=== PATIENT | female | born 1935 | race Caucasian/White ===

== ENCOUNTER → 2016-10-13 | Outpatient (CLI) | payer OTHER ==
[~2016-10-13] MED LIST: AMOX875T PO; ASCA500 PO; FRS/40 PO; GLC/500 PO; GLIM2TAB2 PO; LISI-461 PO; LORA-741 PO; MULT-190 PO; PRAM0.129 PO; SIMV20TA2 PO; SYMIN INH; TIOTCAP INH
--- NOTE | 2016-10-13 15:48 | MAMMOGRAPHY REPORT ---
BILATERAL DIGITAL SCREENING MAMMOGRAM WITH CAD: 10/13/2016 CLINICAL HISTORY: Routine screening. Patient has no complaints. TECHNIQUE: Current study was also evaluated with a Computer Aided Detection (CAD) system. Bilatera l CC and MLO views were obtained. COMPARISON: Comparison is made to exams dated: 04/09/2014 mammogram, 04/04/2012 mammogram, 04/07/2013 ma mmogram, 04/03/2011 mammogram, 03/31/2010 mammogram - [facility], and 03/30/2009. BREAST COMPOSITION: The tissue of both breasts is almost entirely fatty. FINDINGS: No suspicious masses, calcifications, or areas of architectural distortion are noted in e ither breast. There has been no significant interval change compared to prior exams. Scattered bila teral benign appearing calcifications are not significantly changed. Small benign appearing mass in the right subareolar breast is stable compared to multiple prior exams. IMPRESSION: ACR BI-RADS CATEGORY 2: BENIGN There is no mammographic evidence of malignancy. A 1 year screening mammogram is recommended. The p atient will receive written notification of the results. Approximately 10% of breast cancers are not detected with mammography. A negative mammographic repor t should not delay biopsy if a clinically suggestive mass is present. Chyna Hartman M.D. ah/:10/13/2016 14:40:08 Bill Checker: Shelby LAU(Mark)(M), [facility] letter sent: Normal 1/2 BI-RADS Code: ACR BI-RADS Category 2: Benign
== END | disposition home or self-care (01) ==
LOC: C.MAMM 14:00
PROVIDERS: ATTEND Internal Medicine
DX: Z12.31 Encounter for screening mammogram for malignant neoplasm of breast (principal)

== ENCOUNTER → 2016-11-27 | Outpatient (CLI) | payer OTHER ==
--- NOTE | 2016-11-27 15:49 | DIAGNOSTIC IMAGING REPORT ---
CHEST 2 VIEWS ROUTINE CLINICAL HISTORY: Shortness of breath. Congestion. COMPARISON STUDY: Chest radiograph February 25, 2014. FINDINGS: There is no pneumothorax or pleural effusion. Hazy opacity along the right and left heart borders likely reflect prominent epicardial fat pad. There is pulmonary vascular congestion without overt pulmonary edema. Linear opacities suggest atelectasis. No consolidation is identified to suggest pneumonia. IMPRESSION: 1. Pulmonary vascular congestion without overt pulmonary edema. 2. Linear opacities suggestive of atelectasis. Electronically signed by: Jose Maria Nolasco M.D. 11/27/2016 3:48 PM Dictated Date/Time: 11/27/2016 3:47 PM
== END | disposition home or self-care (01) ==
LOC: C.RAD 15:08
PROVIDERS: ATTEND Nurse Practitioner
DX: J44.1 Chronic obstructive pulmonary disease with (acute) exacerbation (principal)

== ENCOUNTER → 2017-03-07 | Outpatient (CLI) | payer OTHER ==
[2017-03-07 12:20] LABS: HEMATOCRIT 39.4 % (37-47); MEAN CORPUSCULAR HEMOGLOBIN 30.1 pg (25-34); MEAN CORPUSCULAR HGB CONC 30.7 g/dl (32-36); MEAN PLATELET VOLUME 11.7 fL (7.4-10.4); PLATELET COUNT 277 K/uL (130-400); RED BLOOD COUNT 4.02 M/uL (4.2-5.4); WHITE BLOOD COUNT 7.55 K/uL (4.8-10.8)
[2017-03-07 12:47] LABS: ESTIMATED AVERAGE GLUCOSE 206 mg/dl; HA1C FLAG Normal (Normal)
[2017-03-07 12:51] LABS: ALT/SGPT 22 U/L (12-78); BLOOD UREA NITROGEN 20 mg/dl (7-18); BUN/CREATININE RATIO 25.5 (10-20); CARBON DIOXIDE 31 mmol/L (21-32); CHLORIDE 101 mmol/L (98-107); GLUCOSE 185 mg/dl (70-99); POTASSIUM 4.6 mmol/L (3.5-5.1); SODIUM 139 mmol/L (136-145)
[2017-03-07 12:57] LABS: CALCIUM 9.6 mg/dl (8.5-10.1)
[2017-03-07 13:01] LABS: ALB/GLOB RATIO 0.8 (0.9-2); ALKALINE PHOSPHATASE 75 U/L (45-117); AST/SGOT 14 U/L (15-37)
== END | disposition home or self-care (01) ==
LOC: C.LABBFT 10:45
PROVIDERS: ATTEND Internal Medicine
DX: E11.9 Type 2 diabetes mellitus without complications (principal)

== ENCOUNTER 2017-05-27 20:48 | Emergency (ER) | payer OTHER ==
[~2017-05-27] VITALS: Ht 167.6 cm; Wt 136.4 kg
[~2017-05-27 20:48] MED LIST changes: -AMOX875T PO; -GLIM2TAB2 PO
[2017-05-27 21:14] VITALS: TEMP 36.7; Ht 167.6 cm; Wt 136.4 kg
[2017-05-27] MEDS ORDERED: SODIUM CHLORIDE 0.9% 1000ML 500 ML IV STA (21:23)
--- NOTE | 2017-05-27 21:27 | EMERGENCY ROOM VISIT NOTE ---
History Report prepared by Lucrecia: Jessenia Winn Under the Supervision of: Dr. Sam Hummel M.D. First contact with patient: 21:18 Chief Complaint: SWELLING TO EXTREMITY Stated Complaint: SORE/INFLAMED LOWER RT LEG History of Present Illness The patient is a 82 year old female who presents to the Emergency Room with complaints of worsening swelling to her right lower extremity for the past week. The patient states that she has chronic "problems" with her right leg, but over the past week this has worsened. She reports pain, swelling, and redness to the right lower leg. She states that it is painful to the touch and, "hurts even to lie down." She rates her current pain as a 6/10 in severity. The patient denies recent fevers or chills, and any personal history of cellulitis or DVTs. She does not take any blood thinners. She is not currently on any antibiotics. The patient has not seen her PCP for these symptoms. She wears 2L of O2 at all times. Source of History: patient Onset: 1 week ago Position: leg (right) Symptom Intensity: 6/10 Quality: other (swelling) Timing: worsening Associated Symptoms: No fevers, No chills Review of Systems See HPI for pertinent positives & negatives. A total of 10 systems reviewed and were otherwise negative. Past Medical & Surgical Medical Problems: (1) COPD (chronic obstructive pulmonary disease) (2) Hypertension (3) Morbid obesity with BMI of 50.0-59.9, adult Family History Depression Diabetes mellitus Social History Smoking Status: Never Smoker Drug Use: none Marital Status: Housing Status: lives with family Occupation Status: retired Current/Historical Medications Scheduled Amoxicillin & Pot Clavulanate (Augmentin 875-125 mg), 875 MG PO BID Ascorbic Acid (Vitamin C), 500 MG PO DAILY Budesonide/Formoterol Fumarate (Symbicort 160-4.5 Mcg/Act), 2 PUFFS INH BIDR Furosemide (Lasix), 40 MG PO QAM Glimepiride (Glimepiride), 1 TAB PO DAILY Lisinopril (Lisinopril), 10 MG PO QAM Metformin Hcl (Glucophage), 500 MG PO DAILY Ocuvite Preservision (Ocuvite Preservision), 2 TAB PO DAILY Pramipexole (Mirapex), 0.125 MG PO HS Simvastatin (Zocor), 20 MG PO QPM Scheduled PRN Lorazepam (Ativan), 0.5 MG PO DAILY PRN for Anxiety Allergies Coded Allergies: Iodine (Verified Allergy, Intermediate, SHORTNESS OF BREATH, 05/27/17) Physical Exam Vital Signs Date Time Temp Pulse Resp B/P (MAP) Pulse Ox O2 Delivery O2 Flow Rate FiO2 05/28/17 00:55 88 20 165/102 98 Room Air 05/27/17 22:47 87 20 165/89 100 Room Air 05/27/17 21:49 85 20 165/89 99 Room Air 05/27/17 21:14 36.7 92 18 166/105 100 Room Air Physical Exam GENERAL: Patient is in no acute distress. HEENT: No acute trauma, normocephalic atraumatic, mucous membranes moist, no nasal congestion, no scleral icterus. NECK: No stridor, no adenopathy, no meningismus, trachea is midline. LUNGS: Decreased breath sounds bilaterally, breath sounds are equal, no wheezing or rhonchi HEART: 2/6 systolic murmur with a regular rate and rhythm. ABDOMEN: Soft, nontender, bowel sounds positive, no hernias, no peritonitis. EXTREMITIES: No cyanosis, moderate bilateral pedal edema, full range of motion of all the joints without pain or difficulty, no signs for acute trauma. Right leg erythema and warmth from the midleg to the ankle, no drainage. NEUROLOGIC: Oriented x 3, no acute motor or sensory deficits, no focal weakness. SKIN: No rash, no jaundice, no diaphoresis. Medical Decision & Procedures ER Provider Diagnostic Interpretation: Radiology results as stated below per my review and radiologist interpretation: US VENOUS RIGHT LOWER EXTREMITY: No evidence of DVT in the right thigh or popliteal veins. Limited visualization of calf veins due to edema. Right popliteal fossa cyst, 6.4 x 2.0 x 2.2 cm. Radiologist: Brad Quintana MD. Laboratory Results 05/27/17 21:36 Red Blood Count 4.09, Mean Corpuscular Volume 96.1, Mean Corpuscular Hemoglobin 30.3, Mean Corpuscular Hemoglobin Concent 31.6, Mean Platelet Volume 10.9, Neutrophils (%) (Auto) 63.0, Lymphocytes (%) (Auto) 24.4, Monocytes (%) (Auto) 9.6, Eosinophils (%) (Auto) 2.4, Basophils (%) (Auto) 0.3, Neutrophils # (Auto) 6.64, Lymphocytes # (Auto) 2.57, Monocytes # (Auto) 1.01, Eosinophils # (Auto) 0.25, Basophils # (Auto) 0.03 05/27/17 21:36 Test 05/27/17 21:36 White Blood Count 10.53 K/uL (4.8-10.8) Red Blood Count 4.09 M/uL (4.2-5.4) Hemoglobin 12.4 g/dL (12.0-16.0) Hematocrit 39.3 % (37-47) Mean Corpuscular Volume 96.1 fL (80-100) Mean Corpuscular Hemoglobin 30.3 pg (25-34) Mean Corpuscular Hemoglobin Concent 31.6 g/dl (32-36) Platelet Count 310 K/uL (130-400) Mean Platelet Volume 10.9 fL (7.4-10.4) Neutrophils (%) (Auto) 63.0 % Lymphocytes (%) (Auto) 24.4 % Monocytes (%) (Auto) 9.6 % Eosinophils (%) (Auto) 2.4 % Basophils (%) (Auto) 0.3 % Neutrophils # (Auto) 6.64 K/uL (1.4-6.5) Lymphocytes # (Auto) 2.57 K/uL (1.2-3.4) Monocytes # (Auto) 1.01 K/uL (0.11-0.59) Eosinophils # (Auto) 0.25 K/uL (0-0.5) Basophils # (Auto) 0.03 K/uL (0-0.2) RDW Standard Deviation 48.0 fL (36.4-46.3) RDW Coefficient of Variation 13.6 % (11.5-14.5) Immature Granulocyte % (Auto) 0.3 % Immature Granulocyte # (Auto) 0.03 K/uL (0.00-0.02) Prothrombin Time 10.4 SECONDS (9.0-12.0) Prothromb Time International Ratio 1.0 (0.9-1.1) Activated Partial Thromboplast Time 28.0 SECONDS (21.0-31.0) Partial Thromboplastin Ratio 1.1 Anion Gap 3.0 mmol/L (3-11) Est Creatinine Clear Calc Drug Dose 79.8 ml/min Estimated GFR () 80.7 Estimated GFR (Non- 69.6 BUN/Creatinine Ratio 30.1 (10-20) Lactic Acid Level 1.0 mmol/L (0.4-2.0) Calcium Level 9.3 mg/dl (8.5-10.1) Total Bilirubin 0.2 mg/dl (0.2-1) Aspartate Amino Transf (AST/SGOT) 13 U/L (15-37) Alanine Aminotransferase (ALT/SGPT) 18 U/L (12-78) Alkaline Phosphatase 88 U/L (45-117) Total Protein 8.4 gm/dl (6.4-8.2) Albumin 3.4 gm/dl (3.4-5.0) Globulin 5.0 gm/dl (2.5-4.0) Albumin/Globulin Ratio 0.7 (0.9-2) Laboratory results reviewed by me. Medications Administered Medications (Trade) Dose Ordered Sig/Marisabel Route Start Time Stop Time Status Last Admin Dose Admin Sodium Chloride 500 ml @ 999 mls/hr Q31M STAT IV 05/27/17 21:23 05/27/17 21:53 DC 05/27/17 21:23 999 MLS/HR Ampicillin Sodium/ Sulbactam Sodium 3000 mg/Sodium Chloride 108 ml @ 200 mls/hr ONE ONCE IV 05/27/17 21:30 05/27/17 22:02 DC 05/27/17 21:46 200 MLS/HR Amoxicillin/ Clavulanate Potassium (Augmentin 875MG Home Pack) 1 homepack STK-MED ONCE PO 05/28/17 01:57 05/28/17 01:58 DC 05/28/17 02:00 1 HOMEPACK ED Course 2117: The patient was evaluated in room A3. A complete history and physical exam was performed. 2122: NSS 500 ml @ 999 mls/hr IV 2129: Ampicillin Sodium/Sulbactam Sodium 3000 mg/Sodium Chloride 108 ml @ 200 mls/hr IV 8: I reevaluated the patient and she is doing well. 0149: I reassessed the patient at this time. She is feeling better and resting comfortably. I discussed the results and treatment plan with the patient. I answered all pertaining questions that she had. She expressed understanding and verbalized agreement. The patient will be discharged home. 0900: Augmentin tab 875 mg PO Medical Decision Differential diagnoses includes cellulitis, DVT, sepsis, bacteremia, renal failure, electrolyte imbalance, dehydration. There is no leukocytosis or concerning anemia. No significant electrolyte abnormality, kidney failure or hepatitis. There is no coagulopathy. Lactic acid level is not elevated making sepsis less likely. Blood cultures are pending. Preliminary right lower extremity ultrasound shows a Castrejon's cyst, no acute DVT. The official ultrasound results are currently pending. The patient was given IV saline, IV Unasyn. She is doing well. She is not toxic, she is not febrile. She is being discharged home on Augmentin twice a day for 10 days. Elevation and rest were encouraged. She will see her doctor this week. If she has worsening redness, fever or vomiting, she will return. Of note, the patient's blood pressure was somewhat elevated, this is likely situational but I have referred her back to her doctor's office for a blood pressure follow-up. Medication Reconcilliation Current Medication List: was personally reviewed by me Blood Pressure Screening Patient's blood pressure: Elevated blood pressure Blood pressure disposition: Referred to PCP Impression Primary Impression: Cellulitis Scribe Attestation The scribe's documentation has been prepared under my direction and personally reviewed by me in its entirety. I confirm that the note above accurately reflects all work, treatment, procedures, and medical decision making performed by me. Departure Information Dispostion Home / Self-Care Prescriptions Amoxicillin & Pot Clavulanate (Augmentin 875-125 mg) 1 Tab Tab 875 MG PO BID for 10 Days, #20 TAB Prov: Sam Hummel M.D. 05/28/17 Referrals Balwinder Peace M.D. (PCP) Forms HOME CARE DOCUMENTATION FORM, IMPORTANT VISIT INFORMATION, WORK / SCHOOL INSTRUCTIONS Patient Instructions My [facility] Impact Driven Additional Instructions augmentin 2x per day for 10 days try and stay off of your feet and keept he leg elevated see your doctor this week--call for an appt return for fever, vomiting or worsening redness lab testing was ok no clot by ultrasound today Problem Qualifiers Primary Impression: Cellulitis Site of cellulitis: extremity Site of cellulitis of extremity: lower extremity Laterality: right Qualified Codes: L03.115 - Cellulitis of right lower limb
[2017-05-27] MEDS ORDERED: AMPICILLIN/SULBACTAM SOD INJ 3,000 MG in SODIUM CHLORIDE 0.9% 100ML 100 ML IV ONE (21:30)
[2017-05-27 21:57] LABS: BASO % 0.3 %; BASO ABS # 0.03 K/uL (0-0.2); COMPLETE YES; EOS % 2.4 %; HEMATOCRIT 39.3 % (37-47); IG% 0.3 %; LYMPH % 24.4 %; LYMPH ABS # 2.57 K/uL (1.2-3.4); MEAN CELL VOLUME 96.1 fL (80-100); MEAN CORPUSCULAR HEMOGLOBIN 30.3 pg (25-34); MEAN CORPUSCULAR HGB CONC 31.6 g/dl (32-36); MEAN PLATELET VOLUME 10.9 fL (7.4-10.4); MONO % 9.6 %; PLATELET COUNT 310 K/uL (130-400); RED BLOOD COUNT 4.09 M/uL (4.2-5.4); WHITE BLOOD COUNT 10.53 K/uL (4.8-10.8)
[2017-05-27 22:06] LABS: PARTIAL THROMBOPLASTIN RATIO 1.1; PROTHROMBIN TIME (PATIENT) 10.4 SECONDS (9.0-12.0)
[2017-05-27 22:17] LABS: BUN/CREATININE RATIO 30.1 (10-20); CALCIUM 9.3 mg/dl (8.5-10.1); CREATININE 0.8 mg/dl (0.60-1.20); POTASSIUM 3.9 mmol/L (3.5-5.1)
[2017-05-27 22:20] LABS: ALB/GLOB RATIO 0.7 (0.9-2)
[2017-05-27] MEDS ORDERED: GLIM2TAB2 PO (22:24)
[2017-05-28] MEDS ORDERED: AMOX875T PO (01:42)
[2017-05-28] MEDS ORDERED: AMOXICIL/CLAVU 875MG HOME PACK PO ONE (01:57)
[2017-05-28 02:08] VITALS: BP 188/94; PULSE 68; O2SAT 99
--- NOTE | 2017-05-28 07:09 | DIAGNOSTIC IMAGING REPORT ---
RIGHT LOWER EXTREMITY VENOUS DOPPLER CLINICAL HISTORY: Right lower extremity pain and swelling. COMPARISON STUDY: No previous studies for comparison. TECHNIQUE: Sonography of the deep venous system of the right lower extremity was performed. Compression and augmentation were evaluated. FINDINGS: The common femoral, superficial femoral and popliteal veins were compressible. Augmentation was normal. Flow was shown within the deep calf vessels. Note is made of a 6.4 x 2 x 2.2 cm right popliteal fluid collection suggestive of a popliteal cyst. IMPRESSION: 1. No evidence of deep venous thrombus within the right lower extremity. 2. 6.4 x 2 x 2.2 cm right popliteal cyst. Electronically signed by: Jose Maria Nolasco M.D. 05/28/2017 7:08 AM Dictated Date/Time: 05/28/2017 7:07 AM
[2017-05-28] MEDS ORDERED: AMOXICILLIN/CLAVULANATE TAB 875 MG TAB PO ONE (09:00)
== END 2017-05-28 02:09 | disposition home or self-care (01) ==
LOC: C.EDB 20:49 → C.EDA 05-28 02:09
DX: L03.115 Cellulitis of right lower limb (principal); J44.9 Chronic obstructive pulmonary disease, unspecified; I10 Essential (primary) hypertension; E66.01 Morbid (severe) obesity due to excess calories; Z83.3 Family history of diabetes mellitus

== ENCOUNTER → 2017-06-19 | Outpatient (CLI) | payer OTHER ==
[~2017-06-19] MED LIST changes: +GLIM2TAB2 PO; -TIOTCAP INH
--- NOTE | 2017-06-19 14:25 | DIAGNOSTIC IMAGING REPORT ---
RIGHT KNEE 4 OR MORE CLINICAL HISTORY: RIGHT KNEE PAIN Right COMPARISON STUDY: Right knee 11/28/2009. FINDINGS: 4 views of the right knee were submitted including an AP standing view of the bilateral knees. There is a left total knee arthroplasty. Severe osteoarthritis within the medial compartment of the right knee which has progressed. This demonstrates [id number] articulation, subchondral sclerosis, and large marginal osteophytes. There are small marginal osteophytes at the lateral compartment. There is mild to moderate osteoarthritis within the patellofemoral compartment demonstrated by cartilage space narrowing and marginal osteophytes. No significant knee effusion. No fracture or dislocation within the right knee. IMPRESSION: Tricompartmental osteoarthritis within the right knee which is most severe at the medial compartment. This demonstrates [id number] articulation. This has progressed in the interval. Electronically signed by: Keith Parker M.D. 06/19/2017 2:24 PM Dictated Date/Time: 06/19/2017 2:21 PM
== END | disposition home or self-care (01) ==
LOC: C.RDSM 14:01
PROVIDERS: ATTEND Internal Medicine
DX: M25.561 Pain in right knee (principal)

== ENCOUNTER → 2017-07-23 | Outpatient (CLI) | payer OTHER ==
[2017-07-23 17:44] LABS: HEMATOCRIT 39.4 % (37-47); MEAN CELL VOLUME 97.3 fL (80-100); MEAN CORPUSCULAR HEMOGLOBIN 30.4 pg (25-34); MEAN CORPUSCULAR HGB CONC 31.2 g/dl (32-36); MEAN PLATELET VOLUME 12.3 fL (7.4-10.4); PLATELET COUNT 304 K/uL (130-400); RED BLOOD COUNT 4.05 M/uL (4.2-5.4); WHITE BLOOD COUNT 9.35 K/uL (4.8-10.8)
[2017-07-23 18:01] LABS: ALT/SGPT 16 U/L (12-78); BLOOD UREA NITROGEN 21 mg/dl (7-18); BUN/CREATININE RATIO 26.7 (10-20); CARBON DIOXIDE 33 mmol/L (21-32); CHLORIDE 100 mmol/L (98-107); CHOLESTEROL 168 mg/dl (0-200); CREATININE 0.78 mg/dl (0.60-1.20); GLUCOSE 100 mg/dl (70-99); SODIUM 138 mmol/L (136-145); TRIGLYCERIDES 172 mg/dl (0-150); VERY LOW DENSITY LIPOPROT CALC 34 mg/dl
[2017-07-23 18:11] LABS: ALB/GLOB RATIO 0.7 (0.9-2); ALKALINE PHOSPHATASE 83 U/L (45-117); AST/SGOT 14 U/L (15-37); CHOLESTEROL/HDL RATIO 3.5; HDL CHOLESTEROL 48 mg/dl; LDL CHOLESTEROL CALCULATED 86 mg/dl
[2017-07-24 07:32] LABS: ESTIMATED AVERAGE GLUCOSE 154 mg/dl; HA1C FLAG Normal (Normal)
== END | disposition home or self-care (01) ==
LOC: C.LABBFT 15:29
PROVIDERS: ATTEND Internal Medicine
DX: E11.65 Type 2 diabetes mellitus with hyperglycemia (principal)

== ENCOUNTER 2017-11-07 17:43 | Inpatient (IN) | payer OTHER ==
[~2017-11-07] VITALS: Ht 165.1 cm; Wt 135.4 kg
[2017-11-07] MEDS ORDERED: ALBUTEROL 0.083% NEBU SOLN 3 ML VIAL INH STA (18:08)
[2017-11-07] MEDS ORDERED: METHYLPREDNISOLONE IV 40 MG in SYRINGE 0 ML IV SCH (18:15)
[2017-11-07 18:21] VITALS: PULSE 128; O2SAT 97
[2017-11-07 18:22] VITALS: PULSE 127; O2SAT 97
--- NOTE | 2017-11-07 18:34 | DIAGNOSTIC IMAGING REPORT ---
SINGLE VIEW CHEST CLINICAL HISTORY: Dyspnea. FINDINGS: An AP, portable, upright chest radiograph is compared to study dated 11/27/2016. The examination is degraded by portable technique, large body habitus, and patient rotation. The heart is enlarged and there is atherosclerotic calcification of the thoracic aorta. There is pulmonary vascular congestion and interstitial edema. There are small pleural effusions with bibasilar consolidation. No pneumothorax is seen. The skeletal structures are osteopenic. The bony thorax is grossly intact. IMPRESSION: 1. Cardiomegaly with evidence of congestive failure and interstitial edema. 2. There are small pleural effusions with bibasilar consolidation. This likely represents atelectasis. Correlate clinically for evidence of superimposed pneumonia. Electronically signed by: Sam Kyle M.D. 11/07/2017 6:33 PM Dictated Date/Time: 11/07/2017 6:32 PM
[2017-11-07] MEDS ORDERED: NITROGLYCERIN OINT 2% 1GM PACKET EXT ONE (18:45)
[2017-11-07 19:01] LABS: BASO % 0.2 %; BASO ABS # 0.03 K/uL (0-0.2); EOS % 1.7 %; EOS ABS # 0.23 K/uL (0-0.5); HEMATOCRIT 41.1 % (37-47); HEMOGLOBIN 12.7 g/dL (12.0-16.0); IG# 0.03 K/uL (0.00-0.02); LYMPH % 14.9 %; MEAN CELL VOLUME 97.2 fL (80-100); MEAN CORPUSCULAR HGB CONC 30.9 g/dl (32-36); MEAN PLATELET VOLUME 11.3 fL (7.4-10.4); MONO % 6.2 %; MONO ABS # 0.83 K/uL (0.11-0.59); NEUT % 76.8 %; NEUT ABS # 10.33 K/uL (1.4-6.5); PLATELET COUNT 287 K/uL (130-400); RED CELL DISTRIBUTION WIDTH CV 14.5 % (11.5-14.5); RED CELL DISTRIBUTION WIDTH SD 51.8 fL (36.4-46.3); WHITE BLOOD COUNT 13.45 K/uL (4.8-10.8)
[2017-11-07] MEDS ORDERED: CITA10TA4 PO ×2 (19:07→20:21)
[2017-11-07] MEDS ORDERED: FRS/40 PO (19:07)
[2017-11-07 19:09] LABS: PTT PATIENT 27.1 SECONDS (21.0-31.0)
[2017-11-07] MEDS ORDERED: LISI10TA PO (19:16)
[2017-11-07] MEDS ORDERED: ALBUAER INH (19:16)
[2017-11-07] MEDS ORDERED: IPRASOL4 INH (19:16)
[2017-11-07] MEDS ORDERED: SYMIN160 INH (19:16)
[2017-11-07] MEDS ORDERED: GLIM2TAB2 PO (19:16)
[2017-11-07 19:27] LABS: ALBUMIN 3.3 gm/dl (3.4-5.0); ALT/SGPT 19 U/L (12-78); BLOOD UREA NITROGEN 23 mg/dl (7-18); CALCIUM 9.2 mg/dl (8.5-10.1); CARBON DIOXIDE 28 mmol/L (21-32); CREATININE 0.83 mg/dl (0.60-1.20); GLUCOSE 180 mg/dl (70-99); POTASSIUM 4.3 mmol/L (3.5-5.1); SODIUM 138 mmol/L (136-145)
[2017-11-07] MEDS ORDERED: FUROSEMIDE 40 MG/4 ML VIAL IV STA (19:30)
[2017-11-07 19:32] LABS: ALKALINE PHOSPHATASE 85 U/L (45-117); AST/SGOT 16 U/L (15-37); TOTAL PROTEIN 8.1 gm/dl (6.4-8.2)
[2017-11-07] MEDS ORDERED: ALBUTEROL 0.083% NEBU SOLN 3 ML VIAL INH PRN (20:00)
[2017-11-07] MEDS ORDERED: ONDANSETRON INJ 2 MG/ML 2 ML VIAL IV PRN (20:00)
[2017-11-07] MEDS ORDERED: MoRPHine SULFATE 2 MG/ML CARP IV PRN (20:00)
[2017-11-07] MEDS ORDERED: ACETAMINOPHEN 325 MG TAB PO PRN (20:00)
[2017-11-07] MEDS ORDERED: POLYETHYLENE (MIRALAX) 17 GM PACK PO PRN (20:00)
[2017-11-07] MEDS ORDERED: MAGNESIUM HYDROXIDE SUSP 30 ML UDC PO PRN (20:00)
[2017-11-07] MEDS ORDERED: ALUMINUM/MAGNESIUM/SIMETH (MAALOX MAX) 30 ML UDC PO PRN (20:00)
[2017-11-07] MEDS ORDERED: NITROGLYCERIN 0.4 MG SL PER TAB CHARGE SL PRN (20:00)
--- NOTE | 2017-11-07 20:29 | History and Physical ---
History & Physical Date & Time of Service: Nov 07, 2017 at 19:57 Chief Complaint: SOB Primary Care Physician: Balwinder Peace M.D. History of Present Illness Source: patient, hospital records 82 y/o F Hx COPD, DM II, morbid obesity, CELIA, HTN, HPL. Pt presents with progressive dyspnea, pronounced with exertion in addition to weight gain of approximately 20 pounds in 2 weeks. She denies CP, a productive cough, n/v or fevers. Initial labs and imaging are consistent with CHF. The pt does not have a previous history of CHF and does not see a carder blankets. Past Medical/Surgical History 1) COPD 2) CELIA - noncompliant with CPAP 3) Morbid obesity 4) HPL 5) HTN 6) DM II 7) Rate-related LBBB Family History Depression Diabetes mellitus Mother COPD Father COPD, lung CA Social History Smoking Status: Never Smoker Drug Use: none Marital Status: Occupational Status: retired Immunizations History of Influenza Vaccine: N/A History of Tetanus Vaccine?: Yes Tetanus Immunization Date: May 16, 2000 History of Pneumococcal: Yes Pneumococcal Date: May 16, 2000 History of Hepatitis B Vaccine: No Multi-Drug Resistant Organisms History of MDRO: No Allergies Coded Allergies: Iodine (Verified Allergy, Intermediate, SHORTNESS OF BREATH, 05/27/17) Home Medications Scheduled Ascorbic Acid (Vitamin C), 500 MG PO DAILY Budesonide/Formoterol Fumarate (Symbicort 160/4.5 Inhaler), 2 PUFFS INH BID Citalopram Hydrobromide (Citalopram Hydrobromide), 1 TAB PO DAILY Furosemide (Lasix), 40 MG PO DAILY Glimepiride (Glimepiride), 1 TAB PO QAM Ipratropium-Albuterol (Duoneb), 1 TREATMENT INH QID Lisinopril (Prinivil), 10 MG PO DAILY Ocuvite Preservision (Ocuvite Preservision), 2 TAB PO DAILY Pramipexole (Mirapex), 0.125 MG PO HS Simvastatin (Zocor), 20 MG PO QPM Scheduled PRN Albuterol Sulfate (Proventil Hfa), 2 PUFFS INH QID PRN for SOB/Wheezing Lorazepam (Ativan), 0.5 MG PO DAILY PRN for Anxiety Review of Systems Constitutional: + problem reported (weight gain), No fever, No chills, No sweats Eyes: No worsening of vision ENT: No hearing loss, No unusual epistaxis, No nasal symptoms Respiratory: + cough, + sputum, + shortness of breath, + dyspnea on exertion, + dyspnea at rest Cardiovascular: + orthopnea, No chest pain Abdomen: No pain, No nausea, No vomiting Musculoskeletal: No joint pain Genitourinary - Female: No dysuria, No urinary frequency, No urinary urgency Neurologic: No memory loss, No paralysis, No weakness Psychiatric: No depression symptoms Endocrine: No fatigue Hematologic / Lymphatic: No abnormal bleeding/bruising Integumentary: No rash Allergic / Immunologic: No environmental allergies Physical Exam Vital Signs Date Time Temp Pulse Resp B/P (MAP) Pulse Ox O2 Delivery O2 Flow Rate FiO2 11/07/17 19:19 99 19 145/78 100 BiPAP 11/07/17 18:32 60 11/07/17 18:23 97 BiPAP 11/07/17 18:23 97 BiPAP 11/07/17 18:22 127 97 100 11/07/17 18:21 128 29 97 BiPAP/CPAP 100 11/07/17 18:06 128 11/07/17 17:57 37.1 137 36 147/128 97 Non-Rebreather 15.0 11/07/17 17:57 97 Non-Rebreather 15.0 General Appearance: WD/WN, no apparent distress Head: normocephalic Eyes: normal inspection ENT: normal ENT inspection, pharynx normal Neck: supple, + pertinent finding (cannot assess JVD) Respiratory/Chest: + crackles (at bases BL), + pertinent finding (generally poor air movement) Cardiovascular: regular rate, rhythm Abdomen/GI: normal bowel sounds, non tender, soft Back: normal inspection, no CVA tenderness Extremities/Musculoskelatal: + pedal edema, + pertinent finding (stasis changes ) 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, no motor/sensory deficits, alert Skin: + pertinent finding (Stasis changes of LEs - shallow ulcer with exudate on RLE ) Diagnostics Laboratory Results Results Past 24 Hours Test 11/07/17 18:41 11/07/17 18:58 Range/Units White Blood Count 13.45 4.8-10.8 K/uL Red Blood Count 4.23 4.2-5.4 M/uL Hemoglobin 12.7 12.0-16.0 g/dL Hematocrit 41.1 37-47 % Mean Corpuscular Volume 97.2 80-100 fL Mean Corpuscular Hemoglobin 30.0 25-34 pg Mean Corpuscular Hemoglobin Concent 30.9 32-36 g/dl Platelet Count 287 130-400 K/uL Mean Platelet Volume 11.3 7.4-10.4 fL Neutrophils (%) (Auto) 76.8 % Lymphocytes (%) (Auto) 14.9 % Monocytes (%) (Auto) 6.2 % Eosinophils (%) (Auto) 1.7 % Basophils (%) (Auto) 0.2 % Neutrophils # (Auto) 10.33 1.4-6.5 K/uL Lymphocytes # (Auto) 2.00 1.2-3.4 K/uL Monocytes # (Auto) 0.83 0.11-0.59 K/uL Eosinophils # (Auto) 0.23 0-0.5 K/uL Basophils # (Auto) 0.03 0-0.2 K/uL RDW Standard Deviation 51.8 36.4-46.3 fL RDW Coefficient of Variation 14.5 11.5-14.5 % Immature Granulocyte % (Auto) 0.2 % Immature Granulocyte # (Auto) 0.03 0.00-0.02 K/uL Prothrombin Time 10.1 9.0-12.0 SECONDS Prothromb Time International Ratio 1.0 0.9-1.1 Activated Partial Thromboplast Time 27.1 21.0-31.0 SECONDS Partial Thromboplastin Ratio 1.0 Sodium Level 138 136-145 mmol/L Potassium Level 4.3 3.5-5.1 mmol/L Chloride Level 102 98-107 mmol/L Carbon Dioxide Level 28 21-32 mmol/L Anion Gap 8.0 3-11 mmol/L Blood Urea Nitrogen 23 7-18 mg/dl Creatinine 0.83 0.60-1.20 mg/dl Est Creatinine Clear Calc Drug Dose 78.3 ml/min Estimated GFR () 77.2 Estimated GFR (Non- 66.6 BUN/Creatinine Ratio 27.9 10-20 Random Glucose 180 70-99 mg/dl Calcium Level 9.2 8.5-10.1 mg/dl Total Bilirubin 0.3 0.2-1 mg/dl Aspartate Amino Transf (AST/SGOT) 16 15-37 U/L Alanine Aminotransferase (ALT/SGPT) 19 12-78 U/L Alkaline Phosphatase 85 45-117 U/L Troponin I < 0.015 0-0.045 ng/ml Pro-B-Type Natriuretic Peptide 670 0-1800 pg/ml Total Protein 8.1 6.4-8.2 gm/dl Albumin 3.3 3.4-5.0 gm/dl Globulin 4.8 2.5-4.0 gm/dl Albumin/Globulin Ratio 0.7 0.9-2 Venous Blood pH 7.28 7.36-7.41 Venous Blood Partial Pressure CO2 66 38.0-50.0 mmHg Venous Blood Partial Pressure O2 46 mmHg Venous Blood HCO3 30 mmol/L Venous Blood Oxygen Saturation 76.4 % Venous Blood Base Excess 1.5 mEq/L Diagnostic Radiology CXR: Pulmonary vascular congestion, BL small effusions EKG Sinus tach, LBBB - LBBB appears to be rate related as it is present on previous EKGs when the pt is tachycardic Impression Assessment and Plan 82 y/o F Hx COPD, DM II, morbid obesity, CELIA, HTN, HPL. Pt presents with progressive dyspnea, pronounced with exertion in addition to weight gain of approximately 20 pounds in 2 weeks. She denies CP, a productive cough, n/v or fevers. Initial labs and imaging are consistent with CHF. The pt does not have a previous history of CHF and does not see a carder blankets. 1) CHF - apparently new-onset - pt will be diuresed - I/O, daily weights requested. NTG applied. Echo and cardio consult requested. We will start a B clint as she is tachycardic. The pt is on BIPAP at the time of admission which we will gradually transition to NC as possible. 2) COPD - may be contributing to SOB - she will remain on her prescribed inhalers and nebs as needed - we would elect to hold off on steroids unless there is no clinical improvement with diuresis. 3) DM II - placed on a SS 4) HTN - cont Lisinopril 5) CELIA - states she cannot comply with CPAP - home 02 HS may be helpful 6) Morbidly obese - would greatly benefit from weight loss which can be addressed prior to DC 7) LE ulcers - mild cellulitic changes - will consult wound care - can likely be treated topically at present 8) LBBB on EKG - a echo is pending - this apears to be rate-related and is apparent on an EKG from 2013 Full code - Heparin prophylaxis Total time for this admit including review of labs, meds, imaging, records - discussion with pt and ER attending - 40 min Level of Care Telemetry Resuscitation Status FULL RESUSCITATION VTE Prophylaxis VTE Risk Assessment Done? Y/N: Yes Risk Level: Moderate Given or contraindicated: Unfractionated heparin SQ
[2017-11-07] MEDS ORDERED: GLUCAGON FOR INJ 1 MG VIAL SQ PRN (20:30)
[2017-11-07] MEDS ORDERED: GLUCOSE 40% GEL 15 GM TUBE PO PRN (20:30)
[2017-11-07] MEDS ORDERED: DEXTROSE 50% 50 ML SYR IV PRN (20:30)
[2017-11-07] MEDS ORDERED: GLUCOSE 10 TABS/TUBE PO PRN (20:30)
[2017-11-07] MEDS: ALBUT/IPRATROP 3MG/0.5MG NEB 3 ML VIAL INH SCH (21:00)
[2017-11-07 21:15] VITALS: PULSE 123; O2SAT 98
[2017-11-07 21:41] VITALS: BP 147/88; PULSE 114; TEMP 37.2; O2SAT 97; Ht 165.1 cm; Wt 135.4 kg
[2017-11-07] MEDS: METOPROLOL TARTRATE 25 MG TAB PO SCH (22:02)
[2017-11-07] MEDS: POTASSIUM CHLORIDE 20 MEQ TABCR PO SCH (22:02)
[2017-11-07] MEDS: BUDESONIDE/FORMOTEROL FUMARATE 160/4.5 60 PUFFS/INHALER INH SCH (22:02)
[2017-11-07] MEDS: SIMVASTATIN 20 MG TAB PO SCH (22:03)
[2017-11-07] MEDS: PRAMIPEXOLE DIHYDROCHLORIDE 0.25MG TAB PO SCH (22:03)
[2017-11-07] MEDS: HEPARIN SOD 5000 UNIT/0.5 ML CARP SQ SCH (22:08)
[2017-11-07] MEDS: INSULIN ASPART 100 UNITS/ML 3 ML PEN SC SCH (22:08)
[2017-11-07 23:10] VITALS: BP 129/67; PULSE 85; TEMP 37.5; O2SAT 97
--- NOTE | 2017-11-07 23:14 | EMERGENCY ROOM VISIT NOTE ---
History Report prepared by Lucrecia: Jessenia Winn Under the Supervision of: Dr. Deshawn Jacobs D.O. First contact with patient: 18:00 Chief Complaint: SHORTNESS OF BREATH Stated Complaint: SOB History of Present Illness The patient is a 82 year old female who presents to the Emergency Room with complaints of worsening shortness of breath for the past 2 weeks. She states that her symptoms have gotten especially bad over the past 5 days. She is on 2L of NC/O2 at all times. She reports an 18lb weight gain over the past two weeks. She notes some swelling to her legs. Today she became severely short of breath with just walking to the bathroom. She reports feeling better when sitting up. Pt has a history of CKD, diastolic heart failure, and COPD. She takes Lasix. She saw her PCP today and he sent her to the ED for further evaluation. Pt denies headache, change in vision, fevers, chest pain, nausea, vomiting, diarrhea, pain with urination, and melena. Source of History: patient Onset: 2 weeks ago Position: chest (respiratory) Quality: other (shortness of breath) Timing: worsening Modifying Factors (Worsening): exertion Modifying Factors (Relieving): other (sitting up) Associated Symptoms: No fevers, No headache, No chest pain, No nausea, No vomiting, No melena, No diarrhea, No urinary symptoms Note: Pt notes 18lb weight gain and swelling to legs. Review of Systems See HPI for pertinent positives & negatives. A total of 10 systems reviewed and were otherwise negative. Past Medical & Surgical Medical Problems: (1) Acute CHF (2) COPD (chronic obstructive pulmonary disease) (3) Hypertension (4) Morbid obesity with BMI of 50.0-59.9, adult Family History Depression Diabetes mellitus Social History Smoking Status: Never Smoker Drug Use: none Marital Status: Housing Status: lives with family Occupation Status: retired Current/Historical Medications Scheduled Ascorbic Acid (Vitamin C), 500 MG PO DAILY Budesonide/Formoterol Fumarate (Symbicort 160/4.5 Inhaler), 2 PUFFS INH BID Citalopram Hydrobromide (Citalopram Hydrobromide), 10 MG PO DAILY Furosemide (Lasix), 40 MG PO DAILY Glimepiride (Glimepiride), 1 TAB PO QAM Ipratropium-Albuterol (Duoneb), 1 TREATMENT INH QID Lisinopril (Prinivil), 10 MG PO DAILY Ocuvite Preservision (Ocuvite Preservision), 2 TAB PO DAILY Pramipexole (Mirapex), 0.125 MG PO HS Simvastatin (Zocor), 20 MG PO QPM Scheduled PRN Albuterol Sulfate (Proventil Hfa), 2 PUFFS INH QID PRN for SOB/Wheezing Lorazepam (Ativan), 0.5 MG PO DAILY PRN for Anxiety Allergies Coded Allergies: Iodine (Verified Allergy, Intermediate, SHORTNESS OF BREATH, 05/27/17) Physical Exam Vital Signs Date Time Temp Pulse Resp B/P (MAP) Pulse Ox O2 Delivery O2 Flow Rate FiO2 11/07/17 19:19 99 19 145/78 100 BiPAP 11/07/17 18:32 60 11/07/17 18:23 97 BiPAP 11/07/17 18:23 97 BiPAP 11/07/17 18:22 127 97 100 11/07/17 18:21 128 29 97 BiPAP/CPAP 100 11/07/17 18:06 128 11/07/17 17:57 37.1 137 36 147/128 97 Non-Rebreather 15.0 11/07/17 17:57 97 Non-Rebreather 15.0 Physical Exam GENERAL: Sitting on edge of bed, alert, on non-rebreather, dyspneic with conversation, morbidly obese, severe distress EYE EXAM: normal conjunctiva. OROPHARYNX: no exudate, no erythema, lips, buccal mucosa, and tongue normal and mucous membranes are moist NECK: supple, no nuchal rigidity, no adenopathy, non-tender, unable to appreciate JVD LUNGS: Rhonchi bilateral bases. Normal chest wall mechanics HEART: Tachycardic, no murmurs, S1 normal and S2 normal ABDOMEN: abdomen soft, non-tender, normo-active bowel sounds, no masses, no rebound or guarding. BACK: Back is symmetrical on inspection and there is no deformity, no midline tenderness, no CVA tenderness. SKIN: no rashes and no bruising UPPER EXTREMITIES: upper extremities are grossly normal. LOWER EXTREMITIES: Pitting edema bilaterally. NEURO EXAM: Normal sensorium, cranial nerves II-XII grossly intact, normal speech, no gross weakness of arms, no gross weakness of legs. Medical Decision & Procedures ER Provider Diagnostic Interpretation: Radiology results as stated below per my review and the radiologist's interpretation: SINGLE VIEW CHEST CLINICAL HISTORY: Dyspnea. FINDINGS: An AP, portable, upright chest radiograph is compared to study dated 11/27/2016. The examination is degraded by portable technique, large body habitus, and patient rotation. The heart is enlarged and there is atherosclerotic calcification of the thoracic aorta. There is pulmonary vascular congestion and interstitial edema. There are small pleural effusions with bibasilar consolidation. No pneumothorax is seen. The skeletal structures are osteopenic. The bony thorax is grossly intact. IMPRESSION: 1. Cardiomegaly with evidence of congestive failure and interstitial edema. 2. There are small pleural effusions with bibasilar consolidation. This likely represents atelectasis. Correlate clinically for evidence of superimposed pneumonia. Electronically signed by: Sam Kyle M.D. 11/07/2017 6:33 PM Dictated Date/Time: 11/07/2017 6:32 PM Laboratory Results 11/07/17 18:41 Red Blood Count 4.23, Mean Corpuscular Volume 97.2, Mean Corpuscular Hemoglobin 30.0, Mean Corpuscular Hemoglobin Concent 30.9, Mean Platelet Volume 11.3, Neutrophils (%) (Auto) 76.8, Lymphocytes (%) (Auto) 14.9, Monocytes (%) (Auto) 6.2, Eosinophils (%) (Auto) 1.7, Basophils (%) (Auto) 0.2, Neutrophils # (Auto) 10.33, Lymphocytes # (Auto) 2.00, Monocytes # (Auto) 0.83, Eosinophils # (Auto) 0.23, Basophils # (Auto) 0.03 11/07/17 18:41 Test 11/07/17 18:41 11/07/17 18:58 White Blood Count 13.45 K/uL (4.8-10.8) Red Blood Count 4.23 M/uL (4.2-5.4) Hemoglobin 12.7 g/dL (12.0-16.0) Hematocrit 41.1 % (37-47) Mean Corpuscular Volume 97.2 fL (80-100) Mean Corpuscular Hemoglobin 30.0 pg (25-34) Mean Corpuscular Hemoglobin Concent 30.9 g/dl (32-36) Platelet Count 287 K/uL (130-400) Mean Platelet Volume 11.3 fL (7.4-10.4) Neutrophils (%) (Auto) 76.8 % Lymphocytes (%) (Auto) 14.9 % Monocytes (%) (Auto) 6.2 % Eosinophils (%) (Auto) 1.7 % Basophils (%) (Auto) 0.2 % Neutrophils # (Auto) 10.33 K/uL (1.4-6.5) Lymphocytes # (Auto) 2.00 K/uL (1.2-3.4) Monocytes # (Auto) 0.83 K/uL (0.11-0.59) Eosinophils # (Auto) 0.23 K/uL (0-0.5) Basophils # (Auto) 0.03 K/uL (0-0.2) RDW Standard Deviation 51.8 fL (36.4-46.3) RDW Coefficient of Variation 14.5 % (11.5-14.5) Immature Granulocyte % (Auto) 0.2 % Immature Granulocyte # (Auto) 0.03 K/uL (0.00-0.02) Prothrombin Time 10.1 SECONDS (9.0-12.0) Prothromb Time International Ratio 1.0 (0.9-1.1) Activated Partial Thromboplast Time 27.1 SECONDS (21.0-31.0) Partial Thromboplastin Ratio 1.0 Anion Gap 8.0 mmol/L (3-11) Est Creatinine Clear Calc Drug Dose 78.3 ml/min Estimated GFR () 77.2 Estimated GFR (Non- 66.6 BUN/Creatinine Ratio 27.9 (10-20) Calcium Level 9.2 mg/dl (8.5-10.1) Total Bilirubin 0.3 mg/dl (0.2-1) Aspartate Amino Transf (AST/SGOT) 16 U/L (15-37) Alanine Aminotransferase (ALT/SGPT) 19 U/L (12-78) Alkaline Phosphatase 85 U/L (45-117) Troponin I < 0.015 ng/ml (0-0.045) Pro-B-Type Natriuretic Peptide 670 pg/ml (0-1800) Total Protein 8.1 gm/dl (6.4-8.2) Albumin 3.3 gm/dl (3.4-5.0) Globulin 4.8 gm/dl (2.5-4.0) Albumin/Globulin Ratio 0.7 (0.9-2) Venous Blood pH 7.28 (7.36-7.41) Venous Blood Partial Pressure CO2 66 mmHg (38.0-50.0) Venous Blood Partial Pressure O2 46 mmHg Venous Blood HCO3 30 mmol/L Venous Blood Oxygen Saturation 76.4 % Venous Blood Base Excess 1.5 mEq/L Laboratory results per my review. Medications Administered Medications (Trade) Dose Ordered Sig/Marisabel Route Start Time Stop Time Status Last Admin Dose Admin Albuterol Sulfate (Ventolin 0.083% 2.5MG/3ML Neb) 5 mg NOW STAT INH 11/07/17 18:08 11/07/17 18:10 DC 11/07/17 18:20 5 MG Methylprednisolone Sodium Succinate 40 mg/Syringe 0.64 ml @ 1.5 mls/min ONE IV 11/07/17 18:15 11/07/17 21:14 DC 11/07/17 19:18 1.5 MLS/MIN Nitroglycerin (Nitroglycerin 2% Oint) 2 inch NOW ONCE EXT 11/07/17 18:45 11/07/17 18:46 DC 11/07/17 19:18 2 INCH Furosemide (Lasix Inj) 40 mg NOW STAT IV 11/07/17 19:30 11/07/17 19:31 DC 11/07/17 19:45 40 MG ECG Indication: SOB/dyspnea Rate (beats per minute): 114 Rhythm: sinus tachycardia Findings: LBBB, left axis deviation Comparison ECG Date: 02/25/14 Change: LBBB is new compared to previous. Patient's electrocardiogram interpreted by me. ED Course ED COURSE: Vital signs were reviewed and showed hypertensive, tachycardic, hypoxic. The patients medical record was reviewed The above diagnostic studies were performed and reviewed. ED treatments and interventions as stated above. 1800: The patient was evaluated in room C9. A complete history and physical examination was performed. 180: Respiratory was called and the patient was placed on BiPAP. 1808: Albuterol sulfate 5 mg INH 1814: Methylprednisolone Sodium Succinate 40 mg IV 5: Nitroglycerin 2 inch EXT 1922: Upon reevaluation, the patient is feeling better. I discussed my findings with the patient and she understands and agrees with the treatment plan. Based on the patients age, coexisting illnesses, exam and lab findings the decision to treat as an inpatient was made. The patient remained stable while under my care. The patient will be evaluated for further management. 1926: I spoke with Dr. Loo. We discussed the patient's case. The patient will be evaluated by the [facility] for further management. 1930: Lasix 40 mg IV Medical Decision Differential diagnoses includes but is not limited to pneumonia, bronchitis, COPD/Asthma exacerbation, pneumothorax, pulmonary embolism, congestive heart failure, acute coronary syndrome. Patient is an 82-year-old female who presents to ER via EMS for severe shortness of breath. She is on nonrebreather sitting on the edge bed extremity dyspneic. Lungs with rhonchi and pitting edema in lower extremities along with an 18 pound weight gain. Chest is a history of COPD along with her CHF. She had minimal air movement initially was given 2 neb treatments with minimal improvement. She was placed on BiPAP immediately. Heart rate trended down from the 130s to 100. She was significant more comfortable following this. CBC all BMP, LFTs, bilirubin and troponin were negative. ABG showed a CO2 of 66 and a pH of 7.28. Chest x-ray status supports CHF with pleural effusions. Patient was placed on Nitropaste admits internal medicine with CHF exacerbation. Medication Reconcilliation Current Medication List: was personally reviewed by me Blood Pressure Screening Patient's blood pressure: Elevated blood pressure Blood pressure disposition: Referred to PCP Consults Time Called: 1923 Consulting Physician: Dr. Loo Returned Call: [address] Loo. We discussed the patient's case. The patient will be evaluated by the [facility] for further management. Impression Primary Impression: Congestive heart failure Additional Impression: Respiratory failure Critical Care I have personally spent 35 minutes of critical care time in the direct management of this patient. This includes bedside care, interpretation of diagnostic studies, and testing, discussion with consultants, patient, and family members, and other required patient management activities. This 35 minutes is in excess of all separately billable procedures. Scribe Attestation The scribe's documentation has been prepared under my direction and personally reviewed by me in its entirety. I confirm that the note above accurately reflects all work, treatment, procedures, and medical decision making performed by me. Departure Information Dispostion Being Evaluated By Hospitalist Referrals Balwinder Peace M.D. (PCP) Patient Instructions My [facility] Problem Qualifiers Primary Impression: Congestive heart failure Congestive heart failure type: unspecified Congestive heart failure chronicity: unspecified Qualified Codes: I50.9 - Heart failure, unspecified Additional Impression: Respiratory failure Chronicity: acute Respiratory failure complication: hypoxia and hypercapnia Qualified Codes: J96.01 - Acute respiratory failure with hypoxia; J96.02 - Acute respiratory failure with hypercapnia
[2017-11-08] VITALS (15 sets, daily range): BP systolic 112–143; BP diastolic 65–79; PULSE 60–83; TEMP 36.5–36.8; O2SAT 93–99
[2017-11-08] MEDS: NITROGLYCERIN 2% OINTMENT 30GM TUBE EXT SCH ×4 (02:06→20:09)
[2017-11-08] MEDS: ALBUT/IPRATROP 3MG/0.5MG NEB 3 ML VIAL INH SCH ×4 (02:40→21:23)
[2017-11-08] MEDS: HEPARIN SOD 5000 UNIT/0.5 ML CARP SQ SCH ×3 (04:52→21:07)
[2017-11-08] MEDS: FUROSEMIDE INJ 40 MG in SYRINGE 0 ML IV SCH ×3 (04:53→20:09)
[2017-11-08 06:13] LABS: HEMATOCRIT 38.4 % (37-47); HEMOGLOBIN 12.1 g/dL (12.0-16.0); MEAN CELL VOLUME 96.5 fL (80-100); MEAN CORPUSCULAR HEMOGLOBIN 30.4 pg (25-34); MEAN CORPUSCULAR HGB CONC 31.5 g/dl (32-36); MEAN PLATELET VOLUME 11.5 fL (7.4-10.4); PLATELET COUNT 273 K/uL (130-400); RED CELL DISTRIBUTION WIDTH CV 14.4 % (11.5-14.5); WHITE BLOOD COUNT 9.91 K/uL (4.8-10.8)
[2017-11-08 06:46] LABS: CREATININE 0.93 mg/dl (0.60-1.20); POTASSIUM 4.2 mmol/L (3.5-5.1)
[2017-11-08] MEDS: BUDESONIDE/FORMOTEROL FUMARATE 160/4.5 60 PUFFS/INHALER INH SCH ×2 (08:24→20:09)
[2017-11-08] MEDS: CITALOPRAM 20 MG TAB PO SCH (08:25)
[2017-11-08] MEDS: CEROVITE ADV FORMULA TAB PO SCH (08:25)
[2017-11-08] MEDS: METOPROLOL TARTRATE 25 MG TAB PO SCH ×3 (08:26→20:16)
[2017-11-08] MEDS: ASPIRIN 81 MG ECTAB PO SCH (08:26)
[2017-11-08] MEDS: LISINOPRIL 10 MG TAB PO SCH (08:26)
[2017-11-08] MEDS: POTASSIUM CHLORIDE 20 MEQ TABCR PO SCH ×2 (08:27→20:15)
[2017-11-08] MEDS: INSULIN ASPART 100 UNITS/ML 3 ML PEN SC SCH ×4 (08:34→21:06)
--- NOTE | 2017-11-08 11:21 | Hospitalist Progress Note ---
Hospitalist Progress Note Date of Service Nov 08, 2017. Subjective Pt evaluation today including: conversation w/ patient, physical exam, chart review, lab review, review of inpatient medication list Voiding: no voiding problems Ms. Rawls is feeling better but is not at her baseline yet. She is still requiring 4L NC. She continues to be sob, no cough. She does have an ulceration of her right allen that developed after a blister that she attributes to fluid retention. It has been there for a couple of weeks and does not seem to be healing. ROS Constitutional: no chills, aches, sweats or fever Respiratory:see HPI Cardiac: no chest pain, palpitations, edema, orthopnea or lightheadedness GI: no abdominal pain, nausea, vomiting, diarrhea or constipation : no dysuria or hesitancy Extremities: no joint pain or weakness Skin: no rash All other systems reviewed and negative Medications Medications Administered Medications (Trade) Dose Ordered Sig/Marisabel Route Start Time Stop Time Status Last Admin Dose Admin Albuterol Sulfate (Ventolin 0.083% 2.5MG/3ML Neb) 5 mg NOW STAT INH 11/07/17 18:08 11/07/17 18:10 DC 11/07/17 18:20 5 MG Methylprednisolone Sodium Succinate 40 mg/Syringe 0.64 ml @ 1.5 mls/min ONE IV 11/07/17 18:15 11/07/17 21:14 DC 11/07/17 19:18 1.5 MLS/MIN Nitroglycerin (Nitroglycerin 2% Oint) 2 inch NOW ONCE EXT 11/07/17 18:45 11/07/17 18:46 DC 11/07/17 19:18 2 INCH Furosemide (Lasix Inj) 40 mg NOW STAT IV 11/07/17 19:30 11/07/17 19:31 DC 11/07/17 19:45 40 MG Budesonide/ Formoterol Fumarate (Symbicort 160/ 4.5 Inh) 2 puffs BID INH 11/07/17 21:00 12/07/17 20:59 11/08/17 08:24 2 PUFFS Lisinopril (Zestril Tab) 10 mg DAILY PO 11/08/17 09:00 12/08/17 08:59 11/08/17 08:26 10 MG Multivitamins/ Minerals (Multivitamin W/ Minerals Tab) 2 tab DAILY PO 11/08/17 09:00 12/08/17 08:59 11/08/17 08:25 2 TAB Pramipexole Dihydrochloride (miraPEX TAB) 0.125 mg HS PO 11/07/17 21:00 12/07/17 20:59 11/07/17 22:03 0.125 MG Simvastatin (Zocor Tab) 20 mg QPM PO 11/07/17 21:00 12/07/17 20:59 11/07/17 22:03 20 MG Citalopram Hydrobromide (celeXA TAB) 10 mg DAILY PO 11/08/17 09:00 12/08/17 08:59 11/08/17 08:25 10 MG Furosemide 40 mg/ Syringe 4 ml @ 4 mls/min Q8H IV 11/08/17 04:00 12/08/17 03:59 11/08/17 04:53 4 MLS/MIN Potassium Chloride (Klor-Con Tab) 20 meq BID PO 11/07/17 21:00 12/07/17 20:59 11/08/17 08:27 20 MEQ Heparin Sodium (Porcine) (Heparin Sq 5000 Unit/0.5ml) 5,000 unit Q8 SQ 11/07/17 22:00 12/07/17 21:59 11/08/17 04:52 5,000 UNIT Nitroglycerin (Nitroglycerin 2% Oint) 1 inch Q6H EXT 11/08/17 02:00 12/08/17 01:59 11/08/17 08:29 1 INCH Aspirin (Ecotrin Tab) 81 mg QAM PO 11/08/17 09:00 12/08/17 08:59 11/08/17 08:26 81 MG Albuterol/ Ipratropium (Duoneb) 3 ml Q6R INH 11/07/17 21:00 12/07/17 20:59 11/08/17 07:01 3 ML Insulin Aspart (novoLOG ASPART) SLIDING SCALE G... ACHS SC 11/07/17 21:00 12/07/17 20:59 11/08/17 08:34 1 UNITS Metoprolol Tartrate (Lopressor Tab) 12.5 mg TID PO 11/07/17 21:00 12/07/17 20:59 11/08/17 08:26 12.5 MG Objective Vital Signs Date Time Temp Pulse Resp B/P (MAP) Pulse Ox O2 Delivery O2 Flow Rate FiO2 11/08/17 08:02 96 Nasal Cannula 11/08/17 08:02 Nasal Cannula 4.0 11/08/17 07:32 36.7 62 20 115/73 (87) 98 BiPAP 11/08/17 07:02 83 20 98 BiPAP/CPAP 40 11/08/17 04:00 BiPAP 40 11/08/17 03:25 36.5 73 20 122/72 (89) 99 BiPAP 11/08/17 02:41 69 98 40 11/08/17 02:40 69 19 98 BiPAP/CPAP 40 11/08/17 00:00 BiPAP 40 11/08/17 00:00 96 BiPAP 11/07/17 23:10 37.5 85 20 129/67 (87) 97 BiPAP 11/07/17 21:41 37.2 114 20 147/88 97 BiPAP 40 11/07/17 21:15 123 98 40 11/07/17 20:37 99 19 145/78 100 11/07/17 19:19 99 19 145/78 100 BiPAP 11/07/17 18:32 60 11/07/17 18:23 97 BiPAP 11/07/17 18:23 97 BiPAP 11/07/17 18:22 127 97 100 11/07/17 18:21 128 29 97 BiPAP/CPAP 100 11/07/17 18:06 128 11/07/17 17:57 37.1 137 36 147/128 97 Non-Rebreather 15.0 11/07/17 17:57 97 Non-Rebreather 15.0 Physical Exam Notes: General: no distress Eyes: normal inspection, PERLL Respiratory: chest non tender, clear to auscultation, normal breath sounds, no respiratory distress, no accessory muscle use Cardiac: regular rate and rhythm, no rub or gallop, no murmur, trace pitting edema in lower extremities GI/: active bowel sounds, no abd pain or tenderness, soft, non distended Extremities: normal range of motion, normal strength, non tender Neuro/Psych: alert and oriented x 3, normal mood and affect Skin: normal color, dry, dime sized ulceration right allen with scant serous drainage Laboratory Results Last 24 Hours Test 11/07/17 18:41 11/07/17 18:58 11/07/17 21:10 11/07/17 21:38 White Blood Count 13.45 K/uL Red Blood Count 4.23 M/uL Hemoglobin 12.7 g/dL Hematocrit 41.1 % Mean Corpuscular Volume 97.2 fL Mean Corpuscular Hemoglobin 30.0 pg Mean Corpuscular Hemoglobin Concent 30.9 g/dl Platelet Count 287 K/uL Mean Platelet Volume 11.3 fL Neutrophils (%) (Auto) 76.8 % Lymphocytes (%) (Auto) 14.9 % Monocytes (%) (Auto) 6.2 % Eosinophils (%) (Auto) 1.7 % Basophils (%) (Auto) 0.2 % Neutrophils # (Auto) 10.33 K/uL Lymphocytes # (Auto) 2.00 K/uL Monocytes # (Auto) 0.83 K/uL Eosinophils # (Auto) 0.23 K/uL Basophils # (Auto) 0.03 K/uL RDW Standard Deviation 51.8 fL RDW Coefficient of Variation 14.5 % Immature Granulocyte % (Auto) 0.2 % Immature Granulocyte # (Auto) 0.03 K/uL Prothrombin Time 10.1 SECONDS Prothromb Time International Ratio 1.0 Activated Partial Thromboplast Time 27.1 SECONDS Partial Thromboplastin Ratio 1.0 Sodium Level 138 mmol/L Potassium Level 4.3 mmol/L Chloride Level 102 mmol/L Carbon Dioxide Level 28 mmol/L Anion Gap 8.0 mmol/L Blood Urea Nitrogen 23 mg/dl Creatinine 0.83 mg/dl Est Creatinine Clear Calc Drug Dose 78.3 ml/min Estimated GFR () 77.2 Estimated GFR (Non- 66.6 BUN/Creatinine Ratio 27.9 Random Glucose 180 mg/dl Calcium Level 9.2 mg/dl Total Bilirubin 0.3 mg/dl Aspartate Amino Transf (AST/SGOT) 16 U/L Alanine Aminotransferase (ALT/SGPT) 19 U/L Alkaline Phosphatase 85 U/L Troponin I < 0.015 ng/ml Pro-B-Type Natriuretic Peptide 670 pg/ml Total Protein 8.1 gm/dl Albumin 3.3 gm/dl Globulin 4.8 gm/dl Albumin/Globulin Ratio 0.7 Venous Blood pH 7.28 Venous Blood Partial Pressure CO2 66 mmHg Venous Blood Partial Pressure O2 46 mmHg Venous Blood HCO3 30 mmol/L Venous Blood Oxygen Saturation 76.4 % Venous Blood Base Excess 1.5 mEq/L Urine Color YELLOW Urine Appearance CLEAR Urine pH 5.0 Urine Specific [place] 1.013 Urine Protein NEG Urine Glucose (UA) NEG Urine Ketones NEG Urine Occult Blood NEG Urine Nitrite NEG Urine Bilirubin NEG Urine Urobilinogen NEG Urine Leukocyte Esterase TRACE Urine WBC (Auto) 1-5 /hpf Urine RBC (Auto) 0-4 /hpf Urine Hyaline Casts (Auto) 1-5 /lpf Urine Epithelial Cells (Auto) 5-10 /lpf Urine Bacteria (Auto) NEG Bedside Glucose 220 mg/dl Test 11/08/17 05:47 11/08/17 07:22 White Blood Count 9.91 K/uL Red Blood Count 3.98 M/uL Hemoglobin 12.1 g/dL Hematocrit 38.4 % Mean Corpuscular Volume 96.5 fL Mean Corpuscular Hemoglobin 30.4 pg Mean Corpuscular Hemoglobin Concent 31.5 g/dl RDW Standard Deviation 51.0 fL RDW Coefficient of Variation 14.4 % Platelet Count 273 K/uL Mean Platelet Volume 11.5 fL Sodium Level 137 mmol/L Potassium Level 4.2 mmol/L Chloride Level 101 mmol/L Carbon Dioxide Level 31 mmol/L Anion Gap 5.0 mmol/L Blood Urea Nitrogen 25 mg/dl Creatinine 0.93 mg/dl Est Creatinine Clear Calc Drug Dose 122.6 ml/min Estimated GFR () 67.3 Estimated GFR (Non- 58.0 BUN/Creatinine Ratio 27.3 Random Glucose 213 mg/dl Calcium Level 9.0 mg/dl Magnesium Level 2.2 mg/dl Bedside Glucose 198 mg/dl Assessment and Plan Ms. Rawls is an 82 year old woman here for acute CHF. CHF with acute on chronic hypoxic respiratory failure - apparently new-onset - continue diuresis with 40 mg IV lasix q8h - has put out over 2L at this point - monitor renal function - continue I/O, daily weights - continue nitro paste - Echo pending - Cards consulted - Continue B clint as she was tachycardic on admission - continue to titrate oxygen - baseline is 2L COPD - no wheezing to auscultation - continue home inhalers DM II - placed on a SS HTN - cont Lisinopril CELIA - states she cannot comply with CPAP Morbidly obese - consult dietitian LE ulcers - mild cellulitic changes - will consult wound care - culture surface drainage LBBB on EKG - a echo is pending - this apears to be rate-related and is apparent on an EKG from 2013 Full code - Heparin prophylaxis
--- NOTE | 2017-11-08 12:08 | Clinical Documentation Query ---
CLINICAL DOCUMENTATION QUERY QUERY 1 OF 2 A 82 year old female who presents to the Emergency Room with complaints of worsening shortness of breath for the past 2 weeks. Outside [facility] lists acute and chronic diastolic CHF on patient's problem list. In your clinical opinion is this patient being managed for: (x ) Acute on chronic diastolic CHF ( ) Not Agree ( ) Other explanation of clinical findings (Please Explain) ( ) Unable to determine (Please Define) ( ) Need to Discuss The medical record reflects the following clinical findings, treatment, and risk factors. Clinical Indicators: CXR = cardiomegaly w/CHF and interstitial edema, SOB with exertion, weight gain, lower extremity edema Treatment: O2 4L, IV Lasix, I&O Risk Factors: Age, CHF, HTN, CKD QUERY 2 OF 2 In your clinical opinion is this patient being managed for: ( x ) Chronic kidney disease, stage 3 , ( ) Not Agree ( ) Other explanation of clinical findings (Please Explain) ( ) Unable to determine (Please Define) ( ) Need to Discuss The medical record reflects the following clinical findings, treatment, and risk factors. Clinical Indicators: GFR 58, normal baseline creatinine, documented on patient's past problem list Treatment: I&O, serial PRPs Risk Factors: Age, HTN, CHF Please clarify and document your clinical opinion in the progress notes and discharge summary. Terms such as "probable", "suspected", "likely", "questionable", "possible", or "still to be ruled out" are acceptable. IF IN AGREEMENT, YOU MUST DOCUMENT ABOVE DIAGNOSTIC STATEMENT IN DAILY PROGRESS NOTES AND DISCHARGE SUMMARY. This document is not part of the patient's record. Thank You, Rosina Canales RN [phone]
--- NOTE | 2017-11-08 14:44 | Cardiology Consultation ---
Cardiology Consultation Date of Consultation: Nov 08, 2017. Requesting Physician: Dr. Loo Reason for Consultation: CHF Pt evaluation today including: conversation w/ patient, physical exam, lab review, review of studies, review of inpatient medication list, conversation w/ attending History of Present Illness This is an 82-year-old woman with a history of obesity diabetes mellitus, hyperlipidemia and COPD (although never smoked). She presented to the emergency room on 11/07/2017 with progressive shortness of breath, weight gain and edema. She does not have a prior known cardiac history. She is on oxygen at home, and always has dyspnea on exertion but noted that it has been worse over the last several months. It was progressive but much worse over the last for 5 days to the point where she was having extreme difficulty with any type of exertion. She always has edema, it is not clear whether it is worse at this time. She does not have any cardiovascular symptoms otherwise, she denies chest discomfort , palpitations or lightheadedness or dizziness. She was therefore admitted. Initial evaluation showed normal cardiac enzymes but a left bundle branch block pattern which appears rate related (her heart rate was much faster than on her last electrocardiogram, in 2013 she had similar findings). She feels much better today than she did yesterday but does not tolerate BiPAP. Past Medical/Surgical History (1) COPD (chronic obstructive pulmonary disease) (2) Morbid obesity with BMI of 50.0-59.9, adult (3) Hypertension Family History Depression Diabetes mellitus Social History Smoking Status: Never Smoker History of Alcohol Use: No Review of Systems Constitutional: No fever, No weight loss, No weakness Respiratory: + see HPI, + shortness of breath, + dyspnea on exertion Cardiac: No chest pain, No edema, No palpitations Abdomen: No pain, No nausea, No vomiting, No diarrhea, No GI bleeding Female : No problem reported Neurologic: No paralysis, No weakness, No numbness/tingling, No balance problems Heme: No abnormal bleeding/bruising, No clotting problems Endo: No fatigue Skin: No problem reported All Other Systems: Reviewed and Negative Allergies Coded Allergies: Iodine (Verified Allergy, Intermediate, SHORTNESS OF BREATH, 05/27/17) Medications Current Inpatient Medications Medications (Trade) Dose Ordered Sig/Marisabel Route Start Time Stop Time Status Last Admin Dose Admin Budesonide/ Formoterol Fumarate (Symbicort 160/ 4.5 Inh) 2 puffs BID INH 11/07/17 21:00 12/07/17 20:59 11/08/17 08:24 2 PUFFS Lisinopril (Zestril Tab) 10 mg DAILY PO 11/08/17 09:00 12/08/17 08:59 11/08/17 08:26 10 MG Lorazepam (Ativan Tab) 0.5 mg DAILY PRN PO 11/07/17 19:45 12/07/17 19:44 Multivitamins/ Minerals (Multivitamin W/ Minerals Tab) 2 tab DAILY PO 11/08/17 09:00 12/08/17 08:59 11/08/17 08:25 2 TAB Pramipexole Dihydrochloride (miraPEX TAB) 0.125 mg HS PO 11/07/17 21:00 12/07/17 20:59 11/07/17 22:03 0.125 MG Simvastatin (Zocor Tab) 20 mg QPM PO 11/07/17 21:00 12/07/17 20:59 11/07/17 22:03 20 MG Citalopram Hydrobromide (celeXA TAB) 10 mg DAILY PO 11/08/17 09:00 12/08/17 08:59 11/08/17 08:25 10 MG Furosemide 40 mg/ Syringe 4 ml @ 4 mls/min Q8H IV 11/08/17 04:00 12/08/17 03:59 11/08/17 13:22 4 MLS/MIN Potassium Chloride (Klor-Con Tab) 20 meq BID PO 11/07/17 21:00 12/07/17 20:59 11/08/17 08:27 20 MEQ Heparin Sodium (Porcine) (Heparin Sq 5000 Unit/0.5ml) 5,000 unit Q8 SQ 11/07/17 22:00 12/07/17 21:59 11/08/17 13:23 5,000 UNIT Acetaminophen (Tylenol Tab) 650 mg Q4H PRN PO 11/07/17 20:00 12/07/17 19:59 Al Hydrox/Mg Hydrox/Simethicone (Maalox Max Susp) 15 ml Q4H PRN PO 11/07/17 20:00 12/07/17 19:59 Magnesium Hydroxide (Milk Of Magnesia Susp) 30 ml Q12H PRN PO 11/07/17 20:00 12/07/17 19:59 Ondansetron HCl (Zofran Inj) 4 mg Q6H PRN IV 11/07/17 20:00 12/07/17 19:59 Nitroglycerin (Nitrostat Tab) 0.4 mg UD PRN SL 11/07/17 20:00 12/07/17 19:59 Nitroglycerin (Nitroglycerin 2% Oint) 1 inch Q6H EXT 11/08/17 02:00 12/08/17 01:59 11/08/17 13:22 1 INCH Morphine Sulfate (MoRPHine SULFATE INJ) 2 mg Q30M PRN IV 11/07/17 20:00 11/21/17 19:59 Aspirin (Ecotrin Tab) 81 mg QAM PO 11/08/17 09:00 12/08/17 08:59 11/08/17 08:26 81 MG Polyethylene (Miralax Powder Packet) 17 gm DAILY PRN PO 11/07/17 20:00 12/07/17 19:59 Albuterol/ Ipratropium (Duoneb) 3 ml Q6R INH 11/07/17 21:00 12/07/17 20:59 11/08/17 07:01 3 ML Albuterol Sulfate (Ventolin 0.083% 2.5MG/3ML Neb) 2.5 mg Q4R PRN INH 11/07/17 20:00 12/07/17 19:59 Insulin Aspart (novoLOG ASPART) SLIDING SCALE G... ACHS SC 11/07/17 21:00 12/07/17 20:59 11/08/17 08:34 1 UNITS Glucose (Glucose 40% Gel) 15-30 GRAMS 15 GRAMS... UD PRN PO 11/07/17 20:30 12/07/17 20:29 Glucose (Glucose Chew Tab) 4-8 Tablets 4 Tabl... UD PRN PO 11/07/17 20:30 12/07/17 20:29 Dextrose (Dextrose 50% 50ML Syringe) 25-50ML OF 50% DW IV FOR... UD PRN IV 11/07/17 20:30 12/07/17 20:29 Glucagon (Glucagon Inj) 1 mg UD PRN SQ 11/07/17 20:30 12/07/17 20:29 Metoprolol Tartrate (Lopressor Tab) 12.5 mg TID PO 11/07/17 21:00 12/07/17 20:59 11/08/17 13:23 12.5 MG Physical Exam Vital Signs Past 12 Hours Date Time Temp Pulse Resp B/P (MAP) Pulse Ox O2 Delivery O2 Flow Rate FiO2 11/08/17 12:00 Nasal Cannula 4.0 11/08/17 11:45 36.7 60 18 129/79 (96) 93 3.5 11/08/17 08:02 96 Nasal Cannula 11/08/17 08:02 Nasal Cannula 4.0 11/08/17 07:32 36.7 62 20 115/73 (87) 98 BiPAP 11/08/17 07:02 83 20 98 BiPAP/CPAP 40 11/08/17 04:00 BiPAP 40 11/08/17 03:25 36.5 73 20 122/72 (89) 99 BiPAP 11/08/17 02:41 69 98 40 11/08/17 02:40 69 19 98 BiPAP/CPAP 40 Constitutional: General Apperance: obese Level of Distress: mild distress Psychiatric: Mental Status: active & alert Head: normocephalic Eyes: EOM: EOMI ENMT: normal ENT inspection, hearing grossly normal Neck: supple, no masses Lungs: Respiratory effort: no dyspnea, good air movement Auscultation: no wheezing, rales/crackles on the left, rales/crackles on the right Cardiovascular: Heart Auscultation: RRR, no murmurs, no rubs, no gallops Peripheral Pulses: Bruits: none appreciated Abdomen: Bowel Sounds: normal Inspection & Palpation: soft, no tenderness, guarding & rebound, no masses Musculoskeletal: normal strength (5/5 throughout) Extremities: edema (+3 bilateral), pertinent finding (signs of chronic venous stasis) Neurologic: Cranial Nerves: grossly intact Sensation: grossly intact Data Laboratory Results: Last 24 Hours Test 11/07/17 18:41 11/07/17 18:58 11/07/17 21:10 11/07/17 21:38 White Blood Count 13.45 K/uL Red Blood Count 4.23 M/uL Hemoglobin 12.7 g/dL Hematocrit 41.1 % Mean Corpuscular Volume 97.2 fL Mean Corpuscular Hemoglobin 30.0 pg Mean Corpuscular Hemoglobin Concent 30.9 g/dl Platelet Count 287 K/uL Mean Platelet Volume 11.3 fL Neutrophils (%) (Auto) 76.8 % Lymphocytes (%) (Auto) 14.9 % Monocytes (%) (Auto) 6.2 % Eosinophils (%) (Auto) 1.7 % Basophils (%) (Auto) 0.2 % Neutrophils # (Auto) 10.33 K/uL Lymphocytes # (Auto) 2.00 K/uL Monocytes # (Auto) 0.83 K/uL Eosinophils # (Auto) 0.23 K/uL Basophils # (Auto) 0.03 K/uL RDW Standard Deviation 51.8 fL RDW Coefficient of Variation 14.5 % Immature Granulocyte % (Auto) 0.2 % Immature Granulocyte # (Auto) 0.03 K/uL Prothrombin Time 10.1 SECONDS Prothromb Time International Ratio 1.0 Activated Partial Thromboplast Time 27.1 SECONDS Partial Thromboplastin Ratio 1.0 Sodium Level 138 mmol/L Potassium Level 4.3 mmol/L Chloride Level 102 mmol/L Carbon Dioxide Level 28 mmol/L Anion Gap 8.0 mmol/L Blood Urea Nitrogen 23 mg/dl Creatinine 0.83 mg/dl Est Creatinine Clear Calc Drug Dose 78.3 ml/min Estimated GFR () 77.2 Estimated GFR (Non- 66.6 BUN/Creatinine Ratio 27.9 Random Glucose 180 mg/dl Calcium Level 9.2 mg/dl Total Bilirubin 0.3 mg/dl Aspartate Amino Transf (AST/SGOT) 16 U/L Alanine Aminotransferase (ALT/SGPT) 19 U/L Alkaline Phosphatase 85 U/L Troponin I < 0.015 ng/ml Pro-B-Type Natriuretic Peptide 670 pg/ml Total Protein 8.1 gm/dl Albumin 3.3 gm/dl Globulin 4.8 gm/dl Albumin/Globulin Ratio 0.7 Venous Blood pH 7.28 Venous Blood Partial Pressure CO2 66 mmHg Venous Blood Partial Pressure O2 46 mmHg Venous Blood HCO3 30 mmol/L Venous Blood Oxygen Saturation 76.4 % Venous Blood Base Excess 1.5 mEq/L Urine Color YELLOW Urine Appearance CLEAR Urine pH 5.0 Urine Specific [place] 1.013 Urine Protein NEG Urine Glucose (UA) NEG Urine Ketones NEG Urine Occult Blood NEG Urine Nitrite NEG Urine Bilirubin NEG Urine Urobilinogen NEG Urine Leukocyte Esterase TRACE Urine WBC (Auto) 1-5 /hpf Urine RBC (Auto) 0-4 /hpf Urine Hyaline Casts (Auto) 1-5 /lpf Urine Epithelial Cells (Auto) 5-10 /lpf Urine Bacteria (Auto) NEG Bedside Glucose 220 mg/dl Test 11/08/17 05:47 11/08/17 07:22 11/08/17 11:33 White Blood Count 9.91 K/uL Red Blood Count 3.98 M/uL Hemoglobin 12.1 g/dL Hematocrit 38.4 % Mean Corpuscular Volume 96.5 fL Mean Corpuscular Hemoglobin 30.4 pg Mean Corpuscular Hemoglobin Concent 31.5 g/dl RDW Standard Deviation 51.0 fL RDW Coefficient of Variation 14.4 % Platelet Count 273 K/uL Mean Platelet Volume 11.5 fL Sodium Level 137 mmol/L Potassium Level 4.2 mmol/L Chloride Level 101 mmol/L Carbon Dioxide Level 31 mmol/L Anion Gap 5.0 mmol/L Blood Urea Nitrogen 25 mg/dl Creatinine 0.93 mg/dl Est Creatinine Clear Calc Drug Dose 122.6 ml/min Estimated GFR () 67.3 Estimated GFR (Non- 58.0 BUN/Creatinine Ratio 27.3 Random Glucose 213 mg/dl Calcium Level 9.0 mg/dl Magnesium Level 2.2 mg/dl Bedside Glucose 198 mg/dl 112 mg/dl Imaging: Chest x-ray suggests congestive heart failure EKG: On arrival sinus tachycardia with left bundle branch block. Telemetry reviewed: Sinus tachycardia in sinus rhythm, no significant arrhythmia Assessment & Plan #1. Shortness of breath: This is probably a combination of her long-standing COPD for which she wears oxygen as well as probable relatively acute congestive heart failure. #2. Congestive heart failure: This may be simply on the basis of excessive fluid intake with poor diuresis, she feels she may have been using too much salt as well, or she may have developed some sort of left ventricular dysfunction. We will need an echocardiogram to evaluate her heart function. In the meantime I agree with diuresis, she feels better today and seems to be diuresing well on her current regimen. #3. Left bundle-branch block: She has appeared to have a rate related left bundle branch block in the past, I'm going to repeat her electrocardiogram now that her rate is slower to make sure that her left bundle branch block has resolved. Other than making sure she has not developed a cardiomyopathy related to the left bundle-branch block I would not pursue any specific treatment. Thank you for allowing me to participate in her care.
[2017-11-08] MEDS ORDERED: CEPHALEXIN MONOHYDRATE 500 MG CAP PO ONE (17:00)
[2017-11-08] MEDS: CEPHALEXIN MONOHYDRATE 500 MG CAP PO SCH (20:14)
[2017-11-08] MEDS: SIMVASTATIN 20 MG TAB PO SCH (20:15)
[2017-11-08] MEDS: PRAMIPEXOLE DIHYDROCHLORIDE 0.25MG TAB PO SCH (20:17)
[2017-11-08] MEDS: LORAZEPAM 0.5 MG TAB PO PRN (22:36)
[2017-11-09] VITALS (14 sets, daily range): BP systolic 117–158; BP diastolic 61–82; PULSE 73–88; TEMP 36.4–36.7; O2SAT 92–98
[2017-11-09] MEDS: NITROGLYCERIN 2% OINTMENT 30GM TUBE EXT SCH ×4 (02:00→19:27)
[2017-11-09] MEDS: ALBUT/IPRATROP 3MG/0.5MG NEB 3 ML VIAL INH SCH ×4 (02:15→20:15)
[2017-11-09] MEDS: FUROSEMIDE INJ 40 MG in SYRINGE 0 ML IV SCH ×3 (04:48→19:44)
[2017-11-09] MEDS: HEPARIN SOD 5000 UNIT/0.5 ML CARP SQ SCH ×3 (04:49→22:00)
[2017-11-09 06:14] LABS: HEMATOCRIT 36.8 % (37-47); HEMOGLOBIN 11.6 g/dL (12.0-16.0); MEAN CELL VOLUME 95.6 fL (80-100); MEAN CORPUSCULAR HEMOGLOBIN 30.1 pg (25-34); MEAN CORPUSCULAR HGB CONC 31.5 g/dl (32-36); MEAN PLATELET VOLUME 11.9 fL (7.4-10.4); PLATELET COUNT 261 K/uL (130-400); RED CELL DISTRIBUTION WIDTH CV 14.4 % (11.5-14.5); RED CELL DISTRIBUTION WIDTH SD 50.4 fL (36.4-46.3); WHITE BLOOD COUNT 10.81 K/uL (4.8-10.8)
[2017-11-09 06:53] LABS: CALCIUM 8.9 mg/dl (8.5-10.1); CREATININE 0.93 mg/dl (0.60-1.20); POTASSIUM 3.8 mmol/L (3.5-5.1)
[2017-11-09] MEDS: BUDESONIDE/FORMOTEROL FUMARATE 160/4.5 60 PUFFS/INHALER INH SCH ×2 (08:12→20:18)
[2017-11-09] MEDS: METOPROLOL TARTRATE 25 MG TAB PO SCH ×3 (08:13→20:24)
[2017-11-09] MEDS: CEPHALEXIN MONOHYDRATE 500 MG CAP PO SCH ×4 (08:14→20:20)
[2017-11-09] MEDS: CEROVITE ADV FORMULA TAB PO SCH (08:14)
[2017-11-09] MEDS: POTASSIUM CHLORIDE 20 MEQ TABCR PO SCH ×2 (08:14→20:19)
[2017-11-09] MEDS: CITALOPRAM 20 MG TAB PO SCH (08:15)
[2017-11-09] MEDS: ASPIRIN 81 MG ECTAB PO SCH (08:15)
[2017-11-09] MEDS: LISINOPRIL 10 MG TAB PO SCH (08:15)
[2017-11-09] MEDS: INSULIN ASPART 100 UNITS/ML 3 ML PEN SC SCH ×4 (08:20→20:29)
--- NOTE | 2017-11-09 09:24 | Cardiology Follow-Up ---
Subjective Date of Service: Nov 09, 2017. Pt evaluation today including: conversation w/ patient, physical exam, lab review, review of inpatient medication list History of Present Illness This is an 82-year-old woman with a history of obesity diabetes mellitus, hyperlipidemia and COPD (although never smoked). She presented to the emergency room on 11/07/2017 with progressive shortness of breath, weight gain and edema. She does not have a prior known cardiac history. She is on oxygen at home, and always has dyspnea on exertion but noted that it has been worse over the last several months. It was progressive but much worse over the last for 5 days to the point where she was having extreme difficulty with any type of exertion. She always has edema, it is not clear whether it is worse at this time. She does not have any cardiovascular symptoms otherwise, she denies chest discomfort , palpitations or lightheadedness or dizziness. She was therefore admitted. Initial evaluation showed normal cardiac enzymes but a left bundle branch block pattern which appears rate related (her heart rate was much faster than on her last electrocardiogram, in 2013 she had similar findings). She feels much better now with diuresis, she is no longer short of breath and reports that her legs feel like to have less edema. Social History Smoking Status: Never Smoker History of Alcohol Use: No Review of Systems Respiratory: + see HPI, + shortness of breath, + dyspnea on exertion Cardiac: + edema, No chest pain, No palpitations Medications Cardiovascular: Item Value Date Time Lisinopril 10 mg 11/08/17 0900 (Zestril Tab) DAILY/PO 11/09/17 0815 Aspirin 81 mg 11/08/17 0900 (Ecotrin Tab) QAM/PO 11/09/17 0815 Furosemide 40 mg/ 4 ml @ 4 mls/min 11/08/17 0400 Syringe Q8H/IV 11/09/17 0448 Simvastatin 20 mg 11/07/17 2100 (Zocor Tab) QPM/PO 11/08/172014 Potassium Chloride 20 meq 11/07/17 2100 (Klor-Con Tab) BID/PO 11/09/17 0814 Metoprolol 12.5 mg 11/07/17 2100 Tartrate TID/PO 11/09/17 0813 (Lopressor Tab) Objective Vital Signs Past 12 Hours Date Time Temp Pulse Resp B/P (MAP) Pulse Ox O2 Delivery O2 Flow Rate FiO2 11/09/17 07:39 36.5 78 18 148/73 (98) 95 11/09/17 07:14 73 18 95 Nasal Cannula 2.0 11/09/17 04:40 36.4 82 18 133/77 (95) 95 Nasal Cannula 2.0 11/09/17 04:00 Nasal Cannula 2.0 11/09/17 02:15 80 18 97 Nasal Cannula 2.0 11/09/17 00:00 Nasal Cannula 2.0 11/08/17 23:07 36.6 76 20 112/65 (81) 98 Nasal Cannula 2.0 Last Recorded Weight-Kilograms: 141.000 Physical Exam Constitutional: General Apperance: obese Level of Distress: mild distress Lungs: Respiratory effort: no dyspnea, good air movement Auscultation: no wheezing, rales/crackles on the left, rales/crackles on the right Cardiovascular: Heart Auscultation: RRR, no murmurs, no rubs, no gallops Peripheral Pulses: Bruits: none appreciated Extremities: edema (+3 bilateral, possibly less tense), pertinent finding ( signs of chronic venous stasis) Data Laboratory Results: Last 24 Hours Test 11/08/17 11:33 11/08/17 16:16 11/08/17 20:35 11/09/17 05:23 Bedside Glucose 112 mg/dl 134 mg/dl 215 mg/dl White Blood Count 10.81 K/uL Red Blood Count 3.85 M/uL Hemoglobin 11.6 g/dL Hematocrit 36.8 % Mean Corpuscular Volume 95.6 fL Mean Corpuscular Hemoglobin 30.1 pg Mean Corpuscular Hemoglobin Concent 31.5 g/dl RDW Standard Deviation 50.4 fL RDW Coefficient of Variation 14.4 % Platelet Count 261 K/uL Mean Platelet Volume 11.9 fL Sodium Level 136 mmol/L Potassium Level 3.8 mmol/L Chloride Level 98 mmol/L Carbon Dioxide Level 33 mmol/L Anion Gap 5.0 mmol/L Blood Urea Nitrogen 30 mg/dl Creatinine 0.93 mg/dl Est Creatinine Clear Calc Drug Dose 69.0 ml/min Estimated GFR () 67.3 Estimated GFR (Non- 58.0 BUN/Creatinine Ratio 32.0 Random Glucose 210 mg/dl Calcium Level 8.9 mg/dl Magnesium Level 2.0 mg/dl Pro-B-Type Natriuretic Peptide 821 pg/ml Test 11/09/17 07:28 Bedside Glucose 180 mg/dl Telemetry reviewed: Sinus rhythm, occasional rate related left bundle branch block at higher heart rates Assessment and Plan #1. Shortness of breath: This is probably a combination of her long-standing COPD for which she wears oxygen as well as probable relatively acute congestive heart failure. Her symptoms have improved significantly with diuresis and oxygen. #2. Congestive heart failure: This may be simply on the basis of excessive fluid intake with poor diuresis, she feels she may have been using too much salt as well, or she may have developed some sort of left ventricular dysfunction. We will need an echocardiogram to evaluate her heart function. I will make sure we get that today. In the meantime I agree with diuresis, she feels better today and seems to be diuresing well on her current regimen. #3. Left bundle-branch block: She has a rate related left bundle branch block in the past, she continues to have that this admission but for the most part is not in left bundle branch block. Other than making sure she has not developed a cardiomyopathy related to the left bundle-branch block I would not pursue any specific treatment. Thank you for allowing me to participate in her care.
--- NOTE | 2017-11-09 12:26 | ECHOCARDIOGRAM REPORT ---
*NOTICE TO RECEIVING LIBERTARIAN AGENCY This information is strictly Confidential and protected under [place] law. [place] law prohibits you from making any further disclosure of this information unless further disclosure is expressly permitted by the written consent of the person to whom it pertains or is authorized by law. A general authorization for the release of medical or other information is not sufficient for this purpose. Hospital accepts no responsibility if the information is made available to any other person, INCLUDING THE PATIENT. Interpretation Summary * Name: WHITNEY WHITTAKER Study Date: 11/09/2017 10:42 AM BP: 129/82 mmHg * Patient Location: [facility]\S\N287\S\1 HR: 56 * : 1935 (M/d/yyy) Gender: Female Height: 65 in * Age: 82 yrs Ethnicity: [place] Weight: 310 lb * Ordering Physician: Randy La * Referring Physician: Balwinder Peace * Performed By: Sandy Ortiz [facility] * * Reason For Study: RATE RELATED LBBB * BSA: 2.4 m2 * -- Conclusions -- * 1. Technically difficult study despite use of Definity ultrasound contrast. * 2. Grossly normal LV size with mild concentric LVH. * 3. Mild LV dysfunction. LVEF 45-50%. Abnormal septal motion consistent with conduction abnormality. * 4. RV not well visualized. * 5. No gross valvular pathology. * 6. Compared with prior study on 02/23/2014: Abnormal septal motion and mild LV dysfunction is new. Procedure Details * A complete two-dimensional transthoracic echocardiogram was performed (2D, M-mode, Doppler and color flow Doppler). * The study was technically difficult. * There were technical limitations due to patient'sbody habitus * A contrast injection of Definity was performed to improve assessment of LV function. * Contrast was injected into an intravenous site in the right arm. * One vial of Definity ultrasound contrast was diluted in normal saline to a total volume of 10 ml. A total of '2' ml of solution was administered during imaging. * Lot # [id number] of Definity utilized for procedure. * Expiration date 1 NOV 26. * The attending nurse who injected the contrast agent was SENIA LAU. Left Ventricle * The left ventricle is grossly normal size. * There is mild concentric left ventricular hypertrophy. * Ejection Fraction = 45-50%. * Septal motion is consistent with conduction abnormality. Right Ventricle * The right ventricle is not well visualized. Atria * The left atrium is not well visualized. * Right atrium not well visualized. Mitral Valve * The mitral valve is grossly normal. * There is mild mitral annular calcification. * Mitral stenosis is absent. * Significant mitral regurgitation is absent. * There is trace mitral regurgitation. Tricuspid Valve * The tricuspid valve is not well visualized. * There is trace tricuspid regurgitation. * Right ventricular systolic pressure is elevated at 30-40mmHg. Aortic Valve * The aortic valve is not well visualized. * No hemodynamically significant valvular aortic stenosis. * There is no significant aortic regurgitation. Pulmonic Valve * The pulmonary valve is inadequately visualized, but the Doppler data is adequate for interpretation. * Pulmonic stenosis is absent. * There is no significant pulmonary regurgitation. Great Vessels * The aortic root and proximal ascending aorta are normal sized. Pericardium/Pleural * There is no pericardial effusion. MMode 2D Measurements and Calculations IVSd 1.4 cm IVSs 2.4 cm LVIDd 4.8 cm LVIDs 2.8 cm LVPWd 1.6 cm LVPWs 1.7 cm IVS/LVPW 0.92 FS 41.1 % EDV(Teich) 106.5 ml ESV(Teich) 30.0 ml EF(Teich) 71.8 % EDV(cubed) 109.3 ml ESV(cubed) 22.4 ml EF(cubed) 79.5 % % IVS thick 67.5 % % LVPW thick 4.7 % LV mass(C)d 304.8 grams LV mass(C)dI 127.9 grams/m\S\2 LV mass(C)s 253.8 grams LV mass(C)sI 106.5 grams/m\S\2 SV(Teich) 76.5 ml SI(Teich) 32.1 ml/m\S\2 SV(cubed) 86.9 ml SI(cubed) 36.5 ml/m\S\2 Ao root diam 2.5 cm Ao root area 4.8 cm\S\2 LA dimension 3.6 cm LA/Ao 1.5 LVOT diam 2.0 cm LVOT area 3.2 cm\S\2 Doppler Measurements and Calculations MV E max rhett 112.9 cm/sec MV A max rhett 99.8 cm/sec MV E/A 1.1 MV P1/2t max rhett 114.7 cm/sec MV P1/2t 76.5 msec MVA(P1/2t) 2.9 cm\S\2 MV dec slope 439.3 cm/sec\S\2 MV dec time 0.28 sec Ao V2 max 165.7 cm/sec Ao max PG 11.0 mmHg Ao max PG (full) 9.1 mmHg INGRID(V,A) 1.3 cm\S\2 INGRID(V,D) 1.3 cm\S\2 LV V1 max PG 1.9 mmHg LV V1 max 69.0 cm/sec PA V2 max 74.2 cm/sec PA max PG 2.2 mmHg TR max rhett 261.9 cm/sec
[2017-11-09] MEDS ORDERED: VANCOMYCIN CONSULT ACTIVE PRN (15:55)
--- NOTE | 2017-11-09 15:56 | Progress Note ---
Subjective Date of Service: Nov 09, 2017. Subjective Pt evaluation today including: conversation w/ patient, conversation w/ family , physical exam, chart review, lab review, review of studies, review of inpatient medication list Voiding: no voiding problems, moraes catheter in place Doing fair, out of bed to the chair, pleasant, conversational, deny fever and chill, reported that her lower extremities red and swelling possible better, less pain Problem List Medical Problems: (1) Cellulitis Status: Acute (2) Congestive heart failure Status: Acute (3) Respiratory failure Status: Acute Review of Systems Constitutional: + fatigue, No fever, No chills, No sweats, No weight loss, No weakness, No problem reported Eyes: No worsening of vision, No eye pain, No redness, No discharge, No diplopia ENT: No hearing loss, No unusual epistaxis, No nasal symptoms, No sore throat, No tinnitus, No dental problems, No trouble swallowing Respiratory: + wheezing, + shortness of breath, No cough, No sputum, No dyspnea on exertion, No dyspnea at rest, No hemoptysis Cardiac: + edema (was 3+ edema, currently is better at 2+), No chest pain, No orthopnea, No PND, No claudication, No palpitations Abdomen: No pain, No nausea, No vomiting, No diarrhea, No constipation Musculoskeletal: + swelling, No joint pain, No muscle pain, No calf pain Female : No dysuria, No urinary frequency, No hematuria, No incontinence, No abnormal vaginal bleeding, No vaginal discharge Neurologic: No memory loss, No paralysis, No weakness, No numbness/tingling, No vertigo, No balance problems Psychiatric: No depression symptoms, No anhedonism, No anxiety, No insomnia, No substance abuse Heme: No abnormal bleeding/bruising, No clotting problems, No swollen lymph nodes, No night sweats Endo: No fatigue, No excessive thirst, No excessive urination Skin: + rash (right lower extremity more than left,), No itch, No new/changing skin lesions, No color change, No bleeding Objective Vital Signs Date Time Temp Pulse Resp B/P (MAP) Pulse Ox O2 Delivery O2 Flow Rate FiO2 11/09/17 14:56 36.7 84 20 158/80 (106) 98 11/09/17 14:37 82 18 98 Nasal Cannula 2.0 11/09/17 12:00 95 Nasal Cannula 2.0 11/09/17 11:17 36.7 76 20 129/82 (98) 92 11/09/17 09:18 95 Nasal Cannula 2.0 11/09/17 07:39 36.5 78 18 148/73 (98) 95 11/09/17 07:14 73 18 95 Nasal Cannula 2.0 11/09/17 04:40 36.4 82 18 133/77 (95) 95 Nasal Cannula 2.0 11/09/17 04:00 Nasal Cannula 2.0 11/09/17 02:15 80 18 97 Nasal Cannula 2.0 11/09/17 00:00 Nasal Cannula 2.0 11/08/17 23:07 36.6 76 20 112/65 (81) 98 Nasal Cannula 2.0 11/08/17 20:45 77 18 95 Nasal Cannula 2.0 11/08/17 20:08 73 135/72 (93) 11/08/17 20:00 93 Nasal Cannula 2.0 11/08/17 19:37 36.8 77 16 143/67 (92) 93 Room Air 11/08/17 16:00 Nasal Cannula 4.0 Physical Exam General Appearance: WD/WN, no apparent distress, + obese Eyes: normal inspection, PERRL, EOMI, sclerae normal ENT: normal ENT inspection, hearing grossly normal, pharynx normal Neck: supple, no adenopathy, thyroid normal, no JVD, no carotid bruits, trachea midline Respiratory/Chest: chest non-tender, normal breath sounds, no respiratory distress, no accessory muscle use, + decreased breath sounds, + crackles (the base of bilateral lungs), + rales Cardiovascular: regular rate, rhythm, no gallop, no JVD, no murmur, + pertinent finding (2+ from yesterday 3+) Abdomen: normal bowel sounds, non tender, soft, no organomegaly, no pulsatile mass Extremities: normal range of motion, normal inspection, no calf tenderness, normal capillary refill, pelvis stable, + swelling (2+), + pertinent finding Neurologic/Psychiatric: cook ship II-XII nml as tested, no motor/sensory deficits, alert, normal mood/affect, oriented x 3 Skin: + pertinent finding (later lower extremity rashes, was hot, but is better than yesterday, no drainage) Lymphatic: no adenopathy Laboratory Results Last 24 Hours Test 11/08/17 16:16 11/08/17 20:35 11/09/17 05:23 11/09/17 07:28 Bedside Glucose 134 mg/dl 215 mg/dl 180 mg/dl White Blood Count 10.81 K/uL Red Blood Count 3.85 M/uL Hemoglobin 11.6 g/dL Hematocrit 36.8 % Mean Corpuscular Volume 95.6 fL Mean Corpuscular Hemoglobin 30.1 pg Mean Corpuscular Hemoglobin Concent 31.5 g/dl RDW Standard Deviation 50.4 fL RDW Coefficient of Variation 14.4 % Platelet Count 261 K/uL Mean Platelet Volume 11.9 fL Sodium Level 136 mmol/L Potassium Level 3.8 mmol/L Chloride Level 98 mmol/L Carbon Dioxide Level 33 mmol/L Anion Gap 5.0 mmol/L Blood Urea Nitrogen 30 mg/dl Creatinine 0.93 mg/dl Est Creatinine Clear Calc Drug Dose 69.0 ml/min Estimated GFR () 67.3 Estimated GFR (Non- 58.0 BUN/Creatinine Ratio 32.0 Random Glucose 210 mg/dl Calcium Level 8.9 mg/dl Magnesium Level 2.0 mg/dl Pro-B-Type Natriuretic Peptide 821 pg/ml Test 11/09/17 11:17 Bedside Glucose 177 mg/dl Assessment and Plan 82 year old woman here for acute respirator failure itch was hypoxic and required BiPAP support in the emergency room, likely secondary to acute on chronic CHF exacerbation acute respirator failure itch was hypoxic and required BiPAP support in the emergency room, likely secondary to acute on chronic CHF exacerbation Acute on chronic systolic CHF exac COPD exacerbation is also possible, associated with significant weight gain recently fluid restriction, input and output, 2 g sodium diet, continue diuresis with 40 mg IV lasix q8h , follow-up renal functions Scheduling Administrator input appreciated, discussed the case, will discuss more with automobile glass technician about: : Abnormal septal motion and mild LV dysfunction is new. Continue B clint, continue to titrate oxygen - baseline is 2L echo per report: * 1. Technically difficult study despite use of Definity ultrasound contrast. * 2. Grossly normal LV size with mild concentric LVH. * 3. Mild LV dysfunction. LVEF 45-50%. Abnormal septal motion consistent with conduction abnormality. * 4. RV not well visualized. * 5. No gross valvular pathology. * 6. Compared with prior study on 02/23/2014: Abnormal septal motion and mild LV dysfunction is new. COPD , change DuoNeb, will taper Solu-Medrol and start oral prednisone Bilateral lower treatment of cellulitis, right more than left, local culture shows strep and staph, add vancomycin to Keflex, for poor spectrum coverage, will nail down antibiotic coverage per sensitivity UTI, currently covered by antibiotics, will follow-up sensitivity DM II - HTN CELIA Morbidly obese Chronic kidney disease, stage 3 , Above conditions relative to stable, Full code - Heparin prophylaxis Continued [facility] stay due to: multiple IV medications needed Discharge planning: home
[2017-11-09] MEDS ORDERED: VANCOMYCIN INJ 2,750 MG in SODIUM CHLORIDE 0.9% 500ML 500 ML IV ONE (16:15)
--- NOTE | 2017-11-09 20:10 | Pharmacy Progress Note ---
Pharmacy Abx Initial Consult Date of Service Nov 09, 2017. Pharmacy Dosing Scope Date of Consult: 11/09/17 Consultation requested by: Dr. Byrne Pharmacy is consulted to initiate IV Vancomycin dosing therapy, order appropriate labs and adjust drug dose/frequency. Subjective The patient is a 82 year old female admitted on Nov 07, 2017 at 19:53. Objective Height (Feet): 5 Height (Inches): 5.00 Weight (Kilograms): 141.000 Vital Signs (Past 12Hrs) Vital Signs Past 12 Hours Date Time Temp Pulse Resp B/P (MAP) Pulse Ox O2 Delivery O2 Flow Rate FiO2 11/09/17 19:36 74 125/71 (89) 11/09/17 19:33 36.6 88 18 120/62 (81) 95 Nasal Cannula 2.0 11/09/17 16:00 98 Nasal Cannula 2.0 11/09/17 14:56 36.7 84 20 158/80 (106) 98 11/09/17 14:37 82 18 98 Nasal Cannula 2.0 11/09/17 12:00 95 Nasal Cannula 2.0 11/09/17 11:17 36.7 76 20 129/82 (98) 92 11/09/17 09:18 95 Nasal Cannula 2.0 Lab Results (24Hrs) Laboratory Tests (24 Hours) Test 11/09/17 05:23 White Blood Count 10.81 K/uL (4.8-10.8) H Micro Results Date/Time Source Procedure Growth Status 11/08/17 13:15 Drainage - Surface Leg Gram Stain - Final Resulted 11/08/17 13:15 Wound Culture - Preliminary Staphylococcus Aureus Group B Beta Strep Resulted Assessment & Plan Assessment 82 year old female admitted with CHF exacerbation, COPD, 20lb weight gain in 2 wks & bilat LE ulcers Plan Vancomycin/Keflex for treatment of Cellulitis Vancomycin IV * Loading dose: Vancomycin 2750mg IV x 1 dose (19.5mg/kg) * Maintenance dose: Vancomycin 1750mg IV q12h (~12.5mg/kg) * Goal trough level: ~15mcg/mL * Trough level ordered for: 11/11/17 0400 dose * A less than traditional dose has been selected due to likelihood of drug accumulation in obese patient/patient with h/o CKD. Cephalex 500mg po 4x/daily Pharmacy will continue to follow and will adjust dose/frequency as necessary. Thank you.
[2017-11-09] MEDS: PRAMIPEXOLE DIHYDROCHLORIDE 0.25MG TAB PO SCH (20:20)
[2017-11-09] MEDS: SIMVASTATIN 20 MG TAB PO SCH (20:20)
[2017-11-09] MEDS: LORAZEPAM 0.5 MG TAB PO PRN (21:59)
[2017-11-10] VITALS (8 sets, daily range): BP systolic 105–137; BP diastolic 57–77; PULSE 56–89; TEMP 36.6–36.9; O2SAT 92–98
[2017-11-10] MEDS: NITROGLYCERIN 2% OINTMENT 30GM TUBE EXT SCH ×4 (02:00→20:00)
[2017-11-10] MEDS: ALBUT/IPRATROP 3MG/0.5MG NEB 3 ML VIAL INH SCH ×3 (02:24→14:16)
[2017-11-10] MEDS: FUROSEMIDE INJ 40 MG in SYRINGE 0 ML IV SCH ×3 (03:52→20:17)
[2017-11-10] MEDS: VANCOMYCIN INJ 1,750 MG in SODIUM CHLORIDE 0.9% 500ML 500 ML IV SCH ×2 (03:53→15:53)
[2017-11-10] MEDS: HEPARIN SOD 5000 UNIT/0.5 ML CARP SQ SCH ×3 (06:00→21:10)
[2017-11-10 06:57] LABS: HEMATOCRIT 38.4 % (37-47); HEMOGLOBIN 12.1 g/dL (12.0-16.0); MEAN CELL VOLUME 95.8 fL (80-100); MEAN CORPUSCULAR HEMOGLOBIN 30.2 pg (25-34); MEAN CORPUSCULAR HGB CONC 31.5 g/dl (32-36); MEAN PLATELET VOLUME 11.7 fL (7.4-10.4); PLATELET COUNT 292 K/uL (130-400); RED CELL DISTRIBUTION WIDTH CV 14.4 % (11.5-14.5); RED CELL DISTRIBUTION WIDTH SD 50.2 fL (36.4-46.3); WHITE BLOOD COUNT 11.78 K/uL (4.8-10.8)
[2017-11-10] MEDS: METOPROLOL TARTRATE 25 MG TAB PO SCH ×3 (07:24→21:04)
[2017-11-10] MEDS: CEROVITE ADV FORMULA TAB PO SCH (07:24)
[2017-11-10] MEDS: BUDESONIDE/FORMOTEROL FUMARATE 160/4.5 60 PUFFS/INHALER INH SCH ×2 (07:24→20:23)
[2017-11-10] MEDS: LISINOPRIL 10 MG TAB PO SCH (07:25)
[2017-11-10] MEDS: CEPHALEXIN MONOHYDRATE 500 MG CAP PO SCH ×4 (07:25→20:23)
[2017-11-10] MEDS: POTASSIUM CHLORIDE 20 MEQ TABCR PO SCH ×2 (07:25→20:23)
[2017-11-10] MEDS: ASPIRIN 81 MG ECTAB PO SCH (07:26)
[2017-11-10] MEDS: CITALOPRAM 20 MG TAB PO SCH (07:26)
[2017-11-10 07:33] LABS: CREATININE 0.99 mg/dl (0.60-1.20)
[2017-11-10] MEDS: INSULIN ASPART 100 UNITS/ML 3 ML PEN SC SCH ×4 (08:20→21:09)
--- NOTE | 2017-11-10 16:25 | Progress Note ---
Subjective Date of Service: Nov 10, 2017. Subjective Pt evaluation today including: conversation w/ patient, conversation w/ family , physical exam, chart review, lab review, review of studies, review of inpatient medication list Continue to have significant weight lost about 7 kg, which is consistent about 7.5 L negative fluid Balance, no extremity swelling is better, right anterior allen has some drainage which is not same, no local red, no lower extremity red/ swelling and tender are better Problem List Medical Problems: (1) Cellulitis Status: Acute (2) Congestive heart failure Status: Acute (3) Respiratory failure Status: Acute Review of Systems Constitutional: + weakness, + fatigue, No fever, No chills, No sweats, No weight loss, No problem reported Eyes: No worsening of vision, No eye pain, No redness, No discharge, No diplopia ENT: No hearing loss, No unusual epistaxis, No nasal symptoms, No sore throat, No tinnitus, No dental problems, No trouble swallowing Respiratory: + shortness of breath (is better it ), No cough, No sputum, No wheezing, No dyspnea on exertion, No dyspnea at rest, No hemoptysis Cardiac: + edema, No chest pain, No orthopnea, No PND, No claudication, No palpitations Abdomen: No pain, No nausea, No vomiting, No diarrhea, No constipation Musculoskeletal: No joint pain, No muscle pain, No swelling, No calf pain Female : No dysuria, No urinary frequency, No hematuria, No incontinence, No abnormal vaginal bleeding, No vaginal discharge Neurologic: No memory loss, No paralysis, No weakness, No numbness/tingling, No vertigo, No balance problems Psychiatric: No depression symptoms, No anhedonism, No anxiety, No insomnia, No substance abuse Heme: No abnormal bleeding/bruising, No clotting problems, No swollen lymph nodes, No night sweats Endo: No fatigue, No excessive thirst, No excessive urination Skin: No rash, No itch, No new/changing skin lesions, No color change, No bleeding Objective Vital Signs Date Time Temp Pulse Resp B/P (MAP) Pulse Ox O2 Delivery O2 Flow Rate FiO2 11/10/17 16:00 Nasal Cannula 2.0 11/10/17 14:57 36.6 70 18 123/70 (87) 96 Nasal Cannula 2.0 11/10/17 14:16 77 18 95 Nasal Cannula 2.0 11/10/17 12:04 36.9 56 16 117/66 (83) 98 Nasal Cannula 2.0 11/10/17 12:00 Nasal Cannula 2.0 11/10/17 08:00 Nasal Cannula 2.0 11/10/17 07:28 84 18 98 Nasal Cannula 2.0 11/10/17 07:19 36.7 71 16 134/73 (93) 11/10/17 04:00 Nasal Cannula 2.0 11/10/17 03:25 36.6 89 18 125/66 (85) 97 Nasal Cannula 2.0 11/10/17 00:00 Nasal Cannula 2.0 11/09/17 23:38 36.4 87 20 117/67 (84) 97 2.0 11/09/17 20:15 84 18 98 Nasal Cannula 2.0 11/09/17 20:15 76 132/61 (84) 11/09/17 20:00 Nasal Cannula 2.0 11/09/17 19:36 74 125/71 (89) 11/09/17 19:33 36.6 88 18 120/62 (81) 95 Nasal Cannula 2.0 Physical Exam General Appearance: WD/WN, no apparent distress, + obese Eyes: normal inspection, PERRL, EOMI, sclerae normal ENT: normal ENT inspection, hearing grossly normal, pharynx normal Neck: supple, no adenopathy, thyroid normal, no JVD, no carotid bruits, trachea midline Respiratory/Chest: chest non-tender, normal breath sounds, no respiratory distress, no accessory muscle use, + decreased breath sounds Cardiovascular: regular rate, rhythm, no gallop, no JVD, no murmur, + pertinent finding (2-3+ edema is better name before) Abdomen: normal bowel sounds, non tender, soft, no organomegaly, no pulsatile mass Extremities: normal range of motion, non-tender, normal inspection, no pedal edema, no calf tenderness, normal capillary refill, pelvis stable Neurologic/Psychiatric: sanitation technician II-XII nml as tested, no motor/sensory deficits, alert, normal mood/affect, oriented x 3 Skin: normal color, warm/dry, + rash (anterior allen has rashes and tiny abrasion on the skin with some drainage) Lymphatic: no adenopathy Laboratory Results Last 24 Hours Test 11/09/17 19:48 11/10/17 06:22 11/10/17 07:38 11/10/17 11:49 Bedside Glucose 200 mg/dl 169 mg/dl 231 mg/dl White Blood Count 11.78 K/uL Red Blood Count 4.01 M/uL Hemoglobin 12.1 g/dL Hematocrit 38.4 % Mean Corpuscular Volume 95.8 fL Mean Corpuscular Hemoglobin 30.2 pg Mean Corpuscular Hemoglobin Concent 31.5 g/dl RDW Standard Deviation 50.2 fL RDW Coefficient of Variation 14.4 % Platelet Count 292 K/uL Mean Platelet Volume 11.7 fL Sodium Level 134 mmol/L Potassium Level 4.0 mmol/L Chloride Level 94 mmol/L Carbon Dioxide Level 35 mmol/L Anion Gap 5.0 mmol/L Blood Urea Nitrogen 29 mg/dl Creatinine 0.99 mg/dl Est Creatinine Clear Calc Drug Dose 63.8 ml/min Estimated GFR () 62.4 Estimated GFR (Non- 53.8 BUN/Creatinine Ratio 29.9 Random Glucose 197 mg/dl Calcium Level 9.0 mg/dl Assessment and Plan 82 year old woman here for acute respirator failure itch was hypoxic and required BiPAP support in the emergency room, likely secondary to acute on chronic CHF exacerbation acute respirator failure itch was hypoxic and required BiPAP support in the emergency room, likely secondary to acute on chronic CHF exacerbation Acute on chronic systolic CHF exac COPD exacerbation is also possible, associated with significant weight gain recently Significant improving, weight lost 7 kg, with negative fluid balance 7.5 L with IV Lasix Continue fluid restriction, input and output, 2 g sodium diet, continue diuresis with 40 mg IV lasix q8h , follow-up renal functions Field Supervisor input appreciated, discussed the case, will discuss more with wave guide assembler about: : Abnormal septal motion and mild LV dysfunction is new. Continue B clint, continue to titrate oxygen - baseline is 2L echo per report: * 1. Technically difficult study despite use of Definity ultrasound contrast. * 2. Grossly normal LV size with mild concentric LVH. * 3. Mild LV dysfunction. LVEF 45-50%. Abnormal septal motion consistent with conduction abnormality. * 4. RV not well visualized. * 5. No gross valvular pathology. * 6. Compared with prior study on 02/23/2014: Abnormal septal motion and mild LV dysfunction is new. COPD , change DuoNeb, has taper Solu-Medrol to oral prednisone, we'll continue Bilateral lower treatment of cellulitis, right more than left, local culture shows strep and staph (MSSA), add vancomycin to Keflex, follow-up final culture results, will nail down antibiotic coverage per sensitivity UTI, currently covered by antibiotics, will follow-up sensitivity DM II - HTN CELIA Morbidly obese Chronic kidney disease, stage 3 , stable Above conditions relative to stable, Full code - Heparin prophylaxis Continued [facility] stay due to: multiple IV medications needed Discharge planning: home
[2017-11-10] MEDS: IPRATROPIUM BROMIDE/ALBUTEROL respimat INH INH SCH ×2 (16:39→23:24)
[2017-11-10] MEDS: PRAMIPEXOLE DIHYDROCHLORIDE 0.25MG TAB PO SCH (21:03)
[2017-11-10] MEDS: SIMVASTATIN 20 MG TAB PO SCH (21:03)
[2017-11-10] MEDS: LORAZEPAM 0.5 MG TAB PO PRN (23:24)
[2017-11-11] VITALS (8 sets, daily range): BP systolic 103–157; BP diastolic 60–83; PULSE 60–77; TEMP 36.3–36.8; O2SAT 90–98
[2017-11-11] MEDS: NITROGLYCERIN 2% OINTMENT 30GM TUBE EXT SCH ×4 (02:00→20:00)
[2017-11-11] MEDS ORDERED: VANCOMYCIN TROUGH SCH (03:30)
[2017-11-11 03:53] LABS: HEMATOCRIT 38.2 % (37-47); HEMOGLOBIN 12.1 g/dL (12.0-16.0); MEAN CELL VOLUME 95.3 fL (80-100); MEAN CORPUSCULAR HEMOGLOBIN 30.2 pg (25-34); MEAN CORPUSCULAR HGB CONC 31.7 g/dl (32-36); MEAN PLATELET VOLUME 11.5 fL (7.4-10.4); PLATELET COUNT 282 K/uL (130-400); RED CELL DISTRIBUTION WIDTH CV 14.2 % (11.5-14.5); RED CELL DISTRIBUTION WIDTH SD 49.3 fL (36.4-46.3); WHITE BLOOD COUNT 10.74 K/uL (4.8-10.8)
[2017-11-11 04:13] LABS: CALCIUM 9.1 mg/dl (8.5-10.1); CREATININE 1.03 mg/dl (0.60-1.20); POTASSIUM 4.3 mmol/L (3.5-5.1)
[2017-11-11] MEDS: FUROSEMIDE INJ 40 MG in SYRINGE 0 ML IV SCH ×3 (04:24→20:36)
[2017-11-11] MEDS: VANCOMYCIN INJ 1,750 MG in SODIUM CHLORIDE 0.9% 500ML 500 ML IV SCH (04:24)
[2017-11-11] MEDS: IPRATROPIUM BROMIDE/ALBUTEROL respimat INH INH SCH ×4 (05:45→23:37)
[2017-11-11] MEDS: HEPARIN SOD 5000 UNIT/0.5 ML CARP SQ SCH ×3 (05:46→20:49)
[2017-11-11] MEDS: CEPHALEXIN MONOHYDRATE 500 MG CAP PO SCH ×4 (08:36→20:37)
[2017-11-11] MEDS: BUDESONIDE/FORMOTEROL FUMARATE 160/4.5 60 PUFFS/INHALER INH SCH ×2 (08:36→20:40)
[2017-11-11] MEDS: LISINOPRIL 10 MG TAB PO SCH (08:36)
[2017-11-11] MEDS: POTASSIUM CHLORIDE 20 MEQ TABCR PO SCH ×2 (08:36→20:37)
[2017-11-11] MEDS: METOPROLOL TARTRATE 25 MG TAB PO SCH ×3 (08:36→20:40)
[2017-11-11] MEDS: INSULIN ASPART 100 UNITS/ML 3 ML PEN SC SCH ×4 (08:38→20:49)
[2017-11-11] MEDS: CITALOPRAM 20 MG TAB PO SCH (08:53)
[2017-11-11] MEDS: ASPIRIN 81 MG ECTAB PO SCH (08:53)
[2017-11-11] MEDS: CEROVITE ADV FORMULA TAB PO SCH (08:53)
[2017-11-11] MEDS ORDERED: NURSING VERBAL MED ORDER ONE (09:15)
--- NOTE | 2017-11-11 10:01 | Progress Note ---
Subjective Date of Service: Nov 11, 2017. Subjective Pt evaluation today including: conversation w/ patient, conversation w/ family , physical exam, chart review, lab review, review of studies, review of inpatient medication list Voiding: moraes catheter in place You have good urine output, and improving generally Problem List Medical Problems: (1) Cellulitis Status: Acute (2) Congestive heart failure Status: Acute (3) Respiratory failure Status: Acute Review of Systems Constitutional: No fever, No chills, No sweats, No weight loss, No weakness, No fatigue, No problem reported Eyes: No worsening of vision, No eye pain, No redness, No discharge, No diplopia ENT: No hearing loss, No unusual epistaxis, No nasal symptoms, No sore throat, No tinnitus, No dental problems, No trouble swallowing Respiratory: No cough, No sputum, No wheezing, No shortness of breath, No dyspnea on exertion, No dyspnea at rest, No hemoptysis Cardiac: No chest pain, No orthopnea, No PND, No edema, No claudication, No palpitations Abdomen: No pain, No nausea, No vomiting, No diarrhea, No constipation Musculoskeletal: No joint pain, No muscle pain, No swelling, No calf pain Female : No dysuria, No urinary frequency, No hematuria, No incontinence, No abnormal vaginal bleeding, No vaginal discharge Neurologic: No memory loss, No paralysis, No weakness, No numbness/tingling, No vertigo, No balance problems Psychiatric: No depression symptoms, No anhedonism, No anxiety, No insomnia, No substance abuse Heme: No abnormal bleeding/bruising, No clotting problems, No swollen lymph nodes, No night sweats Endo: No fatigue, No excessive thirst, No excessive urination Skin: + rash (right lower extremity is in dressing), No itch, No new/changing skin lesions, No color change, No bleeding Objective Vital Signs Date Time Temp Pulse Resp B/P (MAP) Pulse Ox O2 Delivery O2 Flow Rate FiO2 11/11/17 09:17 98 Room Air 11/11/17 08:00 Nasal Cannula 2.0 11/11/17 07:16 36.4 68 20 134/83 (100) 96 11/11/17 04:00 Nasal Cannula 2.0 11/11/17 03:05 36.3 77 18 157/82 (107) 97 Nasal Cannula 2.0 11/11/17 00:00 Nasal Cannula 2.0 11/10/17 23:52 36.7 70 18 137/77 (97) 97 Nasal Cannula 2.0 11/10/17 20:00 Nasal Cannula 2.0 11/10/17 19:53 36.8 74 18 105/57 (73) 92 2.0 11/10/17 16:00 Nasal Cannula 2.0 11/10/17 14:57 36.6 70 18 123/70 (87) 96 Nasal Cannula 2.0 11/10/17 14:16 77 18 95 Nasal Cannula 2.0 11/10/17 12:04 36.9 56 16 117/66 (83) 98 Nasal Cannula 2.0 11/10/17 12:00 Nasal Cannula 2.0 Physical Exam General Appearance: WD/WN, no apparent distress, + obese Eyes: normal inspection, PERRL, EOMI, sclerae normal ENT: normal ENT inspection, hearing grossly normal, pharynx normal Neck: supple, no adenopathy, thyroid normal, no JVD, no carotid bruits, trachea midline Respiratory/Chest: chest non-tender, normal breath sounds, no respiratory distress, no accessory muscle use, + decreased breath sounds Cardiovascular: regular rate, rhythm, no gallop, no JVD, no murmur, + pertinent finding (2+ edema in lower extremity which has been improving) Abdomen: normal bowel sounds, non tender, soft, no organomegaly, no pulsatile mass Extremities: normal range of motion, non-tender, normal inspection, no pedal edema, no calf tenderness, normal capillary refill, pelvis stable Neurologic/Psychiatric: access assoc II-XII nml as tested, no motor/sensory deficits, alert, normal mood/affect, oriented x 3 Skin: normal color, warm/dry, + rash (right anterior allen has chronic wound which in dressing, bilateral lower extremity cellulitis red swelling hot are much better) Lymphatic: no adenopathy Laboratory Results Last 24 Hours Test 11/10/17 11:49 11/10/17 16:41 11/10/17 20:40 11/11/17 03:30 Bedside Glucose 231 mg/dl 194 mg/dl 200 mg/dl White Blood Count 10.74 K/uL Red Blood Count 4.01 M/uL Hemoglobin 12.1 g/dL Hematocrit 38.2 % Mean Corpuscular Volume 95.3 fL Mean Corpuscular Hemoglobin 30.2 pg Mean Corpuscular Hemoglobin Concent 31.7 g/dl RDW Standard Deviation 49.3 fL RDW Coefficient of Variation 14.2 % Platelet Count 282 K/uL Mean Platelet Volume 11.5 fL Sodium Level 133 mmol/L Potassium Level 4.3 mmol/L Chloride Level 94 mmol/L Carbon Dioxide Level 36 mmol/L Anion Gap 3.0 mmol/L Blood Urea Nitrogen 34 mg/dl Creatinine 1.03 mg/dl Est Creatinine Clear Calc Drug Dose 61.3 ml/min Estimated GFR () 59.5 Estimated GFR (Non- 51.3 BUN/Creatinine Ratio 33.3 Random Glucose 268 mg/dl Calcium Level 9.1 mg/dl Magnesium Level 2.3 mg/dl Vancomycin Level Trough 26.1 mcg/ml Test 11/11/17 07:25 Bedside Glucose 220 mg/dl Assessment and Plan 82 year old woman here for acute respiratory failure which was hypoxic and required BiPAP support in the emergency room, likely secondary to acute on chronic CHF exacerbation Continue improving acute resp failure, was hypoxic and required BiPAP support in the emergency room, likely secondary to acute on chronic CHF exacerbation Acute on chronic systolic CHF exac COPD exacerbation is also possible, associated with significant weight gain recently Significant improving, weight lost 9 kg, with negative fluid balance 8.5 L with IV Lasix Continue fluid restriction, input and output, 2 g sodium diet, continue diuresis with 40 mg IV lasix q8h , follow-up renal functions, today's creatinine is 1.03, Compensation Business Partner input appreciated, discussed the case, will discuss more with lime kiln worker about: Abnormal septal motion and mild LV dysfunction is new. Continue B clint, continue to titrate oxygen - baseline is 2L, is planning to taper off oxygen if possible because of significant improving echo per report: * 1. Technically difficult study despite use of Definity ultrasound contrast. * 2. Grossly normal LV size with mild concentric LVH. * 3. Mild LV dysfunction. LVEF 45-50%. Abnormal septal motion consistent with conduction abnormality. * 4. RV not well visualized. * 5. No gross valvular pathology. * 6. Compared with prior study on 02/23/2014: Abnormal septal motion and mild LV dysfunction is new. COPD , continue DuoNeb, has taper Solu-Medrol to oral prednisone, is continue tapering Bilateral lower treatment of cellulitis, right more than left, local culture shows strep and staph (MSSA), has been on vancomycin for 3 days in addition to to Keflex, per culture results will discontinue Vanco and continue Keflex , will use Keflex for total days 4/10 days, ordered topical bacitracin ointment and then dressed changes UTI, currently covered by antibiotics, will follow-up sensitivity DM II HTN CELIA Morbidly obese hx of Chronic kidney disease, stage 3 , stable Above conditions relative to stable, Full code - Heparin prophylaxis Continued [facility] stay due to: multiple IV medications needed Discharge planning: home
[2017-11-11] MEDS: PRAMIPEXOLE DIHYDROCHLORIDE 0.25MG TAB PO SCH (20:38)
[2017-11-11] MEDS: SIMVASTATIN 20 MG TAB PO SCH (20:39)
[2017-11-12] VITALS (9 sets, daily range): BP systolic 104–144; BP diastolic 62–83; PULSE 61–78; TEMP 36.4–36.7; O2SAT 96–98
[2017-11-12] MEDS: NITROGLYCERIN 2% OINTMENT 30GM TUBE EXT SCH ×2 (02:00→08:00)
[2017-11-12] MEDS: FUROSEMIDE INJ 40 MG in SYRINGE 0 ML IV SCH (04:25)
[2017-11-12 05:49] LABS: HEMATOCRIT 40.5 % (37-47); MEAN CELL VOLUME 94.6 fL (80-100); MEAN CORPUSCULAR HEMOGLOBIN 30.4 pg (25-34); MEAN CORPUSCULAR HGB CONC 32.1 g/dl (32-36); MEAN PLATELET VOLUME 10.9 fL (7.4-10.4); PLATELET COUNT 292 K/uL (130-400); RED CELL DISTRIBUTION WIDTH CV 14.4 % (11.5-14.5); RED CELL DISTRIBUTION WIDTH SD 49.4 fL (36.4-46.3); WHITE BLOOD COUNT 13.22 K/uL (4.8-10.8)
[2017-11-12] MEDS: HEPARIN SOD 5000 UNIT/0.5 ML CARP SQ SCH ×3 (06:04→21:46)
[2017-11-12] MEDS: IPRATROPIUM BROMIDE/ALBUTEROL respimat INH INH SCH ×4 (06:05→23:46)
[2017-11-12 06:23] LABS: CALCIUM 9.3 mg/dl (8.5-10.1); CREATININE 1.17 mg/dl (0.60-1.20)
[2017-11-12 08:00] LABS: HEMOGLOBIN A1C 7.3 % (4.5-5.6)
[2017-11-12] MEDS: CEROVITE ADV FORMULA TAB PO SCH (08:57)
[2017-11-12] MEDS: METOPROLOL TARTRATE 25 MG TAB PO SCH ×3 (08:57→22:12)
[2017-11-12] MEDS: BUDESONIDE/FORMOTEROL FUMARATE 160/4.5 60 PUFFS/INHALER INH SCH ×2 (08:58→21:55)
[2017-11-12] MEDS: CITALOPRAM 20 MG TAB PO SCH (08:58)
[2017-11-12] MEDS: ASPIRIN 81 MG ECTAB PO SCH (08:58)
[2017-11-12] MEDS: INSULIN ASPART 100 UNITS/ML 3 ML PEN SC SCH ×4 (09:02→21:53)
[2017-11-12] MEDS: CEPHALEXIN MONOHYDRATE 500 MG CAP PO SCH ×4 (09:04→21:50)
[2017-11-12] MEDS: POTASSIUM CHLORIDE 20 MEQ TABCR PO SCH ×2 (09:04→21:49)
[2017-11-12] MEDS: LISINOPRIL 10 MG TAB PO SCH (09:04)
--- NOTE | 2017-11-12 09:20 | Cardiology Follow-Up ---
Subjective Date of Service: Nov 12, 2017. Pt evaluation today including: conversation w/ patient, physical exam, lab review, review of studies, review of inpatient medication list History of Present Illness This is an 82-year-old woman with a history of obesity diabetes mellitus, hyperlipidemia and COPD (although never smoked). She presented to the emergency room on 11/07/2017 with progressive shortness of breath, weight gain and edema. She does not have a prior known cardiac history. She is on oxygen at home, and always has dyspnea on exertion but noted that it has been worse over the last several months. It was progressive but much worse over the last for 5 days to the point where she was having extreme difficulty with any type of exertion. She always has edema, it is not clear whether it is worse at this time. She does not have any cardiovascular symptoms otherwise, she denies chest discomfort , palpitations or lightheadedness or dizziness. She was therefore admitted. Initial evaluation showed normal cardiac enzymes but a left bundle branch block pattern which appears rate related (her heart rate was much faster on admission than on her last electrocardiogram, in 2013 she had similar findings). Echocardiography this admission shows mild left ventricular dysfunction and a septal wall motion abnormality (which could be left bundle branch block related) . She has diuresed well, she does not have shortness of breath when awake (she does use oxygen at night but uses oxygen at home). She feels that her legs have improved and her back to baseline. Social History Smoking Status: Never Smoker History of Alcohol Use: No Review of Systems Respiratory: No cough, No sputum, No wheezing, No shortness of breath, No dyspnea on exertion, No dyspnea at rest, No hemoptysis Cardiac: No chest pain, No orthopnea, No PND, No edema, No claudication, No palpitations Medications Cardiovascular: Item Value Date Time Lisinopril 10 mg 11/08/17 0900 (Zestril Tab) DAILY/PO 11/11/17 0836 Aspirin 81 mg 11/08/17 0900 (Ecotrin Tab) QAM/PO 11/11/17 0853 Furosemide 40 mg/ 4 ml @ 4 mls/min 11/08/17 0400 Syringe Q8H/IV 11/12/17 0425 Nitroglycerin 1 inch 11/08/17 0200 (Nitroglycerin Q6H/EXT 2% Oint) Heparin Sodium 5,000 unit 11/07/17 2200 (Porcine) Q8/SQ 11/12/17 0604 (Heparin Sq 5000 Unit/0.5ml) Simvastatin 20 mg 11/07/172099 (Zocor Tab) QPM/PO 11/11/172038 Potassium Chloride 20 meq 11/07/172099 (Klor-Con Tab) BID/PO 11/11/172036 Metoprolol 12.5 mg 11/07/172099 Tartrate TID/PO 11/11/172039 (Lopressor Tab) Objective Vital Signs Past 12 Hours Date Time Temp Pulse Resp B/P (MAP) Pulse Ox O2 Delivery O2 Flow Rate FiO2 11/12/17 07:55 36.4 69 20 117/72 (87) 97 Nasal Cannula 2.0 11/12/17 04:00 Nasal Cannula 2.0 11/12/17 02:45 36.5 78 20 136/83 (100) 96 Nasal Cannula 2.0 11/12/17 00:00 Nasal Cannula 2.0 11/11/17 23:18 36.4 65 18 124/66 (85) 97 2.0 Last Recorded Weight-Kilograms: 134.800 Physical Exam Constitutional: General Apperance: obese Level of Distress: NAD Lungs: Respiratory effort: no dyspnea, good air movement Auscultation: no wheezing, no rales/crackles, decreased breath sounds Cardiovascular: Heart Auscultation: RRR, no murmurs, no rubs, no gallops Peripheral Pulses: Bruits: none appreciated Extremities: edema (+2 bilateral, improved), pertinent finding (signs of chronic venous stasis) Data Laboratory Results: Last 24 Hours Test 11/11/17 11:39 11/11/17 16:11 11/11/17 20:22 11/12/17 05:36 Bedside Glucose 148 mg/dl 287 mg/dl 163 mg/dl White Blood Count 13.22 K/uL Red Blood Count 4.28 M/uL Hemoglobin 13.0 g/dL Hematocrit 40.5 % Mean Corpuscular Volume 94.6 fL Mean Corpuscular Hemoglobin 30.4 pg Mean Corpuscular Hemoglobin Concent 32.1 g/dl RDW Standard Deviation 49.4 fL RDW Coefficient of Variation 14.4 % Platelet Count 292 K/uL Mean Platelet Volume 10.9 fL Sodium Level 133 mmol/L Potassium Level 4.0 mmol/L Chloride Level 94 mmol/L Carbon Dioxide Level 34 mmol/L Anion Gap 5.0 mmol/L Blood Urea Nitrogen 39 mg/dl Creatinine 1.17 mg/dl Est Creatinine Clear Calc Drug Dose 53.3 ml/min Estimated GFR () 51.0 Estimated GFR (Non- 44.0 BUN/Creatinine Ratio 33.2 Random Glucose 219 mg/dl Calcium Level 9.3 mg/dl Magnesium Level 2.5 mg/dl Test 11/12/17 07:31 Bedside Glucose 185 mg/dl Telemetry reviewed: Sinus rhythm, no significant abnormality Assessment and Plan #1. Shortness of breath: This appears to have been a combination of her long- standing COPD for which she wears oxygen as well as relatively acute congestive heart failure. Her symptoms have improved significantly with diuresis and oxygen and she feels she is at baseline or better. #2. Congestive heart failure: On echocardiography she has mild left ventricular dysfunction with a septal wall motion abnormality (which could be due to left bundle branch block). I doubt this was significantly contributory to her presentation. She may have right ventricular dysfunction as well from her long- standing lung disease. Her heart failure appears to be under fairly good control now, her BUN is climbing as is her CO2. I think we should switch to oral medications. I suspect we can control it as an outpatient at this point. Pelvic it is unlikely we'll be able to completely eliminate her edema has that is very long-standing. #3. Left bundle-branch block: She has a rate related left bundle branch block in the past, she continues to have that this admission but for the most part is not in left bundle branch block. She does have mild left ventricular dysfunction , which could be related to this, but I would not pursue further evaluation. #4. Left ventricular dysfunction: She does have mild left ventricular dysfunction, it is possible she has ischemic heart disease but we have little evidence for it and she does not have symptoms related to (angina). Her heart failure was probably not related to this mild degree of left ventricular dysfunction. I would not pursue further evaluation this time. This can be followed as an outpatient. Thank you for allowing me to participate in her care.
[2017-11-12] MEDS: BACITRACIN OINT 15 GM TUBE EXT SCH (13:06)
--- NOTE | 2017-11-12 16:13 | Progress Note ---
Subjective Date of Service: Nov 12, 2017. Subjective Pt evaluation today including: conversation w/ patient, conversation w/ family , physical exam, chart review, lab review, review of studies, conversation w/ healthcare market consultant, review of inpatient medication list Voiding: moraes catheter in place You have good diuretic, so far has 10 kg weight lost and 14 L of immune of negative Breathing and bilateral lower extremity swelling better, Right lower extremity skin has minimal opening currently is on dressing with bacitracin ointment application Problem List Medical Problems: (1) Cellulitis Status: Acute (2) Congestive heart failure Status: Acute (3) Respiratory failure Status: Acute Review of Systems Constitutional: No fever, No chills, No sweats, No weight loss, No weakness, No fatigue, No problem reported Eyes: No worsening of vision, No eye pain, No redness, No discharge, No diplopia ENT: No hearing loss, No unusual epistaxis, No nasal symptoms, No sore throat, No tinnitus, No dental problems, No trouble swallowing Respiratory: No cough, No sputum, No wheezing, No shortness of breath, No dyspnea on exertion, No dyspnea at rest, No hemoptysis Cardiac: + problem reported (extremity swelling), No chest pain, No orthopnea, No PND, No edema, No claudication, No palpitations Abdomen: No pain, No nausea, No vomiting, No diarrhea, No constipation Musculoskeletal: No joint pain, No muscle pain, No swelling, No calf pain Female : No dysuria, No urinary frequency, No hematuria, No incontinence, No abnormal vaginal bleeding, No vaginal discharge Neurologic: No memory loss, No paralysis, No weakness, No numbness/tingling, No vertigo, No balance problems Psychiatric: No depression symptoms, No anhedonism, No anxiety, No insomnia, No substance abuse Heme: No abnormal bleeding/bruising, No clotting problems, No swollen lymph nodes, No night sweats Endo: No fatigue, No excessive thirst, No excessive urination Skin: + rash, No itch, No new/changing skin lesions, No color change, No bleeding Objective Vital Signs Date Time Temp Pulse Resp B/P (MAP) Pulse Ox O2 Delivery O2 Flow Rate FiO2 11/12/17 16:03 36.7 65 18 112/63 (79) 96 Room Air 11/12/17 12:00 Nasal Cannula 2.0 11/12/17 11:40 36.6 63 18 121/70 (87) 97 Nasal Cannula 2.0 11/12/17 09:17 Nasal Cannula 2.0 11/12/17 07:55 36.4 69 20 117/72 (87) 97 Nasal Cannula 2.0 11/12/17 04:00 Nasal Cannula 2.0 11/12/17 02:45 36.5 78 20 136/83 (100) 96 Nasal Cannula 2.0 11/12/17 00:00 Nasal Cannula 2.0 11/11/17 23:18 36.4 65 18 124/66 (85) 97 2.0 11/11/17 20:34 71 103/64 (77) 11/11/17 20:00 Nasal Cannula 2.0 11/11/17 18:46 36.5 69 20 123/74 (90) 98 Physical Exam General Appearance: WD/WN, no apparent distress, + obese Eyes: normal inspection, PERRL, EOMI, sclerae normal ENT: normal ENT inspection, hearing grossly normal, pharynx normal Neck: supple, no adenopathy, thyroid normal, no JVD, no carotid bruits, trachea midline Respiratory/Chest: chest non-tender, no respiratory distress, no accessory muscle use, + decreased breath sounds, + wheezing (in the base, and occasionally ) Cardiovascular: regular rate, rhythm, no edema, no gallop, no JVD, no murmur Abdomen: normal bowel sounds, non tender, soft, no organomegaly, no pulsatile mass Extremities: normal range of motion, non-tender, normal inspection, no pedal edema, no calf tenderness, normal capillary refill, pelvis stable, + swelling (2 + edema compared to 3-4 edema upon admission) Neurologic/Psychiatric: electricity trading analyst II-XII nml as tested, no motor/sensory deficits, alert, normal mood/affect, oriented x 3, + pertinent finding Skin: normal color, + pertinent finding (open wound about 0.50.5 cm in right anterior allen, is in dressing) Lymphatic: no adenopathy Laboratory Results Last 24 Hours Test 11/11/17 16:11 11/11/17 20:22 11/12/17 05:36 11/12/17 07:31 Bedside Glucose 287 mg/dl 163 mg/dl 185 mg/dl White Blood Count 13.22 K/uL Red Blood Count 4.28 M/uL Hemoglobin 13.0 g/dL Hematocrit 40.5 % Mean Corpuscular Volume 94.6 fL Mean Corpuscular Hemoglobin 30.4 pg Mean Corpuscular Hemoglobin Concent 32.1 g/dl RDW Standard Deviation 49.4 fL RDW Coefficient of Variation 14.4 % Platelet Count 292 K/uL Mean Platelet Volume 10.9 fL Sodium Level 133 mmol/L Potassium Level 4.0 mmol/L Chloride Level 94 mmol/L Carbon Dioxide Level 34 mmol/L Anion Gap 5.0 mmol/L Blood Urea Nitrogen 39 mg/dl Creatinine 1.17 mg/dl Est Creatinine Clear Calc Drug Dose 53.3 ml/min Estimated GFR () 51.0 Estimated GFR (Non- 44.0 BUN/Creatinine Ratio 33.2 Random Glucose 219 mg/dl Calcium Level 9.3 mg/dl Magnesium Level 2.5 mg/dl Test 11/12/17 11:09 Bedside Glucose 180 mg/dl Assessment and Plan 82 year old woman here for acute respiratory failure which was hypoxic and required BiPAP support in the emergency room, likely secondary to acute on chronic CHF exacerbation Continue significant improving acute resp failure, was hypoxic and required BiPAP support in the emergency room, likely secondary to acute on chronic CHF exacerbation Acute on chronic systolic CHF exac COPD exacerbation is also possible, associated with significant weight gain recently Significant improving, weight lost 10 kg, with negative fluid balance 14 L with IV Lasix Continue fluid restriction, input and output, 2 g sodium diet, continue diuresis with 40 mg IV lasix q8h , follow-up renal functions, today's creatinine is in normal range Food Service Hotel Runner input appreciated, discussed the case, will discuss more with farm equipment technician about: Abnormal septal motion and mild LV dysfunction is new. Continue B clint, continue to titrate oxygen - baseline is 2L, is planning to taper off oxygen if possible because of significant improving echo per report: * 1. Technically difficult study despite use of Definity ultrasound contrast. * 2. Grossly normal LV size with mild concentric LVH. * 3. Mild LV dysfunction. LVEF 45-50%. Abnormal septal motion consistent with conduction abnormality. * 4. RV not well visualized. * 5. No gross valvular pathology. * 6. Compared with prior study on 02/23/2014: Abnormal septal motion and mild LV dysfunction is new. COPD , continue DuoNeb, has taper Solu-Medrol to oral prednisone, is continue tapering Bilateral lower treatment of cellulitis, right more than left, local culture shows strep and staph (MSSA), has been on vancomycin for 3 days in addition to to Keflex, per culture results Vanco was discontinued , and continue Keflex , will use Keflex for total days 5/10 days, ordered topical bacitracin ointment and then dressed changes UTI, currently covered by antibiotics, will follow-up sensitivity DM II hyperglycemia, which will be improved after continue tapering off Solu- Medrol or prednisone HTN CELIA Morbidly obese hx of Chronic kidney disease, stage 3 , stable Above conditions relative to stable, Full code - Heparin prophylaxis Patient is improving continually significantly, however he can be discharged in 2-3 days, was better results, Continued [facility] stay due to: multiple IV medications needed Discharge planning: home
[2017-11-12] MEDS: LORAZEPAM 0.5 MG TAB PO PRN (21:47)
[2017-11-12] MEDS: PRAMIPEXOLE DIHYDROCHLORIDE 0.25MG TAB PO SCH (21:49)
[2017-11-12] MEDS: SIMVASTATIN 20 MG TAB PO SCH (22:11)
[2017-11-13 04:00] VITALS: BP 117/49; PULSE 68; TEMP 36.3; O2SAT 96
[2017-11-13] MEDS: IPRATROPIUM BROMIDE/ALBUTEROL respimat INH INH SCH ×2 (05:53→12:27)
[2017-11-13] MEDS: HEPARIN SOD 5000 UNIT/0.5 ML CARP SQ SCH ×2 (05:56→14:00)
[2017-11-13 06:14] LABS: HEMATOCRIT 39.9 % (37-47); HEMOGLOBIN 13.2 g/dL (12.0-16.0); MEAN CELL VOLUME 94.1 fL (80-100); MEAN CORPUSCULAR HEMOGLOBIN 31.1 pg (25-34); MEAN CORPUSCULAR HGB CONC 33.1 g/dl (32-36); PLATELET COUNT 287 K/uL (130-400); RED CELL DISTRIBUTION WIDTH CV 14.2 % (11.5-14.5); RED CELL DISTRIBUTION WIDTH SD 48.6 fL (36.4-46.3); WHITE BLOOD COUNT 10.54 K/uL (4.8-10.8)
[2017-11-13 06:51] LABS: CALCIUM 9.1 mg/dl (8.5-10.1); CREATININE 1.02 mg/dl (0.60-1.20); POTASSIUM 4.4 mmol/L (3.5-5.1)
[2017-11-13 07:27] VITALS: BP 122/66; PULSE 73; TEMP 36.4; O2SAT 97
[2017-11-13] MEDS: CEPHALEXIN MONOHYDRATE 500 MG CAP PO SCH ×2 (08:02→12:27)
[2017-11-13] MEDS: LISINOPRIL 10 MG TAB PO SCH (08:02)
[2017-11-13] MEDS: POTASSIUM CHLORIDE 20 MEQ TABCR PO SCH (08:02)
[2017-11-13] MEDS: METOPROLOL TARTRATE 25 MG TAB PO SCH ×2 (08:02→14:09)
[2017-11-13] MEDS: CEROVITE ADV FORMULA TAB PO SCH (08:02)
[2017-11-13] MEDS: BUDESONIDE/FORMOTEROL FUMARATE 160/4.5 60 PUFFS/INHALER INH SCH (08:03)
[2017-11-13] MEDS: BACITRACIN OINT 15 GM TUBE EXT SCH (08:03)
[2017-11-13] MEDS: INSULIN ASPART 100 UNITS/ML 3 ML PEN SC SCH ×2 (08:07→12:30)
[2017-11-13] MEDS ORDERED: FUROSEMIDE 40 MG TAB PO SCH (09:00)
[2017-11-13] MEDS: CITALOPRAM 20 MG TAB PO SCH (09:12)
[2017-11-13] MEDS: ASPIRIN 81 MG ECTAB PO SCH (09:12)
[2017-11-13 11:23] VITALS: BP 119/70; PULSE 60; TEMP 36.6; O2SAT 100
[2017-11-13] MEDS ORDERED: FRS/40 PO (12:46)
[2017-11-13] MEDS ORDERED: PRED10TA PO (12:46)
[2017-11-13] MEDS ORDERED: POTA10CA28 PO (12:46)
[2017-11-13] MEDS ORDERED: METO-478 PO (12:46)
[2017-11-13] MEDS ORDERED: ASPEC81 PO (12:46)
[2017-11-13] MEDS ORDERED: KFL500 PO (12:46)
--- NOTE | 2017-11-13 12:50 | Discharge Instructions ---
Discharge Instructions Date of Service Nov 13, 2017. Admission Reason for Admission: Acute Chf Discharge Discharge Diagnosis / Problem: Acute systolic CHF Discharge Goals Goal(s): Improve disease control, Diagnostic testing, Therapeutic intervention Activity Recommendations Activity Limitations: as noted below Exercise/Sports Limitations: gradually increase as tolerated Shower/Bathe: no limitations . Instructions / Follow-Up Instructions / Follow-Up You were admitted with acute congestive heart failure and treated with diuretics to get extra fluid off. You were feeling better and were back to feeling at your baseline at the time of discharge. Please continue on your lasix 40mg once daily and take an extra dose of 40mg in the afternoon if you gain more than 2-3 lbs in one day. Please follow up with your PCP within 1-2 weeks, and with Cardiology within 2 weeks as well. Call your Primary Care doctor if any of the following symptoms or problems start or get worse: * Shortness of breath or difficulty breathing * Wake up at night short of breath * Chest pain * Cough * Swelling of your hands, feet, or legs * More fatigued or tired with your normal activity * Palpitations - sudden fast heart beats WEIGHT * Weigh yourself every morning after using the bathroom. * Use the same scale. * Wear the same amount of clothing. * Write your weight down on a chart. * Call your Primary Care doctor if you gain more than 2-3 pounds in 1-2 days. MEDICATIONS * Use this discharge instruction sheet for medication instructions. * Take your medications at the time your doctor ordered. * Do not skip a dose of your medicines. * If you miss a dose of medicine, take it as soon as possible, but DO NOT DOUBLE A DOSE. * Read your medicine information when you get home. * Know all of the side effects of your medicine. If in doubt, ask your pharmacist * Call your Primary Care doctor's office if you have any side effects. * Be sure all of your doctors know what medicine and herbs you take (including cold, flu, and herbal medicine). Take the following with you to your follow-up doctor appointments: * Weight Chart * Medication List * List of questions Do not drink excessive alcohol, beer or wine. Current Hospital Diet Patient's current hospital diet: AHA Diet (Heart Healthy), Diabetes Type 2 Diet Discharge Diet Recommended Diet: Low Sodium Diet (2gm Na), Diabetes Type 2 Diet Procedures Procedures Performed: Chest xray Pending Studies Studies pending at discharge: no Laboratory Results Hemoglobin A1c Test 11/11/17 03:30 Range/Units Estimated Average Glucose 163 mg/dl Hemoglobin A1c 7.3 H 4.5-5.6 % Medical Emergencies . Who to Call and When: Call 911 or go to the Emergency Room if: * If at any time you feel your situation is an emergency * You have tightness or pain in your chest that does not go away with rest or Nitroglycerin * You are very short of breath even with rest . Non-Emergent Contact Non-Emergency issues call your: Primary Care Provider, Career Development Coordinator/Teacher Call Non-Emergent contact if: you have a fever, temperature is above 100.5, wound has increased drainage, wound has increased redness, wound has increased pain, you have any medication questions . . "Provider Documentation" section prepared by Mary Ann Jaime. . VTE Core Measure Inpt VTE Proph given/why not?: Unfractionated heparin SQ
[2017-11-13 12:57] VITALS: BP 119/70; PULSE 60; TEMP 36.6; O2SAT 100
--- NOTE | 2017-11-13 13:01 | Discharge Summary ---
Discharge Summary Date of Service Nov 13, 2017. Discharge Summary Admission Date: Nov 07, 2017 at 19:53 Discharge Date: Nov 13, 2017 Discharge Disposition: Home with services Principal Diagnosis: Acute systolic CHF, Acute COPD exacerbation Problems/Secondary Diagnoses: acute hypoxic respiratory failure Chronic LBBB Bilateral lower treatment of cellulitis, right more than left, with strep and staph (MSSA) infection DM II hyperglycemia HTN CELIA Morbid obesity Chronic kidney disease, stage 3 , stable Immunizations: Have You Had Influenza Vaccine: N/A History of Tetanus Vaccine?: Yes Tetanus Immunization Date: May 16, 2000 History of Pneumococcal: Yes Pneumococcal Date: May 16, 2000 History of Hepatitis B Vaccine: No Procedures: Chest xray Consultations: Cardiology Medication Reconciliation New Medications: Metoprolol Succinate (Toprol Xl) 25 Mg Tab 37.5 MG PO QPM for 30 Days, #45 TAB Potassium Chloride (Micro-K Ext Rel) 10 Meq Capcr 10 MEQ PO DAILY for 30 Days, #30 CAP Aspirin (Aspirin EC Low Dose) 81 Mg Ectab 81 MG PO QAM for 30 Days Cephalexin Monohydrate (Cephalexin) 500 Mg Cap 500 MG PO QID for 3 Days, #12 CAP Prednisone Tab (Prednisone) 10 Mg Tab 10 MG PO BID, #4 TAB x 1 day then 10mg daily x 2 days, then STOP Changed Medications: Furosemide (Lasix) 40 Mg Tab 40 MG PO DAILY, #30 TAB (Medication details modified) and take an extra 40mg in afternoon for weight gain of 2-3 lbs in one day Continued Medications: Albuterol Sulfate (Proventil Hfa) 108 Mcg/Act Aer 2 PUFFS INH QID PRN for SOB/Wheezing Ascorbic Acid (Vitamin C) 500 Mg Tab 500 MG PO DAILY for po Budesonide/Formoterol Fumarate (Symbicort 160/4.5 Inhaler) 120 Puffs/ Aero 2 PUFFS INH BID, INHALER Citalopram Hydrobromide (Citalopram Hydrobromide) 10 Mg Tab 10 MG PO DAILY for 90 Days, #90 TAB 3 Refills Glimepiride (Glimepiride) 2 Mg Tab 1 TAB PO QAM for 90 Days, #90 TAB 3 Refills Ipratropium-Albuterol (Duoneb) 3 Ml Nebu 1 TREATMENT INH QID, INHA Lisinopril (Prinivil) 10 Mg Tab 10 MG PO DAILY, TAB Lorazepam (Ativan) 0.5 Mg Tab 0.5 MG PO DAILY PRN for Anxiety, TAB Ocuvite Preservision (Ocuvite Preservision) 1 Tab Tab 2 TAB PO DAILY, TAB Pramipexole (Mirapex) 0.125 Mg Tab 0.125 MG PO HS, TAB Simvastatin (Zocor) 20 Mg Tab 20 MG PO QPM, TAB Discharge Exam Pt feeling great, No CP, no SOB. Is back to her baseline O2 requirement of 2 LNC. Feels her legs are much less swollen. Has diuresed 13 L of fluid this hospital stay. Tele with a 2 sec run of atrial tachycardia last night, but otherwise NSR. Review of Systems: Constitutional: No fever, No chills Eyes: No problem reported ENT: No problem reported Respiratory: No problem reported Cardiovascular: No problem reported Abdomen: No problem reported Musculoskeletal: No problem reported Genitourinary - Female: No problem reported Neurologic: No problem reported Psychiatric: No problem reported Endocrine: No problem reported Hematologic / Lymphatic: No problem reported Integumentary: No problem reported Physical Exam: General Appearance: WD/WN, no apparent distress, + obese Eyes: normal inspection, sclerae normal ENT: hearing grossly normal Neck: trachea midline Respiratory/Chest: lungs clear, normal breath sounds, no respiratory distress, no accessory muscle use Cardiovascular: regular rate, rhythm, no gallop, no murmur, + pertinent finding (trace pitting edema legs bilat with mild chronic venous stasis/ dermatitis changes, right anterior tibia wiht small open wound with aquacel dressing and Optifoam, no surrounding erythema, dressing is c/d/i) Abdomen / GI: normal bowel sounds, non tender, soft (and obese) Extremities: no calf tenderness, normal capillary refill Neurologic/Psychiatric: alert, normal mood/affect, oriented x 3 Skin: normal color, warm/dry, no rash Hospital Course Pt is an 82 year old woman here for acute respiratory failure which was hypoxic and required BiPAP support in the emergency room, likely secondary to acute on chronic CHF exacerbation, also some mild exacerbation of COPD Treated with aggressive diuresis with IV lasicx and total net negative 13 L fluid this admission. COPD treated with steroid taper and bronchodilators. Back to baseline O2 requirement and feeling great on day of discharge. Acute hypoxic resp failure, was hypoxic and required BiPAP support in the emergency room, likely secondary to acute on chronic CHF exacerbation Acute on chronic systolic CHF exac Significant improving, weight lost 10 kg, with negative fluid balance 13 L with IV Lasix Continue fluid restriction, input and output, 2 g sodium diet, daily weights at home discussed Mirror Silverer input appreciated, mild LV dysfunction is new, along with septal WMA on ECHO. Continue B clint, which was started this admisison, continue ACEI, continue lasix 40mg daily and add extra 40mg in afternoons for weight gain. Continue oxygen at 2LNC - baseline is 2L echo per report: * 1. Technically difficult study despite use of Definity ultrasound contrast. * 2. Grossly normal LV size with mild concentric LVH. * 3. Mild LV dysfunction. LVEF 45-50%. Abnormal septal motion consistent with conduction abnormality. * 4. RV not well visualized. * 5. No gross valvular pathology. * 6. Compared with prior study on 02/23/2014: Abnormal septal motion and mild LV dysfunction is new. COPD , continue bronchodilators and maintenance inhalers at home, taper oral prednisone Bilateral lower treatment of cellulitis, right more than left, local culture shows strep and staph (MSSA), was on vancomycin for 3 days and then continued on Keflex, per culture results Vanco was discontinued , and continue Keflex , will use Keflex for total 10 days, ordered topical bacitracin ointment and then dressed changes DM II hyperglycemia, which will be improved after continue tapering off Solu- Medrol or prednisone HTN-stable -continue metoprolol, lisinopril CELIA-continue home O2 Morbidly obese hx of Chronic kidney disease, stage 3 , stable STable for dc to home Total Time Spent: Greater than 30 minutes This includes examination of the patient, discharge planning, medication reconciliation, and communication with other providers. Discharge Instructions Please refer to the electronic Patient Visit Report (Discharge Instructions) for additional information. Follow-Up PCP within 1-2 weeks Cardiology within 2 weeks Additional Copies To Randy La M.D.; Balwinder Peace M.D.
== END 2017-11-13 14:22 | disposition home health service (06) | DRG 291 ==
LOC: EDBD 17:43 → C.EDC 17:44 → C.MED 19:53 → ENRESERV 20:21
PROVIDERS: ADMIT Internal Medicine; ATTEND Family Medicine
DX: I13.0 Hypertensive heart and chronic kidney disease with heart failure and stage 1 through stage 4 chronic kidney disease, or unspecified chronic kidney disease (principal); I50.23 Acute on chronic systolic (congestive) heart failure; J96.21 Acute and chronic respiratory failure with hypoxia; Z68.43 Body mass index [BMI] 50.0-59.9, adult; N39.0 Urinary tract infection, site not specified; L97.819 Non-pressure chronic ulcer of other part of right lower leg with unspecified severity; L03.115 Cellulitis of right lower limb; L03.116 Cellulitis of left lower limb; B95.61 Methicillin susceptible Staphylococcus aureus infection as the cause of diseases classified elsewhere; J44.9 Chronic obstructive pulmonary disease, unspecified; I44.7 Left bundle-branch block, unspecified; E66.01 Morbid (severe) obesity due to excess calories; E11.22 Type 2 diabetes mellitus with diabetic chronic kidney disease; G47.33 Obstructive sleep apnea (adult) (pediatric); E78.5 Hyperlipidemia, unspecified; N18.3 Chronic kidney disease, stage 3 (moderate); Z79.899 Other long term (current) drug therapy

== ENCOUNTER → 2018-05-20 | Outpatient (CLI) | payer OTHER ==
[~2018-05-20] MED LIST changes: +ALBUAER INH; +ASPI-320 PO; +CITA10TA4 PO; -GLC/500 PO; +IPRA-64 INH; +KFL500 PO; -LISI-461 PO; +LISI10TA PO; +PRAM0.1212 PO; -PRAM0.129 PO; -SYMIN INH; +SYMIN160 INH
[2018-05-20 13:09] LABS: HEMOGLOBIN A1C 7.4 % (4.5-5.6)
[2018-05-20 13:27] LABS: ALBUMIN 3.5 gm/dl (3.4-5.0); ALKALINE PHOSPHATASE 79 U/L (45-117); ALT/SGPT 17 U/L (12-78); AST/SGOT 13 U/L (15-37); BLOOD UREA NITROGEN 31 mg/dl (7-18); CARBON DIOXIDE 32 mmol/L (21-32); GLUCOSE 138 mg/dl (70-99); POTASSIUM 4.1 mmol/L (3.5-5.1); SODIUM 136 mmol/L (136-145); TOTAL PROTEIN 8.1 gm/dl (6.4-8.2)
== END | disposition home or self-care (01) ==
LOC: C.LABBFT 10:13
PROVIDERS: ATTEND Internal Medicine
DX: I50.41 Acute combined systolic (congestive) and diastolic (congestive) heart failure (principal); E11.65 Type 2 diabetes mellitus with hyperglycemia

== ENCOUNTER 2019-05-25 15:45 | Inpatient (IN) ==
[2019-05-25] MEDS ORDERED: NITROGLYCERIN SL 0.4 MG/TAB TAB SL PRN (15:56)
[2019-05-25 16:12] LABS: Basophils # (auto) 0.03 K/uL (0-0.2); Basophils % (auto) 0.3 %; Eosinophils # (auto) 0.17 K/uL (0-0.5); Eosinophils % (auto) 1.6 %; Hematocrit (blood only) 35.2 % (37-47); Immature Granulocytes # (auto) 0.02 K/uL (0.00-0.02); Immature Granulocytes % (auto) 0.2 %; Lymphocytes # (auto) 2.57 K/uL (1.2-3.4); Lymphocytes % (auto) 24.5 %; Mean Corpuscular Hgb Conc 31.3 g/dL (32-36); Mean Corpuscular Volume 95.1 fL (80-100); Mean Platelet Volume 10.5 fL (7.4-10.4); Monocytes # (auto) 1.17 K/uL (0.11-0.59); Monocytes % (auto) 11.2 %; Neutrophils # (auto) 6.51 K/uL (1.4-6.5); Neutrophils % (auto) 62.2 %; Platelet Count 264 K/uL (130-400); RDW Standard Deviation 48.6 fL (36.4-46.3); White Blood Count 10.47 K/uL (4.8-10.8)
[2019-05-25 16:23] LABS: INR 1.1 (0.9-1.1); Partial Thromboplastin Time 27.6 Seconds (21.0-31.0); Prothrombin Time 10.9 Seconds (9.0-12.0)
[2019-05-25] MEDS ORDERED: ALBUT/IPRATROP 3MG/0.5MG NEB 3 ML VIAL NEB STA (16:25)
[2019-05-25 16:26] LABS: iSTAT Creatinine 1.3 mg/dl (0.6-1.3); iSTAT Hemoglobin 12.2 g/dl (12.0-16.0); iSTAT Ionized Calcium 1.1 mmol/l (1.12-1.32); iSTAT Potassium 3.9 mEq/L (3.3-5.0)
--- NOTE | 2019-05-25 16:28 | Emergency Department Note ---
Entered by Melissa Coy acting as a scribe for All Lewis DO History of Present Illness General Chief complaint: Shortness of Breath/Dyspnea Source: patient History of Present Illness Onset (ago): day(s) 2 Location: chest Pain Consistency: + intermittent Quality: + other (shortness of breath ) Associated symptoms: + other (+chest discomfort) Treatments prior to arrival: aspirin (via EMS) and other (sublingual NG via EMS) The patient is an 84 year old female who presents to the Emergency Room with complaints of intermittent shortness of breath over the last two days. The patient states that she first experienced shortness of breath yesterday, but she notes the shortness of breath she experienced today was much more severe, which is what caused her to call 911. The patient also notes chest discomfort, but the the patient reports the chest discomfort has relieved after receiving sublingual NG and aspirin via EMS. The patient notes history of CHF, but the patient denies having a cardiac catheterization in the past. The patient notes her family physician is Dr. Peace. Home Medications Home Medications Medication Instructions Recorded Confirmed Type lisinopril 10 mg tablet 10 mg PO DAILY #90 tab 03/14/19 05/25/19 Rx metoprolol succinate ER 25 mg 37.5 mg PO DAILY #90 ea 03/14/19 05/25/19 Rx capsule sprinkle, ext. release 24 hr simvastatin 20 mg tablet 20 mg PO QPM #90 tab 03/14/19 05/25/19 Rx furosemide 40 mg tablet 80 mg PO BID #360 tab 04/04/19 05/25/19 Rx ipratropium-albuterol 0.5 mg-3 See Rx Instructions INHALATION 04/04/19 05/25/19 Rx mg(2.5 mg base)/3 mL nebulization .COMPLEX #180 ml soln pramipexole 0.125 mg tablet 0.25 mg PO .COMPLEX #270 tab 04/04/19 05/25/19 Rx vit C 250 mg-E 200 unit-zinc 40 1 tab PO BID #180 cap 04/04/19 05/25/19 Rx mg-copper 1 [id number] capsule glimepiride 2 mg tablet 2 mg PO BID #180 tab 05/05/19 05/25/19 Rx ascorbic acid (vitamin C) 500 mg 500 mg PO DAILY tab 05/13/19 05/25/19 History tablet fluocinonide-emollient 0.05 % 1 appln TOP BID #60 gm 05/16/19 05/25/19 Rx topical cream hydrocodone 5 mg-acetaminophen 325 1 tab PO BID PRN #60 tab 05/16/19 05/25/19 Rx mg tablet lorazepam 0.5 mg tablet 0.5 mg PO DAILY PRN #30 tab 05/16/19 05/25/19 Rx citalopram 10 mg tablet 10 mg PO DAILY #90 tab 05/19/19 05/25/19 Rx budesonide-formoterol [Symbicort] 2 puff INHALATION BID 05/25/19 05/25/19 History sodium hyaluronate (viscosup) 0 mg INTRA-ARTICULAR UNKNOWN 05/25/19 05/25/19 History [Euflexxa] tiotropium bromide [Spiriva 2 puff INHALATION DAILY 05/25/19 05/25/19 History Respimat] Allergies Allergy/AdvReac Type Severity Reaction Status Date / Time iodine Allergy Intermediate SHORTNESS Verified 05/25/19 16:24 OF BREATH Past Med/Surg History Medical History Synovial cyst of popliteal space [Castrejon], right knee Weight loss Venous stasis ulcer with edema of lower leg Venous stasis of both lower extremities Solitary pulmonary nodule Sleep disturbances Restless legs syndrome Obstructive sleep apnea Nocturia Hyperlipidemia Fatigue Diabetes mellitus type 2, uncontrolled (Chronic) Depression Coronary artery disease Chronic kidney disease, stage III (moderate) Chronic combined systolic and diastolic congestive heart failure Aortic stenosis Anxiety Acute combined systolic and diastolic HF (heart failure), NYHA class 3 Abdominal tenderness, LLQ (left lower quadrant) COPD (chronic obstructive pulmonary disease) (Chronic) Morbid obesity with BMI of 50.0-59.9, adult Hypertension Respiratory failure Knee pain, right (Inactive) Abnormal blood chemistry Abnormal electrocardiogram Abrasion of right forearm Acute diastolic congestive heart failure Acute sinusitis COPD exacerbation Cellulitis Chronic rhinitis Closed head injury Congestive heart failure Contusion of left knee Contusion of left upper extremity Cough DMII (diabetes mellitus, type 2) Dyspnea Edema Exposure to viral disease Fall Fall from slip, trip, or stumble Forearm abrasion Impaired fasting glucose Knee pain, left Nasal ulcer Tracheobronchitis Urinary tract infection Wheezing Surgical History S/P ANITHA (total abdominal hysterectomy) Family History Father Lung cancer Mother Lung cancer Brother Coronary heart disease Hx of CABG Social History Preferred Language: Burundian marital status: Current Living Situation: Spouse current occupational status: retired Feels Safe at Home: Yes Smoking Status: Never smoker Hx Alcohol Use: No caffeine: No Review of Systems See HPI for pertinent positives & negatives. and A total of 10 systems reviewed and were otherwise negative Physical Exam Vital Signs Vital Signs - 24 hr 05/25/19 15:37 05/25/19 15:55 05/25/19 15:57 Temperature Temperature Source Sepsis Recent Fever Within 48 Hours Sepsis New/Unexplained Change in Mental Status Sepsis Action Taken by Nursing Pulse Rate 91 H 93 H Pulse Rate [Apical] Pulse Rate from SpO2 Sensor 91 H 94 H Pulse Rhythm Regular Pulse Strength Respiratory Rate 15 26 H Respiratory Effort / Characteristics Respiratory Depth Respiratory Pattern Blood Pressure 125/62 Blood Pressure Mean 83 Blood Pressure Position Pulse Oximetry 98 99 Oxygen Delivery Method Room Air Nasal Cannula Oxygen Flow Rate 2 2 05/25/19 16:00 05/25/19 16:10 05/25/19 16:12 Temperature 36.7 C Temperature Source Oral Sepsis Recent Fever Within 48 Hours No Sepsis New/Unexplained Change in Mental Status No Sepsis Action Taken by Nursing No Action Required Pulse Rate 102 H 92 H 92 H Pulse Rate [Apical] Pulse Rate from SpO2 Sensor 92 H 92 H Pulse Rhythm Regular Pulse Strength Normal Respiratory Rate 22 19 15 Respiratory Effort / Characteristics Non-Labored Spontaneous Respiratory Depth Normal Respiratory Pattern Regular Blood Pressure 139/68 139/68 Blood Pressure Mean 91 91 Blood Pressure Position Sitting Pulse Oximetry 94 97 97 Oxygen Delivery Method Nasal Cannula Oxygen Flow Rate 2 05/25/19 16:15 05/25/19 16:20 05/25/19 16:30 Temperature Temperature Source Sepsis Recent Fever Within 48 Hours Sepsis New/Unexplained Change in Mental Status Sepsis Action Taken by Nursing Pulse Rate 93 H 90 86 Pulse Rate [Apical] Pulse Rate from SpO2 Sensor 90 86 Pulse Rhythm Pulse Strength Respiratory Rate 16 23 18 Respiratory Effort / Characteristics Respiratory Depth Respiratory Pattern Blood Pressure 108/68 165/87 H Blood Pressure Mean 81 113 Blood Pressure Position Pulse Oximetry 95 98 Oxygen Delivery Method Oxygen Flow Rate 05/25/19 16:37 05/25/19 16:40 05/25/19 16:47 Temperature Temperature Source Sepsis Recent Fever Within 48 Hours Sepsis New/Unexplained Change in Mental Status Sepsis Action Taken by Nursing Pulse Rate 86 85 Pulse Rate [Apical] 85 Pulse Rate from SpO2 Sensor 87 Pulse Rhythm Pulse Strength Respiratory Rate 16 13 28 H Respiratory Effort / Characteristics Spontaneous Respiratory Depth Respiratory Pattern Blood Pressure 105/86 Blood Pressure Mean 92 Blood Pressure Position Pulse Oximetry 99 94 Oxygen Delivery Method Nasal Cannula Oxygen Flow Rate 5 05/25/19 16:50 05/25/19 17:00 05/25/19 17:10 Temperature Temperature Source Sepsis Recent Fever Within 48 Hours Sepsis New/Unexplained Change in Mental Status Sepsis Action Taken by Nursing Pulse Rate 83 88 87 Pulse Rate [Apical] Pulse Rate from SpO2 Sensor 85 87 87 Pulse Rhythm Pulse Strength Respiratory Rate 19 18 18 Respiratory Effort / Characteristics Respiratory Depth Respiratory Pattern Blood Pressure 109/93 Blood Pressure Mean 98 Blood Pressure Position Pulse Oximetry 97 97 97 Oxygen Delivery Method Oxygen Flow Rate 05/25/19 17:16 05/25/19 17:20 05/25/19 17:30 Temperature Temperature Source Sepsis Recent Fever Within 48 Hours Sepsis New/Unexplained Change in Mental Status Sepsis Action Taken by Nursing Pulse Rate 87 85 87 Pulse Rate [Apical] Pulse Rate from SpO2 Sensor 88 84 85 Pulse Rhythm Pulse Strength Respiratory Rate 20 19 19 Respiratory Effort / Characteristics Respiratory Depth Respiratory Pattern Blood Pressure 106/81 Blood Pressure Mean 89 Blood Pressure Position Pulse Oximetry 97 97 97 Oxygen Delivery Method Oxygen Flow Rate 05/25/19 17:31 05/25/19 17:40 05/25/19 17:45 Temperature Temperature Source Sepsis Recent Fever Within 48 Hours Sepsis New/Unexplained Change in Mental Status Sepsis Action Taken by Nursing Pulse Rate 87 88 86 Pulse Rate [Apical] Pulse Rate from SpO2 Sensor 90 89 85 Pulse Rhythm Pulse Strength Respiratory Rate 25 H 25 H 25 H Respiratory Effort / Characteristics Respiratory Depth Respiratory Pattern Blood Pressure 132/73 105/64 Blood Pressure Mean 92 77 Blood Pressure Position Pulse Oximetry 97 97 97 Oxygen Delivery Method Oxygen Flow Rate CONSTITUTIONAL/VITAL SIGNS: Reviewed / noted above. GENERAL: Non-toxic in appearance. INTEGUMENTARY: Warm, dry, and Barber. HEAD: Normocephalic. EYES: without scleral icterus or trauma. ENT/OROPHARYNX: clear and moist. LYMPHADENOPATHY/NECK: Is supple without lymphadenopathy or meningismus. RESPIRATORY: Lungs clear and equal. CARDIOVASCULAR: Regular rate and rhythm. GI/ABDOMEN: Soft and nontender. No organomegaly or pulsatile mass. No rebound or guarding. Normal bowel sounds. EXTREMITIES: Warm and well perfused. BACK: No CVA tenderness. NEUROLOGICAL: Intact without focal deficits. PSYCHIATRIC: normal affect. MUSCULOSKELETAL: Normally developed with good muscle tone. Course 155: Past medical records reviewed. The patient was evaluated in room B2. A complete history and physical exam was performed. 1805: I reevaluated the patient and updated the patient on her case. The patient is resting comfortably. 1819: I discussed the case with Dr. Valentin-[facility] Hospitalist. Dr. Valentin will further evaluate the patient. Administered Medications Nitroglycerin (Nitrostat) 0.4 mg SL UD PRN PRN Reason: Chest Pain Stop: 06/24/19 15:55 Last Admin: 05/25/19 16:11 Dose: 0.4 mg Documented by: [id number] Discontinued Medications Albuterol (Duoneb) 3 ml NEB NOW STA Stop: 05/25/19 16:26 Last Admin: 05/25/19 16:36 Dose: 3 ml Documented by: [id number] Medical Decision Making Differential Diagnosis Differential diagnosis: Etiologies such as infections, reactive airway disease, pneumonia, pneumothorax, COPD, CHF, cardiac ischemia, pulmonary embolism, musculoskeletal, gastrointestinal, as well as others were entertained. Medical Records Attestation: I reviewed the patient's medical records. Home Medications Current Medication List: was personally reviewed by me Laboratory Data Attestation: I reviewed the patient's lab results. Result diagrams: 05/25/19 16:05 05/25/19 16:05 Lab Results 05/25/19 05/25/19 05/25/19 Range/Units 16:05 16:05 16:05 WBC 10.47 (4.8-10.8) K/uL RBC 3.70 L (4.2-5.4) M/uL Hgb 11.0 L (12.0-16.0) g/dL POC Hgb (12.0-16.0) g/dl Hct 35.2 L (37-47) % POC Hct (37-47) % MCV 95.1 (80-100) fL MCH 29.7 (25-34) pg MCHC 31.3 L (32-36) g/dL RDW Std Deviation 48.6 H (36.4-46.3) fL RDW Coeff of Jade 14.0 (11.5-14.5) % Plt Count 264 (130-400) K/uL MPV 10.5 H (7.4-10.4) fL Immature Gran % (Auto) 0.2 % Neut % (Auto) 62.2 % Lymph % (Auto) 24.5 % Beaver % (Auto) 11.2 % Eos % (Auto) 1.6 % Baso % (Auto) 0.3 % Immature Gran # (Auto) 0.02 (0.00-0.02) K/uL Neut # (Auto) 6.51 H (1.4-6.5) K/uL Lymph # (Auto) 2.57 (1.2-3.4) K/uL Beaver # (Auto) 1.17 H (0.11-0.59) K/uL Eos # (Auto) 0.17 (0-0.5) K/uL Baso # (Auto) 0.03 (0-0.2) K/uL PT 10.9 (9.0-12.0) Seconds INR 1.1 (0.9-1.1) APTT 27.6 (21.0-31.0) Seconds PTT Ratio 1.0 POC Sodium (135-144) mEq/L Sodium 137 (136-145) mmol/L POC Potassium (3.3-5.0) mEq/L Potassium 3.9 (3.5-5.1) mmol/L POC Chloride (101-112) mEq/L Chloride 97 L (98-107) mmol/L Carbon Dioxide 32 (21-32) mmol/L POC Total CO2 (24-31) mEq/l Anion Gap 8.0 (3-11) POC Anion Gap (16-25) mmol/L POC BUN (7-18) mg/dl BUN 31 H (7-18) mg/dl Creatinine 1.13 (0.6-1.2) mg/dl POC Creatinine (0.6-1.3) mg/dl Est Cr Clr Drug Dosing 54.6 ml/min Est GFR ( Amer) 52.4 Est GFR (Non-Af Amer) 45.2 BUN/Creatinine Ratio 27.7 H (10-20) Glucose 122 H (70-99) mg/dl POC Glucose (other) (70-99) mg/dl Calcium 9.0 (8.5-10.1) mg/dl POC Ioniz Calcium Felix (1.12-1.32) mmol/l Total Bilirubin 0.3 (0.2-1) mg/dl AST 16 (15-37) U/L ALT 20 (12-78) U/L Alkaline Phosphatase 73 (45-117) U/L Total Creatine Kinase 36 (26-192) U/L CK-MB (CK-2) < 1.0 (0.5-3.6) ng/ml CK/CKMB % Calc TNP POC Troponin I (0-0.045) ng/ml Troponin I < 0.015 (0-0.045) ng/ml Total Protein 7.7 (6.4-8.2) gm/dl Albumin 3.3 L (3.4-5.0) gm/dl Globulin 4.4 H (2.5-4.0) gm/dl Albumin/Globulin Ratio 0.8 L (0.9-2) Lipase 71 L (73-393) U/L 05/25/19 05/25/19 Range/Units 16:09 16:11 WBC (4.8-10.8) K/uL RBC (4.2-5.4) M/uL Hgb (12.0-16.0) g/dL POC Hgb 12.2 (12.0-16.0) g/dl Hct (37-47) % POC Hct 36 L (37-47) % MCV (80-100) fL MCH (25-34) pg MCHC (32-36) g/dL RDW Std Deviation (36.4-46.3) fL RDW Coeff of Jade (11.5-14.5) % Plt Count (130-400) K/uL MPV (7.4-10.4) fL Immature Gran % (Auto) % Neut % (Auto) % Lymph % (Auto) % Beaver % (Auto) % Eos % (Auto) % Baso % (Auto) % Immature Gran # (Auto) (0.00-0.02) K/uL Neut # (Auto) (1.4-6.5) K/uL Lymph # (Auto) (1.2-3.4) K/uL Beaver # (Auto) (0.11-0.59) K/uL Eos # (Auto) (0-0.5) K/uL Baso # (Auto) (0-0.2) K/uL PT (9.0-12.0) Seconds INR (0.9-1.1) APTT (21.0-31.0) Seconds PTT Ratio POC Sodium 135 (135-144) mEq/L Sodium (136-145) mmol/L POC Potassium 3.9 (3.3-5.0) mEq/L Potassium (3.5-5.1) mmol/L POC Chloride 93 L (101-112) mEq/L Chloride (98-107) mmol/L Carbon Dioxide (21-32) mmol/L POC Total CO2 32 H (24-31) mEq/l Anion Gap (3-11) POC Anion Gap 16.0 (16-25) mmol/L POC BUN 31 H (7-18) mg/dl BUN (7-18) mg/dl Creatinine (0.6-1.2) mg/dl POC Creatinine 1.3 (0.6-1.3) mg/dl Est Cr Clr Drug Dosing ml/min Est GFR ( Amer) Est GFR (Non-Af Amer) BUN/Creatinine Ratio (10-20) Glucose (70-99) mg/dl POC Glucose (other) 125 H (70-99) mg/dl Calcium (8.5-10.1) mg/dl POC Ioniz Calcium Felix 1.10 L (1.12-1.32) mmol/l Total Bilirubin (0.2-1) mg/dl AST (15-37) U/L ALT (12-78) U/L Alkaline Phosphatase (45-117) U/L Total Creatine Kinase (26-192) U/L CK-MB (CK-2) (0.5-3.6) ng/ml CK/CKMB % Calc POC Troponin I < 0.03 (0-0.045) ng/ml Troponin I (0-0.045) ng/ml Total Protein (6.4-8.2) gm/dl Albumin (3.4-5.0) gm/dl Globulin (2.5-4.0) gm/dl Albumin/Globulin Ratio (0.9-2) Lipase (73-393) U/L Imaging Data Radiologist's Impression: Radiology results as stated below per my review and the radiologist's interpretation: XR chest 1V portable CLINICAL HISTORY: Chest Pain dyspnea COMPARISON STUDY: 11/07/2017 FINDINGS: Moderate cardiomegaly. Prominent pulmonary vasculature. Diaphragms are smooth. IMPRESSION: Early congestive heart failure The above report was generated using voice recognition software. It may contain grammatical, syntax or spelling errors. Electronically signed by: Otto Sebastian M.D. 05/25/2019 4:26 PM ECG Data Attestation: I personally reviewed and interpreted this ECG as follows: Indication: SOB/dyspnea Rate (beats per minute): 90 Rhythm: normal sinus Findings: + LBBB; no PAC, no PVC, no ST elevation and no ectopy Comparison ECG Date: from (11/07/17 and 11/12/17) Change: the following changes noted (LBBB unchanged from 11/07 and LBBB is present in 11/12) Blood Pressure Blood Pressure Findings: Normal blood pressure MDM Narrative This is an 84-year-old female who presents to the ED with a chief complaint of chest pain or shortness of breath. The patient states that she started having a little shortness of breath yesterday but worsened today. She also reports some mild discomfort in her chest. She was having the discomfort in the chest a round 1:30 PM. EMS evaluated the patient and provided aspirin as well as a nitro sublingual. This did improve the pain. She received a second nitroglycerin here. The patient reports a history of CHF but has never had a cardiac catheterization in the past. The patient's twelve-lead EKG reveals a sinus rhythm with a left bundle branch block. We will see him back in the records, the patient appears to have an intermittent left bundle branch block. Her left bundle branch block today is similar to one in October 2017. The patient's exam was relatively unremarkable. She is in no distress. Her CBC is unremarkable. Troponin was negative. On reassessment, the patient is doing somewhat better. She states that she feels shaky and has very mild discomfort in her chest. The patient will be observed for further evaluation of her symptoms due to her history and chief complaint. Impression & Plan Chest pain, Acute dyspnea Discharge Plan Visit Data Chief Complaint: Shortness of Breath/Dyspnea ED Provider: All Lewis Discharge Problem: Chest pain, Acute dyspnea Patient Disposition: Being Evaluated by Hospitalist Forms Stand Alone Forms: My [facility] Prescriptions Prescriptions: No Action lisinopril 10 mg tablet 10 mg PO DAILY Qty: 90 RF: 3 metoprolol succinate 25 mg capsule,sprinkle,ER 24hr 37.5 mg PO DAILY Qty: 90 RF: 3 simvastatin 20 mg tablet 20 mg PO QPM Qty: 90 RF: 3 furosemide 40 mg tablet 80 mg PO BID Qty: 360 RF: 1 ipratropium-albuterol 0.5 mg-3 mg(2.5 mg base)/3 mL solution for nebulization See Patient Comments inhalation .COMPLEX Qty: 180 RF: 1 pramipexole 0.125 mg tablet 0.25 mg PO .COMPLEX Qty: 270 RF: 1 PreserVision AREDS-2 [id number]-mg capsule 1 tab PO BID Qty: 180 RF: 1 glimepiride 2 mg tablet 2 mg PO BID Qty: 180 RF: 3 citalopram 10 mg tablet 10 mg PO DAILY Qty: 90 RF: 3 lorazepam 0.5 mg tablet 0.5 mg PO DAILY PRN (Reason: anxiety) Qty: 30 RF: 2 hydrocodone-acetaminophen [Butler] 5-325 mg tablet 1 tab PO BID PRN (Reason: Dr. Peace - [facility]# [id number]) Qty: 60 RF: 0 fluocinonide-emollient [Fluocinonide-E] 0.05 % cream 1 appln TOP BID Qty: 60 RF: 0 ascorbic acid (vitamin C) 500 mg tablet 500 mg PO DAILY RF: 0 Symbicort 160-4.5 mcg/actuation HFA aerosol inhaler 2 puff inhalation BID RF: 0 Spiriva Respimat 2.5 mcg/actuation mist 2 puff inhalation DAILY RF: 0 Euflexxa 10 mg/mL(mw 2.4 -3.6 million) syringe intra-articular UNKNOWN RF: 0 Referrals Referrals: Balwinder Peace III, MD [Primary Care Provider] - Discharge Problem: Chest pain Qualifiers: Chest pain type: precordial pain Qualified Code(s): R07.2 - Precordial pain The scribe's documentation has been prepared under my direction and personally reviewed by me in its entirety. I confirm that the note above accurately reflects all work, treatment, procedures, and medical decision making performed by me.
[2019-05-25 16:29] LABS: Alanine Aminotransferase 20 U/L (12-78); Albumin Level 3.3 gm/dl (3.4-5.0); Aspartate Aminotransferase 16 U/L (15-37); BUN Creatinine Ratio 27.7 (10-20); Blood Urea Nitrogen 31 mg/dl (7-18); Carbon Dioxide 32 mmol/L (21-32); Chloride 97 mmol/L (98-107); Creatinine Clr Calc Pharmacy 54.6 ml/min; Est GFR (African American) 52.4; Est GFR (Non-African American) 45.2; Glucose 122 mg/dl (70-99); Potassium 3.9 mmol/L (3.5-5.1); Sodium 137 mmol/L (136-145)
[2019-05-25 16:34] LABS: Albumin Globulin Ratio 0.8 (0.9-2); Alkaline Phosphatase 73 U/L (45-117); Bilirubin,Total 0.3 mg/dl (0.2-1); Creatine Kinase 36 U/L (26-192); Creatine Kinase MB < 1.0 ng/ml (0.5-3.6); Globulin 4.4 gm/dl (2.5-4.0); Total Protein 7.7 gm/dl (6.4-8.2); Troponin I < 0.015 ng/ml (0-0.045)
[2019-05-25] MEDS ORDERED: FUROSEMIDE 40 MG in SYRINGE 0 ML IV ONE (19:13)
--- NOTE | 2019-05-25 19:14 | History & Physical Report ---
Date of Service May 25, 2019 Assessment & Plan (1) Acute on chronic diastolic CHF (congestive heart failure): Likely related to medication noncompliance Pt should be taking 80mg BID and at least three days a week she is taking 120mg QD only ECHO pending, last ECHO 11/2017 with EF 45-50% Lasix 40mg IV tonight and will dose additionally in AM if needed (2) Chest pain: Concern for possible ACS Seems more likely related to CHF status Trop neg x1, serials pending ECHO pending given LBBB noted on EKG (3) COPD (chronic obstructive pulmonary disease): With chronic respiratory failure Home O2 continuous 2L continue home meds no current exacerbation Nebs jose cruz to prevent given CHF exacerbation (4) Diabetes mellitus type 2, uncontrolled: Holding glimepiride to avoid worsening of renal function with increased lasix use A1c pending SSI PRN (5) Venous stasis ulcers of both lower extremities: Follows with [facility] c/s pending Was to have f/u tomorrow at [facility] Last appt with [facility] was 05/23 (6) Restless legs syndrome: continue home meds (7) Obstructive sleep apnea: Continuous O2 via NC (8) Hyperlipidemia: continue home meds (9) Depression: continue home meds (10) Chronic kidney disease, stage III (moderate): Cr 1.1 on admission (11) Anxiety: continue home meds (12) Hypertension: continue home meds (13) DVT prophylaxis: Heparin for DVT proph History of Present Illness Primary Care Provider: Balwinder Peace MD 84 y/o F c/o SOB. Pt states that this has been getting progressively worse over the last 1.5 weeks. She states it started out as just SOB with prolonged exertion, but then became with all exertion and today she was SOB with just talking. She also developed some chest tightness today. No michelle pain, just tightness, so she thought she should come to the ED. Pt denies fever, abd pain, n/v/c/d. Pt takes lasix 80mg BID. She states that if she has appts, she will take her first dose in the AM, but she will take 120mg at that time because by the time she gets home from her appt it is too late to take the lasix without being up all night to urinate. She states this happens about 3 times a week. The other days she takes it at 10a and 3-4p. She did not get her lasix at all today due to the worsening sx around the time that she would usually take the lasix. Pt was given nitro by EMS with no improvement. She was given nebs and another nitro in the ED and felt slightly improved initially, but this did not last. She states she feels as she did prior to coming to the ED, but is also now shaky after the neb. Pt has been working with the [facility] for b/l LE ulcerations. She is supposed to have a knee replacement, but cannot until the LE ulcerations are healed. She saw [facility] on Sunday and was to see them again tomorrow as well. Pt states she has been having issues with her diet. She uses [employer] Whe[employer] service and is supposed to have DM/low sodium diet. She is having difficulty getting food from the service that fits these guidelines and has asked for help with this. Allergies Allergy/AdvReac Type Severity Reaction Status Date / Time iodine Allergy Intermediate SHORTNESS Verified 05/25/19 16:24 OF BREATH Home Medications Home Medications Medication Instructions Recorded Confirmed Type lisinopril 10 mg tablet 10 mg PO DAILY #90 tab 03/14/19 05/25/19 Rx metoprolol succinate ER 25 mg 37.5 mg PO DAILY #90 ea 03/14/19 05/25/19 Rx capsule sprinkle, ext. release 24 hr simvastatin 20 mg tablet 20 mg PO QPM #90 tab 03/14/19 05/25/19 Rx furosemide 40 mg tablet 80 mg PO BID #360 tab 04/04/19 05/25/19 Rx ipratropium-albuterol 0.5 mg-3 See Rx Instructions INHALATION 04/04/19 05/25/19 Rx mg(2.5 mg base)/3 mL nebulization .COMPLEX #180 ml soln pramipexole 0.125 mg tablet 0.25 mg PO .COMPLEX #270 tab 04/04/19 05/25/19 Rx vit C 250 mg-E 200 unit-zinc 40 1 tab PO BID #180 cap 04/04/19 05/25/19 Rx mg-copper 1 ko-hjmtei-wedrwt capsule glimepiride 2 mg tablet 2 mg PO BID #180 tab 05/05/19 05/25/19 Rx ascorbic acid (vitamin C) 500 mg 500 mg PO DAILY tab 05/13/19 05/25/19 History tablet fluocinonide-emollient 0.05 % 1 appln TOP BID #60 gm 05/16/19 05/25/19 Rx topical cream hydrocodone 5 mg-acetaminophen 325 1 tab PO BID PRN #60 tab 05/16/19 05/25/19 Rx mg tablet lorazepam 0.5 mg tablet 0.5 mg PO DAILY PRN #30 tab 05/16/19 05/25/19 Rx citalopram 10 mg tablet 10 mg PO DAILY #90 tab 05/19/19 05/25/19 Rx budesonide-formoterol [Symbicort] 2 puff INHALATION BID 05/25/19 05/25/19 History sodium hyaluronate (viscosup) 0 mg INTRA-ARTICULAR UNKNOWN 05/25/19 05/25/19 History [Euflexxa] tiotropium bromide [Spiriva 2 puff INHALATION DAILY 05/25/19 05/25/19 History Respimat] Past Med/Surg History Medical History Synovial cyst of popliteal space [Castrejon], right knee Weight loss Venous stasis ulcer with edema of lower leg Venous stasis of both lower extremities Solitary pulmonary nodule Sleep disturbances Restless legs syndrome Obstructive sleep apnea Nocturia Hyperlipidemia Fatigue Diabetes mellitus type 2, uncontrolled (Chronic) Depression Coronary artery disease Chronic kidney disease, stage III (moderate) Chronic combined systolic and diastolic congestive heart failure Aortic stenosis Anxiety Acute combined systolic and diastolic HF (heart failure), NYHA class 3 Abdominal tenderness, LLQ (left lower quadrant) COPD (chronic obstructive pulmonary disease) (Chronic) Morbid obesity with BMI of 50.0-59.9, adult Hypertension Respiratory failure Knee pain, right (Inactive) Abnormal blood chemistry Abnormal electrocardiogram Abrasion of right forearm Acute diastolic congestive heart failure Acute sinusitis COPD exacerbation Cellulitis Chronic rhinitis Closed head injury Congestive heart failure Contusion of left knee Contusion of left upper extremity Cough DMII (diabetes mellitus, type 2) Dyspnea Edema Exposure to viral disease Fall Fall from slip, trip, or stumble Forearm abrasion Impaired fasting glucose Knee pain, left Nasal ulcer Tracheobronchitis Urinary tract infection Wheezing Surgical History S/P ANITHA (total abdominal hysterectomy) Family History Father Lung cancer Mother Lung cancer Brother Coronary heart disease Hx of CABG Social History Preferred Language: Bahamian marital status: Current Living Situation: Spouse current occupational status: retired Feels Safe at Home: Yes Smoking Status: Never smoker Hx Alcohol Use: No Hx Substance Use: Yes (recent use of medical marijuana for knee pain, not cu rrently ) caffeine: No Review of Systems Review of Systems: Pertinent positives and negatives reviewed in HPI--all others negative Physical Exam Constitutional: WD/WN, vitals as above Eyes: normal visual costa by confrontation and + anicteric sclerae Neck: normal visual inspection and trachea midline Respiratory: normal respiratory effort; no respiratory distress Auscultation: + crackles (bases); no wheezes Cardiovascular: Rate/Rhythm: regular rate and regular rhythm Gastrointestinal (Abdomen): Inspection/Auscultation: abdomen not distended Percussion/Palpation: abdomen soft; abdomen nontender Musculoskeletal: Head/Neck/Chest: normocephalic and head atraumatic b/l 2+ pitting edema, peripheral pulses intact Skin: b/l LE are wrapped to mid-calf Redness noted above wrapping Bandadges are clean and dry Neurologic: awake; not confused Speech / Cognition: normal speech Psychiatric: A+Ox3, euthymic affect Results & Data Vital Signs (Past 12 Hours) Vital Signs Temp Pulse Pulse Resp BP Pulse Ox 05/25/19 19:01 88 16 146/94 H 98 05/25/19 19:00 93 H 25 H 96 05/25/19 18:50 96 H 18 99 05/25/19 18:45 90 17 133/100 100 05/25/19 18:40 90 21 98 05/25/19 18:32 90 24 97 05/25/19 18:31 89 17 122/85 96 05/25/19 18:30 87 19 05/25/19 18:20 89 22 97 05/25/19 18:16 90 26 H 128/36 L 98 05/25/19 18:10 88 25 H 97 05/25/19 18:00 89 24 119/101 H 97 05/25/19 17:50 87 23 98 05/25/19 17:45 86 25 H 105/64 97 05/25/19 17:40 88 25 H 97 05/25/19 17:31 87 25 H 132/73 97 05/25/19 17:30 87 19 97 05/25/19 17:20 85 19 97 05/25/19 17:16 87 20 106/81 97 05/25/19 17:10 87 18 97 05/25/19 17:00 88 18 109/93 97 05/25/19 16:50 83 19 97 05/25/19 16:47 85 28 H 105/86 94 05/25/19 16:40 86 13 05/25/19 16:37 85 16 99 05/25/19 16:30 86 18 165/87 H 98 05/25/19 16:20 90 23 95 05/25/19 16:15 93 H 16 108/68 05/25/19 16:12 92 H 15 139/68 97 05/25/19 16:10 92 H 19 97 05/25/19 16:00 36.7 C 102 H 22 139/68 94 05/25/19 15:57 93 H 26 H 99 05/25/19 15:55 91 H 15 125/62 98 Diagnostic Findings CXR: early CHF ECG Findings: + LBBB (has been seen in the past, but not on most recent EKGs) Code Status & VTE Plan Code Status Full code, although pt states no prolonged mechanical life support, feeding tubes, etc. Pt states she has a living will that specifies DNR/DNI. VTE Prophylaxis Plan VTE Prophylaxis will be ordered: Yes PG Care Time/CCT Total # of Minutes Spent Total Time Spent with Patient: Total time spent is greater than 50% in coordination of care (as documented) at patient's floor/unit and/or counseling patient: (1) Chest pain Chest pain type: precordial pain Qualified Code(s): R07.2 - Precordial pain
[2019-05-25] MEDS ORDERED: FUROSEMIDE 40 MG/4 ML VIAL IV ONE (19:40)
[2019-05-25] MEDS ORDERED: CARBOHYDRATES FOR HYPOGLYCEMIA PO PRN (20:01)
[2019-05-25] MEDS ORDERED: DEXTROSE 50% 50 ML SYRINGE IV PRN (20:01)
[2019-05-25] MEDS ORDERED: ACETAMINOPHEN 325 MG TAB PO PRN (20:01)
[2019-05-25] MEDS ORDERED: ALBUT/IPRATROP 3MG/0.5MG NEB 3 ML VIAL INH PRN (20:01)
[2019-05-25] MEDS ORDERED: GLUCOSE 40% GEL 15 GM TUBE PO PRN (20:01)
[2019-05-25] MEDS ORDERED: MAGNESIUM HYDROXIDE SUSP 30 ML UDC PO PRN (20:01)
[2019-05-25] MEDS ORDERED: GLUCOSE 10 TABS/TUBE PO PRN (20:01)
[2019-05-25] MEDS ORDERED: GLUCAGON FOR INJ 1 MG VIAL SQ PRN (20:01)
[2019-05-25] MEDS ORDERED: ONDANSETRON INJ 2 MG/ML 2 ML VIAL IV PRN (20:01)
[2019-05-25] MEDS: LEVALBUTEROL HCL 1.25 MG/3 ML NEB NEB SCH (20:58)
[2019-05-25] MEDS: FUROSEMIDE 80 MG TAB PO SCH (21:42)
[2019-05-25] MEDS: LORazepam 0.5 MG TAB PO SCH (21:42)
[2019-05-25] MEDS: CEROVITE ADV FORMULA TAB PO SCH (21:42)
[2019-05-25] MEDS: SIMVASTATIN 20 MG TAB PO SCH (21:42)
[2019-05-25] MEDS: FLUOCINONIDE 0.05% CR 15 GM TUBE EXT SCH (21:42)
[2019-05-25] MEDS: INSULIN ASPART 100 UNITS/ML 3 ML PEN SC SCH (21:43)
[2019-05-25] MEDS: BUDESONIDE/FORMOTEROL FUMARATE 160/4.5 60 PUFFS/INHALER INH SCH (21:43)
[2019-05-25] MEDS: HEPARIN SOD 5,000 UNIT/0.5 ML VIAL SQ SCH (21:43)
[2019-05-25] MEDS: PRAMIPEXOLE DIHYDROCHLO 0.25 MG TAB PO PRN (21:46)
[2019-05-25] MEDS: HYDROCODONE/ACETAMOPHEN 5/325MG TAB PO PRN (22:05)
[2019-05-26] MEDS: LEVALBUTEROL HCL 1.25 MG/3 ML NEB NEB SCH ×5 (02:07→19:11)
[2019-05-26 02:26] LABS: BUN Creatinine Ratio 24.8 (10-20); Blood Urea Nitrogen 32 mg/dl (7-18); Carbon Dioxide 33 mmol/L (21-32); Chloride 96 mmol/L (98-107); Creatinine Clr Calc Pharmacy 47.1 ml/min; Est GFR (African American) 44.2; Est GFR (Non-African American) 38.2; Glucose 181 mg/dl (70-99); Potassium 3.7 mmol/L (3.5-5.1); Sodium 137 mmol/L (136-145)
[2019-05-26 02:31] LABS: Troponin I < 0.015 ng/ml (0-0.045)
[2019-05-26] MEDS: HEPARIN SOD 5,000 UNIT/0.5 ML VIAL SQ SCH ×3 (05:00→21:03)
[2019-05-26 06:28] LABS: Estimated Average Glucose 197 mg/dl; Hemoglobin A1C 8.5 % (4.5-5.6)
[2019-05-26] MEDS ORDERED: PERFLUTREN LIPID MICROSPHERE (DEFINITY) IV ONE (07:15)
[2019-05-26] MEDS: INSULIN ASPART 100 UNITS/ML 3 ML PEN SC SCH ×4 (08:38→21:05)
[2019-05-26] MEDS: CITALOPRAM 20 MG TAB PO SCH (08:39)
[2019-05-26] MEDS: ASCORBIC ACID 500 MG TAB PO SCH (08:40)
[2019-05-26] MEDS: LISINOPRIL 10 MG TAB PO SCH (08:41)
[2019-05-26] MEDS: METOPROLOL SUCC 25MG EXT REL TAB PO SCH (08:41)
[2019-05-26] MEDS: FLUOCINONIDE 0.05% CR 15 GM TUBE EXT SCH ×2 (08:41→21:05)
[2019-05-26] MEDS: FUROSEMIDE 80 MG TAB PO SCH ×2 (08:41→19:45)
[2019-05-26] MEDS: BUDESONIDE/FORMOTEROL FUMARATE 160/4.5 60 PUFFS/INHALER INH SCH ×2 (08:43→21:03)
[2019-05-26] MEDS: TIOTROPIUM BROMIDE 5 PUFF/90 MCG INH INH SCH (08:44)
[2019-05-26] MEDS: CEROVITE ADV FORMULA TAB PO SCH ×2 (08:46→21:04)
[2019-05-26] MEDS: HYDROCODONE/ACETAMOPHEN 5/325MG TAB PO PRN ×2 (10:21→22:40)
[2019-05-26] MEDS ORDERED: FUROSEMIDE 40 MG in SYRINGE 0 ML IV ONE (12:00)
[2019-05-26] MEDS: cephALEXin 500 MG CAP PO SCH ×2 (12:58→21:02)
[2019-05-26] MEDS: LACTOBACILLUS ACIDOPHILUS (FLORANEX) TAB PO SCH ×2 (12:58→19:45)
--- NOTE | 2019-05-26 14:12 | Hospitalist Progress Note ---
Date of Service May 26, 2019 Assessment & Plan (1) Acute on chronic diastolic CHF (congestive heart failure): Likely related to medication noncompliance Pt should be taking 80mg BID and at least three days a week she is taking 120mg QD only ECHO pending, last ECHO 11/2017 with EF 45-50% Lasix 40mg IV on admission Gave usual 80mg PO lasix this AM, will dose additional 40mg IV mid-day and then additional 80mg PO later this afternoon (2) Chest pain: Concern for possible ACS Seems more likely related to CHF status Trop neg x3 ECHO pending given LBBB noted on EKG (3) COPD (chronic obstructive pulmonary disease): With chronic respiratory failure Home O2 continuous 2L continue home meds no current exacerbation Nebs jose cruz to prevent given CHF exacerbation (4) Diabetes mellitus type 2, uncontrolled: Holding glimepiride to avoid worsening of renal function with increased lasix use A1c 8.5 SSI PRN (5) Venous stasis ulcers of both lower extremities: Follows with [facility] c/s pending Was to have f/u tomorrow at [facility] Last appt with [facility] was 05/23, cx done there noted + for enterococcus on R and staph on L Sensitivities noted, started on keflex 500mg QID (6) Restless legs syndrome: continue home meds (7) Obstructive sleep apnea: Continuous O2 via NC (8) Hyperlipidemia: continue home meds (9) Depression: continue home meds (10) Chronic kidney disease, stage III (moderate): Cr 1.1 on admission, slight increased to 1.3 Monitor (11) Anxiety: continue home meds (12) Hypertension: continue home meds (13) DVT prophylaxis: Heparin for DVT proph Subjective Pt still with SOB with going to the bathroom, but no longer at rest and feels it is overall improving. Feels her LE ulcerations look improved. Tolerating PO. Pt denies fever, chest pain, abd pain, n/v/c/d. Ongoing LE pain related to knee OA, but this is chronic and stable. Review of Systems Review of Systems: Pertinent positives and negatives reviewed in HPI--all others negative Physical Exam Constitutional: WD/WN, vitals as above Eyes: normal visual costa by confrontation and + anicteric sclerae Neck: normal visual inspection and trachea midline Respiratory: normal respiratory effort; no respiratory distress Auscultation: + crackles (bases--scant and improving today); no wheezes Cardiovascular: Rate/Rhythm: regular rate and regular rhythm Gastrointestinal (Abdomen): Inspection/Auscultation: abdomen not distended Percussion/Palpation: abdomen soft; abdomen nontender Musculoskeletal: Head/Neck/Chest: normocephalic and head atraumatic b/l LE edema Skin: Redness noted above bandaging, clean and dry Neurologic: awake; not confused Speech / Cognition: normal speech Psychiatric: A+Ox3, euthymic affect Results & Data Vital Signs (Past 12 Hours) Vital Signs Temp Pulse Pulse Resp BP BP Pulse Ox 05/26/19 13:32 77 18 98 05/26/19 13:01 37.0 C 81 20 148/68 H 97 05/26/19 10:13 83 05/26/19 08:50 90 18 93 05/26/19 08:00 36.8 C 81 18 148/79 H 98 05/26/19 04:00 36.9 C 84 20 126/61 93 PG Care Time/CCT Total # of Minutes Spent Total Time Spent with Patient: Total time spent is greater than 50% in coordination of care (as documented) at patient's floor/unit and/or counseling patient: (1) Chest pain Chest pain type: precordial pain Qualified Code(s): R07.2 - Precordial pain
[2019-05-26] MEDS: SIMVASTATIN 20 MG TAB PO SCH (21:03)
[2019-05-26] MEDS: LORazepam 0.5 MG TAB PO SCH (21:08)
[2019-05-26] MEDS: PRAMIPEXOLE DIHYDROCHLO 0.25 MG TAB PO PRN (22:36)
[2019-05-27] MEDS: LEVALBUTEROL HCL 1.25 MG/3 ML NEB NEB SCH ×3 (00:07→13:28)
[2019-05-27] MEDS: HEPARIN SOD 5,000 UNIT/0.5 ML VIAL SQ SCH (06:06)
[2019-05-27] MEDS ORDERED: MICONAZOLE NITRATE POWDER 43 GM EXT PRN (07:46)
[2019-05-27] MEDS: METOPROLOL SUCC 25MG EXT REL TAB PO SCH (08:20)
[2019-05-27] MEDS: FUROSEMIDE 80 MG TAB PO SCH (08:20)
[2019-05-27] MEDS: LACTOBACILLUS ACIDOPHILUS (FLORANEX) TAB PO SCH ×2 (08:21→12:50)
[2019-05-27] MEDS: cephALEXin 500 MG CAP PO SCH (08:21)
[2019-05-27] MEDS: CEROVITE ADV FORMULA TAB PO SCH (08:21)
[2019-05-27] MEDS: BUDESONIDE/FORMOTEROL FUMARATE 160/4.5 60 PUFFS/INHALER INH SCH (08:21)
[2019-05-27] MEDS: ASCORBIC ACID 500 MG TAB PO SCH (08:21)
[2019-05-27] MEDS: LISINOPRIL 10 MG TAB PO SCH (08:22)
[2019-05-27] MEDS: FLUOCINONIDE 0.05% CR 15 GM TUBE EXT SCH (08:23)
[2019-05-27] MEDS: CITALOPRAM 20 MG TAB PO SCH (08:23)
[2019-05-27] MEDS: TIOTROPIUM BROMIDE 5 PUFF/90 MCG INH INH SCH (08:23)
[2019-05-27] MEDS: INSULIN ASPART 100 UNITS/ML 3 ML PEN SC SCH ×2 (08:26→12:54)
[2019-05-27] MEDS: HYDROCODONE/ACETAMOPHEN 5/325MG TAB PO PRN (08:35)
--- NOTE | 2019-05-27 10:36 | Discharge Summary ---
Date of Service May 27, 2019 Admission HPI Per Admitting Provider 84 y/o F c/o SOB. Pt states that this has been getting progressively worse over the last 1.5 weeks. She states it started out as just SOB with prolonged exertion, but then became with all exertion and today she was SOB with just talking. She also developed some chest tightness today. No michelel pain, just tightness, so she thought she should come to the ED. Pt denies fever, abd pain, n/v/c/d. Pt takes lasix 80mg BID. She states that if she has appts, she will take her first dose in the AM, but she will take 120mg at that time because by the time she gets home from her appt it is too late to take the lasix without being up all night to urinate. She states this happens about 3 times a week. The other days she takes it at 10a and 3-4p. She did not get her lasix at all today due to the worsening sx around the time that she would usually take the lasix. Pt was given nitro by EMS with no improvement. She was given nebs and another nitro in the ED and felt slightly improved initially, but this did not last. She states she feels as she did prior to coming to the ED, but is also now shaky after the neb. Pt has been working with the [facility] for b/l LE ulcerations. She is supposed to have a knee replacement, but cannot until the LE ulcerations are healed. She saw [facility] on Sunday and was to see them again tomorrow as well. Pt states she has been having issues with her diet. She uses Meals on Wheels service and is supposed to have DM/low sodium diet. She is having difficulty getting food from the service that fits these guidelines and has asked for help with this. Principal Diagnosis Pt is feeling improved. Ongoing LE pain is limiting her ambulation more than anything at this point. She is no longer SOB with talking. She does get SOB with ambulation, but this resolves when she rests now. Prior to admission it was ongoing. Pt denies fever, chest pain, abd pain, n/v/c/d. LE swelling is improved. Pt states she is working with the [facility] for help with cooking and meal planning given her sodium and sugar restrictions. Discharge Exam Constitutional WD/WN, vitals as above Eyes normal visual costa by confrontation and + anicteric sclerae Neck normal visual inspection and trachea midline Respiratory normal respiratory effort; no respiratory distress Auscultation: + diminished lung sounds; no crackles (bases--scant and improving today) and no wheezes Cardiovascular Rate/Rhythm: regular rate and regular rhythm Gastrointestinal (Abdomen) Inspection/Auscultation: abdomen not distended Percussion/Palpation: abdomen soft; abdomen nontender Musculoskeletal Head/Neck/Chest: normocephalic and head atraumatic b/l LE swelling, improving Skin Redness noted above bandages, clean and dr Neurologic awake; not confused Speech / Cognition: normal speech Psychiatric A+Ox3, euthymic affect Discharge Data Allergies Allergy/AdvReac Type Severity Reaction Status Date / Time iodine Allergy Intermediate SHORTNESS Verified 05/25/19 16:24 OF BREATH Consultations 05/25/19 18:09 ED Decision to Admit Stat 05/25/19 20:01 Consult Case Management - Discharge Planning Routine Hospital Course (1) Acute on chronic diastolic CHF (congestive heart failure): Likely related to medication noncompliance Pt should be taking 80mg BID and at least three days a week she is taking 120mg QD only ECHO with EF 55-60% and moderate , last ECHO 11/2017 with EF 45-50% Much improved with additional lasix dosing Spent a significant amount of time discussing diet with pt. She is very confused about what to eat given her sodium and sugar restrictions. Items discussed were added to her d/c instructions Pt met with [facility]F clinic [facility] during admission and plans to follow with them for additional support for this issue I also think that pt's pain of walking related to b/l LE non-healing ulcerations and ongoing need for TKA are making her breathing more labored when she ambulates. We did discuss this possibility and the need to take breaks to avoid more intense breathing issues (2) Chest pain: Concern for possible ACS Seems more likely related to CHF status Trop neg x3 ECHO as above Ongoing LBBB on EKG (3) COPD (chronic obstructive pulmonary disease): With chronic respiratory failure Home O2 continuous 2L continue home meds no current exacerbation Nebs jose cruz to prevent given CHF exacerbation (4) Diabetes mellitus type 2, uncontrolled: Holding glimepiride to avoid worsening of renal function with increased lasix use A1c 8.5 SSI PRN during admission (5) Venous stasis ulcers of both lower extremities: Follows with [facility] c/s noted, will f/u this week Last appt with [facility] was 05/23, cx done there noted + for enterococcus on R and staph on L Sensitivities noted, started on keflex 500mg QID on 05/26 (6) Restless legs syndrome: continue home meds (7) Obstructive sleep apnea: Continuous O2 via NC (8) Hyperlipidemia: continue home meds (9) Depression: continue home meds (10) Chronic kidney disease, stage III (moderate): Cr 1.1 on admission, slight increased to 1.3 Monitor (11) Anxiety: continue home meds (12) Hypertension: continue home meds (13) DVT prophylaxis: Heparin for DVT proph Total Time Total Time Spent Total Time Spent (In Minutes): >30 Discharge Plan Discharge Items Patient Disposition: Home - Home Health Services Reason For Visit: CHF EXACERBATION Discharge Diagnosis: CHF exacerbation Discharge Goals: Decrease discomfort, Improve disease control, Improve function and Improve nutritional status Activity: Resume your previous activity Non-emergency contact: Primary Care Provider Call non-emergency contact if: you have any medication questions and your symptoms worsen Follow-up/Referrals: [facility] [place] Wound Care [Provider Group] - 05/28/19 1:00 pm (Please, follow up, as previously scheduled, at the [facility] Physician [facility] on SundayMay 28 at 1:00 pm. *The clinic is located at [address] in [place]. If you need to change this appointment, call the clinic at [phone].) Balwinder Peace III, MD [Primary Care Provider] - 06/02/19 1:45 pm (Please, follow up at Dr. Peace's office on SundayJune 02 at 1:45 pm. *If you need to change this appointment, call the office at [phone].) Yadira Lester PA-C [Physician Book Repairer] - 06/05/19 2:00 pm (Please, follow up at The [facility] Card[facility] Office CHF Clinic with Patsy Lester PA-C on June 05 at 2:00 pm. *The office is located in [address] [facility]. This is the big building next to this hospital. If you need to change this appointment, call the office at [phone].) Diet: Carb Consistent or DM2 and Low Sodium (2gm) Addtl Provider Instructions: You need to be sure to take your lasix twice a day to avoid fluid build up Follow up with wound care this week Follow up with Dr. Peace in the next 1-2 weeks The heart failure clinic will contact you for an appointment You should continue working on your diet in regards to sugar, carbs, and salt use. Avoiding processed foods, soups, and luncheon meats is a good place to start as these tend to have a lot of salt in them Avoiding "fake"/artificial sugars as these can actually make your blood sugars worse as they can cause increased insulin resistance--stevia is a great, natural, nonsugar substitute Cooking with different herbs and spices will help to flavor your food without salt--hilda, thyme, dill, cilantro can add a lot of flavor to meats and vegetables Lemon and northern arapaho juice can also add a lot of flavor A good salt free, carb free salad dressing is mixing olive oil, vinegar, lemon juice, and black pepper Pork has the most salt of all the meat types Fruits with a peel have more sugar than fruits that do not. If you can't eat the peel, it is best to avoid or limit those fruits. Berries are best! Prescriptions: New cephalexin 500 mg Capsule 500 mg PO BID 10 Days Qty: 20 RF: 0 Lactobacillus acidoph-L.bulgar [Floranex] 1 million cell Tablet 4 tab PO TIDM 30 Days Qty: 120 RF: 0 Continued lisinopril 10 mg tablet 10 mg PO DAILY Qty: 90 RF: 3 metoprolol succinate 25 mg capsule,sprinkle,ER 24hr 37.5 mg PO DAILY Qty: 90 RF: 3 simvastatin 20 mg tablet 20 mg PO QPM Qty: 90 RF: 3 furosemide 40 mg tablet 80 mg PO BID Qty: 360 RF: 1 ipratropium-albuterol 0.5 mg-3 mg(2.5 mg base)/3 mL solution for nebulization See Patient Comments inhalation .COMPLEX Qty: 180 RF: 1 pramipexole 0.125 mg tablet 0.25 mg PO .COMPLEX Qty: 270 RF: 1 PreserVision AREDS-2 [id number] rm-awci-gp-mg capsule 1 tab PO BID Qty: 180 RF: 1 glimepiride 2 mg tablet 2 mg PO BID Qty: 180 RF: 3 citalopram 10 mg tablet 10 mg PO DAILY Qty: 90 RF: 3 lorazepam 0.5 mg tablet 0.5 mg PO DAILY PRN (Reason: anxiety) Qty: 30 RF: 2 hydrocodone-acetaminophen [Eola] 5-325 mg tablet 1 tab PO BID PRN (Reason: Dr. Peace - [facility]# [id number]) Qty: 60 RF: 0 fluocinonide-emollient [Fluocinonide-E] 0.05 % cream 1 appln TOP BID Qty: 60 RF: 0 ascorbic acid (vitamin C) 500 mg tablet 500 mg PO DAILY RF: 0 Symbicort 160-4.5 mcg/actuation HFA aerosol inhaler 2 puff inhalation BID RF: 0 Spiriva Respimat 2.5 mcg/actuation mist 2 puff inhalation DAILY RF: 0 Euflexxa 10 mg/mL(mw 2.4 -3.6 million) syringe intra-articular UNKNOWN RF: 0 Stand-Alone Forms: [facility] Discharge Orders: Discharge Order (Routine); Ordered 05/27/19 Ordered By: Gaby Valentin Admission Data Admit Date/Time: 05/25/19 19:13 Attending Provider: Gaby Valentin Admit Provider: Gaby Valentin Primary Care Provider: Balwinder Peace III Other Providers: Gaby Valentin Service: Telemetry Medical
== END 2019-05-27 14:37 | disposition home health service (06) | DRG 291 ==
LOC: ED 15:45 → 2N 19:13

== ENCOUNTER 2019-05-28 12:24 | Inpatient (IN) ==
--- NOTE | 2019-05-28 13:28 | XRay Report ---
XR chest 1V portable CLINICAL HISTORY: Atypical chest pain COMPARISON STUDY: 05/25/2019 FINDINGS: The heart is enlarged. There is radiographic evidence of congestive failure/fluid overload. There is no lobar consolidation. There is left midlung zone atelectasis/scarring. No large pleural e ffusions are visualized[ IMPRESSION: Worsening congestive failure/fluid overload. Electronically signed by: Elliot Kaminski M.D. 05/28/2019 1:27 PM
[2019-05-28 14:16] LABS: Basophils # (auto) 0.03 K/uL (0-0.2); Basophils % (auto) 0.3 %; Eosinophils # (auto) 0.24 K/uL (0-0.5); Eosinophils % (auto) 2.4 %; Hematocrit (blood only) 33.3 % (37-47); Hemoglobin 10.7 g/dL (12.0-16.0); Immature Granulocytes # (auto) 0.03 K/uL (0.00-0.02); Immature Granulocytes % (auto) 0.3 %; Lymphocytes # (auto) 1.79 K/uL (1.2-3.4); Lymphocytes % (auto) 18.3 %; Mean Corpuscular Hemoglobin 30.1 pg (25-34); Mean Corpuscular Hgb Conc 32.1 g/dL (32-36); Mean Corpuscular Volume 93.8 fL (80-100); Mean Platelet Volume 10.8 fL (7.4-10.4); Monocytes # (auto) 0.82 K/uL (0.11-0.59); Monocytes % (auto) 8.4 %; Neutrophils # (auto) 6.89 K/uL (1.4-6.5); Neutrophils % (auto) 70.3 %; Platelet Count 245 K/uL (130-400); RDW Coefficient of Variation 14.1 % (11.5-14.5); RDW Standard Deviation 48.7 fL (36.4-46.3); Red Blood Count 3.55 M/uL (4.2-5.4)
[2019-05-28 14:32] LABS: Alanine Aminotransferase 21 U/L (12-78); Albumin Level 3.3 gm/dl (3.4-5.0); Aspartate Aminotransferase 20 U/L (15-37); BUN Creatinine Ratio 20.1 (10-20); Blood Urea Nitrogen 44 mg/dl (7-18); Calcium 8.9 mg/dl (8.5-10.1); Carbon Dioxide 33 mmol/L (21-32); Chloride 93 mmol/L (98-107); Creatinine Clr Calc Pharmacy 28.5 ml/min; Est GFR (African American) 23.8; Est GFR (Non-African American) 20.5; Glucose 224 mg/dl (70-99); Lipase 90 U/L (73-393); Magnesium 2.8 mg/dl (1.8-2.4); Potassium 3.8 mmol/L (3.5-5.1); Sodium 133 mmol/L (136-145)
[2019-05-28 14:33] LABS: Prothrombin Time 10.7 Seconds (9.0-12.0)
[2019-05-28 14:38] LABS: Albumin Globulin Ratio 0.7 (0.9-2); Alkaline Phosphatase 77 U/L (45-117); Bilirubin,Total 0.4 mg/dl (0.2-1); Globulin 4.5 gm/dl (2.5-4.0); NT Pro B Type Natriuretic Pept 252 pg/ml (0-1800); Phosphorus 3.5 mg/dl (2.5-4.9); Total Protein 7.8 gm/dl (6.4-8.2); Troponin I < 0.015 ng/ml (0-0.045)
[2019-05-28] MEDS ORDERED: FUROSEMIDE 80 MG in SYRINGE 0 ML IV STA (16:07)
[2019-05-28] MEDS ORDERED: FUROSEMIDE 40 MG/4 ML VIAL IV ONE (16:51)
--- NOTE | 2019-05-28 16:56 | Emergency Department Note ---
Entered by Blanca Delcid acting as a scribe for History of Present Illness General Chief complaint: Shortness of Breath/Dyspnea Time Seen by Provider: 05/28/19 13:07 Source: patient History of Present Illness Provider complaint: shortness of breath Onset (ago): hour(s) 6 Severity: similar to prior episodes (yesterday) Pain Consistency: + other (worsening) Quality: + other (shortness of breath) Associated symptoms: + denies other symptoms (weight gain) and + other (shaky, nervous, feels like "every breath is going to be her last") The patient is an 84 year old female who presents to the ED with complaints of worsening shortness of breath that started 6 hours ago. The patient states that she was in the hospital yesterday with similar symptoms and was discharged. The patient states that she is shaky, nervous, and feels like "every breath is her last." The patient denies weight gain. Home Medications Home Medications Medication Instructions Recorded Confirmed Type lisinopril 10 mg tablet 10 mg PO DAILY #90 tab 03/14/19 05/28/19 Rx simvastatin 20 mg tablet 20 mg PO QPM #90 tab 03/14/19 05/28/19 Rx furosemide 40 mg tablet 80 mg PO BID #360 tab 04/04/19 05/28/19 Rx vit C 250 mg-E 200 unit-zinc 40 1 tab PO BID #180 cap 04/04/19 05/28/19 Rx mg-copper 1 [id number] capsule glimepiride 2 mg tablet 2 mg PO BID #180 tab 05/05/19 05/28/19 Rx ascorbic acid (vitamin C) 500 mg 500 mg PO DAILY tab 05/13/19 05/28/19 History tablet fluocinonide-emollient 0.05 % 1 appln TOP BID #60 gm 05/16/19 05/28/19 Rx topical cream lorazepam 0.5 mg tablet 0.5 mg PO DAILY PRN #30 tab 05/16/19 05/28/19 Rx citalopram 10 mg tablet 10 mg PO DAILY #90 tab 05/19/19 05/28/19 Rx Euflexxa 0 mg INTRA-ARTICULAR UNKNOWN 05/25/19 05/28/19 History Spiriva Respimat 2 puff INHALATION DAILY 05/25/19 05/28/19 History Symbicort 2 puff INHALATION BID 05/25/19 05/28/19 History Lactobacillus acidoph-L.bulgar 4 tab PO TIDM 30 Days #120 tab 05/27/19 05/28/19 Rx [Floranex] cephalexin 500 mg PO BID 10 Days #20 cap 05/27/19 05/28/19 Rx hydrocodone-acetaminophen [[place]] 1 tab PO BID PRN 05/28/19 05/28/19 History ipratropium-albuterol 3 ml INHALATION UD PRN 05/28/19 05/28/19 History metoprolol succinate [Toprol XL] 37.5 mg PO DAILY 05/28/19 05/28/19 History pramipexole 0.25 mg PO HS 05/28/19 05/28/19 History Allergies Allergy/AdvReac Type Severity Reaction Status Date / Time iodine Allergy Intermediate SHORTNESS Verified 05/25/19 16:24 OF BREATH Past Med/Surg History Medical History Synovial cyst of popliteal space [[place]], right knee Weight loss Venous stasis ulcer with edema of lower leg Venous stasis of both lower extremities Solitary pulmonary nodule Sleep disturbances Restless legs syndrome Obstructive sleep apnea Nocturia Hyperlipidemia Fatigue Diabetes mellitus type 2, uncontrolled (Chronic) Depression Coronary artery disease Chronic kidney disease, stage III (moderate) Chronic combined systolic and diastolic congestive heart failure Aortic stenosis Anxiety Acute combined systolic and diastolic HF (heart failure), NYHA class 3 Abdominal tenderness, LLQ (left lower quadrant) COPD (chronic obstructive pulmonary disease) (Chronic) Morbid obesity with BMI of 50.0-59.9, adult Hypertension Respiratory failure Knee pain, right (Inactive) Abnormal blood chemistry Abnormal electrocardiogram Abrasion of right forearm Acute diastolic congestive heart failure Acute sinusitis COPD exacerbation Cellulitis Chronic rhinitis Closed head injury Congestive heart failure Contusion of left knee Contusion of left upper extremity Cough DMII (diabetes mellitus, type 2) Dyspnea Edema Exposure to viral disease Fall Fall from slip, trip, or stumble Forearm abrasion Impaired fasting glucose Knee pain, left Nasal ulcer Tracheobronchitis Urinary tract infection Wheezing Surgical History S/P ANITHA (total abdominal hysterectomy) Family History Father Lung cancer Mother Lung cancer Brother Coronary heart disease Hx of CABG Social History Preferred Language: [place] Communication Ability: Effective Getter Welder Required: No Beliefs That Will Affect Care: None marital status: Current Living Situation: Spouse Current Living Situation Comment: At [facility], own appartment [place] current occupational status: retired Feels Safe at Home: Yes Smoking Status: Never smoker Second Hand Exposure: No ; Hx Alcohol Use: No Hx Substance Use: No caffeine: No Review of Systems See HPI for pertinent positives & negatives. and A total of 10 systems reviewed and were otherwise negative Physical Exam Vital Signs Vital Signs - 24 hr 05/28/19 12:29 05/28/19 12:32 05/28/19 12:33 Temperature 36.9 C Temperature Source Oral Sepsis Recent Fever Within 48 Hours No Sepsis Action Taken by Nursing No Action Required Pulse Rate 95 H 92 H 90 Pulse Rate [Finger] Pulse Rate from SpO2 Sensor 91 H Respiratory Rate 20 24 21 Respiratory Effort / Characteristics Non-Labored Respiratory Depth Normal Respiratory Pattern Regular Blood Pressure 118/60 118/76 Blood Pressure [Right Arm] Blood Pressure Mean 79 90 Blood Pressure Mean [Right Arm] Pulse Oximetry 100 98 Oxygen Delivery Method Nasal Cannula Oxygen Flow Rate 2 Fraction of Inspired Oxygen 98 SaO2/FiO2 Ratio 5000 05/28/19 12:58 05/28/19 13:00 05/28/19 13:01 Temperature Temperature Source Sepsis Recent Fever Within 48 Hours Sepsis Action Taken by Nursing Pulse Rate 86 86 86 Pulse Rate [Finger] Pulse Rate from SpO2 Sensor 84 92 H 88 Respiratory Rate 16 17 16 Respiratory Effort / Characteristics Respiratory Depth Respiratory Pattern Blood Pressure 116/41 L 121/59 L Blood Pressure [Right Arm] Blood Pressure Mean 66 79 Blood Pressure Mean [Right Arm] Pulse Oximetry 98 97 94 Oxygen Delivery Method Oxygen Flow Rate Fraction of Inspired Oxygen SaO2/FiO2 Ratio 05/28/19 13:30 05/28/19 13:31 05/28/19 14:00 Temperature Temperature Source Sepsis Recent Fever Within 48 Hours Sepsis Action Taken by Nursing Pulse Rate 80 81 83 Pulse Rate [Finger] Pulse Rate from SpO2 Sensor 82 Respiratory Rate 16 21 17 Respiratory Effort / Characteristics Respiratory Depth Respiratory Pattern Blood Pressure Blood Pressure [Right Arm] Blood Pressure Mean 79 Blood Pressure Mean [Right Arm] Pulse Oximetry 97 Oxygen Delivery Method Oxygen Flow Rate Fraction of Inspired Oxygen SaO2/FiO2 Ratio 05/28/19 14:30 05/28/19 14:40 05/28/19 14:50 Temperature Temperature Source Sepsis Recent Fever Within 48 Hours Sepsis Action Taken by Nursing Pulse Rate 79 78 90 Pulse Rate [Finger] Pulse Rate from SpO2 Sensor 79 78 90 Respiratory Rate 20 20 20 Respiratory Effort / Characteristics Respiratory Depth Respiratory Pattern Blood Pressure 120/54 L Blood Pressure [Right Arm] Blood Pressure Mean 76 Blood Pressure Mean [Right Arm] Pulse Oximetry 98 95 Oxygen Delivery Method Nasal Cannula Nasal Cannula Oxygen Flow Rate 2 2 Fraction of Inspired Oxygen SaO2/FiO2 Ratio 05/28/19 15:00 05/28/19 15:01 05/28/19 15:10 Temperature Temperature Source Sepsis Recent Fever Within 48 Hours Sepsis Action Taken by Nursing Pulse Rate 80 80 66 Pulse Rate [Finger] Pulse Rate from SpO2 Sensor 79 79 70 Respiratory Rate 20 19 18 Respiratory Effort / Characteristics Respiratory Depth Respiratory Pattern Blood Pressure 109/51 L Blood Pressure [Right Arm] Blood Pressure Mean 70 Blood Pressure Mean [Right Arm] Pulse Oximetry 98 98 95 Oxygen Delivery Method Nasal Cannula Nasal Cannula Nasal Cannula Oxygen Flow Rate 2 2 2 Fraction of Inspired Oxygen SaO2/FiO2 Ratio 05/28/19 15:20 05/28/19 15:30 05/28/19 15:31 Temperature Temperature Source Sepsis Recent Fever Within 48 Hours Sepsis Action Taken by Nursing Pulse Rate 80 76 78 Pulse Rate [Finger] Pulse Rate from SpO2 Sensor 80 75 77 Respiratory Rate 19 18 24 Respiratory Effort / Characteristics Respiratory Depth Respiratory Pattern Blood Pressure 107/55 L Blood Pressure [Right Arm] Blood Pressure Mean 72 Blood Pressure Mean [Right Arm] Pulse Oximetry 96 96 97 Oxygen Delivery Method Nasal Cannula Nasal Cannula Nasal Cannula Oxygen Flow Rate 2 2 2 Fraction of Inspired Oxygen SaO2/FiO2 Ratio 05/28/19 15:40 05/28/19 15:46 05/28/19 15:50 Temperature Temperature Source Sepsis Recent Fever Within 48 Hours Sepsis Action Taken by Nursing Pulse Rate 76 78 Pulse Rate [Finger] 79 Pulse Rate from SpO2 Sensor 76 77 Respiratory Rate 17 18 24 Respiratory Effort / Characteristics Respiratory Depth Respiratory Pattern Blood Pressure Blood Pressure [Right Arm] 107/55 L Blood Pressure Mean Blood Pressure Mean [Right Arm] 72 Pulse Oximetry 98 97 97 Oxygen Delivery Method Nasal Cannula Nasal Cannula Nasal Cannula Oxygen Flow Rate 2 2 2 Fraction of Inspired Oxygen SaO2/FiO2 Ratio 05/28/19 16:00 05/28/19 16:10 05/28/19 16:20 Temperature Temperature Source Sepsis Recent Fever Within 48 Hours Sepsis Action Taken by Nursing Pulse Rate 73 81 87 Pulse Rate [Finger] Pulse Rate from SpO2 Sensor 72 81 87 Respiratory Rate 16 22 19 Respiratory Effort / Characteristics Respiratory Depth Respiratory Pattern Blood Pressure 105/50 L Blood Pressure [Right Arm] Blood Pressure Mean 68 Blood Pressure Mean [Right Arm] Pulse Oximetry 97 97 95 Oxygen Delivery Method Nasal Cannula Nasal Cannula Nasal Cannula Oxygen Flow Rate 2 2 2 Fraction of Inspired Oxygen SaO2/FiO2 Ratio 05/28/19 16:30 05/28/19 16:40 05/28/19 16:50 Temperature Temperature Source Sepsis Recent Fever Within 48 Hours Sepsis Action Taken by Nursing Pulse Rate 76 74 79 Pulse Rate [Finger] Pulse Rate from SpO2 Sensor 77 74 Respiratory Rate 23 25 H 21 Respiratory Effort / Characteristics Respiratory Depth Respiratory Pattern Blood Pressure 103/57 L Blood Pressure [Right Arm] Blood Pressure Mean 72 Blood Pressure Mean [Right Arm] Pulse Oximetry 98 97 Oxygen Delivery Method Nasal Cannula Nasal Cannula Nasal Cannula Oxygen Flow Rate 2 2 2 Fraction of Inspired Oxygen SaO2/FiO2 Ratio 05/28/19 17:00 Temperature Temperature Source Sepsis Recent Fever Within 48 Hours Sepsis Action Taken by Nursing Pulse Rate 76 Pulse Rate [Finger] Pulse Rate from SpO2 Sensor 77 Respiratory Rate 21 Respiratory Effort / Characteristics Respiratory Depth Respiratory Pattern Blood Pressure 114/56 L Blood Pressure [Right Arm] Blood Pressure Mean 75 Blood Pressure Mean [Right Arm] Pulse Oximetry 98 Oxygen Delivery Method Nasal Cannula Oxygen Flow Rate 2 Fraction of Inspired Oxygen SaO2/FiO2 Ratio GENERAL: Awake, alert, chronically ill-appearing, in no distress HENT: Normocephalic, atraumatic. Oropharynx unremarkable. EYES: Normal conjunctiva. Sclera non-icteric. NECK: Supple. No nuchal rigidity. FROM. No JVD. RESPIRATORY: Diminished breath sounds at bases and otherwise clear. CARDIAC: Regular rate, normal rhythm. Extremities warm and well perfused. Pulses equal. ABDOMEN: Soft, non-distended. No tenderness to palpation. No rebound or guarding. No masses. RECTAL: Deferred. MUSCULOSKELETAL: Chest examination reveals no tenderness. The back is symmetrical on inspection without obvious abnormality. There is no CVA tenderness to palpation. No joint edema. LOWER EXTREMITIES: 3+ edema lower extremities with chronic venous stasis superficial ulcers with serous weeping. Mild erythema and warm. NEURO: Normal sensorium. No sensory or motor deficits noted. SKIN: No rash or jaundice noted. Course 1350: Past medical records reviewed. The patient was evaluated in room B10. A complete history and physical exam was performed. 1623: I reevaluated the patient and she cannot walk. 1655: I discussed the patient's case with Michelle WALSH PA-C. She will evaluate the patient for further management. Consultations Consultation #1: I discussed the patient's case with GUNNAR Perez. She will evaluate the patient for further management. Time: 16:55 Administered Medications Hydrocodone Bitart/Acetaminophen ([place] 5/325) 1 tab PO BID PRN PRN Reason: Pain Stop: 06/11/19 18:55 Last Admin: 05/28/19 23:01 Dose: 1 tab Documented by: [id number] Albuterol (Duoneb) 3 ml NEB Q4R ZULEYMA Stop: 06/27/19 18:59 Last Admin: 05/28/19 23:16 Dose: 3 ml Documented by: [id number] Admin: 05/28/19 20:10 Dose: 3 ml Documented by: [id number] Budesonide/Formoterol Fumarate (Symbicort 160mcg/4.5mcg) 2 puffs INH BID [facility] Stop: 06/27/19 20:59 Last Admin: 05/28/19 20:17 Dose: 2 puffs Documented by: [id number] Cephalexin HCl (Keflex) 500 mg PO BID [facility]; Protocol Stop: 06/07/19 20:59 Last Admin: 05/28/19 20:18 Dose: 500 mg Documented by: [id number] Fluocinonide (Lidex 0.5%) 1 appln EXT BID ZULEYMA Stop: 06/27/19 20:59 Last Admin: 05/28/19 20:18 Dose: 1 appln Documented by: [id number] Heparin Sodium (Porcine) (Heparin Sodium (Porcine)) 5,000 units SQ Q8 ZULEYMA Stop: 06/27/19 21:59 Last Admin: 05/28/19 20:16 Dose: 5,000 units Documented by: [id number] Cosigned by: [id number] Insulin Aspart (Novolog Flexpen) 0 units SC ACHS ZULEYMA Stop: 06/27/19 20:59 Last Admin: 05/28/19 20:18 Dose: 6 units Documented by: [id number] Cosigned by: [id number] Lorazepam (Ativan) 0.5 mg PO DAILY PRN PRN Reason: anxiety Stop: 06/27/19 18:55 Last Admin: 05/28/19 20:17 Dose: 0.5 mg Documented by: [id number] Pramipexole Dihydrochloride (Mirapex) 0.5 mg PO HS ZULEYMA Stop: 06/27/19 20:59 Last Admin: 05/28/19 20:17 Dose: 0.5 mg Documented by: [id number] Simvastatin (Zocor) 20 mg PO QPM ZULEYMA Stop: 06/27/19 20:59 Last Admin: 05/28/19 20:17 Dose: 20 mg Documented by: [id number] Discontinued Medications Furosemide (Lasix) Confirm Administered Dose 80 mg IV .STK-MED ONE Stop: 05/28/19 16:52 Last Admin: 05/28/19 16:54 Dose: 80 mg Documented by: [id number] Furosemide 80 mg/ Syringe 8 mls @ 4 mls/min IV NOW STA Stop: 05/28/19 16:08 Last Admin: 05/28/19 16:54 Dose: Not Given Documented by: [id number] Medical Decision Making Differential Diagnosis Differential diagnosis: Etiologies such as infections, reactive airway disease, COPD, pneumonia, pleural effusion, pulmonary edema, ARDS, pneumothorax, CHF, cardiac ischemia, cardiac tamponade, dysrhythmia, anemia, pulmonary embolism, musculoskeletal, gastrointestinal process, as well as others were entertained. Medical Records Attestation: I reviewed the patient's medical records. Home Medications Current Medication List: was personally reviewed by me Laboratory Data Attestation: I reviewed the patient's lab results. Result diagrams: 05/28/19 13:56 05/28/19 13:56 Lab Results 05/28/19 05/28/19 05/28/19 Range/Units 13:56 13:56 13:56 WBC 9.80 (4.8-10.8) K/uL RBC 3.55 L (4.2-5.4) M/uL Hgb 10.7 L (12.0-16.0) g/dL Hct 33.3 L (37-47) % MCV 93.8 (80-100) fL MCH 30.1 (25-34) pg MCHC 32.1 (32-36) g/dL RDW Std Deviation 48.7 H (36.4-46.3) fL RDW Coeff of Jade 14.1 (11.5-14.5) % Plt Count 245 (130-400) K/uL MPV 10.8 H (7.4-10.4) fL Immature Gran % (Auto) 0.3 % Neut % (Auto) 70.3 % Lymph % (Auto) 18.3 % [place] % (Auto) 8.4 % Eos % (Auto) 2.4 % Baso % (Auto) 0.3 % Immature Gran # (Auto) 0.03 H (0.00-0.02) K/uL Neut # (Auto) 6.89 H (1.4-6.5) K/uL Lymph # (Auto) 1.79 (1.2-3.4) K/uL [place] # (Auto) 0.82 H (0.11-0.59) K/uL Eos # (Auto) 0.24 (0-0.5) K/uL Baso # (Auto) 0.03 (0-0.2) K/uL PT 10.7 (9.0-12.0) Seconds INR 1.0 (0.9-1.1) Sodium 133 L (136-145) mmol/L Potassium 3.8 (3.5-5.1) mmol/L Chloride 93 L (98-107) mmol/L Carbon Dioxide 33 H (21-32) mmol/L Anion Gap 7.0 (3-11) BUN 44 H (7-18) mg/dl Creatinine 2.17 H (0.6-1.2) mg/dl Est Cr Clr Drug Dosing 28.5 ml/min Est GFR ( Amer) 23.8 Est GFR (Non-Af Amer) 20.5 BUN/Creatinine Ratio 20.1 H (10-20) Glucose 224 H (70-99) mg/dl Calcium 8.9 (8.5-10.1) mg/dl Phosphorus 3.5 (2.5-4.9) mg/dl Magnesium 2.8 H (1.8-2.4) mg/dl Total Bilirubin 0.4 (0.2-1) mg/dl AST 20 (15-37) U/L ALT 21 (12-78) U/L Alkaline Phosphatase 77 (45-117) U/L Troponin I < 0.015 (0-0.045) ng/ml NT-Pro-B Natriuret Pep 252 (0-1800) pg/ml Total Protein 7.8 (6.4-8.2) gm/dl Albumin 3.3 L (3.4-5.0) gm/dl Globulin 4.5 H (2.5-4.0) gm/dl Albumin/Globulin Ratio 0.7 L (0.9-2) Lipase 90 (73-393) U/L Imaging Data Radiologist's Impression: Radiology results as stated below per my review and the radiologist's interpretation: XR chest 1V portable CLINICAL HISTORY: Atypical chest pain COMPARISON STUDY: 05/25/2019 FINDINGS: The heart is enlarged. There is radiographic evidence of congestive failure/fluid overload. There is no lobar consolidation. There is left midlung zone atelectasis/scarring. No large pleural effusions are visualized[ IMPRESSION: Worsening congestive failure/fluid overload. Electronically signed by: Elliot Kaminski M.D. 05/28/2019 1:27 PM ECG Data Attestation: I personally reviewed and interpreted this ECG as follows: Indication: SOB/dyspnea Rate (beats per minute): 86 Rhythm: normal sinus Findings: + LBBB; no ST depression, no ST elevation and no acute ischemic change Blood Pressure Blood Pressure Findings: Low blood pressure Blood Pressure Disposition: further management by hospitalist BENJAMIN Narrative The patient is a pleasant 84-year-old woman with a past medical history of CHF, CKD, COPD who presents emergency department with worsening shortness of breath after being discharged yesterday after admission for CHF per hpi. Patient discharged on Keflex for BLE cellulitis. On arrival patient is chronically ill- appearing but no acute distress, afebrile with stable vital signs with oxygen saturation in the 90s on her baseline 2 L nasal cannula. EKG similar to prior without overt acute ischemia. Chest x-ray shows slight increased venous congestion from previous. WBC within normal limits. H/H 10.7/33.3 similar to prior values. Platelets within normal limits. Chemistry without acidosis. Creatinine slightly elevated from discharge with a creatinine of 2.1. Given that the patient appeared near her recent baseline and discharge clinical status close outpatient follow-up was considered and case was discussed with Yadira Gonzalez, CHF program PAElizabeth, and agreed with trial of IV Lasix and plan for follow-up tomorrow morning in CHF clinic with recheck of creatinine. However, upon review of this plan with the patient the patient explained that she would not be able to follow-up in clinic tomorrow because she has been unable to ambulate for some time and would not have any form of transportation. Thus, given the patient's inability to follow-up with outpatient management in the setting of her worsening kidney function in the setting of her CHF reasonable to admit the patient for further management. Case was discussed with Michelle Moise, [facility], who will evaluate the patient for admission. Impression & Plan CHF exacerbation, Volume overload, Acute on chronic kidney failure Discharge Plan Visit Data *Final* Discharge Date/Time: 05/28/19 17:49 Chief Complaint: Shortness of Breath/Dyspnea ED Provider: Alan Segura Discharge Problem: CHF exacerbation, Volume overload, Acute on chronic kidney failure Patient Disposition: Admitted As Inpatient Discharge Instructions Interventions: ED Discharge Assessment Last Done: 05/28/19 17:49 The scribe's documentation has been prepared under my direction and personally reviewed by me in its entirety. I confirm that the note above accurately reflects all work, treatment, procedures, and medical decision making performed by me.
[2019-05-28] MEDS ORDERED: ACETAMINOPHEN 325 MG TAB PO PRN (17:01)
[2019-05-28] MEDS ORDERED: ONDANSETRON INJ 2 MG/ML 2 ML VIAL IV PRN (17:01)
--- NOTE | 2019-05-28 17:50 | History & Physical Report ---
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 She is being readmitted based on increased creatinine, worsening shortness of breath, worsening edema in lower extremities and needs for SNF placement -Patient currently satting 99% on 2 L via NC, wears 2 L at baseline -Patient received Lasix 80 mg IV in the ER, will schedule another dose of Lasix 80 mg IV for the morning then can reassess volume status -Daily weights, strict I's/O's, fluid restriction -Cardiology consulted, follows with the CHF clinic as an outpatient, Merissa Lester PA-C -Continue on metoprolol succinate 37.5 daily, lisinopril 10 mg daily (2) Acute and chronic respiratory failure: -Worsening secondary to CHF exacerbation as above -Continue 2 L at all times -Continue Spiriva, Symbicort, will add on Xopenex nebulizers QID and Q2H prn (3) Coronary artery disease: -As above (4) Aortic stenosis: - Noted, stable (5) Hypertension: - Continue antihypertensives as above (6) Hyperlipidemia: - Cont simvastatin 20 mg QPM (7) COPD (chronic obstructive pulmonary disease): -Continue Spiriva, Symbicort, nebulizers QID and Q2H prn (8) Morbid obesity with BMI of 50.0-59.9, adult: -Diet and exercise will need to be encouraged upon discharge -Patient is on low-sodium low sugar, has discussed this with CHF clinic as well as environmental educator during recent admission -BMI = 51.6 (9) Chronic kidney disease, stage III (moderate): -Creatinine = 2.17, BUN 44, these numbers have trended up since 05/26/2019 where creatinine was 1.3 and BUN was 32 - Monitor carefully with administration of high dose IV Lasix -Follow a.m. PRP (10) Diabetes mellitus type 2, uncontrolled: -Holding glimepiride -ISS with Accu-Cheks ACHS Heart healthy/diabetic diet (11) Obstructive sleep apnea: -Continue 2 L O2 at bedtime, does not wear CPAP to sleep (12) Venous stasis of both lower extremities: -Consult wound while in the hospital, continue dressing changes daily and leg elevation to reduce edema (13) Osteoarthritis of right knee: -Chronic, stable, continue oxycodone for pain relief -Continue bowel regimen along with this to avoid constipation (14) DVT prophylaxis: -Heparin subcu Disposition: From home, CM consulted for placement for both the patient and her History of Present Illness Primary Care Provider: Balwinder Peace MD This is an 84-year-old female with PMHx of CAD, acute on chronic diastolic and systolic CHF, LVEF =45-50% HTN, HLD, aortic stenosis, chronic lower extremity edema, DM type II, chronic respiratory failure, COPD, CELIA, on supplemental O2 at all x2 L, restless leg syndrome, depression who presents with acute worsening of shortness of breath. The patient was recently admitted from 05/1819 through yesterday, was discharged home. She was given specific instructions regarding taking Lasix 80 mg BID 4 days a week and then the other 3 days 120 mg daily only. She reports since being home she had difficulty with simple tasks such as getting herself breakfast this morning. 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 She feels that she is unable to do this anymore and she is requesting placement for both her and her . Will ask CM to discuss placement options with the family. For location purposes, they would like to look into [facility] and [facility]. 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 Allergies Allergy/AdvReac Type Severity Reaction Status Date / Time iodine Allergy Intermediate SHORTNESS Verified 05/25/19 16:24 OF BREATH Home Medications Home Medications Medication Instructions Recorded Confirmed Type lisinopril 10 mg tablet 10 mg PO DAILY #90 tab 03/14/19 05/28/19 Rx simvastatin 20 mg tablet 20 mg PO QPM #90 tab 03/14/19 05/28/19 Rx furosemide 40 mg tablet 80 mg PO BID #360 tab 04/04/19 05/28/19 Rx vit C 250 mg-E 200 unit-zinc 40 1 tab PO BID #180 cap 04/04/19 05/28/19 Rx mg-copper 1 [id number] capsule glimepiride 2 mg tablet 2 mg PO BID #180 tab 05/05/19 05/28/19 Rx ascorbic acid (vitamin C) 500 mg 500 mg PO DAILY tab 05/13/19 05/28/19 History tablet fluocinonide-emollient 0.05 % 1 appln TOP BID #60 gm 05/16/19 05/28/19 Rx topical cream lorazepam 0.5 mg tablet 0.5 mg PO DAILY PRN #30 tab 05/16/19 05/28/19 Rx citalopram 10 mg tablet 10 mg PO DAILY #90 tab 05/19/19 05/28/19 Rx Euflexxa 0 mg INTRA-ARTICULAR UNKNOWN 05/25/19 05/28/19 History Spiriva Respimat 2 puff INHALATION DAILY 05/25/19 05/28/19 History Symbicort 2 puff INHALATION BID 05/25/19 05/28/19 History Lactobacillus acidoph-L.bulgar 4 tab PO TIDM 30 Days #120 tab 05/27/19 05/28/19 Rx [Floranex] cephalexin 500 mg PO BID 10 Days #20 cap 05/27/19 05/28/19 Rx hydrocodone-acetaminophen [[place]] 1 tab PO BID PRN 05/28/19 05/28/19 History ipratropium-albuterol 3 ml INHALATION UD PRN 05/28/19 05/28/19 History metoprolol succinate [Toprol XL] 37.5 mg PO DAILY 05/28/19 05/28/19 History pramipexole 0.25 mg PO HS 05/28/19 05/28/19 History Past Med/Surg History Medical History Synovial cyst of popliteal space [Castrejon], right knee Weight loss Venous stasis ulcer with edema of lower leg Venous stasis of both lower extremities Solitary pulmonary nodule Sleep disturbances Restless legs syndrome Obstructive sleep apnea Nocturia Hyperlipidemia Fatigue Diabetes mellitus type 2, uncontrolled (Chronic) Depression Coronary artery disease Chronic kidney disease, stage III (moderate) Chronic combined systolic and diastolic congestive heart failure Aortic stenosis Anxiety Acute combined systolic and diastolic HF (heart failure), NYHA class 3 Abdominal tenderness, LLQ (left lower quadrant) COPD (chronic obstructive pulmonary disease) (Chronic) Morbid obesity with BMI of 50.0-59.9, adult Hypertension Respiratory failure Knee pain, right (Inactive) Abnormal blood chemistry Abnormal electrocardiogram Abrasion of right forearm Acute diastolic congestive heart failure Acute sinusitis COPD exacerbation Cellulitis Chronic rhinitis Closed head injury Congestive heart failure Contusion of left knee Contusion of left upper extremity Cough DMII (diabetes mellitus, type 2) Dyspnea Edema Exposure to viral disease Fall Fall from slip, trip, or stumble Forearm abrasion Impaired fasting glucose Knee pain, left Nasal ulcer Tracheobronchitis Urinary tract infection Wheezing Surgical History S/P ANITHA (total abdominal hysterectomy) Family History Father Lung cancer Mother Lung cancer Brother Coronary heart disease Hx of CABG Social History Preferred Language: Citizen Of [place] Communication Ability: Effective Metal Sprayer Required: No Beliefs That Will Affect Care: None marital status: Current Living Situation: Spouse Current Living Situation Comment: At [employer], own appartment in [place] current occupational status: retired Feels Safe at Home: Yes Smoking Status: Never smoker Second Hand Exposure: No ; Hx Alcohol Use: No Hx Substance Use: No caffeine: No Review of Systems Review of Systems: Constitutional: No fever, sweats or chills Eyes: No diplopia, no worsening or blurred vision ENT: normal hearing, no trouble swallowing Respiratory: No cough, sputum, +dyspnea at rest and with minimal exertion Cardiovascular: + chest heaviness, No chest pain, tightness or palpitations Abdomen: No pain, nausea, vomiting, diarrhea or constipation Musculoskeletal: + chronic R knee joint pain, + chronic bilateral LE swelling, n o calf pain Neurologic: No weakness, numbness/tingling, or balance problems, + uses a walker at baseline Psychiatric: + anxiety or depression on medication Skin: No rash or itch Physical Exam Physical Exam: General: awake, alert, no apparent distress, + morbidly obese Head: Normocephalic, atraumatic ENT: PERRL, EOMI, no pharyngeal exudate, mucous membranes moist Chest: On 2 L via NC, sats at 99%, diminshed breath sounds throughout, no crackles or wheeze Cardiac: Regular rate and rhythm, + ORI, JVD difficult to assess due to body habitus, normal peripheral pulses, good capillary refill Abdominal: NABS x 4 quadrants, soft, nondistended nontender to palpation, no rebound, guarding or tenderness Extremities: 2+ peripheral pitting, erythema over BLE due to edema, + multiple venous stasis ulcerations on back of calfs bilaterally, calfs nontender to palpation Psych: Normal mood and affect Neuro: AAO x 3, strength intact bilaterally and related 5/5, no gross motor deficits, speech is clear, no peripheral sensory deficits Results & Data Vital Signs (Past 12 Hours) Vital Signs Temp Pulse Pulse Resp BP BP Pulse Ox 05/28/19 17:00 76 21 114/56 L 98 05/28/19 16:50 79 21 05/28/19 16:40 74 25 H 97 05/28/19 16:30 76 23 103/57 L 98 05/28/19 16:20 87 19 95 05/28/19 16:10 81 22 97 05/28/19 16:00 73 16 105/50 L 97 05/28/19 15:50 78 24 97 05/28/19 15:46 79 18 107/55 L 97 05/28/19 15:40 76 17 98 05/28/19 15:31 78 24 107/55 L 97 05/28/19 15:30 76 18 96 05/28/19 15:20 80 19 96 05/28/19 15:10 66 18 95 05/28/19 15:01 80 19 109/51 L 98 05/28/19 15:00 80 20 98 05/28/19 14:50 90 20 120/54 L 95 05/28/19 14:40 78 20 05/28/19 14:30 79 20 98 05/28/19 14:00 83 17 97 05/28/19 13:31 81 21 05/28/19 13:30 80 16 05/28/19 13:01 86 16 121/59 L 94 05/28/19 13:00 86 17 97 05/28/19 12:58 86 16 116/41 L 98 05/28/19 12:33 90 21 98 05/28/19 12:32 36.9 C 92 H 24 118/76 100 05/28/19 12:29 95 H 20 118/60 Diagnostic Findings XR chest 1V portable CLINICAL HISTORY: Atypical chest pain COMPARISON STUDY: 05/25/2019 FINDINGS: The heart is enlarged. There is radiographic evidence of congestive failure/fluid overload. There is no lobar consolidation. There is left midlung zone atelectasis/scarring. No large pleural effusions are visualized[ IMPRESSION: Worsening congestive failure/fluid overload. ECG Additional Comments: 28-MAY-2019 12:57:43 [facility]-EDSTAT ROUTINE RETRIEVAL Normal sinus rhythm Left axis deviation Left bundle branch block Abnormal ECG When compared with ECG of 27-MAY-2019 06:56, No significant change was found Confirmed by Nikolai Joshi ([id number]) on 05/28/2019 4:37:08 PM 25mm/s 10mm/mV 150Hz 9.0.8 12SL 241 IRINA: 10 Confirmed By: Nikolai Joshi Vent. rate 86 BPM ND interval 178 ms QRS duration 144 ms QT/QTc 400/478 ms P-R-T axes 82 -49 109 Code Status & VTE Plan Code Status DNR- discussed with patient, , son and daughter at bedside Supervising Physician Co-Signing Physician Notes Patient seen and examined with Michelle ANGELES. I agree with her HPI, history, ROS, physical exam and A/P. Case was discussed with her as well as the ricks points in treatment. I personally reviewed the lab work and imaging and other diagnostic studies. Please see the changes below. patient c/o worsening dyspnea, weakness, inability to care for results of testing are conflicting, while she appears to have worsening pulmonary edema on CXR despite Lasix, her BNP on admission is normal thus arguing against decompensated heart failure. review of the record shows that most recent echo with preserved EF, no diastolic dysfunction, no evidence of pulmonary HTN or right heart failure. She does have COPD and untreated CELIA (does not wear her CPAP). - Dyspnea: primary symptom is shortness of breath, not hypoxia as her oxygen levels are stable on her chronic 2L NC that she wears at all times. Will order PT and OT for deconditioning. Unclear if there is another cause of dyspnea. - Chronic heart failure with preserved EF: given Lasix 80mg IV in the ED, will hold on another dose until her Cr is tested in the morning again, do NOT feel that this represents acute on chronic heart failure BNP is normal in the 200's peripheral edema more likely lymphedema, problem with venous and lymphatic return - CARROL on CKD stage III Cr up to 2.17, this is due to aggressive use of Lasix at higher doses hold on another dose until Cr is checked on 05/29 will need placement, PT/OT ordered PG Care Time/CCT Total # of Minutes Spent Total Time Spent with Patient: Total time spent is greater than 50% in coordination of care (as documented) at patient's floor/unit and/or counseling patient:
[2019-05-28] MEDS ORDERED: GLUCOSE 40% GEL 15 GM TUBE PO PRN (18:56)
[2019-05-28] MEDS ORDERED: GLUCAGON FOR INJ 1 MG VIAL SQ PRN (18:56)
[2019-05-28] MEDS ORDERED: DEXTROSE 50% 50 ML SYRINGE IV PRN (18:56)
[2019-05-28] MEDS ORDERED: CARBOHYDRATES FOR HYPOGLYCEMIA PO PRN (18:56)
[2019-05-28] MEDS ORDERED: ALBUT/IPRATROP 3MG/0.5MG NEB 3 ML VIAL INH PRN (18:56)
[2019-05-28] MEDS ORDERED: GLUCOSE 10 TABS/TUBE PO PRN (18:56)
[2019-05-28] MEDS: ALBUT/IPRATROP 3MG/0.5MG NEB 3 ML VIAL NEB SCH ×2 (20:10→23:16)
[2019-05-28] MEDS: HEPARIN SOD 5,000 UNIT/0.5 ML VIAL SQ SCH (20:16)
[2019-05-28] MEDS: PRAMIPEXOLE DIHYDROCHLO 0.25 MG TAB PO SCH (20:17)
[2019-05-28] MEDS: LORazepam 0.5 MG TAB PO PRN (20:17)
[2019-05-28] MEDS: BUDESONIDE/FORMOTEROL FUMARATE 160/4.5 60 PUFFS/INHALER INH SCH (20:17)
[2019-05-28] MEDS: SIMVASTATIN 20 MG TAB PO SCH (20:17)
[2019-05-28] MEDS: INSULIN ASPART 100 UNITS/ML 3 ML PEN SC SCH (20:18)
[2019-05-28] MEDS: FLUOCINONIDE 0.05% CR 15 GM TUBE EXT SCH (20:18)
[2019-05-28] MEDS: cephALEXin 500 MG CAP PO SCH (20:18)
[2019-05-28] MEDS: HYDROCODONE/ACETAMOPHEN 5/325MG TAB PO PRN (23:01)
[2019-05-29] MEDS: ALBUT/IPRATROP 3MG/0.5MG NEB 3 ML VIAL NEB SCH ×6 (03:10→23:07)
[2019-05-29] MEDS: HEPARIN SOD 5,000 UNIT/0.5 ML VIAL SQ SCH ×3 (05:45→21:11)
[2019-05-29 08:16] LABS: Albumin Level 3.2 gm/dl (3.4-5.0); BUN Creatinine Ratio 22.6 (10-20); Calcium 9.1 mg/dl (8.5-10.1); Creatinine Clr Calc Pharmacy 28.8 ml/min; Est GFR (African American) 24.5; Est GFR (Non-African American) 21.1; Potassium 4.1 mmol/L (3.5-5.1)
[2019-05-29 08:19] LABS: Albumin Globulin Ratio 0.7 (0.9-2); Bilirubin,Total 0.6 mg/dl (0.2-1); Globulin 4.3 gm/dl (2.5-4.0); Total Protein 7.5 gm/dl (6.4-8.2)
[2019-05-29] MEDS ORDERED: LISINOPRIL 10 MG TAB PO SCH (09:00)
[2019-05-29] MEDS ORDERED: FUROSEMIDE 80 MG in SYRINGE 0 ML IV ONE (09:00)
[2019-05-29] MEDS ORDERED: FUROSEMIDE 40 MG TAB PO ONE (09:00)
[2019-05-29] MEDS: INSULIN ASPART 100 UNITS/ML 3 ML PEN SC SCH ×4 (09:05→21:11)
[2019-05-29] MEDS: cephALEXin 500 MG CAP PO SCH ×2 (09:06→21:10)
[2019-05-29] MEDS: LACTOBACILLUS ACIDOPHILUS (FLORANEX) TAB PO SCH ×3 (09:06→16:58)
[2019-05-29] MEDS: ASCORBIC ACID 500 MG TAB PO SCH (09:07)
[2019-05-29] MEDS: CITALOPRAM 20 MG TAB PO SCH (09:07)
[2019-05-29] MEDS: METOPROLOL SUCC 25MG EXT REL TAB PO SCH (09:08)
[2019-05-29] MEDS: CEROVITE ADV FORMULA TAB PO SCH (09:08)
[2019-05-29] MEDS: TIOTROPIUM BROMIDE 5 PUFF/90 MCG INH INH SCH (09:09)
[2019-05-29] MEDS: BUDESONIDE/FORMOTEROL FUMARATE 160/4.5 60 PUFFS/INHALER INH SCH ×2 (09:09→21:10)
[2019-05-29] MEDS: FLUOCINONIDE 0.05% CR 15 GM TUBE EXT SCH ×2 (09:10→21:11)
[2019-05-29] MEDS: HYDROCODONE/ACETAMOPHEN 5/325MG TAB PO PRN ×2 (09:24→21:17)
--- NOTE | 2019-05-29 14:20 | Hospitalist Progress Note ---
Date of Service May 29, 2019 Assessment & Plan (1) CARROL (acute kidney injury): due to aggressive diuresis with Lasix, dose increased on discharge last admission and given IV diuretics at that time Cr down very slightly at 2.12 today, continue to monitor, electrolytes stable will continue to hold Lasix as intravascularly she is likely depleted (2) Chronic heart failure with preserved ejection fraction: EF is 55-60% with no mention of diastolic dysfunction no evidence of pulmonary HTN although CXR appeared to have pulmonary edema on admission, may have been oversaturated her lungs are clear today, no JVD hold Lasix, follow volume status closely (3) Acute and chronic respiratory failure: stable on home 2L, no distress, some increased dyspnea on exertion -Continue 2 L at all times -Continue Spiriva, Symbicort (4) Coronary artery disease: -As above no chest pain or pressure reported, no ischemic changes on EKG (5) Aortic stenosis: moderate, not severe (6) Hypertension: - Continue metoprolol, hold lisinopril with CARROL BP is stable (7) Hyperlipidemia: - Cont simvastatin 20 mg QPM (8) COPD (chronic obstructive pulmonary disease): -Continue Spiriva, Symbicort, nebulizers QID and Q2H prn (9) Morbid obesity with BMI of 50.0-59.9, adult: -Diet and exercise will need to be encouraged upon discharge -Patient is on low-sodium low sugar, has discussed this with CHF clinic as well as clinical document improvement educator during recent admission -BMI = 51.6 (10) Chronic kidney disease, stage III (moderate): -Creatinine = 2.17, BUN 44, these numbers have trended up since 05/26/2019 where creatinine was 1.3 and BUN was 32 this is CARROL, hold lisinopril and Lasix, follow Cr (11) Diabetes mellitus type 2, uncontrolled: -Holding glimepiride -ISS with Accu-Cheks [facility] Heart healthy/diabetic diet monitor for hypoglycemia (12) Obstructive sleep apnea: -Continue 2 L O2 at bedtime, does not wear CPAP to sleep (13) Venous stasis of both lower extremities: -Consult wound while in the hospital, continue dressing changes daily and leg elevation to reduce edema difficult situation, would likely improve with compression but cannot wrap currently with her open wounds she cannot keep legs elevated with her right knee pain and arthritis (14) Osteoarthritis of right knee: -Chronic, stable, continue oxycodone for pain relief -Continue bowel regimen along with this to avoid constipation not a candidate for surgery, she cannot ambulate makes lymphedema more difficult to treat (15) DVT prophylaxis: -Heparin subcu Disposition: From home, CM consulted for placement for both the patient and her PT/OT ordered Subjective patient does not feel different compared to admission, still with some heaviness with breathing, very weak discussed with her that her Cr is elevated, BNP normal, argues against acute heart failure certainly she has peripheral edema, legs have been large for years according to her and daughter she had severe arthritis of right knee, cannot get surgery due to open wounds on right leg she needs to keep legs elevated but cannot do that with her knee pain also, cannot take care of her at home reviewed labs this AM, BMP shows Cr of 2.12, K is 4.1 vitals stable, breathing well on baseline oxygen of 2L discussed plans for SNF placement with both patient and her daughter CM aware of needs patient's will also need placed Review of Systems Review of Systems: All systems reviewed & are unremarkable except as noted in HPI & below Constitutional: + fatigue and + weakness; no fever Respiratory: + dyspnea on exertion, + snoring and + stopping breathing during sleep (does not wear CPAP as prescribed); no cough, no dyspnea and no sputum production Cardiovascular: + edema; no chest pain and no syncope Gastrointestinal: no abdominal pain, no nausea, no vomiting, no constipation and no diarrhea/loose stools Genitourinary: no dysuria Musculoskeletal: + joint pain (right knee, very painful, cannot walk) Integumentary: + skin ulcer (bilateral venous stasis ulcers), + dry skin and + change in skin color (dark discoloration of venous stasis in legs) Physical Exam Constitutional: WD/WN, vitals as above + morbidly obese Eyes: PERRL, conjunctivae normal, anicteric sclerae ENMT: external ear and nose normal, oropharynx normal Neck: trachea midline, no thyromegaly Respiratory: normal respiratory effort, lungs clear to auscultation Auscultation: + diminished lung sounds (bases bilaterally) Cardiovascular: Rate/Rhythm: regular rate and regular rhythm Heart Sounds: normal S1 and normal S2; no murmur Vessels: normal peripheral pulses; no JVD Extremities: normal capillary refill and + edema (lymphedema, non pitting) Gastrointestinal (Abdomen): normal bowel sounds, soft, nontender, no hepatosplenomegaly Musculoskeletal: Head/Neck/Chest: normocephalic and head atraumatic Gait: + antalgic gait (cannot walk due to right knee pain) Knee: + knee abnormal to inspection (right, swollen) and + limited ROM of knee (right) Skin: + wound (posterior venous stasis ulcers, dressed), + crusts (bilaterally), + dry skin and + erythema Neurologic: patellar DTR's 2+ bilat, sensation intact and PERRL, EOMI, accommodation nl, no face palsy, no dysarthria Psychiatric: A+Ox3, euthymic affect Lymphatic: no cervical or axillary lymphadenopathy Results & Data Vital Signs (Past 12 Hours) Vital Signs Temp Pulse Pulse Resp BP BP Pulse Ox 05/29/19 11:20 37.0 C 76 18 114/67 96 05/29/19 11:00 79 20 96 05/29/19 07:37 79 05/29/19 07:05 20 98 05/29/19 07:04 36.8 C 80 20 110/68 94 05/29/19 05:07 85 18 96 05/29/19 03:05 36.6 C 89 20 101/51 L 94 Laboratory Results Laboratory Results - last 24 hr 05/28/19 05/28/19 05/28/19 13:56 13:56 13:56 WBC 9.80 RBC 3.55 L Hgb 10.7 L Hct 33.3 L MCV 93.8 MCH 30.1 MCHC 32.1 RDW Std Deviation 48.7 H RDW Coeff of Jade 14.1 Plt Count 245 MPV 10.8 H Immature Gran % (Auto) 0.3 Neut % (Auto) 70.3 Lymph % (Auto) 18.3 [place] % (Auto) 8.4 Eos % (Auto) 2.4 Baso % (Auto) 0.3 Immature Gran # (Auto) 0.03 H Neut # (Auto) 6.89 H Lymph # (Auto) 1.79 [place] # (Auto) 0.82 H Eos # (Auto) 0.24 Baso # (Auto) 0.03 PT 10.7 INR 1.0 Sodium 133 L Potassium 3.8 Chloride 93 L Carbon Dioxide 33 H Anion Gap 7.0 BUN 44 H Creatinine 2.17 H Est Cr Clr Drug Dosing 28.5 Est GFR ( Amer) 23.8 Est GFR (Non-Af Amer) 20.5 BUN/Creatinine Ratio 20.1 H Glucose 224 H POC Glucose Calcium 8.9 Phosphorus 3.5 Magnesium 2.8 H Total Bilirubin 0.4 AST 20 ALT 21 Alkaline Phosphatase 77 Troponin I < 0.015 NT-Pro-B Natriuret Pep 252 Total Protein 7.8 Albumin 3.3 L Globulin 4.5 H Albumin/Globulin Ratio 0.7 L Lipase 90 05/28/19 05/28/19 05/29/19 18:50 19:58 06:34 WBC RBC Hgb Hct MCV MCH MCHC RDW Std Deviation RDW Coeff of Jade Plt Count MPV Immature Gran % (Auto) Neut % (Auto) Lymph % (Auto) [place] % (Auto) Eos % (Auto) Baso % (Auto) Immature Gran # (Auto) Neut # (Auto) Lymph # (Auto) [place] # (Auto) Eos # (Auto) Baso # (Auto) PT INR Sodium 135 L Potassium 4.1 Chloride 95 L Carbon Dioxide 32 Anion Gap 8.0 BUN 48 H Creatinine 2.12 H Est Cr Clr Drug Dosing 28.8 Est GFR ( Amer) 24.5 Est GFR (Non-Af Amer) 21.1 BUN/Creatinine Ratio 22.6 H Glucose 178 H POC Glucose 171 H 196 H Calcium 9.1 Phosphorus Magnesium Total Bilirubin 0.6 AST 24 ALT 23 Alkaline Phosphatase 75 Troponin I NT-Pro-B Natriuret Pep Total Protein 7.5 Albumin 3.2 L Globulin 4.3 H Albumin/Globulin Ratio 0.7 L Lipase 05/29/19 05/29/19 07:33 11:30 WBC RBC Hgb Hct MCV MCH MCHC RDW Std Deviation RDW Coeff of Jade Plt Count MPV Immature Gran % (Auto) Neut % (Auto) Lymph % (Auto) [place] % (Auto) Eos % (Auto) Baso % (Auto) Immature Gran # (Auto) Neut # (Auto) Lymph # (Auto) [place] # (Auto) Eos # (Auto) Baso # (Auto) PT INR Sodium Potassium Chloride Carbon Dioxide Anion Gap BUN Creatinine Est Cr Clr Drug Dosing Est GFR ( Amer) Est GFR (Non-Af Amer) BUN/Creatinine Ratio Glucose POC Glucose 187 H 216 H Calcium Phosphorus Magnesium Total Bilirubin AST ALT Alkaline Phosphatase Troponin I NT-Pro-B Natriuret Pep Total Protein Albumin Globulin Albumin/Globulin Ratio Lipase Medications Administered Current Inpatient Medications Acetaminophen (Tylenol) 650 mg PO Q4H PRN PRN Reason: Moderate Pain Stop: 06/27/19 17:00 Hydrocodone Bitart/Acetaminophen ([place] 5/325) 1 tab PO BID PRN PRN Reason: Pain Stop: 06/11/19 18:55 Last Admin: 05/29/19 09:24 Dose: 1 tab Documented by: Albuterol (Duoneb) 3 ml INH QID PRN PRN Reason: Shortness Of Breath Stop: 06/27/19 18:55 Last Admin: 05/29/19 05:06 Dose: 3 ml Documented by: Albuterol (Duoneb) 3 ml NEB Q4R [facility] Stop: 06/27/19 18:59 Last Admin: 05/29/19 11:00 Dose: 3 ml Documented by: Ascorbic Acid (Vitamin C) 500 mg PO DAILY [facility] Stop: 06/28/19 08:59 Last Admin: 05/29/19 09:07 Dose: 500 mg Documented by: Budesonide/Formoterol Fumarate (Symbicort 160mcg/4.5mcg) 2 puffs INH BID [facility] Stop: 06/27/19 20:59 Last Admin: 05/29/19 09:09 Dose: 2 puffs Documented by: Cephalexin HCl (Keflex) 500 mg PO BID [facility]; Protocol Stop: 06/07/19 20:59 Last Admin: 05/29/19 09:06 Dose: 500 mg Documented by: Citalopram Hydrobromide (Celexa) 10 mg PO DAILY [facility] Stop: 06/28/19 08:59 Last Admin: 05/29/19 09:07 Dose: 10 mg Documented by: Dextrose (Dextrose 50%) 25 - 50 ml IV UD PRN; Protocol PRN Reason: Hypoglycemia Protocol Stop: 06/27/19 18:55 Fluocinonide (Lidex 0.5%) 1 appln EXT BID [facility] Stop: 06/27/19 20:59 Last Admin: 05/29/19 09:10 Dose: 1 appln Documented by: Glucagon (Glucagen) 1 mg SQ UD PRN; Protocol PRN Reason: Hypoglycemia Protocol Stop: 09/20/19 18:55 Glucose (Glucose 40%) 15 - 30 gm PO UD PRN; Protocol PRN Reason: Hypoglycemia Protocol Stop: 06/27/19 18:55 Glucose (Dex4 Glucose) 4 - 8 tabs PO UD PRN; Protocol PRN Reason: Hypoglycemia Protocol Stop: 06/27/19 18:55 Heparin Sodium (Porcine) (Heparin Sodium (Porcine)) 5,000 units SQ Q8 [facility] Stop: 06/27/19 21:59 Last Admin: 05/29/19 05:45 Dose: 5,000 units Documented by: Insulin Aspart (Novolog Flexpen) 0 units SC ACHS [facility] Stop: 06/27/19 20:59 Last Admin: 05/29/19 12:22 Dose: 7 units Documented by: Lactobacillus Acidophilus (Floranex) 4 tab PO TIDM [facility] Stop: 06/28/19 07:59 Last Admin: 05/29/19 12:26 Dose: 4 tab Documented by: Lisinopril (Zestril) 10 mg PO DAILY [facility] Stop: 06/28/19 08:59 Last Admin: 05/29/19 09:07 Dose: 10 mg Documented by: Lorazepam (Ativan) 0.5 mg PO DAILY PRN PRN Reason: anxiety Stop: 06/27/19 18:55 Last Admin: 05/28/19 20:17 Dose: 0.5 mg Documented by: Metoprolol Succinate (Toprol Xl) 37.5 mg PO DAILY [facility] Stop: 06/28/19 08:59 Last Admin: 05/29/19 09:08 Dose: 37.5 mg Documented by: Miscellaneous (Carbohydrates For Hypoglycemia) 15 - 30 gm PO UD PRN PRN Reason: Hypoglycemia Treatment Stop: 06/27/19 18:55 Multivitamins/Minerals (Multivitamin W/ Minerals Tab) 1 tab PO DAILY@0800 [facility]; Protocol Stop: 06/28/19 07:59 Last Admin: 05/29/19 09:08 Dose: 1 tab Documented by: Ondansetron HCl (Zofran) 4 mg IV Q4H PRN PRN Reason: Nausea And Vomiting Stop: 06/27/19 17:00 Pramipexole Dihydrochloride (Mirapex) 0.5 mg PO HS [facility] Stop: 06/27/19 20:59 Last Admin: 05/28/19 20:17 Dose: 0.5 mg Documented by: Simvastatin (Zocor) 20 mg PO QPM [facility] Stop: 06/27/19 20:59 Last Admin: 05/28/19 20:17 Dose: 20 mg Documented by: Tiotropium [place] (Spiriva) 1 puffs INH DAILY [facility]; Protocol Stop: 06/28/19 08:59 Last Admin: 05/29/19 09:09 Dose: 1 puffs Documented by: PG Care Time/CCT Total # of Minutes Spent Total Time Spent with Patient: Total time spent is greater than 50% in coordination of care (as documented) at patient's floor/unit and/or counseling patient:
[2019-05-29] MEDS: SIMVASTATIN 20 MG TAB PO SCH (21:10)
[2019-05-29] MEDS: PRAMIPEXOLE DIHYDROCHLO 0.25 MG TAB PO SCH (21:10)
[2019-05-29] MEDS: LORazepam 0.5 MG TAB PO PRN (21:17)
[2019-05-30] MEDS: ALBUT/IPRATROP 3MG/0.5MG NEB 3 ML VIAL NEB SCH ×6 (03:14→23:33)
[2019-05-30] MEDS: HEPARIN SOD 5,000 UNIT/0.5 ML VIAL SQ SCH ×3 (06:00→21:13)
[2019-05-30] MEDS: HYDROCODONE/ACETAMOPHEN 5/325MG TAB PO PRN ×2 (06:07→21:16)
[2019-05-30] MEDS: INSULIN ASPART 100 UNITS/ML 3 ML PEN SC SCH ×4 (08:33→21:11)
[2019-05-30] MEDS: LACTOBACILLUS ACIDOPHILUS (FLORANEX) TAB PO SCH ×3 (08:36→18:35)
[2019-05-30] MEDS: CITALOPRAM 20 MG TAB PO SCH (08:36)
[2019-05-30] MEDS: ASCORBIC ACID 500 MG TAB PO SCH (08:37)
[2019-05-30] MEDS: METOPROLOL SUCC 25MG EXT REL TAB PO SCH (08:37)
[2019-05-30] MEDS: cephALEXin 500 MG CAP PO SCH ×2 (08:38→21:10)
[2019-05-30] MEDS: CEROVITE ADV FORMULA TAB PO SCH (08:38)
[2019-05-30] MEDS: TIOTROPIUM BROMIDE 5 PUFF/90 MCG INH INH SCH (08:38)
[2019-05-30] MEDS: BUDESONIDE/FORMOTEROL FUMARATE 160/4.5 60 PUFFS/INHALER INH SCH ×2 (08:39→21:10)
[2019-05-30 09:17] LABS: Calcium 9.2 mg/dl (8.5-10.1); Creatinine Clr Calc Pharmacy 35.1 ml/min; Est GFR (African American) 31.1; Est GFR (Non-African American) 26.8
[2019-05-30] MEDS: FLUOCINONIDE 0.05% CR 15 GM TUBE EXT SCH ×2 (09:30→21:10)
--- NOTE | 2019-05-30 12:40 | Hospitalist Progress Note ---
Date of Service May 30, 2019 Assessment & Plan (1) CARROL (acute kidney injury): due to aggressive diuresis with Lasix, dose increased on discharge last admission and given IV diuretics at that time Cr down to 1.7 from 2.1, continue to hold Lasix today check labs in AM and likely resume home dose of Lasix (2) Chronic heart failure with preserved ejection fraction: EF is 55-60% with no mention of diastolic dysfunction no evidence of pulmonary HTN although CXR appeared to have pulmonary edema on admission, may have been oversaturated her lungs are clear every day, no JVD hold Lasix, likely resume tomorrow (3) Acute and chronic respiratory failure: stable on home 2L, no distress, some increased dyspnea on exertion -Continue 2 L at all times -Continue Spiriva, Symbicort (4) Coronary artery disease: -As above no chest pain or pressure reported, no ischemic changes on EKG (5) Aortic stenosis: moderate, not severe (6) Hypertension: - Continue metoprolol, hold lisinopril with CARROL BP is stable (7) Hyperlipidemia: - Cont simvastatin 20 mg QPM (8) COPD (chronic obstructive pulmonary disease): -Continue Spiriva, Symbicort, nebulizers QID and Q2H prn (9) Morbid obesity with BMI of 50.0-59.9, adult: -Diet and exercise will need to be encouraged upon discharge -Patient is on low-sodium low sugar, has discussed this with CHF clinic as well as life educator during recent admission -BMI = 51.6 (10) Chronic kidney disease, stage III (moderate): -Creatinine = Cr down to 1.7, still not quite at baseline this is CARROL, hold lisinopril and Lasix, follow Cr (11) Diabetes mellitus type 2, uncontrolled: -Holding glimepiride -ISS with Accu-Cheks [facility] Heart healthy/diabetic diet monitor for hypoglycemia (12) Obstructive sleep apnea: -Continue 2 L O2 at bedtime, does not wear CPAP to sleep (13) Venous stasis of both lower extremities: -Consult wound while in the hospital, continue dressing changes daily and leg elevation to reduce edema difficult situation, would likely improve with compression but cannot wrap currently with her open wounds she cannot keep legs elevated with her right knee pain and arthritis (14) Osteoarthritis of right knee: -Chronic, stable, continue oxycodone for pain relief -Continue bowel regimen along with this to avoid constipation not a candidate for surgery, she cannot ambulate makes lymphedema more difficult to treat (15) DVT prophylaxis: -Heparin subcu Disposition: From home, CM consulted for placement for both the patient and her PT/OT ordered likely not to SNF until Sunday per case management may or may not get placed, he may go to [place] to live with patient's son Subjective patient sitting up in chair, feels the same as yesterday eating well, moved bowels this morning no chest pain or pressure, still with some dyspnea on exertion, this is chronic has the peripheral edema, no change trying to work with therapy, extremely limited due to pain in right knee (arthritis) reviewed labs, Cr down to 1.7 from 2.1, K is 3.9 Review of Systems Review of Systems: All systems reviewed & are unremarkable except as noted in HPI & below Respiratory: + dyspnea on exertion Cardiovascular: + edema; no chest pain Gastrointestinal: no abdominal pain, no nausea, no vomiting, no constipation and no diarrhea/loose stools Integumentary: + skin ulcer, + erythema and + dry skin Physical Exam Constitutional: WD/WN, vitals as above + morbidly obese Eyes: PERRL, conjunctivae normal, anicteric sclerae ENMT: external ear and nose normal, oropharynx normal Neck: trachea midline, no thyromegaly Respiratory: normal respiratory effort, lungs clear to auscultation Auscultation: + diminished lung sounds (bases bilaterally) Cardiovascular: Rate/Rhythm: regular rate and regular rhythm Heart Sounds: normal S1 and normal S2; no murmur Vessels: normal peripheral pulses; no JVD Extremities: normal capillary refill and + edema (lymphedema, non pitting) Gastrointestinal (Abdomen): normal bowel sounds, soft, nontender, no hepatosplenomegaly Musculoskeletal: Head/Neck/Chest: normocephalic and head atraumatic Gait: + antalgic gait (cannot walk due to right knee pain) Knee: + knee abnormal to inspection (right, swollen) and + limited ROM of knee (right) Skin: + wound (posterior venous stasis ulcers, dressed), + crusts (bilaterally), + dry skin and + erythema Neurologic: patellar DTR's 2+ bilat, sensation intact and PERRL, EOMI, accommodation nl, no face palsy, no dysarthria Psychiatric: A+Ox3, euthymic affect Lymphatic: no cervical or axillary lymphadenopathy Results & Data Vital Signs (Past 12 Hours) Vital Signs Temp Pulse Pulse Resp BP BP Pulse Ox 05/30/19 11:27 36.8 C 81 18 114/66 97 05/30/19 10:58 105 H 22 95 05/30/19 07:27 36.4 C L 78 20 115/73 94 05/30/19 07:02 75 05/30/19 06:58 76 18 96 05/30/19 03:15 75 18 95 05/30/19 03:05 36.3 C L 84 20 100/64 96 05/30/19 00:38 79 Laboratory Results Laboratory Results - last 24 hr 05/29/19 05/29/19 05/30/19 16:21 20:15 07:40 Sodium Potassium Chloride Carbon Dioxide Anion Gap BUN Creatinine Est Cr Clr Drug Dosing Est GFR ( Amer) Est GFR (Non-Af Amer) BUN/Creatinine Ratio Glucose POC Glucose 161 H 186 H 185 H Calcium Specimen Hemolysis 05/30/19 05/30/19 05/30/19 08:06 09:23 11:45 Sodium 135 L Potassium 3.9 Chloride 96 L Carbon Dioxide 32 Anion Gap 7.0 BUN 47 H Creatinine 1.74 H D Est Cr Clr Drug Dosing 35.1 Est GFR ( Amer) 31.1 Est GFR (Non-Af Amer) 26.8 BUN/Creatinine Ratio 27.0 H Glucose 177 H POC Glucose 199 H Calcium 9.2 Specimen Hemolysis Medications Administered Current Inpatient Medications Acetaminophen (Tylenol) 650 mg PO Q4H PRN PRN Reason: Moderate Pain Stop: 06/27/19 17:00 Hydrocodone Bitart/Acetaminophen ([place] 5/325) 1 tab PO BID PRN PRN Reason: Pain Stop: 06/11/19 18:55 Last Admin: 05/30/19 06:07 Dose: 1 tab Documented by: Albuterol (Duoneb) 3 ml INH QID PRN PRN Reason: Shortness Of Breath Stop: 06/27/19 18:55 Last Admin: 05/29/19 05:06 Dose: 3 ml Documented by: Albuterol (Duoneb) 3 ml NEB Q4R [facility] Stop: 06/27/19 18:59 Last Admin: 05/30/19 10:57 Dose: 3 ml Documented by: Ascorbic Acid (Vitamin C) 500 mg PO DAILY [facility] Stop: 06/28/19 08:59 Last Admin: 05/30/19 08:37 Dose: 500 mg Documented by: Budesonide/Formoterol Fumarate (Symbicort 160mcg/4.5mcg) 2 puffs INH BID [facility] Stop: 06/27/19 20:59 Last Admin: 05/30/19 08:39 Dose: 2 puffs Documented by: Cephalexin HCl (Keflex) 500 mg PO BID [facility]; Protocol Stop: 06/07/19 20:59 Last Admin: 05/30/19 08:38 Dose: 500 mg Documented by: Citalopram Hydrobromide (Celexa) 10 mg PO DAILY [facility] Stop: 06/28/19 08:59 Last Admin: 05/30/19 08:36 Dose: 10 mg Documented by: Dextrose (Dextrose 50%) 25 - 50 ml IV UD PRN; Protocol PRN Reason: Hypoglycemia Protocol Stop: 06/27/19 18:55 Fluocinonide (Lidex 0.5%) 1 appln EXT BID [facility] Stop: 06/27/19 20:59 Last Admin: 05/30/19 09:30 Dose: Not Given Documented by: Glucagon (Glucagen) 1 mg SQ UD PRN; Protocol PRN Reason: Hypoglycemia Protocol Stop: 06/27/19 18:55 Glucose (Glucose 40%) 15 - 30 gm PO UD PRN; Protocol PRN Reason: Hypoglycemia Protocol Stop: 06/27/19 18:55 Glucose (Dex4 Glucose) 4 - 8 tabs PO UD PRN; Protocol PRN Reason: Hypoglycemia Protocol Stop: 06/27/19 18:55 Heparin Sodium (Porcine) (Heparin Sodium (Porcine)) 5,000 units SQ Q8 [facility] Stop: 06/27/19 21:59 Last Admin: 05/30/19 06:00 Dose: 5,000 units Documented by: Insulin Aspart (Novolog Flexpen) 0 units SC ACHS [facility] Stop: 06/27/19 20:59 Last Admin: 05/30/19 12:19 Dose: 7 units Documented by: Lactobacillus Acidophilus (Floranex) 4 tab PO TIDM [facility] Stop: 06/28/19 07:59 Last Admin: 05/30/19 12:20 Dose: 4 tab Documented by: Lorazepam (Ativan) 0.5 mg PO DAILY PRN PRN Reason: anxiety Stop: 06/27/19 18:55 Last Admin: 05/29/19 21:17 Dose: 0.5 mg Documented by: Metoprolol Succinate (Toprol Xl) 37.5 mg PO DAILY [facility] Stop: 06/28/19 08:59 Last Admin: 05/30/19 08:37 Dose: 37.5 mg Documented by: Miscellaneous (Carbohydrates For Hypoglycemia) 15 - 30 gm PO UD PRN PRN Reason: Hypoglycemia Treatment Stop: 06/27/19 18:55 Multivitamins/Minerals (Multivitamin W/ Minerals Tab) 1 tab PO DAILY@0800 [facility]; Protocol Stop: 06/28/19 07:59 Last Admin: 05/30/19 08:38 Dose: 1 tab Documented by: Ondansetron HCl (Zofran) 4 mg IV Q4H PRN PRN Reason: Nausea And Vomiting Stop: 06/27/19 17:00 Pramipexole Dihydrochloride (Mirapex) 0.5 mg PO HS [facility] Stop: 06/27/19 20:59 Last Admin: 05/29/19 21:10 Dose: 0.5 mg Documented by: Simvastatin (Zocor) 20 mg PO QPM [facility] Stop: 06/27/19 20:59 Last Admin: 05/29/19 21:10 Dose: 20 mg Documented by: Tiotropium [place] (Spiriva) 1 puffs INH DAILY [facility]; Protocol Stop: 06/28/19 08:59 Last Admin: 05/30/19 08:38 Dose: 1 puffs Documented by: PG Care Time/CCT Total # of Minutes Spent Total Time Spent with Patient: Total time spent is greater than 50% in coordination of care (as documented) at patient's floor/unit and/or counseling patient:
[2019-05-30] MEDS: PRAMIPEXOLE DIHYDROCHLO 0.25 MG TAB PO SCH (21:10)
[2019-05-30] MEDS: SIMVASTATIN 20 MG TAB PO SCH (21:12)
[2019-05-30] MEDS: LORazepam 0.5 MG TAB PO PRN (23:34)
[2019-05-31] MEDS: ALBUT/IPRATROP 3MG/0.5MG NEB 3 ML VIAL NEB SCH ×6 (03:51→23:23)
[2019-05-31] MEDS: HEPARIN SOD 5,000 UNIT/0.5 ML VIAL SQ SCH ×3 (05:35→21:31)
[2019-05-31 06:26] LABS: Hemoglobin 10.4 g/dL (12.0-16.0); Mean Corpuscular Hemoglobin 29.8 pg (25-34); Mean Corpuscular Hgb Conc 31.5 g/dL (32-36); Mean Corpuscular Volume 94.6 fL (80-100); Mean Platelet Volume 12.7 fL (7.4-10.4); Platelet Count 288 K/uL (130-400); RDW Coefficient of Variation 14.1 % (11.5-14.5); RDW Standard Deviation 48.4 fL (36.4-46.3); Red Blood Count 3.49 M/uL (4.2-5.4); White Blood Count 8.23 K/uL (4.8-10.8)
[2019-05-31 07:09] LABS: BUN Creatinine Ratio 29.5 (10-20); Calcium 9.2 mg/dl (8.5-10.1); Creatinine Clr Calc Pharmacy 42.6 ml/min; Est GFR (African American) 39.1; Est GFR (Non-African American) 33.7
[2019-05-31] MEDS: HYDROCODONE/ACETAMOPHEN 5/325MG TAB PO PRN ×2 (07:59→20:29)
[2019-05-31] MEDS: CITALOPRAM 20 MG TAB PO SCH (08:00)
[2019-05-31] MEDS: LACTOBACILLUS ACIDOPHILUS (FLORANEX) TAB PO SCH ×3 (08:00→17:36)
[2019-05-31] MEDS: cephALEXin 500 MG CAP PO SCH ×2 (08:01→20:29)
[2019-05-31] MEDS: CEROVITE ADV FORMULA TAB PO SCH (08:01)
[2019-05-31] MEDS: FLUOCINONIDE 0.05% CR 15 GM TUBE EXT SCH ×2 (08:02→20:29)
[2019-05-31] MEDS: METOPROLOL SUCC 25MG EXT REL TAB PO SCH (08:02)
[2019-05-31] MEDS: ASCORBIC ACID 500 MG TAB PO SCH (08:02)
[2019-05-31] MEDS: TIOTROPIUM BROMIDE 5 PUFF/90 MCG INH INH SCH (08:03)
[2019-05-31] MEDS: BUDESONIDE/FORMOTEROL FUMARATE 160/4.5 60 PUFFS/INHALER INH SCH ×2 (08:03→20:30)
[2019-05-31] MEDS: INSULIN ASPART 100 UNITS/ML 3 ML PEN SC SCH ×4 (08:40→20:34)
--- NOTE | 2019-05-31 15:20 | Hospitalist Progress Note ---
Date of Service May 31, 2019 Assessment & Plan (1) CARROL (acute kidney injury): due to aggressive diuresis with Lasix, dose increased on discharge last admission and given IV diuretics at that time Cr down to 1.4 from 2.1, continue to hold Lasix today check labs in AM and consider resuming Lasix but at lower dose (2) Chronic heart failure with preserved ejection fraction: EF is 55-60% with no mention of diastolic dysfunction no evidence of pulmonary HTN although CXR appeared to have pulmonary edema on admission, may have been oversaturated her lungs are clear every day, no JVD consider resuming Lasix at lower dose tomorrow (3) Acute and chronic respiratory failure: stable on home 2L, no distress, some increased dyspnea on exertion -Continue 2 L at all times -Continue Spiriva, Symbicort (4) Coronary artery disease: -As above no chest pain or pressure reported, no ischemic changes on EKG (5) Aortic stenosis: moderate, not severe (6) Hypertension: - Continue metoprolol, hold lisinopril with CARROL BP is stable resume Lisinopril tomorrow if Cr continues to fall (7) Hyperlipidemia: - Cont simvastatin 20 mg QPM (8) COPD (chronic obstructive pulmonary disease): -Continue Spiriva, Symbicort, nebulizers QID and Q2H prn (9) Morbid obesity with BMI of 50.0-59.9, adult: -Diet and exercise will need to be encouraged upon discharge -Patient is on low-sodium low sugar, has discussed this with CHF clinic as well as harp action assembler during recent admission -BMI = 51.6 (10) Chronic kidney disease, stage III (moderate): -Creatinine = Cr down to 1.4, still not quite at baseline this is CARROL, hold lisinopril and Lasix, follow Cr (11) Diabetes mellitus type 2, uncontrolled: -Holding glimepiride -ISS with Accu-Cheks [facility] Heart healthy/diabetic diet monitor for hypoglycemia, no episodes thus far (12) Obstructive sleep apnea: -Continue 2 L O2 at bedtime, does not wear CPAP to sleep discussed trying CPAP again, she refuses, has claustrophobia she said that she never slept when she would wear the mask (13) Venous stasis of both lower extremities: -Consult wound while in the hospital, continue dressing changes daily and leg elevation to reduce edema difficult situation, would likely improve with compression but cannot wrap currently with her open wounds she cannot keep legs elevated with her right knee pain and arthritis (14) Osteoarthritis of right knee: -Chronic, stable, continue oxycodone for pain relief -Continue bowel regimen along with this to avoid constipation not a candidate for surgery, she cannot ambulate makes lymphedema more difficult to treat (15) DVT prophylaxis: -Heparin subcu Disposition: From home, CM consulted for placement for both the patient and her PT/OT ordered [facility] early next week, possibly Sunday per daughter Subjective patient sitting up in chair, says she is feeling a little better breathing continues to be at baseline, still with LAST discussed that she will likely continue to have this, due to issues that cannot be fixed such as obesity, deconditioning reviewed her labs, Cr improved to 1.4 she says she is not eating as much as usual, but she is okay with that, she says she could lose some weight updated daughter outside of the room planning on [facility], hopeful for Sunday daughter feels that a big driving force in the patient not feeling well was the stress of taking care of her Review of Systems Review of Systems: All systems reviewed & are unremarkable except as noted in HPI & below Constitutional: + fatigue and + weakness; no fever Respiratory: + dyspnea on exertion Cardiovascular: + edema; no chest pain Musculoskeletal: + joint pain (right knee, very painful, cannot walk) Physical Exam Constitutional: WD/WN, vitals as above + morbidly obese Eyes: PERRL, conjunctivae normal, anicteric sclerae ENMT: external ear and nose normal, oropharynx normal Neck: trachea midline, no thyromegaly Respiratory: normal respiratory effort, lungs clear to auscultation Auscultation: + diminished lung sounds (bases bilaterally) Cardiovascular: Rate/Rhythm: regular rate and regular rhythm Heart Sounds: normal S1 and normal S2; no murmur Vessels: normal peripheral pulses; no JVD Extremities: normal capillary refill and + edema (lymphedema, non pitting) Gastrointestinal (Abdomen): normal bowel sounds, soft, nontender, no hepatosplenomegaly Musculoskeletal: Head/Neck/Chest: normocephalic and head atraumatic Gait: + antalgic gait (cannot walk due to right knee pain) Knee: + knee abnormal to inspection (right, swollen) and + limited ROM of knee (right) Skin: + wound (posterior venous stasis ulcers, dressed), + crusts (bilaterally), + dry skin and + erythema Neurologic: patellar DTR's 2+ bilat, sensation intact and PERRL, EOMI, accommodation nl, no face palsy, no dysarthria Psychiatric: A+Ox3, euthymic affect Lymphatic: no cervical or axillary lymphadenopathy Results & Data Vital Signs (Past 12 Hours) Vital Signs Temp Pulse Pulse Resp BP Pulse Ox 05/31/19 11:45 36.3 C L 75 23 135/75 98 05/31/19 10:55 82 16 97 05/31/19 07:31 74 05/31/19 07:29 36.4 C L 73 24 138/77 96 05/31/19 07:26 84 18 96 Laboratory Results Laboratory Results - last 24 hr 05/30/19 05/31/19 05/31/19 16:10 05:14 05:14 WBC 8.23 RBC 3.49 L Hgb 10.4 L Hct 33.0 L MCV 94.6 MCH 29.8 MCHC 31.5 L RDW Std Deviation 48.4 H RDW Coeff of Jade 14.1 Plt Count 288 MPV 12.7 H Sodium 133 L Potassium Chloride 93 L Carbon Dioxide 33 H Anion Gap 7.0 BUN 43 H Creatinine 1.44 H D Est Cr Clr Drug Dosing 42.6 Est GFR ( Amer) 39.1 Est GFR (Non-Af Amer) 33.7 BUN/Creatinine Ratio 29.5 H Glucose 158 H POC Glucose 133 H Calcium 9.2 Specimen Hemolysis Cancelled 05/31/19 05/31/19 05/31/19 07:15 07:34 11:19 WBC RBC Hgb Hct MCV MCH MCHC RDW Std Deviation RDW Coeff of Jade Plt Count MPV Sodium Potassium 4.2 Chloride Carbon Dioxide Anion Gap BUN Creatinine Est Cr Clr Drug Dosing Est GFR ( Amer) Est GFR (Non-Af Amer) BUN/Creatinine Ratio Glucose POC Glucose 188 H 213 H Calcium Specimen Hemolysis Medications Administered Current Inpatient Medications Acetaminophen (Tylenol) 650 mg PO Q4H PRN PRN Reason: Moderate Pain Stop: 06/27/19 17:00 Hydrocodone Bitart/Acetaminophen ([place] 5/325) 1 tab PO BID PRN PRN Reason: Pain Stop: 06/11/19 18:55 Last Admin: 05/31/19 07:59 Dose: 1 tab Documented by: Albuterol (Duoneb) 3 ml INH QID PRN PRN Reason: Shortness Of Breath Stop: 06/27/19 18:55 Last Admin: 05/29/19 05:06 Dose: 3 ml Documented by: Albuterol (Duoneb) 3 ml NEB Q4R [facility] Stop: 06/27/19 18:59 Last Admin: 05/31/19 10:55 Dose: 3 ml Documented by: Ascorbic Acid (Vitamin C) 500 mg PO DAILY [facility] Stop: 06/28/19 08:59 Last Admin: 05/31/19 08:02 Dose: 500 mg Documented by: Budesonide/Formoterol Fumarate (Symbicort 160mcg/4.5mcg) 2 puffs INH BID [facility] Stop: 06/27/19 20:59 Last Admin: 05/31/19 08:03 Dose: 2 puffs Documented by: Cephalexin HCl (Keflex) 500 mg PO BID [facility]; Protocol Stop: 06/07/19 20:59 Last Admin: 05/31/19 08:01 Dose: 500 mg Documented by: Citalopram Hydrobromide (Celexa) 10 mg PO DAILY [facility] Stop: 06/28/19 08:59 Last Admin: 05/31/19 08:00 Dose: 10 mg Documented by: Dextrose (Dextrose 50%) 25 - 50 ml IV UD PRN; Protocol PRN Reason: Hypoglycemia Protocol Stop: 06/27/19 18:55 Fluocinonide (Lidex 0.5%) 1 appln EXT BID [facility] Stop: 06/27/19 20:59 Last Admin: 05/31/19 08:02 Dose: 1 appln Documented by: Glucagon (Glucagen) 1 mg SQ UD PRN; Protocol PRN Reason: Hypoglycemia Protocol Stop: 06/27/19 18:55 Glucose (Glucose 40%) 15 - 30 gm PO UD PRN; Protocol PRN Reason: Hypoglycemia Protocol Stop: 06/27/19 18:55 Glucose (Dex4 Glucose) 4 - 8 tabs PO UD PRN; Protocol PRN Reason: Hypoglycemia Protocol Stop: 06/27/19 18:55 Heparin Sodium (Porcine) (Heparin Sodium (Porcine)) 5,000 units SQ Q8 [facility] Stop: 06/27/19 21:59 Last Admin: 05/31/19 13:45 Dose: 5,000 units Documented by: Insulin Aspart (Novolog Flexpen) 0 units SC ACHS [facility] Stop: 06/27/19 20:59 Last Admin: 05/31/19 12:30 Dose: 7 units Documented by: Lactobacillus Acidophilus (Floranex) 4 tab PO TIDM [facility] Stop: 06/28/19 07:59 Last Admin: 05/31/19 12:30 Dose: 4 tab Documented by: Lorazepam (Ativan) 0.5 mg PO DAILY PRN PRN Reason: anxiety Stop: 06/27/19 18:55 Last Admin: 05/30/19 23:34 Dose: 0.5 mg Documented by: Metoprolol Succinate (Toprol Xl) 37.5 mg PO DAILY [facility] Stop: 06/28/19 08:59 Last Admin: 05/31/19 08:02 Dose: 37.5 mg Documented by: Miscellaneous (Carbohydrates For Hypoglycemia) 15 - 30 gm PO UD PRN PRN Reason: Hypoglycemia Treatment Stop: 06/27/19 18:55 Multivitamins/Minerals (Multivitamin W/ Minerals Tab) 1 tab PO DAILY@0800 [facility]; Protocol Stop: 06/28/19 07:59 Last Admin: 05/31/19 08:01 Dose: 1 tab Documented by: Ondansetron HCl (Zofran) 4 mg IV Q4H PRN PRN Reason: Nausea And Vomiting Stop: 06/27/19 17:00 Pramipexole Dihydrochloride (Mirapex) 0.5 mg PO HS [facility] Stop: 06/27/19 20:59 Last Admin: 05/30/19 21:10 Dose: 0.5 mg Documented by: Simvastatin (Zocor) 20 mg PO QPM [facility] Stop: 06/27/19 20:59 Last Admin: 05/30/19 21:12 Dose: 20 mg Documented by: Tiotropium [place] (Spiriva) 1 puffs INH DAILY [facility]; Protocol Stop: 06/28/19 08:59 Last Admin: 05/31/19 08:03 Dose: 1 puffs Documented by: PG Care Time/CCT Total # of Minutes Spent Total Time Spent with Patient: Total time spent is greater than 50% in coordination of care (as documented) at patient's floor/unit and/or counseling patient:
[2019-05-31] MEDS: PRAMIPEXOLE DIHYDROCHLO 0.25 MG TAB PO SCH (20:28)
[2019-05-31] MEDS: LORazepam 0.5 MG TAB PO PRN (20:29)
[2019-05-31] MEDS: SIMVASTATIN 20 MG TAB PO SCH (20:29)
[2019-06-01] MEDS: ALBUT/IPRATROP 3MG/0.5MG NEB 3 ML VIAL NEB SCH ×2 (03:07→07:19)
[2019-06-01] MEDS: HEPARIN SOD 5,000 UNIT/0.5 ML VIAL SQ SCH ×3 (05:31→20:21)
[2019-06-01] MEDS: TIOTROPIUM BROMIDE 5 PUFF/90 MCG INH INH SCH (08:03)
[2019-06-01] MEDS: FLUOCINONIDE 0.05% CR 15 GM TUBE EXT SCH ×2 (08:03→20:22)
[2019-06-01] MEDS: BUDESONIDE/FORMOTEROL FUMARATE 160/4.5 60 PUFFS/INHALER INH SCH ×2 (08:03→20:21)
[2019-06-01] MEDS: LACTOBACILLUS ACIDOPHILUS (FLORANEX) TAB PO SCH ×3 (08:04→17:38)
[2019-06-01] MEDS: CITALOPRAM 20 MG TAB PO SCH (08:04)
[2019-06-01] MEDS: ASCORBIC ACID 500 MG TAB PO SCH (08:04)
[2019-06-01] MEDS: CEROVITE ADV FORMULA TAB PO SCH (08:05)
[2019-06-01] MEDS: METOPROLOL SUCC 25MG EXT REL TAB PO SCH (08:05)
[2019-06-01] MEDS: cephALEXin 500 MG CAP PO SCH ×2 (08:06→20:22)
[2019-06-01] MEDS: HYDROCODONE/ACETAMOPHEN 5/325MG TAB PO PRN ×2 (08:11→20:22)
[2019-06-01] MEDS: INSULIN ASPART 100 UNITS/ML 3 ML PEN SC SCH ×4 (08:36→20:21)
[2019-06-01 09:53] LABS: BUN Creatinine Ratio 28.1 (10-20); Calcium 9.3 mg/dl (8.5-10.1); Creatinine Clr Calc Pharmacy 48.7 ml/min; Est GFR (African American) 45.9; Est GFR (Non-African American) 39.6
--- NOTE | 2019-06-01 14:45 | Hospitalist Progress Note ---
Date of Service June 01, 2019 Assessment & Plan (1) CARROL (acute kidney injury): due to aggressive diuresis with Lasix, dose increased on discharge last admission and given IV diuretics at that time Cr down to 1.2 from 2.1, continue to hold Lasix today will resume Lasix at 40mg BID (this is changed from prior dosing of 80mg BID) she should be discharged on this lower dose (2) Chronic heart failure with preserved ejection fraction: EF is 55-60% with no mention of diastolic dysfunction no evidence of pulmonary HTN although CXR appeared to have pulmonary edema on admission, may have been oversaturated her lungs are clear every day, no JVD resume Lasix at lower dose of 40mg BID (3) Acute and chronic respiratory failure: stable on home 2L, no distress, some increased dyspnea on exertion -Continue 2 L at all times -Continue Spiriva, Symbicort (4) Coronary artery disease: -As above no chest pain or pressure reported, no ischemic changes on EKG (5) Aortic stenosis: moderate, not severe (6) Hypertension: - Continue metoprolol, hold lisinopril with CARROL BP is stable would recommend lowering to 5mg or even 2.5mg on discharge does not really need it for BP control, just for renal protection with DM (7) Hyperlipidemia: - Cont simvastatin 20 mg QPM (8) COPD (chronic obstructive pulmonary disease): -Continue Spiriva, Symbicort, nebulizers QID and Q2H prn (9) Morbid obesity with BMI of 50.0-59.9, adult: -Diet control exercise is not possible given severe osteoarthritis in right knee -Patient is on low-sodium low sugar, has discussed this with CHF clinic as well as coding educator during recent admission -BMI = 51.6 (10) Chronic kidney disease, stage III (moderate): -Creatinine = Cr down to 1.2, still not quite at baseline this is CARROL, hold lisinopril resume Lasix tomorrow (11) Diabetes mellitus type 2, uncontrolled: -Holding glimepiride -ISS with Accu-Cheks [facility] Heart healthy/diabetic diet monitor for hypoglycemia, no episodes thus far (12) Obstructive sleep apnea: -Continue 2 L O2 at bedtime, does not wear CPAP to sleep discussed trying CPAP again, she refuses, has claustrophobia she said that she never slept when she would wear the mask (13) Venous stasis of both lower extremities: -Consult wound while in the hospital, continue dressing changes daily and leg elevation to reduce edema difficult situation, would likely improve with compression but cannot wrap currently with her open wounds she cannot keep legs elevated with her right knee pain and arthritis (14) Osteoarthritis of right knee: -Chronic, stable, continue oxycodone for pain relief -Continue bowel regimen along with this to avoid constipation not a candidate for surgery, she cannot ambulate makes lymphedema more difficult to treat (15) DVT prophylaxis: -Heparin subcu Disposition: From home, CM consulted for placement for both the patient and her PT/OT ordered [facility] early next week, possibly Sunday per daughter Subjective patient very pleasant, sitting up in a chair, breathing comfortably says she feels much better today, has gotten better each day reviewed labs, Cr down to 1.2 today discussed resuming Lasix but at lower dose, 40mg BID she is eating, her appetite not great but forcing herself to eat plans to go to [facility] Sunday Review of Systems Review of Systems: All systems reviewed & are unremarkable except as noted in HPI & below Constitutional: no fever, no fatigue and no weakness Respiratory: + dyspnea on exertion; no cough and no dyspnea Cardiovascular: + edema; no chest pain Gastrointestinal: + early satiety; no abdominal pain, no nausea, no vomiting, no constipation and no diarrhea/loose stools Musculoskeletal: + joint pain (right knee, severe, chronic) Physical Exam Constitutional: WD/WN, vitals as above + morbidly obese Eyes: PERRL, conjunctivae normal, anicteric sclerae ENMT: external ear and nose normal, oropharynx normal Neck: trachea midline, no thyromegaly Respiratory: normal respiratory effort, lungs clear to auscultation Auscultation: + diminished lung sounds (bases bilaterally) Cardiovascular: Rate/Rhythm: regular rate and regular rhythm Heart Sounds: normal S1 and normal S2; no murmur Vessels: normal peripheral pulses; no JVD Extremities: normal capillary refill and + edema (lymphedema, non pitting) Gastrointestinal (Abdomen): normal bowel sounds, soft, nontender, no hepatosplenomegaly Musculoskeletal: Head/Neck/Chest: normocephalic and head atraumatic Gait: + antalgic gait (cannot walk due to right knee pain) Knee: + knee abnormal to inspection (right, swollen) and + limited ROM of knee (right) Skin: + wound (posterior venous stasis ulcers, dressed), + crusts (bilaterally), + dry skin and + erythema Neurologic: patellar DTR's 2+ bilat, sensation intact and PERRL, EOMI, accommodation nl, no face palsy, no dysarthria Psychiatric: A+Ox3, euthymic affect Lymphatic: no cervical or axillary lymphadenopathy Results & Data Vital Signs (Past 12 Hours) Vital Signs Temp Pulse Pulse Resp BP Pulse Ox 06/01/19 12:13 36.9 C 67 18 134/79 99 06/01/19 08:00 36.3 C L 78 20 144/63 H 96 06/01/19 07:30 73 06/01/19 07:19 92 H 16 95 06/01/19 03:00 36.2 C L 84 20 147/78 H 96 Laboratory Results Laboratory Results - last 24 hr 05/31/19 05/31/19 06/01/19 16:43 20:18 07:54 Sodium Potassium Chloride Carbon Dioxide Anion Gap BUN Creatinine Est Cr Clr Drug Dosing Est GFR ( Amer) Est GFR (Non-Af Amer) BUN/Creatinine Ratio Glucose POC Glucose 195 H 140 H 183 H Calcium 06/01/19 06/01/19 06/01/19 08:40 10:17 11:37 Sodium 132 L Potassium 4.2 Chloride 93 L Carbon Dioxide 32 Anion Gap 7.0 BUN 35 H Creatinine 1.26 H Est Cr Clr Drug Dosing 48.7 Est GFR ( Amer) 45.9 Est GFR (Non-Af Amer) 39.6 BUN/Creatinine Ratio 28.1 H Glucose 204 H POC Glucose 181 H Calcium 9.3 Medications Administered Current Inpatient Medications Acetaminophen (Tylenol) 650 mg PO Q4H PRN PRN Reason: Moderate Pain Stop: 06/27/19 17:00 Hydrocodone Bitart/Acetaminophen ([place] 5/325) 1 tab PO BID PRN PRN Reason: Pain Stop: 06/11/19 18:55 Last Admin: 06/01/19 08:11 Dose: 1 tab Documented by: Albuterol (Duoneb) 3 ml INH QID PRN PRN Reason: Shortness Of Breath Stop: 06/27/19 18:55 Last Admin: 05/29/19 05:06 Dose: 3 ml Documented by: Ascorbic Acid (Vitamin C) 500 mg PO DAILY [facility] Stop: 06/28/19 08:59 Last Admin: 06/01/19 08:04 Dose: 500 mg Documented by: Budesonide/Formoterol Fumarate (Symbicort 160mcg/4.5mcg) 2 puffs INH BID [facility] Stop: 06/27/19 20:59 Last Admin: 06/01/19 08:03 Dose: 2 puffs Documented by: Cephalexin HCl (Keflex) 500 mg PO BID [facility]; Protocol Stop: 06/07/19 20:59 Last Admin: 06/01/19 08:06 Dose: 500 mg Documented by: Citalopram Hydrobromide (Celexa) 10 mg PO DAILY [facility] Stop: 06/28/19 08:59 Last Admin: 06/01/19 08:04 Dose: 10 mg Documented by: Dextrose (Dextrose 50%) 25 - 50 ml IV UD PRN; Protocol PRN Reason: Hypoglycemia Protocol Stop: 06/27/19 18:55 Fluocinonide (Lidex 0.5%) 1 appln EXT BID [facility] Stop: 06/27/19 20:59 Last Admin: 06/01/19 08:03 Dose: 1 appln Documented by: Furosemide (Lasix) 40 mg PO BID17 [facility] Stop: 07/01/19 16:59 Glucagon (Glucagen) 1 mg SQ UD PRN; Protocol PRN Reason: Hypoglycemia Protocol Stop: 06/27/19 18:55 Glucose (Glucose 40%) 15 - 30 gm PO UD PRN; Protocol PRN Reason: Hypoglycemia Protocol Stop: 06/27/19 18:55 Glucose (Dex4 Glucose) 4 - 8 tabs PO UD PRN; Protocol PRN Reason: Hypoglycemia Protocol Stop: 06/27/19 18:55 Heparin Sodium (Porcine) (Heparin Sodium (Porcine)) 5,000 units SQ Q8 [facility] Stop: 06/27/19 21:59 Last Admin: 06/01/19 05:31 Dose: 5,000 units Documented by: Insulin Aspart (Novolog Flexpen) 0 units SC ACHS [facility] Stop: 06/27/19 20:59 Last Admin: 06/01/19 12:44 Dose: 10 units Documented by: Lactobacillus Acidophilus (Floranex) 4 tab PO TIDM [facility] Stop: 06/28/19 07:59 Last Admin: 06/01/19 12:45 Dose: 4 tab Documented by: Lorazepam (Ativan) 0.5 mg PO DAILY PRN PRN Reason: anxiety Stop: 06/27/19 18:55 Last Admin: 05/31/19 20:29 Dose: 0.5 mg Documented by: Metoprolol Succinate (Toprol Xl) 37.5 mg PO DAILY [facility] Stop: 06/28/19 08:59 Last Admin: 06/01/19 08:05 Dose: 37.5 mg Documented by: Miscellaneous (Carbohydrates For Hypoglycemia) 15 - 30 gm PO UD PRN PRN Reason: Hypoglycemia Treatment Stop: 06/27/19 18:55 Multivitamins/Minerals (Multivitamin W/ Minerals Tab) 1 tab PO DAILY@0800 [facility]; Protocol Stop: 06/28/19 07:59 Last Admin: 06/01/19 08:05 Dose: 1 tab Documented by: Ondansetron HCl (Zofran) 4 mg IV Q4H PRN PRN Reason: Nausea And Vomiting Stop: 06/27/19 17:00 Pramipexole Dihydrochloride (Mirapex) 0.5 mg PO HS [facility] Stop: 06/27/19 20:59 Last Admin: 05/31/19 20:28 Dose: 0.5 mg Documented by: Simvastatin (Zocor) 20 mg PO QPM [facility] Stop: 06/27/19 20:59 Last Admin: 05/31/19 20:29 Dose: 20 mg Documented by: Tiotropium [place] (Spiriva) 1 puffs INH DAILY [facility]; Protocol Stop: 06/28/19 08:59 Last Admin: 06/01/19 08:03 Dose: 1 puffs Documented by: PG Care Time/CCT Total # of Minutes Spent Total Time Spent with Patient: Total time spent is greater than 50% in coordination of care (as documented) at patient's floor/unit and/or counseling patient:
[2019-06-01] MEDS: FUROSEMIDE 40 MG TAB PO SCH (17:39)
[2019-06-01] MEDS: LORazepam 0.5 MG TAB PO PRN (20:21)
[2019-06-01] MEDS: PRAMIPEXOLE DIHYDROCHLO 0.25 MG TAB PO SCH (20:22)
[2019-06-01] MEDS: SIMVASTATIN 20 MG TAB PO SCH (20:22)
[2019-06-02] MEDS: HEPARIN SOD 5,000 UNIT/0.5 ML VIAL SQ SCH ×3 (05:10→21:24)
[2019-06-02] MEDS: INSULIN ASPART 100 UNITS/ML 3 ML PEN SC SCH ×4 (08:27→21:22)
[2019-06-02] MEDS: CITALOPRAM 20 MG TAB PO SCH (08:28)
[2019-06-02] MEDS: ASCORBIC ACID 500 MG TAB PO SCH (08:28)
[2019-06-02] MEDS: CEROVITE ADV FORMULA TAB PO SCH (08:28)
[2019-06-02] MEDS: METOPROLOL SUCC 25MG EXT REL TAB PO SCH (08:28)
[2019-06-02] MEDS: TIOTROPIUM BROMIDE 5 PUFF/90 MCG INH INH SCH (08:29)
[2019-06-02] MEDS: FUROSEMIDE 40 MG TAB PO SCH ×2 (08:29→17:27)
[2019-06-02] MEDS: LACTOBACILLUS ACIDOPHILUS (FLORANEX) TAB PO SCH ×3 (08:29→17:27)
[2019-06-02] MEDS: cephALEXin 500 MG CAP PO SCH ×2 (08:29→21:18)
[2019-06-02] MEDS: FLUOCINONIDE 0.05% CR 15 GM TUBE EXT SCH ×2 (08:29→21:19)
[2019-06-02] MEDS: BUDESONIDE/FORMOTEROL FUMARATE 160/4.5 60 PUFFS/INHALER INH SCH ×2 (08:30→21:20)
[2019-06-02] MEDS: INSULIN GLARGINE SOLOSTAR 100 UNITS/ML 3 ML PEN SC SCH (08:40)
[2019-06-02] MEDS: HYDROCODONE/ACETAMOPHEN 5/325MG TAB PO PRN ×2 (08:41→21:34)
[2019-06-02 09:03] LABS: BUN Creatinine Ratio 26.6 (10-20); Calcium 9.5 mg/dl (8.5-10.1); Creatinine Clr Calc Pharmacy 51.6 ml/min; Est GFR (African American) 49.2; Est GFR (Non-African American) 42.5; Potassium 4.2 mmol/L (3.5-5.1)
--- NOTE | 2019-06-02 19:25 | Hospitalist Progress Note ---
Date of Service June 02, 2019 Assessment & Plan (1) CARROL (acute kidney injury): possibly due to over-diuresis in the face of recent decompensated diastolic CHF. CARROL just about resolved. BMP in am (2) Chronic respiratory failure with hypoxia: stable on home O2 amount (3) Chronic heart failure with preserved ejection fraction: compensated chronic diastolic CHF resumed lasix 40mg BID (4) Coronary artery disease: stable no ischemic symptoms cont BB, statin uncertain why she is not on aspirin therapy (5) Aortic stenosis: moderate, no symptoms at this time (6) Hypertension: cont BB controlled holding YONATHAN in face of recent CARROL (7) Hyperlipidemia: Cont simvastatin (8) COPD (chronic obstructive pulmonary disease): Continue Spiriva, Symbicort, nebulizers QID and Q2H prn Cont NC O2 without exacerbation at this time (9) Morbid obesity with BMI of 50.0-59.9, adult: BMI 50 (10) Chronic kidney disease, stage III (moderate): with superimposed CARROL CARROL resolving Cr returning to baseline BMP am (11) Diabetes mellitus type 2, uncontrolled: add lantus 8 units daily adjust lantus and novolog further, if needed holding oral agents (12) Obstructive sleep apnea: unable to use CPAP - refuses such cont NC O2 (13) Venous stasis of both lower extremities: (14) Osteoarthritis of right knee: refractory to numerous treatments try voltaren gel QID again (15) DVT prophylaxis: Heparin SC awaiting placement at [facility] Subjective patient c/o right knee pain - started in March. has had steroid injection, simvisc injections, and numerous meds w/o relief of pain. wants TKR but high risk due to multiple medical issues. denies any dyspnea beyond baseline. uses chronic O2 at home. still wanting placement at [facility]. Review of Systems Constitutional: no fever and no chills Respiratory: no cough Cardiovascular: no chest pain Gastrointestinal: no abdominal pain Physical Exam Constitutional: + morbidly obese; no acute distress ENMT: external ear and nose normal, oropharynx normal Respiratory: Auscultation: + wheezes Cardiovascular: Rate/Rhythm: regular rate and regular rhythm Heart Sounds: normal S1, normal S2 and + murmur (2/6 RUSB) Vessels: posterior tibial pulses present and dorsalis pedis pulses present; no JVD Extremities: no edema Gastrointestinal (Abdomen): normal bowel sounds, soft, nontender, no hepatosplenomegaly Musculoskeletal: right knee mildly warm to touch; difficult to assess for effusion due to body habitus; left knee not warm to palpation Psychiatric: A+Ox3, euthymic affect Results & Data Vital Signs (Past 12 Hours) Vital Signs Temp Pulse Pulse Resp BP Pulse Ox 06/02/19 16:07 72 06/02/19 15:00 36.7 C 71 18 107/72 96 06/02/19 12:00 36.8 C 72 20 112/72 98 06/02/19 09:48 74 Laboratory Results Laboratory Results - last 24 hr 06/02/19 06/02/19 06/02/19 07:27 08:31 11:50 Sodium 133 L Potassium 4.2 Chloride 97 L Carbon Dioxide 31 Anion Gap 5.0 BUN 32 H Creatinine 1.19 Est Cr Clr Drug Dosing 51.6 Est GFR ( Amer) 49.2 Est GFR (Non-Af Amer) 42.5 BUN/Creatinine Ratio 26.6 H Glucose 187 H POC Glucose 164 H 203 H Calcium 9.5 06/02/19 06/02/19 16:13 20:19 Sodium Potassium Chloride Carbon Dioxide Anion Gap BUN Creatinine Est Cr Clr Drug Dosing Est GFR ( Amer) Est GFR (Non-Af Amer) BUN/Creatinine Ratio Glucose POC Glucose 136 H 175 H Calcium PG Care Time/CCT Total # of Minutes Spent Total Time Spent with Patient: Total time spent is greater than 50% in coordination of care (as documented) at patient's floor/unit and/or counseling patient: (1) Coronary artery disease Coronary Disease-Associated Artery/Lesion type: [place] artery [place] vs. transplanted heart: [place] heart Associated angina: without angina Qualified Code(s): I25.10 - Atherosclerotic heart disease of [place] coronary artery without angina pectoris (2) Aortic stenosis Cardiac valve disease etiology: etiology unspecified Qualified Code(s): I35.0 - Nonrheumatic aortic (valve) stenosis (3) Hypertension Hypertension type: essential hypertension Qualified Code(s): I10 - Essential (primary) hypertension (4) Hyperlipidemia Hyperlipidemia type: mixed hyperlipidemia Qualified Code(s): E78.2 - Mixed hyperlipidemia (5) COPD (chronic obstructive pulmonary disease) COPD type: unspecified COPD Qualified Code(s): J44.9 - Chronic obstructive pulmonary disease, unspecified (6) Diabetes mellitus type 2, uncontrolled Glycemic state: with hyperglycemia Qualified Code(s): E11.65 - Type 2 diabet es mellitus with hyperglycemia (7) Osteoarthritis of right knee Osteoarthritis type: primary Qualified Code(s): M17.11 - Unilateral primary osteoarthritis, right knee
[2019-06-02] MEDS: LORazepam 0.5 MG TAB PO PRN (21:17)
[2019-06-02] MEDS: PRAMIPEXOLE DIHYDROCHLO 0.25 MG TAB PO SCH (21:20)
[2019-06-02] MEDS: SIMVASTATIN 20 MG TAB PO SCH (21:21)
[2019-06-03] MEDS: HEPARIN SOD 5,000 UNIT/0.5 ML VIAL SQ SCH ×3 (05:27→21:04)
[2019-06-03] MEDS: INSULIN ASPART 100 UNITS/ML 3 ML PEN SC SCH ×4 (08:04→21:01)
[2019-06-03] MEDS: METOPROLOL SUCC 25MG EXT REL TAB PO SCH (08:04)
[2019-06-03] MEDS: LACTOBACILLUS ACIDOPHILUS (FLORANEX) TAB PO SCH ×3 (08:04→17:25)
[2019-06-03] MEDS: FUROSEMIDE 40 MG TAB PO SCH ×2 (08:05→17:26)
[2019-06-03] MEDS: CITALOPRAM 20 MG TAB PO SCH (08:05)
[2019-06-03] MEDS: ASCORBIC ACID 500 MG TAB PO SCH (08:05)
[2019-06-03] MEDS: CEROVITE ADV FORMULA TAB PO SCH (08:05)
[2019-06-03] MEDS: INSULIN GLARGINE SOLOSTAR 100 UNITS/ML 3 ML PEN SC SCH (08:05)
[2019-06-03] MEDS: cephALEXin 500 MG CAP PO SCH ×2 (08:05→20:17)
[2019-06-03] MEDS: FLUOCINONIDE 0.05% CR 15 GM TUBE EXT SCH ×2 (08:06→20:19)
[2019-06-03] MEDS: BUDESONIDE/FORMOTEROL FUMARATE 160/4.5 60 PUFFS/INHALER INH SCH ×2 (08:06→20:19)
[2019-06-03] MEDS: HYDROCODONE/ACETAMOPHEN 5/325MG TAB PO PRN ×2 (08:12→20:59)
[2019-06-03] MEDS: DICLOFENAC SOD 1% GEL 100 GM TUBE EXT SCH ×4 (08:12→20:15)
[2019-06-03 08:50] LABS: Folate (Folic Acid) 17.78 ng/ml (>5.38)
[2019-06-03 08:53] LABS: BUN Creatinine Ratio 25.9 (10-20); Calcium 9.3 mg/dl (8.5-10.1); Creatinine Clr Calc Pharmacy 52.1 ml/min; Est GFR (African American) 49.7; Est GFR (Non-African American) 42.9; Potassium 4.3 mmol/L (3.5-5.1)
[2019-06-03 08:58] LABS: Ferritin 231.1 ng/ml (8-388)
[2019-06-03] MEDS: TIOTROPIUM BROMIDE 5 PUFF/90 MCG INH INH SCH (09:01)
[2019-06-03] MEDS: LORazepam 0.5 MG TAB PO PRN (11:50)
[2019-06-03] MEDS: PRAMIPEXOLE DIHYDROCHLO 0.25 MG TAB PO SCH (20:19)
[2019-06-03] MEDS: SIMVASTATIN 20 MG TAB PO SCH (20:20)
[2019-06-03] MEDS ORDERED: LORazepam 0.5 MG TAB PO STA (21:14)
--- NOTE | 2019-06-03 21:39 | Hospitalist Progress Note ---
Date of Service June 03, 2019 Assessment & Plan (1) CARROL (acute kidney injury): possibly due to over-diuresis in the face of recent decompensated diastolic CHF. resolved. lasix resumed 40mg BID. (2) Chronic respiratory failure with hypoxia: stable on home O2 amount no issues (3) Chronic heart failure with preserved ejection fraction: compensated; due to chronic diastolic CHF resumed lasix 40mg BID (4) Coronary artery disease: stable no ischemic symptoms cont BB, statin (5) Aortic stenosis: moderate, no symptoms at this time (6) Hypertension: cont BB controlled YONATHAN still on hold follow (7) Hyperlipidemia: Cont simvastatin (8) COPD (chronic obstructive pulmonary disease): Continue Spiriva, Symbicort, nebulizers QID and Q2H prn Cont NC O2 without exacerbation at this time (9) Morbid obesity with BMI of 50.0-59.9, adult: BMI 50 (10) Chronic kidney disease, stage III (moderate): with superimposed CARROL CARROL resolved Cr at baseline BMP am can likely resume YONATHAN inhibitor tomorrow (11) Diabetes mellitus type 2, uncontrolled: added lantus 8 units daily and adjusted novolog with improved glycemic control holding oral agents (12) Obstructive sleep apnea: unable to use CPAP - refuses such cont NC O2 (13) Venous stasis of both lower extremities: chronic issue wound care following (14) Osteoarthritis of right knee: refractory to numerous treatments including simvisc injections, steroid injections, etc cont voltaren gel QID (15) DVT prophylaxis: Heparin SC awaiting placement at [facility] - likely Subjective no new complaints awaiting placement at [facility] right knee pain ongoing - voltaren gel "helped a little" chronic LAST is at baseline Review of Systems Constitutional: no fever and no chills Respiratory: + dyspnea on exertion; no cough, no dyspnea and no wheezing Cardiovascular: no chest pain Gastrointestinal: no abdominal pain Physical Exam Constitutional: + morbidly obese; no acute distress ENMT: external ear and nose normal, oropharynx normal Respiratory: Auscultation: + wheezes Cardiovascular: Rate/Rhythm: regular rate and regular rhythm Heart Sounds: normal S1, normal S2 and + murmur (2/6 RUSB) Vessels: posterior tibial pulses present and dorsalis pedis pulses present; no JVD Extremities: + edema (1+ b/l) Gastrointestinal (Abdomen): normal bowel sounds, soft, nontender, no hepatosplenomegaly Musculoskeletal: OA changes b/l knees; right knee mildly warm but not tender to palpation Psychiatric: A+Ox3, euthymic affect Results & Data Vital Signs (Past 12 Hours) Vital Signs Temp Pulse Pulse Resp BP Pulse Ox 06/03/19 19:00 36.7 C 84 20 163/68 H 93 06/03/19 16:00 74 06/03/19 15:58 36.9 C 75 22 135/80 98 06/03/19 11:46 36.7 C 85 18 159/80 H 97 Laboratory Results Laboratory Results - last 24 hr 06/03/19 06/03/19 06/03/19 07:17 07:55 07:55 Sodium 134 L Potassium 4.3 Chloride 97 L Carbon Dioxide 31 Anion Gap 5.0 BUN 31 H Creatinine 1.18 Est Cr Clr Drug Dosing 52.1 Est GFR ( Amer) 49.7 Est GFR (Non-Af Amer) 42.9 BUN/Creatinine Ratio 25.9 H Glucose 158 H POC Glucose 191 H Calcium 9.3 Iron 60 Transferrin 209 Transferrin % Sat 20 Ferritin 231.1 Vitamin B12 677 Folate 17.78 06/03/19 06/03/19 06/03/19 11:38 17:14 20:42 Sodium Potassium Chloride Carbon Dioxide Anion Gap BUN Creatinine Est Cr Clr Drug Dosing Est GFR ( Amer) Est GFR (Non-Af Amer) BUN/Creatinine Ratio Glucose POC Glucose 169 H 150 H 157 H Calcium Iron Transferrin Transferrin % Sat Ferritin Vitamin B12 Folate PG Care Time/CCT Total # of Minutes Spent Total Time Spent with Patient: Total time spent is greater than 50% in coordination of care (as documented) at patient's floor/unit and/or counseling patient: (1) Coronary artery disease Associated angina: without angina Coronary Disease-Associated Artery/Lesion type: [place] artery [place] vs. transplanted heart: [place] heart Qualified Code(s): I25.10 - Atherosclerotic heart disease of [place] coronary artery without angina pectoris (2) Aortic stenosis Cardiac valve disease etiology: etiology unspecified Qualified Code(s): I35.0 - Nonrheumatic aortic (valve) stenosis (3) Hyperlipidemia Hyperlipidemia type: mixed hyperlipidemia Qualified Code(s): E78.2 - Mixed hyperlipidemia (4) Diabetes mellitus type 2, uncontrolled Glycemic state: with hyperglycemia Qualified Code(s): E11.65 - Type 2 diabetes mellitus with hyperglycemia (5) Osteoarthritis of right knee Osteoarthritis type: primary Qualified Code(s): M17.11 - Unilateral primary osteoarthritis, right knee (6) COPD (chronic obstructive pulmonary disease) COPD type: unspecified COPD Qualified Code(s): J44.9 - Chronic obstructive pulmonary disease, unspecified (7) Hypertension Hypertension type: essential hypertension Qualified Code(s): I10 - Essential (primary) hypertension
[2019-06-03] MEDS: AREDS PRESERVISION SCH (23:19)
[2019-06-04] MEDS: HEPARIN SOD 5,000 UNIT/0.5 ML VIAL SQ SCH ×3 (06:09→21:23)
[2019-06-04] MEDS: BUDESONIDE/FORMOTEROL FUMARATE 160/4.5 60 PUFFS/INHALER INH SCH ×2 (08:11→20:32)
[2019-06-04] MEDS: TIOTROPIUM BROMIDE 5 PUFF/90 MCG INH INH SCH ×2 (08:11→09:01)
[2019-06-04] MEDS: INSULIN GLARGINE SOLOSTAR 100 UNITS/ML 3 ML PEN SC SCH (08:12)
[2019-06-04] MEDS: DICLOFENAC SOD 1% GEL 100 GM TUBE EXT SCH ×4 (08:12→20:30)
[2019-06-04] MEDS: INSULIN ASPART 100 UNITS/ML 3 ML PEN SC SCH ×4 (08:14→20:37)
[2019-06-04] MEDS: LACTOBACILLUS ACIDOPHILUS (FLORANEX) TAB PO SCH ×3 (08:17→17:22)
[2019-06-04] MEDS: METOPROLOL SUCC 25MG EXT REL TAB PO SCH (08:17)
[2019-06-04] MEDS: CITALOPRAM 20 MG TAB PO SCH (08:18)
[2019-06-04] MEDS: CEROVITE ADV FORMULA TAB PO SCH (08:18)
[2019-06-04] MEDS: cephALEXin 500 MG CAP PO SCH ×2 (08:19→20:25)
[2019-06-04] MEDS: AREDS PRESERVISION SCH ×2 (08:19→20:29)
[2019-06-04] MEDS: FLUOCINONIDE 0.05% CR 15 GM TUBE EXT SCH ×2 (08:20→20:26)
[2019-06-04] MEDS: FUROSEMIDE 40 MG TAB PO SCH ×2 (08:20→17:21)
[2019-06-04] MEDS: ASCORBIC ACID 500 MG TAB PO SCH (08:21)
[2019-06-04] MEDS: HYDROCODONE/ACETAMOPHEN 5/325MG TAB PO PRN ×2 (08:23→20:34)
[2019-06-04] MEDS: PRAMIPEXOLE DIHYDROCHLO 0.25 MG TAB PO SCH (20:28)
[2019-06-04] MEDS: SIMVASTATIN 20 MG TAB PO SCH (20:30)
[2019-06-04] MEDS: LORazepam 0.5 MG TAB PO PRN (20:33)
--- NOTE | 2019-06-04 20:50 | Hospitalist Progress Note ---
Date of Service June 04, 2019 Assessment & Plan (1) CARROL (acute kidney injury): possibly due to over-diuresis in the face of recent decompensated diastolic CHF. resolved. lasix resumed 40mg BID. BMP am for stability. (2) Chronic respiratory failure with hypoxia: stable on home O2 amount no issues (3) Chronic heart failure with preserved ejection fraction: compensated; due to chronic diastolic CHF lasix 40mg BID metoprolol xl daily (4) Coronary artery disease: stable no ischemic symptoms cont BB, statin (5) Aortic stenosis: moderate, no symptoms at this time (6) Hypertension: cont BB controlled if BMP is normal in am resume YONATHAN (7) Hyperlipidemia: Cont simvastatin (8) COPD (chronic obstructive pulmonary disease): Continue Spiriva, Symbicort, nebulizers QID and Q2H prn Cont NC O2 without exacerbation at this time (9) Morbid obesity with BMI of 50.0-59.9, adult: BMI 50 (10) Chronic kidney disease, stage III (moderate): with superimposed CARROL CARROL resolved Cr at baseline BMP am (11) Diabetes mellitus type 2, uncontrolled: resume oral agents at d/c consider continuing lantus at d/c as well (12) Obstructive sleep apnea: unable to use CPAP - refuses such cont NC O2 (13) Venous stasis of both lower extremities: chronic issue wound care following b/l distal leg ulcerations these appeared stable today on keflex for prior cx's showing staph and Group B strep then, culture on 05/23 with enterococcus change to amoxicillin? keflex will not cover enterococcus... (14) Osteoarthritis of right knee: refractory to numerous treatments including simvisc injections, steroid injections, etc cont voltaren gel QID (15) DVT prophylaxis: Heparin SC d/c to [facility] tomorrow Subjective pt w/o any new complaints family at bedside they plan to transport her to SNF by private care tele stable overnight Review of Systems Constitutional: no fever and no chills Respiratory: + dyspnea on exertion; no cough, no dyspnea (none at rest) and no sputum production Cardiovascular: no chest pain Gastrointestinal: no abdominal pain, no nausea, no vomiting and no constipation Physical Exam Constitutional: + morbidly obese; no acute distress ENMT: external ear and nose normal, oropharynx normal Respiratory: normal respiratory effort, lungs clear to auscultation Cardiovascular: Rate/Rhythm: regular rate and regular rhythm Heart Sounds: normal S1, normal S2 and + murmur (2/6 RUSB) Vessels: posterior tibial pulses present and dorsalis pedis pulses present; no JVD Extremities: + edema (lymphedema unchanged) Gastrointestinal (Abdomen): normal bowel sounds, soft, nontender, no hepatosplenomegaly Musculoskeletal: right knee minimally warm Skin: ulcerations posterior distal legs just above ankles - superficial; no od or; serous drainage only Psychiatric: A+Ox3, euthymic affect Results & Data Vital Signs (Past 12 Hours) Vital Signs Temp Pulse Pulse Resp BP Pulse Ox 06/04/19 19:00 36.7 C 80 20 116/74 98 06/04/19 18:45 36.7 C 87 23 136/63 95 06/04/19 15:27 72 06/04/19 15:00 36.8 C 70 20 117/52 L 99 06/04/19 11:26 36.5 C 66 18 144/81 H 97 06/04/19 08:50 79 Laboratory Results Laboratory Results - last 24 hr 06/03/19 06/04/19 06/04/19 20:42 07:23 11:41 POC Glucose 157 H 163 H 204 H 06/04/19 06/04/19 16:34 19:33 POC Glucose 140 H 202 H PG Care Time/CCT Total # of Minutes Spent Total Time Spent with Patient: Total time spent is greater than 50% in coordination of care (as documented) at patient's floor/unit and/or counseling patient: (1) Coronary artery disease Associated angina: without angina Coronary Disease-Associated Artery/Lesion type: [place] artery [place] vs. transplanted heart: [place] heart Qualified Code(s): I25.10 - Atherosclerotic heart disease of [place] coronary artery without angina pectoris (2) Aortic stenosis Cardiac valve disease etiology: etiology unspecified Qualified Code(s): I35.0 - Nonrheumatic aortic (valve) stenosis (3) Hyperlipidemia Hyperlipidemia type: mixed hyperlipidemia Qualified Code(s): E78.2 - Mixed hyperlipidemia (4) Diabetes mellitus type 2, uncontrolled Glycemic state: with hyperglycemia Qualified Code(s): E11.65 - Type 2 diabetes mellitus with hyperglycemia (5) Osteoarthritis of right knee Osteoarthritis type: primary Qualified Code(s): M17.11 - Unilateral primary osteoarthritis, right knee (6) COPD (chronic obstructive pulmonary disease) COPD type: unspecified COPD Qualified Code(s): J44.9 - Chronic obstructive pulmonary disease, unspecified (7) Hypertension Hypertension type: essential hypertension Qualified Code(s): I10 - Essential (primary) hypertension
[2019-06-05] MEDS ORDERED: MICONAZOLE NITRATE POWDER 43 GM EXT PRN (02:55)
[2019-06-05] MEDS: HEPARIN SOD 5,000 UNIT/0.5 ML VIAL SQ SCH ×2 (05:22→13:33)
[2019-06-05 07:44] LABS: BUN Creatinine Ratio 23.7 (10-20); Calcium 9.4 mg/dl (8.5-10.1); Creatinine Clr Calc Pharmacy 47.3 ml/min; Est GFR (African American) 43.8; Est GFR (Non-African American) 37.8; Potassium 4.1 mmol/L (3.5-5.1)
[2019-06-05] MEDS: HYDROCODONE/ACETAMOPHEN 5/325MG TAB PO PRN (07:59)
[2019-06-05] MEDS: LACTOBACILLUS ACIDOPHILUS (FLORANEX) TAB PO SCH ×2 (08:00→12:01)
[2019-06-05] MEDS: CEROVITE ADV FORMULA TAB PO SCH (08:00)
[2019-06-05] MEDS: ASCORBIC ACID 500 MG TAB PO SCH (08:01)
[2019-06-05] MEDS: FUROSEMIDE 40 MG TAB PO SCH (08:01)
[2019-06-05] MEDS: AMOXICILLIN 500 MG CAP PO SCH ×2 (08:01→13:33)
[2019-06-05] MEDS: CITALOPRAM 20 MG TAB PO SCH (08:02)
[2019-06-05] MEDS: METOPROLOL SUCC 25MG EXT REL TAB PO SCH (08:02)
[2019-06-05] MEDS: DICLOFENAC SOD 1% GEL 100 GM TUBE EXT SCH ×2 (08:05→12:02)
[2019-06-05] MEDS: FLUOCINONIDE 0.05% CR 15 GM TUBE EXT SCH (08:06)
[2019-06-05] MEDS: AREDS PRESERVISION SCH (08:06)
[2019-06-05] MEDS: TIOTROPIUM BROMIDE 5 PUFF/90 MCG INH INH SCH (08:07)
[2019-06-05] MEDS: BUDESONIDE/FORMOTEROL FUMARATE 160/4.5 60 PUFFS/INHALER INH SCH (08:08)
[2019-06-05] MEDS: INSULIN ASPART 100 UNITS/ML 3 ML PEN SC SCH ×2 (08:09→12:00)
[2019-06-05] MEDS: INSULIN GLARGINE SOLOSTAR 100 UNITS/ML 3 ML PEN SC SCH (08:11)
--- NOTE | 2019-06-11 06:50 | Coding Query ---
CODING QUERY FOR UNCONTROLLED DIABETES To promote full compliance with coding requirements relating to patient care, provider participation is requested in all cases of audio engineer uncertainty. Please assist us with the question(s) below: Coding Question: The term uncontrolled Diabetes was used throughout the record. To be able to code this diagnosis properly, could you please clarify the diagnosis below: ( ) Uncontrolled Diabetes meaning hypoglycemia ( x ) Uncontrolled Diabetes meaning hyperglycemia ( ) Other (please specify) Principal Diagnosis: "that condition established after study, to be chiefly responsible for occasioning the admission of the patient to the hospital for care." Co-Existing Principal Diagnosis: "when two or more diagnoses equally meet the criteria for principal diagnosis as determined by the circumstances of admission, diagnostic work up, and/or therapy provided, and the Alphabetic Index, Tabular List, or another coding guideline does not provide sequencing direction, any one of the diagnoses may be sequenced first." "When the physician has documented what appears to be a current diagnosis in the body of the record, but has not included the diagnosis in the final diagnostic statement, the physician should be asked whether the diagnosis should be added." (Source [facility]oding [facility] 2 QTR90. p3-4) CHRIS
--- NOTE | 2019-06-11 23:08 | Discharge Summary ---
Date of Service date of admission - 05/28/19 date of discharge - 06/05/19 Admission HPI Per Admitting Provider This is an 84-year-old female with PMHx of CAD, chronic diastolic and systolic CHF, LVEF =45-50% HTN, Hyperlipidemia, aortic stenosis, chronic lower extremity edema, DM type II, chronic respiratory failure on home O2, COPD, CELIA, restless leg syndrome, depression - who presents with acute worsening of shortness of breath. The patient was recently admitted from 05/25/19 through 05/27/19 and was discharged home. She was given specific instructions regarding taking Lasix 80 mg BID 4 days a week and then the other 3 days 120 mg daily. She reports since being home she had difficulty with simple tasks such as getting herself breakfast this morning. 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 She feels that she is unable to do this anymore and she is requesting placement for both her and her . Principal Diagnosis acute kidney injury - resolved Discharge Exam Constitutional + morbidly obese; no acute distress ENMT external ear and nose normal, oropharynx normal Respiratory normal respiratory effort, lungs clear to auscultation Auscultation: no crackles and no wheezes Cardiovascular Rate/Rhythm: regular rate and regular rhythm Heart Sounds: normal S1, normal S2 and + murmur (2/6 RUSB) Vessels: posterior tibial pulses present and dorsalis pedis pulses present; no JVD Extremities: + edema (lymphedema unchanged) Gastrointestinal (Abdomen) normal bowel sounds, soft, nontender, no hepatosplenomegaly Musculoskeletal right knee with severe OA changes; minimal warmth over the right knee; left knee with OA changes as well. Skin posterior distal legs - b/l - superficial ulcerations clean, serous drainage only, no cellulitis/erythema. Severe b/l leg stasis changes on shins. Psychiatric A+Ox3, euthymic affect Discharge Data Allergies Allergy/AdvReac Type Severity Reaction Status Date / Time iodine Allergy Intermediate SHORTNESS Verified 05/25/19 16:24 OF BREATH Consultations PT, OT wound care Hospital Course (1) CARROL (acute kidney injury): Likely due to over-diuresis in the face of recent decompensated diastolic CHF (which was the issue treated during her prior stay). Peak Cr was 2.1, improving to 1.3 at discharge. Lasix was initially held then resumed at 40mg BID. Volume status was appropriate at discharge. (2) Chronic respiratory failure with hypoxia: stable on home O2 amount during the entire stay. will continue on usual 2 L continuously. (3) Chronic heart failure with preserved ejection fraction: compensated; due to chronic diastolic CHF. lasix resumed at 40mg BID. will continue on metoprolol xl daily. daily weights, fluid restriction, etc needed. (4) Coronary artery disease: stable no ischemic symptoms while here cont BB, statin (5) Aortic stenosis: moderate, no symptoms from such at this time (6) Hypertension: continue beta clint. remained controlled while hospitalized. YONATHAN held at discharge because of recent acute kidney injury. if outpatient BMPs show stable creatinine can resume lisinopril at that time. (7) Hyperlipidemia: Cont simvastatin (8) COPD (chronic obstructive pulmonary disease): Continue Spiriva, Symbicort, nebulizers QID and Q2H prn Cont NC O2 without exacerbation while here (9) Morbid obesity with BMI of 50.0-59.9, adult: BMI 51 (10) Chronic kidney disease, stage III (moderate): with superimposed CARROL CARROL resolved Cr at baseline at time of discharge (11) Diabetes mellitus type 2, uncontrolled: resumed oral agents at d/c will continue lantus at d/c as well (12) Obstructive sleep apnea: unable to use CPAP - refuses such cont NC O2 (13) Venous stasis of both lower extremities: chronic issue wound care following b/l distal leg ulcerations these appeared stable during the stay had been on keflex for prior cultures showing staph and Group B strep then, culture on 05/23/19 from the wound care office grew enterococcus thus, at time of discharge, the keflex was discontinued and amoxicillin was s tarted in michelle (14) Osteoarthritis of right knee: refractory to numerous treatments including simvisc injections, steroid injections, etc continue voltaren gel QID Total Time Total Time Spent Total Time Spent (In Minutes): 35 Total Time Includes: Examination of the Patient, Discharge Planning and Medication Reconciliation Discharge Plan Discharge Items Patient Disposition: Transfer [facility] Reason For Visit: acute kidney injury, shortness of breath Discharge Diagnosis: acute kidney injury - resolved. chronic congestive heart failure - stable. lymphedema of legs - stable. Discharge Goals: Diagnostic testing and Therapeutic intervention Activity: Resume your previous activity Non-emergency contact: Primary Care Provider and Specialist Call non-emergency contact if: you have any medication questions and your sympto ms worsen Follow-up/Referrals: Balwinder Peace III, MD [Primary Care Provider] - (see Dr Peace within 1 week of discharge from [facility]) Constance Vanegas CRNP [Nurse Practitioner] - (see ONESIMO Summers, [facility] for recheck of leg wounds) Yadira Lester PA-C [Physician Dry Transfer Worker] - (see Ms Lester in the CHF clinic in 1 week as scheduled ) Diet: Carb Consistent or DM2 and Heart Healthy Fluids: 1800ml (7 cups) Addtl Provider Instructions: Recommendations - 1. check blood sugars before meals and at bedtime. 2. check daily weights on a standing scale. call biomedical repair technician if weight rises more than 2-3 pounds in 1-2 days. 3. check CBC, BMP, Magnesium level in 5 days; results to biomedical repair technician. 4. optifoam dressing changes to b/l leg wounds; change every other day and PRN. 5. NC O2 -- 2 liters continuously. Follow-up -- see separate section Additional congestive heart failure instructions - Call 911 and go to the Emergency Room if: * You have tightness or pain in your chest that does not go away with rest or Nitroglycerin * You are very short of breath even with rest Call your doctor if any of the following symptoms or problems start or get worse: * Shortness of breath or difficulty breathing * Wake up at night short of breath * Chest pain * Cough * Swelling of your hands, fee, or legs * More fatigued or tired with your normal activity * Palpitations - sudden fast heart beats WEIGHT * Weigh yourself every morning after using the bathroom. * Use the same scale. * Wear the same amount of clothing. * Write your weight down on your chart. * Call your doctor if you gain more than 2-3 pounds in 1-2 days. This is often a sign of fluid retention from your congestive heart failure.* MEDICATIONS * Use this discharge instruction sheet for instructions. * Take your medications at the time your doctor ordered. * Do not skip a dose of your medicines. * If you miss a dose of medicine, take as soon as possible, but DO NOT DOUBLE A DOSE. * Read your medicine information when you get home. * Know all of the side effects of your medicine. * Call your doctor's office if you have any side effects. * Be sure all of your doctors know what medicine and herbs you take (including cold, flu, and herbal medicine). * Pain Medicine: If you do not get relief from your pain, please call your doctor for help. Take the following with you to your follow-up doctor appointments: * Weight Chart * Medication List * List of questions Do not drink excessive alcohol, beer or wine. Prescriptions: New amoxicillin 500 mg Capsule 500 mg PO TID 7 Days Qty: 21 RF: 0 Lantus Solostar U-100 Insulin 100 unit/mL (3 mL) Insulin Pen 8 unit SC QAM Qty: 1 RF: 1 diclofenac sodium [Voltaren] 1 % Gel 1 applic EXT QID Qty: 1 RF: 2 Oxygen Home Liters Per Minute .ROUTE .MEDSUPPLY Qty: 1 RF: 0 Continued simvastatin 20 mg tablet 20 mg PO QPM Qty: 90 RF: 3 PreserVision AREDS-2 [id number] ww-[id number]-mg capsule 1 tab PO BID Qty: 180 RF: 1 glimepiride 2 mg tablet 2 mg PO BID Qty: 180 RF: 3 citalopram 10 mg tablet 10 mg PO DAILY Qty: 90 RF: 3 fluocinonide-emollient [Fluocinonide-E] 0.05 % cream 1 appln TOP BID Qty: 60 RF: 0 ascorbic acid (vitamin C) 500 mg tablet 500 mg PO DAILY RF: 0 metoprolol succinate [Toprol XL] 25 mg Tablet Extended Release 24 Hr 37.5 mg PO DAILY RF: 0 ipratropium-albuterol 0.5 mg-3 mg(2.5 mg base)/3 mL solution for nebulization 3 ml inhalation UD PRN (Reason: Shortness Of Breath) RF: 0 pramipexole 0.125 mg tablet 0.25 mg PO HS RF: 0 hydrocodone-acetaminophen [[place]] 5-325 mg tablet 1 tab PO BID PRN (Reason: Pain) Qty: 30 RF: 0 Symbicort 160-4.5 mcg/actuation HFA aerosol inhaler 2 puff inhalation BID RF: 0 Spiriva Respimat 2.5 mcg/actuation mist 2 puff inhalation DAILY RF: 0 Lactobacillus acidoph-L.bulgar [Floranex] 1 million cell Tablet 4 tab PO TIDM 30 Days Qty: 120 RF: 0 Changed furosemide 40 mg tablet 40 mg PO BID17 Qty: 60 RF: 1 lorazepam 0.5 mg tablet 0.5 mg PO Q8H PRN (Reason: anxiety) Qty: 30 RF: 0 Discontinued lisinopril 10 mg tablet 10 mg PO DAILY Qty: 90 RF: 3 Euflexxa 10 mg/mL(mw 2.4 -3.6 million) syringe intra-articular UNKNOWN RF: 0 cephalexin 500 mg Capsule 500 mg PO BID 10 Days Qty: 20 RF: 0 Stand-Alone Forms: [facility] Discharge Orders: Discharge Order (Routine); Ordered 06/05/19 Ordered By: Kings Win Skilled Items Patient informed of condition?: Yes DNR: Yes Discharge Level of Care: Skilled Communicable Disease: No Discharge Prognosis: Stable Admission Data Admit Date/Time: 05/28/19 17:01 Attending Provider: Kings Win Admit Provider: Ramirez Soto Primary Care Provider: Balwinder Peace III Other Providers: Ellie Moise Service: Telemetry Medical Other Interventions: Discharge Summary Assessment (RN) Last Done: 06/05/19 13:40 Pending Studies at Discharge: No DC Date/Time DO NOT enter until pt leaves facility: 06/05/19 15:00
== END 2019-06-05 15:00 | DRG 683 ==
LOC: ED 12:24 → SUATTDRO 17:01 → 2N 17:01
DX: E11.22 Type 2 diabetes mellitus with diabetic chronic kidney disease; J96.11 Chronic respiratory failure with hypoxia; F32.9 Major depressive disorder, single episode, unspecified; G25.81 Restless legs syndrome; T50.1X5A Adverse effect of loop [high-ceiling] diuretics, initial encounter; Z99.81 Dependence on supplemental oxygen; I35.0 Nonrheumatic aortic (valve) stenosis; Z82.49 Family history of ischemic heart disease and other diseases of the circulatory system; N18.3 Chronic kidney disease, stage 3 (moderate); I50.32 Chronic diastolic (congestive) heart failure; Z79.899 Other long term (current) drug therapy; M17.11 Unilateral primary osteoarthritis, right knee; G47.33 Obstructive sleep apnea (adult) (pediatric); Z68.43 Body mass index [BMI] 50.0-59.9, adult; N17.8 Other acute kidney failure; I13.0 Hypertensive heart and chronic kidney disease with heart failure and stage 1 through stage 4 chronic kidney disease, or unspecified chronic kidney disease; I25.10 Atherosclerotic heart disease of native coronary artery without angina pectoris; E66.01 Morbid (severe) obesity due to excess calories; I87.2 Venous insufficiency (chronic) (peripheral); E78.5 Hyperlipidemia, unspecified; J44.9 Chronic obstructive pulmonary disease, unspecified; Z80.1 Family history of malignant neoplasm of trachea, bronchus and lung; E11.65 Type 2 diabetes mellitus with hyperglycemia; Z79.84 Long term (current) use of oral hypoglycemic drugs; Z66 Do not resuscitate; Z91.048 Other nonmedicinal substance allergy status

== ENCOUNTER 2021-03-08 12:14 | Inpatient (IN) ==
--- NOTE | 2021-03-08 12:47 | Emergency Department Note ---
Impression & Plan Respiratory failure, CHF (congestive heart failure), Atrial fibrillation with rapid ventricular response ED Provider Note NAME: WHITNEY WHITTAKER AGE: 86 SEX: F : 1935 ARRIVES VIA: Ambulance INFORMANT: Patient ED PROVIDER(S): Deshawn Jacobs DO CHIEF COMPLAINT: shortness of breath HPI: Patient is an 86-year-old female with a past medical history of chronic respiratory failure on 3 L nasal cannula, CARROL, CHF, COPD, chronic venous stasis, and aortic stenosis who presents to the ER for shortness of breath. Shortness of breath is getting worse over the past week. She denies any cough or runny nose. They have tried diuretics neb treatments and steroids with no improvement. She is a DNR/DNI. She denies any chest pain, belly pain, nausea, vomiting, or diarrhea. No dysuria, urgency, or frequency. No other exacerbating or remitting factors with exception of exertion makes her shortness of breath worse. ROS: See above HPI for pertinent positives & negatives. A total of 10 systems reviewed and were otherwise negative. PAST MEDICAL HISTORY:See Below PAST SURGICAL HISTORY:See Below FAMILY HISTORY:See Below SOCIAL HISTORY:See Below HOME MEDICATIONS:See Below ALLERGIES:See Below VITALS:See Below PHYSICAL EXAMINATION: GENERAL: Sitting up in bed, alert, morbidly obese chronically ill-appearing on 3 L nasal cannula talking in full sentences EYE EXAM: normal conjunctiva. OROPHARYNX: no exudate, no erythema, lips, buccal mucosa, and tongue normal and mucous membranes are moist NECK: supple, no nuchal rigidity, no adenopathy, non-tender LUNGS: Clear to auscultation. Normal chest wall mechanics HEART: Tacky, S1 normal and S2 normal ABDOMEN: abdomen soft, non-tender, normo-active bowel sounds, no masses, no rebound or guarding. UPPER EXTREMITIES: upper extremities are grossly normal. LOWER EXTREMITIES: Pitting edema bilateral lower extremities NEURO EXAM: Normal sensorium, cranial nerves II-XII grossly intact, normal speech, no gross weakness of arms, no gross weakness of legs. MEDICAL DECISION MAKING: Patient is an 86-year-old male who presents the ER for shortness of breath. IV was established blood was obtained. Labs show mild leukocytosis 13,000. No significant anemia. BMP with a creatinine 1.87 fairly consistent with previous. ABG with a CO2 of 81 patient was already placed on BiPAP. Troponin was elevated 0.046. Heart rate trended down from 140s as he was given a Cardizem bolus and placed on Cardizem drip. Lipase was unremarkable. UA did suggest UTI as he had whites leuks and bacteria. This did not result to later. Chest x-ray with vascular congestion. Patient improved significantly with BiPAP and the Cardizem bolus and drip. She admitted to the hospitalist for further work-up. Triage Nursing notes reviewed. Limited review of prior medical records performed Vital Signs: reviewed and remarkable for tachy Differential diagnosis: Differential diagnoses includes but is not limited to pneumonia, bronchitis, COPD/Asthma exacerbation, pneumothorax, pulmonary embolism, congestive heart failure, acute coronary syndrome ER treatment provided: See below Diagnostics interpreted by me: ECG: A. fib RVR rate 139 Left axis Left bundle branch block Poor baseline QTC 505 Cardiac Monitoring: An order was placed for continuous cardiac monitoring. The monitor shows a rate of 133 with AFib RVR rhythm. Laboratory studies: As stated above and show below. Imaging studies: Chest x-ray with vascular congestion Consultation(s): Discussed with not any hospitalist for further evaluation Procedures: none Critical Care: I have personally spent 35 minutes of critical care time in the direct manage ment of this patient. This includes bedside care, interpretation of diagnostic studies, and testing, discussion with consultants, patient, and family members, and other required patient management activities. This 35 minutes is in excess of all separately billable procedures. Past Med/Surg History Medical History (Updated 03/08/21 @ 17:20 by Deshawn Jacobs DO) Abdominal tenderness, LLQ (left lower quadrant) Abnormal blood chemistry Abnormal electrocardiogram Abrasion of right forearm Acute combined systolic and diastolic HF (heart failure), NYHA class 3 Acute diastolic congestive heart failure Acute sinusitis Anxiety Aortic stenosis Cellulitis Chronic combined systolic and diastolic congestive heart failure Chronic kidney disease, stage III (moderate) Chronic rhinitis Closed head injury Congestive heart failure Contusion of left knee Contusion of left upper extremity COPD (chronic obstructive pulmonary disease) COPD exacerbation Coronary artery disease Cough Depression Diabetes mellitus type 2, uncontrolled DMII (diabetes mellitus, type 2) Dyspnea Edema Exposure to viral disease Fall Fall from slip, trip, or stumble Fatigue Forearm abrasion Hyperlipidemia Hypertension Impaired fasting glucose Knee pain, left Knee pain, right Morbid obesity with BMI of 50.0-59.9, adult Nasal ulcer Nocturia Obstructive sleep apnea Respiratory failure Restless legs syndrome Sleep disturbances Solitary pulmonary nodule Synovial cyst of popliteal space [[place]], right knee Tracheobronchitis Urinary tract infection Venous stasis of both lower extremities Venous stasis ulcer with edema of lower leg Weight loss Wheezing Surgical History S/P ANITHA (total abdominal hysterectomy) Family History Father Lung cancer Mother Lung cancer Brother Coronary heart disease Hx of CABG Denies family history of Myocardial infarction Social History Smoking Status: Unknown if ever smoked Second Hand Exposure: No; Hx Alcohol Use: Yes Hx Substance Use: No Preferred Language: [place] Communication Ability: Effective Cork Molder Required: No Beliefs That Will Affect Care: Protestant Protestant Beliefs: [place] Reformed [facility] marital status: Current Living Situation: Spouse Current Living Situation Comment: At [facility], own appartment [place] current occupational status: retired Feels Safe at Home: Yes caffeine: No Assistive Devices: Walker Allergies Allergies Allergy/AdvReac Type Severity Reaction Status Date / Time iodine Allergy Severe SHORTNESS Verified 03/08/21 15:41 OF BREATH Home Meds Home Medications Medication Instructions Recorded Confirmed ascorbic acid (vitamin C) 500 mg 500 mg PO QAM tab 05/13/19 03/08/21 tablet ipratropium-albuterol 3 ml INHALATION .EVERY 2 HOURS PRN 05/28/19 03/08/21 metoprolol succinate [Toprol XL] 37.5 mg PO QAM 05/28/19 03/08/21 acetaminophen 325 mg capsule 650 mg PO Q6H PRN MDD 3 GRAMS/24 06/13/19 03/08/21 HOURS. PreserVision AREDS-2 1 tab PO BIDM 09/05/19 03/08/21 citalopram 5 mg PO QAM 09/05/19 03/08/21 docusate sodium 200 mg PO HS 09/05/19 03/08/21 furosemide 40 mg PO BID 09/05/19 03/08/21 glimepiride 2 mg PO QPM 09/05/19 03/08/21 insulin detemir U-100 [Levemir 45 unit SUBCUT QAM 09/05/19 03/08/21 U-100 Insulin] lorazepam 0.5 mg PO TID 09/05/19 03/08/21 simvastatin 20 mg PO HS 09/05/19 03/08/21 jnxpymdxbra-vpirhbnxn-momrbdip 1 ea INHALATION DAILY 03/08/21 03/08/21 [Trelegy Ellipta] glimepiride 4 mg PO QAM 03/08/21 03/08/21 insulin aspart U-100 [Novolog 5 unit SUBCUT DAILY 03/08/21 03/08/21 U-100 Insulin aspart] ipratropium-albuterol 3 ml INHALATION 6XD 03/08/21 03/08/21 methyl salicylate-menthol [Bengay 1 applic TOPICAL QS PRN 03/08/21 03/08/21 Greaseless] metolazone 2.5 mg PO DAILY 03/08/21 03/08/21 oxycodone 10 mg PO Q12 03/08/21 03/08/21 potassium chloride 40 meq PO BID 03/08/21 03/08/21 pramipexole 0.5 mg PO HS 03/08/21 03/08/21 prednisone 10 mg PO UD 03/08/21 03/08/21 prednisone See Rx Instructions .ROUTE .COMPLEX 03/08/21 03/08/21 Previous Rx's Medication Instructions Recorded Oxygen Home #1 ea 06/05/19 Results & Data (ED) Vital Signs Vital Signs - 24 hr 03/08/21 12:32 03/08/21 12:38 03/08/21 12:48 Temperature 36.4 C L Temperature Source Oral Pulse Rate 136 H 155 H Pulse Rate from SpO2 Sensor 128 H Pulse Rhythm Regular Pulse Strength Normal Respiratory Rate 31 H Respiratory Effort / Characteristics Non-Labored Spontaneous Respiratory Depth Normal Respiratory Pattern Rapid/Shallow Tachypnea Blood Pressure 109/86 123/96 Blood Pressure Mean 93 105 Blood Pressure Position Lying Pulse Oximetry 96 93 96 Oxygen Delivery Method Room Air Nasal Cannula Oxygen Flow Rate 2 2 Fraction of Inspired Oxygen 96 Sepsis Recent Fever Within 48 Hours No Sepsis New/Unexplained Change in Mental Status N/A Sepsis Action Taken by Nursing Physician Notified 03/08/21 13:31 03/08/21 14:13 03/08/21 14:32 Temperature Temperature Source Pulse Rate 121 H 147 H 108 H Pulse Rate from SpO2 Sensor 130 H 96 H Pulse Rhythm Pulse Strength Respiratory Rate 30 H 25 H 24 Respiratory Effort / Characteristics Spontaneous Respiratory Depth Respiratory Pattern Tachypnea Blood Pressure 166/107 H 115/66 Blood Pressure Mean 126 82 Blood Pressure Position Pulse Oximetry 95 97 97 Oxygen Delivery Method BiPAP Oxygen Flow Rate Fraction of Inspired Oxygen 50 Sepsis Recent Fever Within 48 Hours Sepsis New/Unexplained Change in Mental Status Sepsis Action Taken by Nursing 03/08/21 14:41 03/08/21 14:58 03/08/21 15:01 Temperature Temperature Source Pulse Rate 105 H 110 H 107 H Pulse Rate from SpO2 Sensor 104 H 124 H 108 H Pulse Rhythm Pulse Strength Respiratory Rate 36 H 23 23 Respiratory Effort / Characteristics Respiratory Depth Respiratory Pattern Blood Pressure 101/84 142/86 H 133/70 Blood Pressure Mean 89 104 91 Blood Pressure Position Pulse Oximetry 96 84 L 96 Oxygen Delivery Method BiPAP Oxygen Flow Rate Fraction of Inspired Oxygen Sepsis Recent Fever Within 48 Hours Sepsis New/Unexplained Change in Mental Status Sepsis Action Taken by Nursing 03/08/21 15:05 03/08/21 15:16 03/08/21 15:31 Temperature Temperature Source Pulse Rate 108 H 107 H 102 H Pulse Rate from SpO2 Sensor 115 H 95 H Pulse Rhythm Pulse Strength Respiratory Rate 21 26 H Respiratory Effort / Characteristics Respiratory Depth Respiratory Pattern Blood Pressure 114/70 118/87 Blood Pressure Mean 84 97 Blood Pressure Position Pulse Oximetry 95 96 95 Oxygen Delivery Method Oxygen Flow Rate Fraction of Inspired Oxygen 40 Sepsis Recent Fever Within 48 Hours Sepsis New/Unexplained Change in Mental Status Sepsis Action Taken by Nursing 03/08/21 15:46 03/08/21 16:16 03/08/21 16:32 Temperature Temperature Source Pulse Rate 107 H 103 H 97 H Pulse Rate from SpO2 Sensor 103 H 115 H Pulse Rhythm Pulse Strength Respiratory Rate 21 18 26 H Respiratory Effort / Characteristics Spontaneous Respiratory Depth Respiratory Pattern Tachypnea Blood Pressure 112/61 100/70 Blood Pressure Mean 78 80 Blood Pressure Position Pulse Oximetry 95 94 94 Oxygen Delivery Method Oxygen Flow Rate Fraction of Inspired Oxygen 40 Sepsis Recent Fever Within 48 Hours Sepsis New/Unexplained Change in Mental Status Sepsis Action Taken by Nursing 03/08/21 16:46 03/08/21 17:01 Temperature Temperature Source Pulse Rate 105 H 100 H Pulse Rate from SpO2 Sensor 97 H 102 H Pulse Rhythm Pulse Strength Respiratory Rate 23 24 Respiratory Effort / Characteristics Respiratory Depth Respiratory Pattern Blood Pressure 131/66 115/60 Blood Pressure Mean 87 78 Blood Pressure Position Pulse Oximetry 98 97 Oxygen Delivery Method Oxygen Flow Rate Fraction of Inspired Oxygen Sepsis Recent Fever Within 48 Hours Sepsis New/Unexplained Change in Mental Status Sepsis Action Taken by Nursing Laboratory Data Result diagrams: 03/08/21 13:04 03/08/21 14:15 Lab Results 03/08/21 03/08/21 03/08/21 Range/Units 13:04 13:04 13:04 WBC 13.55 H (4.8-10.8) K/uL RBC 4.41 (4.2-5.4) M/uL Hgb 12.5 (12.0-16.0) g/dL Hct 43.8 (37-47) % MCV 99.3 (80-100) fL MCH 28.3 (25-34) pg MCHC 28.5 L (32-36) g/dL RDW Std Deviation 56.8 H (36.4-46.3) fL RDW Coeff of Jade 15.7 H (11.5-14.5) % Plt Count 311 (130-400) K/uL MPV 11.3 H (7.4-10.4) fL Immature Gran % (Auto) 0.4 % Neut % (Auto) 89.9 % Lymph % (Auto) 6.7 % [place] % (Auto) 2.4 % Eos % (Auto) 0.5 % Baso % (Auto) 0.1 % Neut # (Auto) 12.18 H (1.4-6.5) K/uL Lymph # (Auto) 0.91 L (1.2-3.4) K/uL [place] # (Auto) 0.32 (0.11-0.59) K/uL Eos # (Auto) 0.07 (0-0.5) K/uL Baso # (Auto) 0.01 (0-0.2) K/uL Immature Gran # (Auto) 0.06 H (0.00-0.02) K/uL APTT Cancelled PTT Ratio Cancelled ABG pH (7.35-7.45) ABG pCO2 (35-46) mmHg ABG pO2 (80-95) mmHg ABG HCO3 (19-24) mmol/L ABG O2 Saturation (90-95) % ABG Base Excess (-9-1.8) mEq/L Des Test (Pos) Barometric Pressure mm/Hg Oxygen Given Sodium 140 (136-145) mmol/L Potassium (3.5-5.1) mmol/L Chloride 93 L (98-107) mmol/L Carbon Dioxide (21-32) mmol/L Anion Gap TNP BUN 60 H (7-18) mg/dl Creatinine 1.87 H (0.6-1.2) mg/dl Est Cr Clr Drug Dosing 31.9 ml/min Est GFR ( Amer) 28.1 ml/min Est GFR (Non-Af Amer) 24.3 ml/min BUN/Creatinine Ratio 32.3 H (10-20) Glucose 267 H (70-99) mg/dl Calcium 9.6 (8.5-10.1) mg/dl Magnesium (1.8-2.4) mg/dl Total Bilirubin 0.6 (0.2-1) mg/dl AST (15-37) U/L ALT 18 (12-78) U/L Alkaline Phosphatase 65 (45-117) U/L Troponin I 0.046 H* (0-0.045) ng/ml NT-Pro-B Natriuret Pep 3835 H (0-1800) pg/ml Total Protein 8.6 H (6.4-8.2) gm/dl Albumin 3.2 L (3.4-5.0) gm/dl Globulin 5.4 H (2.5-4.0) gm/dl Albumin/Globulin Ratio 0.6 L (0.9-2) Lipase 62 L (73-393) U/L Urine Color Urine Appearance (Clear) Urine pH (4.5-7.5) Ur Specific [place] (1.000-1.030) Urine Protein (Negative) Urine Glucose (UA) (Negative) Urine Ketones (Negative) Urine Blood (Negative) Urine Nitrite (Negative) Urine Bilirubin (Negative) Urine Urobilinogen (Negative) Ur Leukocyte Esterase (Negative) Urine WBC (Auto) (0-5) /hpf Urine RBC (Auto) (0-4) /hpf U Hyaline Cast (Auto) (0-5) /lpf U Epithel Cells (Auto) (0-5) /lpf Urine Bacteria (Auto) (Negative) COVID-19 Eval Order SARS-CoV-2 (PCR) (Negative) 03/08/21 03/08/21 03/08/21 Range/Units 13:44 13:44 14:15 WBC (4.8-10.8) K/uL RBC (4.2-5.4) M/uL Hgb (12.0-16.0) g/dL Hct (37-47) % MCV (80-100) fL MCH (25-34) pg MCHC (32-36) g/dL RDW Std Deviation (36.4-46.3) fL RDW Coeff of Jade (11.5-14.5) % Plt Count (130-400) K/uL MPV (7.4-10.4) fL Immature Gran % (Auto) % Neut % (Auto) % Lymph % (Auto) % [place] % (Auto) % Eos % (Auto) % Baso % (Auto) % Neut # (Auto) (1.4-6.5) K/uL Lymph # (Auto) (1.2-3.4) K/uL [place] # (Auto) (0.11-0.59) K/uL Eos # (Auto) (0-0.5) K/uL Baso # (Auto) (0-0.2) K/uL Immature Gran # (Auto) (0.00-0.02) K/uL APTT PTT Ratio ABG pH (7.35-7.45) ABG pCO2 (35-46) mmHg ABG pO2 (80-95) mmHg ABG HCO3 (19-24) mmol/L ABG O2 Saturation (90-95) % ABG Base Excess (-9-1.8) mEq/L Des Test (Pos) Barometric Pressure mm/Hg Oxygen Given Sodium (136-145) mmol/L Potassium 4.5 D (3.5-5.1) mmol/L Chloride (98-107) mmol/L Carbon Dioxide (21-32) mmol/L Anion Gap BUN (7-18) mg/dl Creatinine (0.6-1.2) mg/dl Est Cr Clr Drug Dosing ml/min Est GFR ( Amer) ml/min Est GFR (Non-Af Amer) ml/min BUN/Creatinine Ratio (10-20) Glucose (70-99) mg/dl Calcium (8.5-10.1) mg/dl Magnesium (1.8-2.4) mg/dl Total Bilirubin (0.2-1) mg/dl AST 15 (15-37) U/L ALT (12-78) U/L Alkaline Phosphatase (45-117) U/L Troponin I (0-0.045) ng/ml NT-Pro-B Natriuret Pep (0-1800) pg/ml Total Protein (6.4-8.2) gm/dl Albumin (3.4-5.0) gm/dl Globulin (2.5-4.0) gm/dl Albumin/Globulin Ratio (0.9-2) Lipase (73-393) U/L Urine Color Urine Appearance (Clear) Urine pH (4.5-7.5) Ur Specific [place] (1.000-1.030) Urine Protein (Negative) Urine Glucose (UA) (Negative) Urine Ketones (Negative) Urine Blood (Negative) Urine Nitrite (Negative) Urine Bilirubin (Negative) Urine Urobilinogen (Negative) Ur Leukocyte Esterase (Negative) Urine WBC (Auto) (0-5) /hpf Urine RBC (Auto) (0-4) /hpf U Hyaline Cast (Auto) (0-5) /lpf U Epithel Cells (Auto) (0-5) /lpf Urine Bacteria (Auto) (Negative) COVID-19 Eval Order Covid19 at [facility] SARS-CoV-2 (PCR) NEGATIVE (Negative) 03/08/21 03/08/21 03/08/21 Range/Units 14:15 15:15 15:38 WBC (4.8-10.8) K/uL RBC (4.2-5.4) M/uL Hgb (12.0-16.0) g/dL Hct (37-47) % MCV (80-100) fL MCH (25-34) pg MCHC (32-36) g/dL RDW Std Deviation (36.4-46.3) fL RDW Coeff of Jade (11.5-14.5) % Plt Count (130-400) K/uL MPV (7.4-10.4) fL Immature Gran % (Auto) % Neut % (Auto) % Lymph % (Auto) % [place] % (Auto) % Eos % (Auto) % Baso % (Auto) % Neut # (Auto) (1.4-6.5) K/uL Lymph # (Auto) (1.2-3.4) K/uL [place] # (Auto) (0.11-0.59) K/uL Eos # (Auto) (0-0.5) K/uL Baso # (Auto) (0-0.2) K/uL Immature Gran # (Auto) (0.00-0.02) K/uL APTT 25.1 PTT Ratio 1.0 ABG pH 7.40 (7.35-7.45) ABG pCO2 81 H (35-46) mmHg ABG pO2 65 L (80-95) mmHg ABG HCO3 49 H (19-24) mmol/L ABG O2 Saturation 93.2 (90-95) % ABG Base Excess 20.0 H (-9-1.8) mEq/L Des Test POS (Pos) Barometric Pressure 737.1 mm/Hg Oxygen Given 40% Fi02 Sodium (136-145) mmol/L Potassium (3.5-5.1) mmol/L Chloride (98-107) mmol/L Carbon Dioxide (21-32) mmol/L Anion Gap BUN (7-18) mg/dl Creatinine (0.6-1.2) mg/dl Est Cr Clr Drug Dosing ml/min Est GFR ( Amer) ml/min Est GFR (Non-Af Amer) ml/min BUN/Creatinine Ratio (10-20) Glucose (70-99) mg/dl Calcium (8.5-10.1) mg/dl Magnesium (1.8-2.4) mg/dl Total Bilirubin (0.2-1) mg/dl AST (15-37) U/L ALT (12-78) U/L Alkaline Phosphatase (45-117) U/L Troponin I (0-0.045) ng/ml NT-Pro-B Natriuret Pep (0-1800) pg/ml Total Protein (6.4-8.2) gm/dl Albumin (3.4-5.0) gm/dl Globulin (2.5-4.0) gm/dl Albumin/Globulin Ratio (0.9-2) Lipase (73-393) U/L Urine Color Yellow Urine Appearance Cloudy A (Clear) Urine pH 7.0 (4.5-7.5) Ur Specific [place] 1.017 (1.000-1.030) Urine Protein Trace H (Negative) Urine Glucose (UA) Negative (Negative) Urine Ketones Negative (Negative) Urine Blood 1+ H (Negative) Urine Nitrite Negative (Negative) Urine Bilirubin Negative (Negative) Urine Urobilinogen Negative (Negative) Ur Leukocyte Esterase 2+ H (Negative) Urine WBC (Auto) >30 H (0-5) /hpf Urine RBC (Auto) 5-10 H (0-4) /hpf U Hyaline Cast (Auto) 1-5 (0-5) /lpf U Epithel Cells (Auto) 0-5 (0-5) /lpf Urine Bacteria (Auto) 4+ H (Negative) COVID-19 Eval Order SARS-CoV-2 (PCR) (Negative) 03/08/21 Range/Units 15:39 WBC (4.8-10.8) K/uL RBC (4.2-5.4) M/uL Hgb (12.0-16.0) g/dL Hct (37-47) % MCV (80-100) fL MCH (25-34) pg MCHC (32-36) g/dL RDW Std Deviation (36.4-46.3) fL RDW Coeff of Jade (11.5-14.5) % Plt Count (130-400) K/uL MPV (7.4-10.4) fL Immature Gran % (Auto) % Neut % (Auto) % Lymph % (Auto) % [place] % (Auto) % Eos % (Auto) % Baso % (Auto) % Neut # (Auto) (1.4-6.5) K/uL Lymph # (Auto) (1.2-3.4) K/uL [place] # (Auto) (0.11-0.59) K/uL Eos # (Auto) (0-0.5) K/uL Baso # (Auto) (0-0.2) K/uL Immature Gran # (Auto) (0.00-0.02) K/uL APTT PTT Ratio ABG pH (7.35-7.45) ABG pCO2 (35-46) mmHg ABG pO2 (80-95) mmHg ABG HCO3 (19-24) mmol/L ABG O2 Saturation (90-95) % ABG Base Excess (-9-1.8) mEq/L Des Test (Pos) Barometric Pressure mm/Hg Oxygen Given Sodium (136-145) mmol/L Potassium (3.5-5.1) mmol/L Chloride (98-107) mmol/L Carbon Dioxide (21-32) mmol/L Anion Gap BUN (7-18) mg/dl Creatinine (0.6-1.2) mg/dl Est Cr Clr Drug Dosing ml/min Est GFR ( Amer) ml/min Est GFR (Non-Af Amer) ml/min BUN/Creatinine Ratio (10-20) Glucose (70-99) mg/dl Calcium (8.5-10.1) mg/dl Magnesium 2.8 H (1.8-2.4) mg/dl Total Bilirubin (0.2-1) mg/dl AST (15-37) U/L ALT (12-78) U/L Alkaline Phosphatase (45-117) U/L Troponin I (0-0.045) ng/ml NT-Pro-B Natriuret Pep (0-1800) pg/ml Total Protein (6.4-8.2) gm/dl Albumin (3.4-5.0) gm/dl Globulin (2.5-4.0) gm/dl Albumin/Globulin Ratio (0.9-2) Lipase (73-393) U/L Urine Color Urine Appearance (Clear) Urine pH (4.5-7.5) Ur Specific [place] (1.000-1.030) Urine Protein (Negative) Urine Glucose (UA) (Negative) Urine Ketones (Negative) Urine Blood (Negative) Urine Nitrite (Negative) Urine Bilirubin (Negative) Urine Urobilinogen (Negative) Ur Leukocyte Esterase (Negative) Urine WBC (Auto) (0-5) /hpf Urine RBC (Auto) (0-4) /hpf U Hyaline Cast (Auto) (0-5) /lpf U Epithel Cells (Auto) (0-5) /lpf Urine Bacteria (Auto) (Negative) COVID-19 Eval Order SARS-CoV-2 (PCR) (Negative) Administered Medications Diltiazem HCl 125 mg/ Dextrose 125 mls @ 5 mls/hr IV .Q24H [id number]; Protocol Stop: 04/07/21 14:14 Last Titration: 03/08/21 15:35 Dose: 10 mg/hr, 10 mls/hr Documented by: [id number] Cosigned by: [id number] Admin: 03/08/21 14:28 Dose: 5 mg/hr, 5 mls/hr Documented by: [id number] Cosigned by: [id number] Discontinued Medications Diltiazem HCl (Diltiazem Hcl 5 Mg/Ml 5 Ml Vial) 10 mg IV NOW STA Stop: 03/08/21 14:02 Last Admin: 03/08/21 14:28 Dose: 10 mg Documented by: [id number] Cosigned by: [id number] Furosemide (Furosemide 40 Mg/4 Ml Vial) 40 mg IV NOW STA Stop: 03/08/21 15:37 Last Admin: 03/08/21 16:03 Dose: 40 mg Documented by: [id number] Miscellaneous (Stat Iv Infusion Titration Per Protocol) 1 ea N/A NOW STA Stop: 03/08/21 14:02 Last Admin: 03/08/21 14:51 Dose: Not Given Documented by: [id number] Imaging Data Radiologist's Impression: Chest X-Ray 03/08/21 12:32 XR chest 1V portable HISTORY: 86 years-old Female Chest Pain acute atypical chest pain COMPARISON: Chest radiograph 05/28/2019 TECHNIQUE: Portable AP view of the chest FINDINGS: Cardiac silhouette is enlarged. Pulmonary vascular congestion. Bilateral interstitial opacities suggest pulmonary edema. No pneumothorax. Linear scarring/atelectasis of the left midlung. Mild blunting of the costophrenic angles may reflect trace pleural effusions versus atelectasis. Degenerative changes of the shoulders and spine. IMPRESSION: Cardiomegaly with pulmonary vascular congestion and interstitial coarsening suggestive of pulmonary edema ACT 112: Negative or not required by law. The above report was generated using voice recognition software. It may contain grammatical, syntax or spelling errors. Electronically signed by: Rodo Perez M.D. 03/08/2021 12:56 PM Discharge Plan Visit Data Chief Complaint: Shortness of Breath/Dyspnea Stated Complaint: RESP. DIFF. ED Provider: Deshawn Jacobs Discharge Problem: Respiratory failure, CHF (congestive heart failure), Atrial fibrillation with rapid ventricular response Forms Stand Alone Forms: [facility] Prescriptions Prescriptions: No Action ascorbic acid (vitamin C) 500 mg tablet 500 mg PO QAM RF: 0 acetaminophen 325 mg capsule 650 mg PO Q6H MDD 3 GRAMS/24 HOURS. PRN (Reason: Fever Or Pain) RF: 0 metoprolol succinate [Toprol XL] 25 mg Tablet Extended Release 24 Hr 37.5 mg PO QAM RF: 0 ipratropium-albuterol 0.5 mg-3 mg(2.5 mg base)/3 mL solution for nebulization 3 ml inhalation .EVERY 2 HOURS PRN (Reason: Shortness Of Breath Or Wheezing) RF: 0 (DME) Oxygen Home Liters Per Minute See Dose Instructions .ROUTE .MEDSUPPLY Qty: 1 RF: 0 docusate sodium 100 mg Capsule 200 mg PO HS RF: 0 Levemir U-100 Insulin 100 unit/mL Solution 45 unit SUBCUT QAM RF: 0 furosemide 40 mg tablet 40 mg PO BID RF: 0 citalopram 10 mg tablet 5 mg PO QAM RF: 0 glimepiride 2 mg tablet 2 mg PO QPM RF: 0 lorazepam 0.5 mg tablet 0.5 mg PO TID RF: 0 simvastatin 20 mg tablet 20 mg PO HS RF: 0 PreserVision AREDS-2 [id number] ij-aqyh-tr-mg capsule 1 tab PO BIDM RF: 0 glimepiride 2 mg tablet 4 mg PO QAM RF: 0 ipratropium-albuterol 0.5 mg-3 mg(2.5 mg base)/3 mL solution for nebulization 3 ml INHALATION 6XD RF: 0 Bengay Greaseless 15-10 % Cream 1 applic TOPICAL QS PRN (Reason: right knee pain) RF: 0 Trelegy Ellipta 200-62.5-25 mcg blister with device 1 ea INHALATION DAILY RF: 0 pramipexole 0.5 mg tablet 0.5 mg PO HS RF: 0 potassium chloride 20 mEq tablet,ER particles/crystals 40 meq PO BID RF: 0 prednisone 10 mg tablet 10 mg PO UD RF: 0 metolazone 2.5 mg tablet 2.5 mg PO DAILY RF: 0 prednisone 10 mg tablet See Rx Instructions .ROUTE .COMPLEX RF: 0 insulin aspart U-100 [Novolog U-100 Insulin aspart] 100 unit/mL solution 5 unit subcut DAILY RF: 0 oxycodone 10 mg tablet,oral only,ext.rel.12 hr 10 mg PO Q12 RF: 0 Discharge Problem: Respiratory failure Qualifiers: Chronicity: acute Respiratory failure complication: unspecified whether with hypoxia or hypercapnia Qualified Code(s): J96.00 - Acute respiratory failure, unspecified whether with hypoxia or hypercapnia CHF (congestive heart failure) Qualifiers: Heart failure type: unspecified Heart failure chronicity: unspecified Qualified Code(s): I50.9 - Heart failure, unspecified
--- NOTE | 2021-03-08 12:58 | XRay Report ---
XR chest 1V portable HISTORY: 86 years-old Female Chest Pain acute atypical chest pain COMPARISON: Chest radiograph 05/28/2019 TECHNIQUE: Portable AP view of the chest FINDINGS: Cardiac silhouette is enlarged. Pulmonary vascular congestion. Bilateral interstitial opacities sugge st pulmonary edema. No pneumothorax. Linear scarring/atelectasis of the left midlung. Mild blunting o f the costophrenic angles may reflect trace pleural effusions versus atelectasis. Degenerative change s of the shoulders and spine. IMPRESSION: Cardiomegaly with pulmonary vascular congestion and interstitial coarsening suggestive of pulmonary edema ACT 112: Negative or not required by law. The above report was generated using voice recognition software. It may contain grammatical, syntax o r spelling errors. Electronically signed by: Rodo Perez M.D. 03/08/2021 12:56 PM
--- NOTE | 2021-03-08 13:06 | Electrocardiogram Report ---
Test Reason : Blood Pressure : / mmHG Vent. Rate : 139 BPM Atrial Rate : 133 BPM P-R Int : 000 ms QRS Dur : 132 ms QT Int : 332 ms P-R-T Axes : 000 -67 099 degrees QTc Int : 505 ms Paroxysmal Atrial fibrillation with rapid ventricular response Brief return to sinus rhythm with first degree A-V block noted twice (5th beat and end of tracing) Left bundle branch block Abnormal ECG When compared with ECG of 08-MAR-2021 12:21, HR has increased by 67 bpm Paroxysmal Atrial fibrillation now present Confirmed by Aleksandr Perez ([id number]) on 03/08/2021 1:06:27 PM Referred By: Confirmed By:Aleksandr Perez
[2021-03-08 13:48] LABS: Hematocrit (blood only) 43.8 % (37-47); Hemoglobin 12.5 g/dL (12.0-16.0); Mean Corpuscular Hemoglobin 28.3 pg (25-34); Mean Corpuscular Hgb Conc 28.5 g/dL (32-36); Mean Corpuscular Volume 99.3 fL (80-100); Mean Platelet Volume 11.3 fL (7.4-10.4); Platelet Count 311 K/uL (130-400); RDW Coefficient of Variation 15.7 % (11.5-14.5); RDW Standard Deviation 56.8 fL (36.4-46.3); Red Blood Count 4.41 M/uL (4.2-5.4); White Blood Count 13.55 K/uL (4.8-10.8)
[2021-03-08 13:56] LABS: Albumin Globulin Ratio 0.6 (0.9-2); Albumin Level 3.2 gm/dl (3.4-5.0); BUN Creatinine Ratio 32.3 (10-20); Bilirubin,Total 0.6 mg/dl (0.2-1); Calcium 9.6 mg/dl (8.5-10.1); Creatinine Clr Calc Pharmacy 31.9 ml/min; Est GFR (African American) 28.1 ml/min; Est GFR (Non-African American) 24.3 ml/min; Globulin 5.4 gm/dl (2.5-4.0); Total Protein 8.6 gm/dl (6.4-8.2); Troponin I 0.046 ng/ml (0-0.045)
[2021-03-08] MEDS ORDERED: STAT IV Infusion **Titration per Protocol STA (14:01)
[2021-03-08] MEDS ORDERED: dilTIAZem HCl 5 MG/ML 5 ML VIAL IV STA (14:01)
[2021-03-08] MEDS: dilTIAZem HCL 125 MG in DEXTROSE 5% 100 ML IV SCH (14:28)
[2021-03-08 14:44] LABS: Basophils # (auto) 0.01 K/uL (0-0.2); Basophils % (auto) 0.1 %; Eosinophils # (auto) 0.07 K/uL (0-0.5); Eosinophils % (auto) 0.5 %; Immature Granulocytes # (auto) 0.06 K/uL (0.00-0.02); Immature Granulocytes % (auto) 0.4 %; Lymphocytes # (auto) 0.91 K/uL (1.2-3.4); Lymphocytes % (auto) 6.7 %; Monocytes # (auto) 0.32 K/uL (0.11-0.59); Monocytes % (auto) 2.4 %; Neutrophils # (auto) 12.18 K/uL (1.4-6.5); Neutrophils % (auto) 89.9 %
[2021-03-08 14:47] LABS: Partial Thromboplastin Time 25.1 Seconds (21.0-31.0)
[2021-03-08] MEDS ORDERED: FUROSEMIDE 40 MG/4 ML VIAL IV STA (15:36)
[2021-03-08 16:01] LABS: HCO3 ABG 49 mmol/L (19-24); Oxygen Saturation ABG 93.2 % (90-95); PCO2 ABG 81 mmHg (35-46); PO2 ABG 65 mmHg (80-95)
[2021-03-08 16:13] LABS: Allen Test POS (Pos)
[2021-03-08 16:18] LABS: Appearance Urine Cloudy (Clear); Bacteria Urine Automated 4+ (Negative); Bilirubin Urine Negative (Negative); Blood Urine 1+ (Negative); Color Urine Yellow; Epithelial Cell Urine Auto 0-5 /lpf (0-5); Glucose Urine UA Negative (Negative); Ketones Urine Negative (Negative); Leukocyte Esterase Urine 2+ (Negative); Nitrite Urine Negative (Negative); Protein Urine Trace (Negative); Specific Gravity Urine 1.017 (1.000-1.030); Urobilinogen Urine Negative (Negative); WBC Urine Automated >30 /hpf (0-5)
--- NOTE | 2021-03-08 16:25 | History & Physical Report ---
Date of Service March 08, 2021 Assessment & Plan (1) Hypercarbia: Acute dyspnea with CO2 retention- mixed respiratory acidosis and metabolic alkalosis fully compensated - Continue with BIPAP increase gradient 16/6 to increase her VT - Chronic with acute retention - Non-compliance with NIPPV- she has refused this since 2019 at least - Continue inhalers and nebulizers, continue steroid taper - Very likely component of obesity hypoventilation as well (2) Cor pulmonale: As above Noncompliance with likely increase in pulmonary pressures resulting in her current heart failure picture - as above (3) Acute dyspnea: Pa02 65 with Fio2 45%- P:F 162 - doppler lower extremities evaluate for DVT, as increase in [employer] and BUN, will not get contrast CT scan of the chest to rule out PE - Place on heparin drip in regards to Afib as well - Continue COPD exacerbation treatment as well (4) Acute on chronic diastolic CHF (congestive heart failure): As above, lizley related to her COPD leading to decompensation in HF - Diurese with 40 mg IV lasix follow HCO3 closely - Does not appear overtly volume overloaded on venous side (5) CARRLO (acute kidney injury): 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- baseline [employer] 1.3 - improve volume status and follow rythm - Currently will need to improve forward flow with BIPAP and diurese - may need one more dose of IV lasix tonight - Protein and small amount of blood in urine (6) Afib: New onset with some breaks in rythm - As above rate control for now - improve fluid volume this may reduce the stretch on her atrium and return to NSR - electrolytes with in normal range - Continue with Dilt drip for now as EF on last ECHO kane - ECHO in morning (7) Aortic stenosis: Follow diurseing as above (8) Venous stasis ulcer with edema of lower leg: Chronic with lymphedema as well - TEDS (9) Sleep disturbances: Continue anti anxiety medciations (10) Restless legs syndrome: Continue pramipexole (11) Obstructive sleep apnea: As above, may be able to break from BiPAP later tonight with HFNC (12) Hyperlipidemia: Continue statin (13) Diabetes mellitus type 2, uncontrolled: Basal bolus insulin Bolus aspart- 20CF with 1:15 ratio - may increase while on steroids (14) Chronic kidney disease, stage III (moderate): as above, improve volume status (15) UTI (urinary tract infection): asymptomatic vs. UTI- with blood small amount of blood in urine, will treat with 1GM rocephin IV q24 hours (16) Elevated troponin: Likely type II in the setting of cor-pulmonale trend troponin History of Present Illness Primary Care Provider: [facility] 86 YOF with history of COPD, CELIA (noncompliant with CPAP), HTN, HLD, CAD, DMII (on insulin) CKD III, LBBB, lymphedema, morbid obesity. Patient brought in to the emergency department today from [facility], where she reports being dyspneic for the past 2-3 weeks that has not improved. She has been being treated with nebulizers, steroids, and diuretic therapy with no improvement. In the ED she was placed on BiPAP 14/6 with FIO2 40%, had routine labs drawn, ECG and chest Xray. She was also noted to be in atrial fibrillation with RVR with HR 130's new onset and was started on Diltiazem drip. Hospitalist team was notified for admission. Patient is non-compliant with her NIPPV therapy as she does not use it, and she is cor-pulmonale with hypercarbia and heart failure. She has not noticed an increase in her cough or her secretions. She feels as though her legs and arms are not overtly swollen and are about at her normal. She sleeps in a recliner at night and can not lay flat. She will be admitted to be to the PCU with continued BIPAP support and started on heparin drip for her new afib. She is compensating from her hypercarbia at this time with a normal PH and elevated HCO3. Will adjust her BIPAP to increase her support and clear some of her CO2. Continue rate control as well, attempt to wean of diltiazem drip with IVP Lopressor and oral metoprolol. Allergies Allergy/AdvReac Type Severity Reaction Status Date / Time iodine Allergy Severe SHORTNESS Verified 03/08/21 15:41 OF BREATH Home Medications Medication Instructions Recorded Confirmed Type ascorbic acid (vitamin C) 500 mg 500 mg PO QAM tab 05/13/19 03/08/21 History tablet ipratropium-albuterol 3 ml INHALATION .EVERY 2 HOURS PRN 05/28/19 03/08/21 History Oxygen Home #1 ea 06/05/19 06/20/19 Rx acetaminophen 325 mg capsule 650 mg PO Q6H PRN MDD 3 GRAMS/24 06/13/19 03/08/21 History HOURS. Levemir U-100 Insulin 45 unit SUBCUT QAM 09/05/19 03/08/21 History PreserVision AREDS-2 1 tab PO BIDM 09/05/19 03/08/21 History citalopram 5 mg PO QAM 09/05/19 03/08/21 History docusate sodium 200 mg PO HS 09/05/19 03/08/21 History furosemide 40 mg PO BID 09/05/19 03/08/21 History glimepiride 2 mg PO QPM 09/05/19 03/08/21 History lorazepam 0.5 mg PO TID 09/05/19 03/08/21 History simvastatin 20 mg PO HS 09/05/19 03/08/21 History Bengay Greaseless 1 applic TOPICAL QS PRN 03/08/21 03/08/21 History Trelegy Ellipta 1 ea INHALATION DAILY 03/08/21 03/08/21 History glimepiride 4 mg PO QAM 03/08/21 03/08/21 History insulin aspart U-100 [Novolog 5 unit SUBCUT DAILY 03/08/21 03/08/21 History U-100 Insulin aspart] ipratropium-albuterol 3 ml INHALATION 6XD 03/08/21 03/08/21 History metolazone 2.5 mg PO DAILY 03/08/21 03/08/21 History oxycodone 10 mg PO Q12 03/08/21 03/08/21 History potassium chloride 40 meq PO BID 03/08/21 03/08/21 History pramipexole 0.5 mg PO HS 03/08/21 03/08/21 History prednisone 10 mg PO UD 03/08/21 03/08/21 History prednisone See Rx Instructions .ROUTE .COMPLEX 03/08/21 03/08/21 History BiPap Machine #1 ea 03/13/21 Rx apixaban [Eliquis] 2.5 mg PO BID 30 Days #60 tab 03/14/21 Rx metoprolol tartrate 75 mg PO BID 30 Days #180 tab 03/14/21 Rx Past Med/Surg History Medical History (Updated 03/15/21 @ 00:05 by Светлана Clifford) Abdominal tenderness, LLQ (left lower quadrant) Abnormal blood chemistry Abnormal electrocardiogram Abrasion of right forearm Acute combined systolic and diastolic HF (heart failure), NYHA class 3 Acute diastolic congestive heart failure Acute dyspnea Acute sinusitis Anxiety Aortic stenosis Atrial fibrillation with rapid ventricular response Cellulitis Chronic combined systolic and diastolic congestive heart failure Chronic kidney disease, stage III (moderate) Chronic rhinitis Closed head injury Congestive heart failure Contusion of left knee Contusion of left upper extremity COPD (chronic obstructive pulmonary disease) COPD exacerbation Coronary artery disease Cough Depression Diabetes mellitus type 2, uncontrolled DMII (diabetes mellitus, type 2) Dyspnea Edema Exposure to viral disease Fall Fall from slip, trip, or stumble Fatigue Forearm abrasion Hyperlipidemia Hypertension Impaired fasting glucose Knee pain, left Knee pain, right Morbid obesity with BMI of 50.0-59.9, adult Nasal ulcer Nocturia Obstructive sleep apnea Respiratory failure Restless legs syndrome Sleep disturbances Solitary pulmonary nodule Synovial cyst of popliteal space [Castrejon], right knee Tracheobronchitis Urinary tract infection Venous stasis of both lower extremities Venous stasis ulcer with edema of lower leg Weight loss Wheezing Surgical History S/P ANITHA (total abdominal hysterectomy) Family History Father Lung cancer Mother Lung cancer Brother Coronary heart disease Hx of CABG Denies family history of Myocardial infarction Social History Smoking Status: Never smoker Second Hand Exposure: No; Hx Alcohol Use: No Hx Substance Use: No Preferred Language: Greenlandic Communication Ability: Effective Machine Edge Bander Required: No Beliefs That Will Affect Care: None marital status: Current Living Situation: Long-Term Current Living Situation Comment: At [facility], own appartment in [place] current occupational status: retired Feels Safe at Home: Yes caffeine: No Assistive Devices: Glasses, Oxygen - Continuous and Walker Review of Systems Review of Systems: REVIEW OF SYSTEMS: Constitutional: No fever, sweats or chills Eyes: No diplopia, no worsening or blurred vision ENT: normal hearing, no trouble swallowing Respiratory: (+) cough, dyspnea at rest or on exertion, No sputum production Cardiovascular: (+) palpitations, No chest pain, tightness or Abdomen: No pain, nausea, vomiting, diarrhea or constipation Musculoskeletal: (+) calf pain, swelling, No joint pain, Neurologic: No weakness, numbness/tingling, or balance problems Psychiatric: No anxiety or depression Skin: No rash or itch Physical Exam Physical Exam: PHYSICAL EXAM: General: awake, alert Head: Normocephalic, atraumatic ENT: PERRLA, EOMI, no pharyngeal exudate, mucous membranes moist Neuro: AAO x 3, speech clear and appropriate, strength intact bilaterally 5/5, sensation intact and equal all extremities and dermatomes, no pronator drift Chest: equal rise and fall of the chest, no accessory muscle use, no heaves or thrills, Clear to auscultation, on room air, Cardiac: Regular rate and rhythm, telemetry reviewed, skin warm dry, cap refill <3 seconds, peripheral pulses +2 no JVD, no murmur, lymphedema to bilateral lower extremities GI: NABS x 4 quadrants, soft, nontender to palpation, no rebound, guarding or tenderness : Garcia to gravity, no pain, no CVA tenderness, Extremities: Normal inspection, calfs nontender to palpation Psych: Normal mood and affect Skin: no rash or erythema Results & Data Results & Data ([facility]) Vital Signs (Past 12 Hours) Vital Signs Temp Pulse Resp BP Pulse Ox 03/08/21 15:05 108 H 95 03/08/21 14:41 105 H 36 H 101/84 96 03/08/21 14:32 108 H 24 115/66 97 03/08/21 14:13 147 H 25 H 97 03/08/21 13:31 121 H 30 H 166/107 H 95 03/08/21 12:48 36.4 C L 155 H 31 H 123/96 96 03/08/21 12:38 136 H 109/86 93 03/08/21 12:32 96 Laboratory Results Abnormal lab results 03/08/21 03/08/21 03/08/21 Range/Units 13:04 13:04 15:15 WBC 13.55 H (4.8-10.8) K/uL MCHC 28.5 L (32-36) g/dL RDW Std Deviation 56.8 H (36.4-46.3) fL RDW Coeff of Jade 15.7 H (11.5-14.5) % MPV 11.3 H (7.4-10.4) fL Neut # (Auto) 12.18 H (1.4-6.5) K/uL Lymph # (Auto) 0.91 L (1.2-3.4) K/uL Immature Gran # (Auto) 0.06 H (0.00-0.02) K/uL ABG pCO2 (35-46) mmHg ABG pO2 (80-95) mmHg ABG HCO3 (19-24) mmol/L ABG Base Excess (-9-1.8) mEq/L Chloride 93 L (98-107) mmol/L BUN 60 H (7-18) mg/dl Creatinine 1.87 H (0.6-1.2) mg/dl BUN/Creatinine Ratio 32.3 H (10-20) Glucose 267 H (70-99) mg/dl Magnesium (1.8-2.4) mg/dl Troponin I 0.046 H* (0-0.045) ng/ml NT-Pro-B Natriuret Pep 3835 H (0-1800) pg/ml Total Protein 8.6 H (6.4-8.2) gm/dl Albumin 3.2 L (3.4-5.0) gm/dl Globulin 5.4 H (2.5-4.0) gm/dl Albumin/Globulin Ratio 0.6 L (0.9-2) Lipase 62 L (73-393) U/L Urine Appearance Cloudy A (Clear) Urine Protein Trace H (Negative) Urine Blood 1+ H (Negative) Ur Leukocyte Esterase 2+ H (Negative) Urine WBC (Auto) >30 H (0-5) /hpf Urine RBC (Auto) 5-10 H (0-4) /hpf Urine Bacteria (Auto) 4+ H (Negative) 03/08/21 03/08/21 Range/Units 15:38 15:39 WBC (4.8-10.8) K/uL MCHC (32-36) g/dL RDW Std Deviation (36.4-46.3) fL RDW Coeff of Jade (11.5-14.5) % MPV (7.4-10.4) fL Neut # (Auto) (1.4-6.5) K/uL Lymph # (Auto) (1.2-3.4) K/uL Immature Gran # (Auto) (0.00-0.02) K/uL ABG pCO2 81 H (35-46) mmHg ABG pO2 65 L (80-95) mmHg ABG HCO3 49 H (19-24) mmol/L ABG Base Excess 20.0 H (-9-1.8) mEq/L Chloride (98-107) mmol/L BUN (7-18) mg/dl Creatinine (0.6-1.2) mg/dl BUN/Creatinine Ratio (10-20) Glucose (70-99) mg/dl Magnesium 2.8 H (1.8-2.4) mg/dl Troponin I (0-0.045) ng/ml NT-Pro-B Natriuret Pep (0-1800) pg/ml Total Protein (6.4-8.2) gm/dl Albumin (3.4-5.0) gm/dl Globulin (2.5-4.0) gm/dl Albumin/Globulin Ratio (0.9-2) Lipase (73-393) U/L Urine Appearance (Clear) Urine Protein (Negative) Urine Blood (Negative) Ur Leukocyte Esterase (Negative) Urine WBC (Auto) (0-5) /hpf Urine RBC (Auto) (0-4) /hpf Urine Bacteria (Auto) (Negative) Diagnostic Findings Chest X-Ray 03/08/21 12:32 XR chest 1V portable HISTORY: 86 years-old Female Chest Pain acute atypical chest pain COMPARISON: Chest radiograph 05/28/2019 TECHNIQUE: Portable AP view of the chest FINDINGS: Cardiac silhouette is enlarged. Pulmonary vascular congestion. Bilateral interstitial opacities suggest pulmonary edema. No pneumothorax. Linear scarring/atelectasis of the left midlung. Mild blunting of the costophrenic angles may reflect trace pleural effusions versus atelectasis. Degenerative changes of the shoulders and spine. IMPRESSION: Cardiomegaly with pulmonary vascular congestion and interstitial coarsening suggestive of pulmonary edema Electronically signed by: Rodo Perez M.D. 03/08/2021 12:56 PM Medications Administered Diltiazem HCl 125 mg/ Dextrose 125 mls @ 5 mls/hr IV .Q24H [facility]; Protocol Stop: 04/07/21 14:14 Last Titration: 03/08/21 15:35 Dose: 10 mg/hr, 10 mls/hr Documented by: [id number] Cosigned by: [id number] Admin: 03/08/21 14:28 Dose: 5 mg/hr, 5 mls/hr Documented by: [id number] Cosigned by: [id number] Discontinued Medications Diltiazem HCl (Diltiazem Hcl 5 Mg/Ml 5 Ml Vial) 10 mg IV NOW STA Stop: 03/08/21 14:02 Last Admin: 03/08/21 14:28 Dose: 10 mg Documented by: [id number] Cosigned by: [id number] Furosemide (Furosemide 40 Mg/4 Ml Vial) 40 mg IV NOW STA Stop: 03/08/21 15:37 Last Admin: 03/08/21 16:03 Dose: 40 mg Documented by: [id number] Miscellaneous (Stat Iv Infusion Titration Per Protocol) 1 ea N/A NOW STA Stop: 03/08/21 14:02 Last Admin: 03/08/21 14:51 Dose: Not Given Documented by: [id number] ECG Additional Comments: Paroxysmal Atrial fibrillation with rapid ventricular response Brief return to sinus rhythm with first degree A-V block noted twice (5th beat and end of tracing) Left bundle branch block Abnormal ECG When compared with ECG of 08-MAR-2021 1 Code Status & VTE Plan Code Status CODE: DNR/DNI VTE: TEDS, Heparin drip VTE Prophylaxis Plan VTE Prophylaxis will be ordered: Yes Critical Care Time Critical Care Time: Yes Total Critical Care Time: 30 Supervising Physician Co-Signing Physician Notes During my face to face encounter with the patient, I obtained a history and physical examination. I reviewed and agree with above note and discussed case with JOSEPH Johnson. I answered all of the patient's question. will admit for hypercarbia. will place on bipap. likely complicated by obesity hypoventilation syndrome PG Care Time/CCT Total # of Minutes Spent Total Time Spent with Patient: Total time spent is greater than 50% in coordination of care (as documented) at patient's floor/unit and/or counseling patient: Critical Care Time: Yes Total Critical Care Time: 30 Time spent reviewing films, Arterial blood gas, and titrating non-invasive ventilation Coding Level of Care Code 08695 Initial Inpt Care Lvl 3 (25 - SIGNIFICANT, SEPARATELY IDENTIFIABLE ) Diagnoses Hypercarbia R06.89 Cor pulmonale I27.81 Acute dyspnea R06.00 Acute on chronic diastolic CHF (congestive heart failure) I50.33 CARROL (acute kidney injury) N17.9 Afib I48.91 Atrial fibrillation type: unspecified Aortic stenosis I35.0 Cardiac valve disease etiology: etiology unspecified Venous stasis ulcer with edema of lower leg I83.009; I83.899; L97.909; R60.9 Sleep disturbances G47.9 Restless legs syndrome G25.81 Obstructive sleep apnea G47.33 Hyperlipidemia E78.2 Hyperlipidemia type: mixed hyperlipidemia Diabetes mellitus type 2, uncontrolled E11.65 Glycemic state: with hyperglycemia Chronic kidney disease, stage III (moderate) N18.32 Chronic kidney disease stage 3 subtype: stage 3b (GFR 30-44) UTI (urinary tract infection) N30.01 Hematuria presence: with hematuria Urinary tract infection type: acute cystitis Elevated troponin R77.8 Additional Codes Critical Care Time - Critical Care Time: Yes ([id number]) (1) UTI (urinary tract infection) Hematuria presence: with hematuria Urinary tract infection type: acute cystitis Qualified Code(s): N30.01 - Acute cystitis with hematuria (2) Chronic kidney disease, stage III (moderate) Chronic kidney disease stage 3 subtype: stage 3b (GFR 30-44) Qualified Code(s): N18.32 - Chronic kidney disease, stage 3b (3) Aortic stenosis Cardiac valve disease etiology: etiology unspecified Qualified Code(s): I35.0 - Nonrheumatic aortic (valve) stenosis (4) Afib Atrial fibrillation type: unspecified Qualified Code(s): I48.91 - Unspecified atrial fibrillation (5) Hyperlipidemia Hyperlipidemia type: mixed hyperlipidemia Qualified Code(s): E78.2 - Mixed hyperlipidemia (6) Diabetes mellitus type 2, uncontrolled Glycemic state: with hyperglycemia Qualified Code(s): E11.65 - Type 2 diabetes mellitus with hyperglycemia
[2021-03-08] MEDS ORDERED: cefTRIAXone SODIUM 1,000 MG in DEXTROSE 5% 50 ML IV SCH (16:45)
[2021-03-08 17:15] LABS: Potassium 4.5 mmol/L (3.5-5.1)
[2021-03-08] MEDS ORDERED: cefTRIAXone SODIUM 1000MG/50ML D5W IV ONE (17:33)
[2021-03-08] MEDS ORDERED: GLUCOSE 10 TABS/TUBE PO PRN (18:26)
[2021-03-08] MEDS ORDERED: GLUCOSE 40% GEL 15 GM TUBE PO PRN (18:26)
[2021-03-08] MEDS ORDERED: DEXTROSE 50% 50 ML SYRINGE IV PRN (18:26)
[2021-03-08] MEDS ORDERED: ALBUT/IPRATROP 3MG/0.5MG NEB 3 ML VIAL INH PRN (18:26)
[2021-03-08] MEDS ORDERED: Heparin IV Adult Wt-Based Standard *NO* Bolus Protocol ONE (18:26)
[2021-03-08] MEDS ORDERED: LORazepam 0.5 MG TAB PO PRN (18:26)
[2021-03-08] MEDS ORDERED: GLUCAGON FOR INJ 1 MG VIAL SQ PRN (18:26)
[2021-03-08] MEDS ORDERED: oxyCODONE HCL 10 MG TABCR (OxyCONTIN) PO PRN (18:26)
[2021-03-08] MEDS ORDERED: CARBOHYDRATES FOR HYPOGLYCEMIA PO PRN (18:26)
[2021-03-08 19:21] LABS: INR 1.1 (0.9-1.1); Partial Thromboplastin Ratio 0.9; Partial Thromboplastin Time 24.6 Seconds (21.0-31.0); Prothrombin Time 10.8 Seconds (9.0-12.0)
[2021-03-08] MEDS: HEPARIN SODIUM/DEXTROSE 25,000 UNITS/500 ML BAG IV SCH (19:29)
[2021-03-08] MEDS: INSULIN ASPART 100 UNITS/ML 3 ML PEN SC SCH ×2 (20:22→22:22)
[2021-03-08 20:45] LABS: Base Excess ABG 21.8 mEq/L (-9-1.8); HCO3 ABG 52 mmol/L (19-24); Oxygen Saturation ABG 95.8 % (90-95); PCO2 ABG 90 mmHg (35-46); PO2 ABG 89 mmHg (80-95); pH ABG 7.38 (7.35-7.45)
[2021-03-08 20:46] LABS: Allen Test POS (Pos)
[2021-03-08] MEDS ORDERED: METOPROLOL TARTRATE 25 MG TAB PO STA (21:00)
[2021-03-08] MEDS ORDERED: SIMVASTATIN 20 MG TAB PO SCH (21:00)
[2021-03-08] MEDS: DOCUSATE SODIUM 100 MG CAP PO SCH (21:57)
[2021-03-08] MEDS: FUROSEMIDE 40 MG TAB PO SCH (21:58)
[2021-03-08] MEDS: POTASSIUM CHLORIDE CRTAB 20 MEQ TABCR PO SCH (21:59)
[2021-03-08] MEDS: PRAMIPEXOLE DIHYDROCHLO 0.5 MG TAB PO SCH (22:04)
[2021-03-08] MEDS: ALBUT/IPRATROP 3MG/0.5MG NEB 3 ML VIAL INH SCH (22:55)
[2021-03-09 02:30] LABS: Partial Thromboplastin Ratio 2.9
[2021-03-09] MEDS: ALBUT/IPRATROP 3MG/0.5MG NEB 3 ML VIAL INH SCH ×6 (03:16→23:20)
[2021-03-09 04:50] LABS: Base Excess ABG 24.5 mEq/L (-9-1.8); HCO3 ABG 54 mmol/L (19-24); Oxygen Saturation ABG 93.9 % (90-95); PCO2 ABG 85 mmHg (35-46); PO2 ABG 71 mmHg (80-95); pH ABG 7.42 (7.35-7.45)
[2021-03-09 04:52] LABS: Allen Test POS (Pos)
[2021-03-09 05:18] LABS: BUN Creatinine Ratio 39.3 (10-20); Calcium 9.2 mg/dl (8.5-10.1); Creatinine Clr Calc Pharmacy 36.7 ml/min; Est GFR (Non-African American) 30.2 ml/min; Magnesium 2.5 mg/dl (1.8-2.4); Potassium 3.5 mmol/L (3.5-5.1); Troponin I 0.038 ng/ml (0-0.045)
[2021-03-09 05:23] LABS: Eosinophils # (auto) 0.13 K/uL (0-0.5); Hematocrit (blood only) 38.6 % (37-47); Hemoglobin 11.1 g/dL (12.0-16.0); Immature Granulocytes # (auto) 0.04 K/uL (0.00-0.02); Immature Granulocytes % (auto) 0.3 %; Lymphocytes # (auto) 2.38 K/uL (1.2-3.4); Lymphocytes % (auto) 17.8 %; Mean Corpuscular Hemoglobin 28.4 pg (25-34); Mean Corpuscular Hgb Conc 28.8 g/dL (32-36); Mean Corpuscular Volume 98.7 fL (80-100); Mean Platelet Volume 10.8 fL (7.4-10.4); Monocytes # (auto) 1.17 K/uL (0.11-0.59); Monocytes % (auto) 8.7 %; Neutrophils # (auto) 9.67 K/uL (1.4-6.5); Neutrophils % (auto) 72.2 %; Platelet Count 303 K/uL (130-400); RDW Coefficient of Variation 15.9 % (11.5-14.5); Red Blood Count 3.91 M/uL (4.2-5.4); White Blood Count 13.39 K/uL (4.8-10.8)
--- NOTE | 2021-03-09 07:59 | Ultrasound Report ---
BILATERAL LOWER EXTREMITY VENOUS DOPPLER HISTORY: Acute pain and swelling of the bilateral lower extremities rule out DVT COMPARISON STUDY: Right lower extremity duplex venous Doppler study 05/27/2017 FINDINGS: There is normal compressibility, flow, and augmentation within the bilateral lower extremit y deep venous systems. Study is limited secondary to patient body habitus and subcutaneous edema of t he lower legs. IMPRESSION: No DVT within the right or left lower extremity. ACT 112: Negative or not required by law. Electronically signed by: Rodo Perez M.D. 03/09/2021 7:57 AM
[2021-03-09] MEDS: FUROSEMIDE 40 MG TAB PO SCH (08:05)
[2021-03-09] MEDS: metOLazone 2.5 MG TABLET PO SCH (08:06)
[2021-03-09] MEDS: predniSONE 10 MG TABLET PO SCH (08:07)
[2021-03-09] MEDS: CITALOPRAM 20 MG TAB PO SCH (08:07)
[2021-03-09] MEDS: POTASSIUM CHLORIDE CRTAB 20 MEQ TABCR PO SCH ×2 (08:07→21:30)
[2021-03-09] MEDS: FLUTICASONE FUROATE 200MCG 14 PUFFS/INHALER INH SCH (08:08)
[2021-03-09] MEDS: UMECLIDINIUM/VILANTEROL 62.5/25MCG 7 PUFFS/INHALER INH SCH (08:08)
[2021-03-09] MEDS: INSULIN DETEMIR FLEXPEN/FLEX TOUCH 100 UNITS/ML 3ML SC SCH (08:10)
[2021-03-09] MEDS: INSULIN ASPART 100 UNITS/ML 3 ML PEN SC SCH ×4 (08:10→21:30)
--- NOTE | 2021-03-09 08:14 | Hospitalist Progress Note ---
Date of Service March 09, 2021 Assessment & Plan (1) Hypercarbia: Acute dyspnea with CO2 retention- mixed respiratory acidosis and compensation resulting in metabolic alkalosis -acute on chronic respiratory failure - Continue with BIPAP when sleeping - Chronic with acute co2 retention - Non-compliance with NIPPV- she has refused this since 2019 at least - Continue inhalers and nebulizers, continue steroid taper - Very likely component of obesity hypoventilation as well (2) Cor pulmonale: As above Noncompliance with likely increase in pulmonary pressures resulting in her current hfpef (3) Acute dyspnea: Pa02 65 with Fio2 45%- P:F 162 - doppler lower extremities evaluate for DVT, as increase in [employer] and BUN, will not get contrast CT scan of the chest to rule out PE - Placed on heparin drip in regards to Afib as well - Continue COPD exacerbation treatment as well (4) Acute on chronic diastolic CHF (congestive heart failure): As above, kassandra related to her COPD leading to decompensation in HF - Diurese with 40 mg IV lasix bid renal function stable - (5) CARROL (acute kidney injury): 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- baseline [employer] 1.3 - improve volume status and follow rhythm t - Protein and small amount of blood in urine (6) Afib: New onset with some breaks in rythm - transition to po cardizem, hopefully for short term, escalate metoprolol dosing and follow Echo shows mormal EF but Concentric LVH, likely diastolic heart failure from high heart rates (7) Aortic stenosis: Follow diurseing as above, moderate on echo also will impact HF (8) Venous stasis ulcer with edema of lower leg: Chronic with lymphedema as well - TEDS (9) Sleep disturbances: Continue anti anxiety medciations (10) Restless legs syndrome: Continue pramipexole (11) Obstructive sleep apnea: As above, may be able to break from BiPAP later tonight with HFNC (12) Hyperlipidemia: Continue statin (13) Diabetes mellitus type 2, uncontrolled: Basal bolus insulin Bolus aspart- 20CF with 1:15 ratio - may increase while on steroids (14) Chronic kidney disease, stage III (moderate): as above, improve volume status (15) UTI (urinary tract infection): asymptomatic vs. UTI- with blood small amount of blood in urine, will treat with 1GM rocephin IV q24 hours, stop if cultures are negative (16) Elevated troponin: Likely type II mi in the setting of cor-pulmonale trend troponin Admission and Anticipated Discharge Date Admission Date: March 08, 2021 Subjective Pt looks good for all of the issues currently being adressed, certainly not euvolemic at this time but also has some elements of chronic venous stasis that may make clincal interpretation difficult Review of Systems Review of Systems: moderate distress and fatigue no headache, no visual changes no speech or swallowing issues no chest pain, pressure or palpitations shortness of breath with tachypnea , no cough or wheezes no abdominal pain, nausea or vomiting, diarrhea or constipation no dysuria, hematuria or frequency no focal joint pain chronic le swelling no back pain, CVA tenderness or radicular pain chronic venous stasis changes to le no focal signs of weakness or numbness or altered sensation no complaints of anxiety or depression.. Physical Exam Physical Exam: The patient appeared moderately ill and morbidly obese Vital signs as documented. Head exam is normocephalic atraumatic Neck is without JVD, thyromegaly, or carotid bruits. Lungs diminished b/l with basilar rales Cardiac exam, tachycardic and irregular, ORI at RUSB Abdominal exam reveals normal bowel sounds, soft non tender, no masses Extremities are 2+ edematous b/l and both pedal pulses are present Neurologic exam is alert and oriented, no focal loss of strength or sensation Skin is with b/l stasis changes to distal legs Psychologically is without concerns for anxiety or depression Results & Data Results & Data ([facility]) Vital Signs (Past 12 Hours) Vital Signs Temp Pulse Pulse Pulse Resp BP Pulse Ox 03/09/21 07:27 97.9 F 99 H 19 106/72 96 03/09/21 07:15 89 89 19 95 03/09/21 03:18 92 H 92 H 21 97 03/09/21 02:54 96.6 F L 84 20 141/74 H 95 03/08/21 23:54 96.3 F L 88 24 120/84 94 03/08/21 22:56 78 78 19 97 03/08/21 21:58 109/74 PG Care Time/CCT Total # of Minutes Spent Total Time Spent with Patient: Total time spent is greater than 50% in coordination of care (as documented) at patient's floor/unit and/or counseling patient: Coding Level of Care Code 92115 Subseq Hosp Care Lvl 3 Diagnoses Hypercarbia R06.89 Cor pulmonale I27.81 Acute dyspnea R06.00 Acute on chronic diastolic CHF (congestive heart failure) I50.33 CARROL (acute kidney injury) N17.9 Afib I48.91 Atrial fibrillation type: unspecified Aortic stenosis I35.0 Cardiac valve disease etiology: etiology unspecified Venous stasis ulcer with edema of lower leg I83.009; I83.899; L97.909; R60.9 Sleep disturbances G47.9 Restless legs syndrome G25.81 Obstructive sleep apnea G47.33 Hyperlipidemia E78.2 Hyperlipidemia type: mixed hyperlipidemia Diabetes mellitus type 2, uncontrolled E11.65 Glycemic state: with hyperglycemia Chronic kidney disease, stage III (moderate) N18.32 Chronic kidney disease stage 3 subtype: stage 3b (GFR 30-44) UTI (urinary tract infection) N30.01 Hematuria presence: with hematuria Urinary tract infection type: acute cystitis Elevated troponin R77.8 (1) UTI (urinary tract infection) Hematuria presence: with hematuria Urinary tract infection type: acute cystitis Qualified Code(s): N30.01 - Acute cystitis with hematuria (2) Chronic kidney disease, stage III (moderate) Chronic kidney disease stage 3 subtype: stage 3b (GFR 30-44) Qualified Code(s): N18.32 - Chronic kidney disease, stage 3b (3) Aortic stenosis Cardiac valve disease etiology: etiology unspecified Qualified Code(s): I35.0 - Nonrheumatic aortic (valve) stenosis (4) Afib Atrial fibrillation type: unspecified Qualified Code(s): I48.91 - Unspecified atrial fibrillation (5) Hyperlipidemia Hyperlipidemia type: mixed hyperlipidemia Qualified Code(s): E78.2 - Mixed hyperlipidemia (6) Diabetes mellitus type 2, uncontrolled Glycemic state: with hyperglycemia Qualified Code(s): E11.65 - Type 2 diabetes mellitus with hyperglycemia
[2021-03-09] MEDS ORDERED: NON-FORMULARY MEDICATION (Fluticasone-Umeclidin-Vilanter [Trelegy Ellipta] 200-62.5-25 mcg INH SCH (09:00)
[2021-03-09] MEDS ORDERED: METOPROLOL SUCC 25MG EXT REL TAB PO SCH (09:00)
--- NOTE | 2021-03-09 09:15 | XCELERA ---
[id number] \\[id number]
[2021-03-09 09:28] LABS: Partial Thromboplastin Time 104.5 Seconds (21.0-31.0)
[2021-03-09] MEDS: dilTIAZem HCL 125 MG in DEXTROSE 5% 100 ML IV SCH ×2 (11:03→17:56)
[2021-03-09] MEDS: HEPARIN SODIUM/DEXTROSE 25,000 UNITS/500 ML BAG IV SCH ×2 (13:11→18:38)
[2021-03-09] MEDS: dilTIAZem HCL 30 MG TAB PO SCH ×2 (15:45→21:29)
[2021-03-09 17:05] LABS: Partial Thromboplastin Ratio 2.8
[2021-03-09 17:07] LABS: Partial Thromboplastin Time 74.6 Seconds (21.0-31.0)
[2021-03-09] MEDS: cefTRIAXone SODIUM 2,000 MG in DEXTROSE 5% 50 ML IV SCH (17:50)
[2021-03-09] MEDS: FUROSEMIDE 40 MG in SYRINGE 0 ML IV SCH (21:28)
[2021-03-09] MEDS: METOPROLOL TARTRATE 50 MG TAB PO SCH (21:29)
[2021-03-09] MEDS: PRAMIPEXOLE DIHYDROCHLO 0.5 MG TAB PO SCH (21:30)
[2021-03-09] MEDS: DOCUSATE SODIUM 100 MG CAP PO SCH (21:30)
[2021-03-09 23:59] LABS: Partial Thromboplastin Ratio 3.1
[2021-03-10 00:04] LABS: Partial Thromboplastin Time 80.5 Seconds (21.0-31.0)
[2021-03-10] MEDS: ALBUT/IPRATROP 3MG/0.5MG NEB 3 ML VIAL INH SCH ×6 (02:54→22:46)
[2021-03-10] MEDS ORDERED: ALUMINUM/MAGNESIUM SUSP 30 ML UDC PO STA (06:03)
[2021-03-10 07:10] LABS: Eosinophils # (auto) 0.09 K/uL (0-0.5); Eosinophils % (auto) 0.8 %; Hematocrit (blood only) 37.7 % (37-47); Hemoglobin 11.2 g/dL (12.0-16.0); Immature Granulocytes # (auto) 0.04 K/uL (0.00-0.02); Immature Granulocytes % (auto) 0.4 %; Lymphocytes # (auto) 2.47 K/uL (1.2-3.4); Lymphocytes % (auto) 22.5 %; Mean Corpuscular Hemoglobin 28.8 pg (25-34); Mean Corpuscular Hgb Conc 29.7 g/dL (32-36); Mean Corpuscular Volume 96.9 fL (80-100); Mean Platelet Volume 10.8 fL (7.4-10.4); Monocytes # (auto) 0.89 K/uL (0.11-0.59); Monocytes % (auto) 8.1 %; Neutrophils # (auto) 7.51 K/uL (1.4-6.5); Neutrophils % (auto) 68.2 %; Platelet Count 274 K/uL (130-400); RDW Coefficient of Variation 15.9 % (11.5-14.5); RDW Standard Deviation 55.4 fL (36.4-46.3); Red Blood Count 3.89 M/uL (4.2-5.4)
[2021-03-10 07:35] LABS: Partial Thromboplastin Ratio 2.5; Partial Thromboplastin Time 66.7 Seconds (21.0-31.0)
[2021-03-10] MEDS: FUROSEMIDE 40 MG in SYRINGE 0 ML IV SCH (07:48)
[2021-03-10] MEDS: POTASSIUM CHLORIDE CRTAB 20 MEQ TABCR PO SCH ×2 (08:01→20:55)
[2021-03-10] MEDS: CITALOPRAM 20 MG TAB PO SCH (08:02)
[2021-03-10] MEDS: predniSONE 10 MG TABLET PO SCH (08:03)
[2021-03-10] MEDS: metOLazone 2.5 MG TABLET PO SCH (08:03)
[2021-03-10] MEDS: UMECLIDINIUM/VILANTEROL 62.5/25MCG 7 PUFFS/INHALER INH SCH (08:04)
[2021-03-10] MEDS: METOPROLOL TARTRATE 50 MG TAB PO SCH ×2 (08:04→20:56)
[2021-03-10] MEDS: dilTIAZem HCL 30 MG TAB PO SCH ×2 (08:04→08:11)
[2021-03-10] MEDS: FLUTICASONE FUROATE 200MCG 14 PUFFS/INHALER INH SCH (08:05)
[2021-03-10] MEDS: INSULIN DETEMIR FLEXPEN/FLEX TOUCH 100 UNITS/ML 3ML SC SCH (08:06)
[2021-03-10] MEDS: INSULIN ASPART 100 UNITS/ML 3 ML PEN SC SCH ×4 (08:10→20:54)
[2021-03-10 08:15] LABS: BUN Creatinine Ratio 34.8 (10-20); Calcium 9.1 mg/dl (8.5-10.1); Creatinine Clr Calc Pharmacy 38.1 ml/min; Est GFR (African American) 36.4 ml/min; Est GFR (Non-African American) 31.4 ml/min; Magnesium 2.5 mg/dl (1.8-2.4); Potassium 3.4 mmol/L (3.5-5.1)
[2021-03-10] MEDS ORDERED: POTASSIUM CHLORIDE 10 MEQ / 100ML WTR IV STA (08:40)
[2021-03-10] MEDS: POTASSIUM CHLORIDE / WTR 10 MEQ/100 ML PLCT IV SCH ×3 (10:31→13:10)
[2021-03-10] MEDS: ACETAMINOPHEN 325 MG TAB PO PRN (10:32)
[2021-03-10] MEDS: HEPARIN SODIUM/DEXTROSE 25,000 UNITS/500 ML BAG IV SCH (13:12)
[2021-03-10 14:34] LABS: Partial Thromboplastin Ratio 1.8; Partial Thromboplastin Time 47.6 Seconds (21.0-31.0)
[2021-03-10] MEDS: cefTRIAXone SODIUM 2,000 MG in DEXTROSE 5% 50 ML IV SCH (17:04)
--- NOTE | 2021-03-10 17:06 | Hospitalist Progress Note ---
Date of Service March 10, 2021 Assessment & Plan (1) Hypercarbia: Acute dyspnea with CO2 retention- mixed respiratory acidosis and compensation resulting in metabolic alkalosis -acute on chronic respiratory failure - Continue with BIPAP when sleeping - Chronic with acute co2 retention - Non-compliance with NIPPV- she has refused this since 2019 at least - Continue inhalers and nebulizers, continue steroid taper - Very likely component of obesity hypoventilation as well (2) Cor pulmonale: As above Noncompliance with likely increase in pulmonary pressures resulting in her current hfpef (3) Acute dyspnea: Pa02 65 with Fio2 45%- P:F 162 - doppler lower extremities evaluate for DVT, as increase in [employer] and BUN, will not get contrast CT scan of the chest to rule out PE - Placed on heparin drip in regards to Afib as well - Continue COPD exacerbation treatment taper steroids (4) Acute on chronic diastolic CHF (congestive heart failure): As above, kassandra related to her COPD leading to decompensation in HF - Diurese with 40 mg IV lasix bid renal function stable - (5) CARROL (acute kidney injury): 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- baseline [employer] 1.3 - improve volume status and follow rhythm seems stable at 1.5 (6) Afib: New onset with some breaks in rythm - transition to metoprolol dosing and follow, initially not greatest rate control, may involve cardiology if still needs better control 03/11 Echo shows mormal EF but Concentric LVH, likely diastolic heart failure from hi gh heart rates (7) Aortic stenosis: Follow diurseing as above, moderate on echo also will impact HF (8) Venous stasis ulcer with edema of lower leg: Chronic with lymphedema as well - TEDS (9) Sleep disturbances: Continue anti anxiety medciations (10) Restless legs syndrome: Continue pramipexole (11) Obstructive sleep apnea: As above, may be able to break from BiPAP later tonight with HFNC (12) Hyperlipidemia: Continue statin (13) Diabetes mellitus type 2, uncontrolled: Basal bolus insulin Bolus aspart- 20CF with 1:15 ratio - may increase while on steroids (14) Chronic kidney disease, stage III (moderate): as above, improve volume status (15) UTI (urinary tract infection): asymptomatic vs. UTI- with blood small amount of blood in urine, will treat with 1GM rocephin IV q24 hours, stop if cultures are negative (16) Elevated troponin: Likely type II mi in the setting of cor-pulmonale trend troponin Admission and Anticipated Discharge Date Admission Date: March 08, 2021 Subjective pt continues to look better and feel better, she is however with variable heart rate control and despite continued diuresis has no renal distress, will convert to NOAC likely eliquis 2.5 bid Review of Systems Review of Systems: moderate distress and fatigue no headache, no visual changes no speech or swallowing issues no chest pain, pressure or palpitations shortness of breath with tachypnea , no cough or wheezes no abdominal pain, nausea or vomiting, diarrhea or constipation no dysuria, hematuria or frequency no focal joint pain chronic le swelling no back pain, CVA tenderness or radicular pain chronic venous stasis changes to le no focal signs of weakness or numbness or altered sensation no complaints of anxiety or depression.. Physical Exam Physical Exam: The patient appeared moderately ill and morbidly obese Vital signs as documented. Head exam is normocephalic atraumatic Neck is without JVD, thyromegaly, or carotid bruits. Lungs remain diminished b/l rales have cleared Cardiac exam, tachycardic and irregular, ORI at RUSB Abdominal exam reveals normal bowel sounds, soft non tender, no masses Extremities are 2+ edematous b/l and both pedal pulses are present Neurologic exam is alert and oriented, no focal loss of strength or sensation Skin is with b/l stasis changes to distal legs Psychologically is without concerns for anxiety or depression Results & Data Results & Data ([facility]) Vital Signs (Past 12 Hours) Vital Signs Temp Pulse Pulse Pulse Resp BP Pulse Ox 03/10/21 16:25 105 H 03/10/21 16:06 92 H 20 97 03/10/21 15:54 98.4 F 93 H 18 102/67 90 03/10/21 11:45 97.9 F 93 H 20 121/77 95 03/10/21 11:42 87 03/10/21 11:31 03/10/21 11:20 03/10/21 11:04 88 88 20 93 03/10/21 08:16 98.1 F 92 H 20 135/60 95 03/10/21 07:11 94 H 20 98 03/10/21 05:02 98.4 F 87 24 101/71 94 Pulse Ox 03/10/21 16:25 03/10/21 16:06 03/10/21 15:54 03/10/21 11:45 03/10/21 11:42 03/10/21 11:31 95 03/10/21 11:20 94 03/10/21 11:04 03/10/21 08:16 03/10/21 07:11 03/10/21 05:02 PG Care Time/CCT Total # of Minutes Spent Total Time Spent with Patient: Total time spent is greater than 50% in coordination of care (as documented) at patient's floor/unit and/or counseling patient: Coding Level of Care Code 31278 Subseq Hosp Care Lvl 3 Diagnoses Hypercarbia R06.89 Cor pulmonale I27.81 Acute dyspnea R06.00 Acute on chronic diastolic CHF (congestive heart failure) I50.33 CARROL (acute kidney injury) N17.9 Afib I48.91 Atrial fibrillation type: unspecified Aortic stenosis I35.0 Cardiac valve disease etiology: etiology unspecified Venous stasis ulcer with edema of lower leg I83.009; I83.899; L97.909; R60.9 Sleep disturbances G47.9 Restless legs syndrome G25.81 Obstructive sleep apnea G47.33 Hyperlipidemia E78.2 Hyperlipidemia type: mixed hyperlipidemia Diabetes mellitus type 2, uncontrolled E11.65 Glycemic state: with hyperglycemia Chronic kidney disease, stage III (moderate) N18.32 Chronic kidney disease stage 3 subtype: stage 3b (GFR 30-44) UTI (urinary tract infection) N30.01 Hematuria presence: with hematuria Urinary tract infection type: acute cystitis Elevated troponin R77.8 (1) UTI (urinary tract infection) Hematuria presence: with hematuria Urinary tract infection type: acute cystitis Qualified Code(s): N30.01 - Acute cystitis with hematuria (2) Chronic kidney disease, stage III (moderate) Chronic kidney disease stage 3 subtype: stage 3b (GFR 30-44) Qualified Code(s): N18.32 - Chronic kidney disease, stage 3b (3) Aortic stenosis Cardiac valve disease etiology: etiology unspecified Qualified Code(s): I35.0 - Nonrheumatic aortic (valve) stenosis (4) Afib Atrial fibrillation type: unspecified Qualified Code(s): I48.91 - Unspecified atrial fibrillation (5) Hyperlipidemia Hyperlipidemia type: mixed hyperlipidemia Qualified Code(s): E78.2 - Mixed hyperlipidemia (6) Diabetes mellitus type 2, uncontrolled Glycemic state: with hyperglycemia Qualified Code(s): E11.65 - Type 2 diabetes mellitus with hyperglycemia
[2021-03-10] MEDS: FUROSEMIDE 60 MG in SYRINGE 0 ML IV SCH (20:55)
[2021-03-10] MEDS: APIXABAN 2.5 MG TAB PO SCH (20:56)
[2021-03-10] MEDS ORDERED: POTASSIUM CHLORIDE CRTAB 20 MEQ TABCR PO SCH (21:00)
[2021-03-10] MEDS: PRAMIPEXOLE DIHYDROCHLO 0.5 MG TAB PO SCH (21:04)
[2021-03-10] MEDS: DOCUSATE SODIUM 100 MG CAP PO SCH (21:05)
[2021-03-11] MEDS: ALBUT/IPRATROP 3MG/0.5MG NEB 3 ML VIAL INH SCH ×6 (03:29→22:43)
[2021-03-11 06:30] LABS: Eosinophils # (auto) 0.09 K/uL (0-0.5); Eosinophils % (auto) 0.8 %; Hematocrit (blood only) 40.2 % (37-47); Immature Granulocytes # (auto) 0.03 K/uL (0.00-0.02); Immature Granulocytes % (auto) 0.3 %; Lymphocytes # (auto) 2.94 K/uL (1.2-3.4); Lymphocytes % (auto) 24.5 %; Mean Corpuscular Hemoglobin 29.1 pg (25-34); Mean Corpuscular Hgb Conc 29.9 g/dL (32-36); Mean Corpuscular Volume 97.6 fL (80-100); Mean Platelet Volume 10.9 fL (7.4-10.4); Monocytes % (auto) 7.5 %; Neutrophils # (auto) 8.03 K/uL (1.4-6.5); Neutrophils % (auto) 66.9 %; Platelet Count 300 K/uL (130-400); RDW Standard Deviation 56.9 fL (36.4-46.3); Red Blood Count 4.12 M/uL (4.2-5.4); White Blood Count 11.99 K/uL (4.8-10.8)
[2021-03-11 06:39] LABS: Partial Thromboplastin Time 25.9 Seconds (21.0-31.0)
[2021-03-11 07:19] LABS: BUN Creatinine Ratio 30.7 (10-20); Calcium 9.3 mg/dl (8.5-10.1); Est GFR (African American) 30.7 ml/min; Est GFR (Non-African American) 26.5 ml/min; Magnesium 2.4 mg/dl (1.8-2.4); Potassium 3.9 mmol/L (3.5-5.1)
[2021-03-11] MEDS: INSULIN ASPART 100 UNITS/ML 3 ML PEN SC SCH ×4 (07:45→20:47)
[2021-03-11] MEDS: INSULIN DETEMIR FLEXPEN/FLEX TOUCH 100 UNITS/ML 3ML SC SCH (07:50)
[2021-03-11] MEDS: APIXABAN 2.5 MG TAB PO SCH ×2 (07:53→20:35)
[2021-03-11] MEDS: FUROSEMIDE 60 MG in SYRINGE 0 ML IV SCH ×2 (07:54→09:47)
[2021-03-11] MEDS: UMECLIDINIUM/VILANTEROL 62.5/25MCG 7 PUFFS/INHALER INH SCH ×3 (07:54→09:48)
[2021-03-11] MEDS: predniSONE 20 MG TAB PO SCH (07:55)
[2021-03-11] MEDS: POTASSIUM CHLORIDE CRTAB 20 MEQ TABCR PO SCH ×2 (09:41→20:38)
[2021-03-11] MEDS: METOPROLOL TARTRATE 50 MG TAB PO SCH (09:42)
[2021-03-11] MEDS: metOLazone 2.5 MG TABLET PO SCH (09:42)
[2021-03-11] MEDS: CITALOPRAM 20 MG TAB PO SCH (09:43)
[2021-03-11] MEDS: FLUTICASONE FUROATE 200MCG 14 PUFFS/INHALER INH SCH (09:45)
--- NOTE | 2021-03-11 12:13 | Cardiology Consultation ---
Date of Consultation March 11, 2021 Assessment & Plan (1) Atrial fibrillation with rapid ventricular response: She presents with atrial fibrillation with a rapid heart rate, this is evidently of recent onset although I cannot determine precisely when it might have occurred. She is now anticoagulated with Eliquis and an appropriate dose and her heart rate seems reasonably well controlled on metoprolol at the current dose, although I think rate control could be improved and I am going to increase her metoprolol dose. As far as long-term treatment of her atrial fibrillation I think we should reevaluate in a month and see how she is doing, we can either leave her in it at that point if we have good rate control and she is doing well or alternatively we can consider cardioversion. I do not think we can consider cardioversion before about 1 month of anticoagulation since we do not know when it started. (2) CHF (congestive heart failure): She presented with congestive heart failure and has diuresed quite a bit since admission, I think her fluid status is stable. I suspect she always has some element of edema. (3) Elevated troponin: She had a minimal troponin bump, probably related to her rate and heart failure, I would not pursue further evaluation. (4) Aortic stenosis: She does have aortic stenosis, it is moderate and based on measurements has not worsened over the last several years. The lack of progression may be due to measurement inconsistency however it is not to the point where we would consider intervention at this time so I would continue to observe. History of Present Illness Reason for Consultation: Atrial fibrillation, congestive heart failure Attending Physician: Charles Mueller MD History of Present Illness This is 86-year-old woman whom I saw 3 years ago during a hospitalization but not since. She has a history of obesity, diabetes mellitus, hyperlipidemia, COPD, chronic kidney disease and a rate related left bundle branch block which has been present since at least 2013. In 2018 she did have some probable diastolic congestive heart failure (her echocardiogram November 09, 2017 showed normal left ventricular size and mild left ventricular dysfunction with ejection fraction 45 to 50% and mild left ventricular hypertrophy). She was diuresed and her COPD treated and was discharged to see cardiology within several weeks however that appointment did not occur. She did have a subsequent echocardiogram on May 26, 2019 where her left ventricular systolic function was felt to be normal and she appeared to have moderate aortic stenosis with a maximum valvular gradient of 26.5 mmHg and a valve area calculated at 1.1 cm. She was seen in our heart failure area in June 2019 following a recurrent bout of congestive heart failure felt due to diuretic noncompliance. She now presents with shortness of breath felt to be in part due to congestive heart failure, however she was also observed to be in atrial fibrillation with a rapid heart rate which is newly diagnosed. She did have a slight troponin bump, echocardiography done March 09, 2021 shows normal left ventricular size and systolic function with an ejection fraction of 55 to 60% and moderate concentric left ventricular hypertrophy with moderate valvular aortic stenosis. Her maximum aortic valve gradient was 21.3 mmHg with an aortic valve area was calculated to 1.5 cm. Of note this is measured as being less severe than in 2019, presumably due to measurement inaccuracies but probably does not represent significant progression. During her hospitalization she has been treated with Eliquis (dose adjusted to 2.5 mg due to age and kidney function), metoprolol tartrate 50 mg twice daily with an improvement in heart rate. On discussing her symptoms with her it sounds as though she may have felt something changed 2 to 3 weeks ago, when asked specifically what she felt she told me she just felt more nervous so I do not know if that is actually the atrial fibrillation but it is possible. At the moment she is feeling well with no shortness of breath and no palpitations. Allergies Allergy/AdvReac Type Severity Reaction Status Date / Time iodine Allergy Severe SHORTNESS Verified 03/08/21 15:41 OF BREATH Home Medications Medication Instructions Recorded Confirmed Type ascorbic acid (vitamin C) 500 mg 500 mg PO QAM tab 05/13/19 03/08/21 History tablet ipratropium-albuterol 3 ml INHALATION .EVERY 2 HOURS PRN 05/28/19 03/08/21 History metoprolol succinate [Toprol XL] 37.5 mg PO QAM 05/28/19 03/08/21 History Oxygen Home #1 ea 06/05/19 06/20/19 Rx acetaminophen 325 mg capsule 650 mg PO Q6H PRN MDD 3 GRAMS/24 06/13/19 03/08/21 History HOURS. PreserVision AREDS-2 1 tab PO BIDM 09/05/19 03/08/21 History citalopram 5 mg PO QAM 09/05/19 03/08/21 History docusate sodium 200 mg PO HS 09/05/19 03/08/21 History furosemide 40 mg PO BID 09/05/19 03/08/21 History glimepiride 2 mg PO QPM 09/05/19 03/08/21 History insulin detemir U-100 [Levemir 45 unit SUBCUT QAM 09/05/19 03/08/21 History U-100 Insulin] lorazepam 0.5 mg PO TID 09/05/19 03/08/21 History simvastatin 20 mg PO HS 09/05/19 03/08/21 History uduakwexmnj-ajfzthppn-mxfmhgss 1 ea INHALATION DAILY 03/08/21 03/08/21 History [Trelegy Ellipta] glimepiride 4 mg PO QAM 03/08/21 03/08/21 History insulin aspart U-100 [Novolog 5 unit SUBCUT DAILY 03/08/21 03/08/21 History U-100 Insulin aspart] ipratropium-albuterol 3 ml INHALATION 6XD 03/08/21 03/08/21 History methyl salicylate-menthol [Bengay 1 applic TOPICAL QS PRN 03/08/21 03/08/21 History Greaseless] metolazone 2.5 mg PO DAILY 03/08/21 03/08/21 History oxycodone 10 mg PO Q12 03/08/21 03/08/21 History potassium chloride 40 meq PO BID 03/08/21 03/08/21 History pramipexole 0.5 mg PO HS 03/08/21 03/08/21 History prednisone 10 mg PO UD 03/08/21 03/08/21 History prednisone See Rx Instructions .ROUTE .COMPLEX 03/08/21 03/08/21 History Patient History Medical History Abdominal tenderness, LLQ (left lower quadrant) Abnormal blood chemistry Abnormal electrocardiogram Abrasion of right forearm Acute combined systolic and diastolic HF (heart failure), NYHA class 3 Acute diastolic congestive heart failure Acute sinusitis Anxiety Aortic stenosis Cellulitis Chronic combined systolic and diastolic congestive heart failure Chronic kidney disease, stage III (moderate) Chronic rhinitis Closed head injury Congestive heart failure Contusion of left knee Contusion of left upper extremity COPD (chronic obstructive pulmonary disease) COPD exacerbation Coronary artery disease Cough Depression Diabetes mellitus type 2, uncontrolled DMII (diabetes mellitus, type 2) Dyspnea Edema Exposure to viral disease Fall Fall from slip, trip, or stumble Fatigue Forearm abrasion Hyperlipidemia Hypertension Impaired fasting glucose Knee pain, left Knee pain, right Morbid obesity with BMI of 50.0-59.9, adult Nasal ulcer Nocturia Obstructive sleep apnea Respiratory failure Restless legs syndrome Sleep disturbances Solitary pulmonary nodule Synovial cyst of popliteal space [[place]], right knee Tracheobronchitis Urinary tract infection Venous stasis of both lower extremities Venous stasis ulcer with edema of lower leg Weight loss Wheezing Surgical History S/P ANITHA (total abdominal hysterectomy) Family History Father Lung cancer Mother Lung cancer Brother Coronary heart disease Hx of CABG Denies family history of Myocardial infarction Social History Smoking Status: Never smoker Second Hand Exposure: No; Do You Dip or Chew Tobacco: No; Tobacco Cessation Education Requested by Patient: No Hx Alcohol Use: No Hx Substance Use: No Preferred Language: Chinese Communication Ability: Effective Derrick 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 She is sitting in her bedside chair. She is obese. HEENT: Unremarkable Neck: No jugular venous distention, carotid pulses are irregular but otherwise normal and equal bilaterally without bruits. Pulmonary: Clear to auscultation bilaterally. Cardiac: Irregular rhythm with a grade 2/6 crescendo decrescendo murmur at the base, no gallop or rub. Abdomen: Soft, obese, nontender with normal bowel sounds. Extremities: +2 bilateral edema with chronic venous stasis. Distal pulses not palpable. Neurologic: No focal findings. Gait was not tested. Skin: No rash, ecchymoses or petechiae. Results & Data ([facility]) Vital Signs (Past 12 Hours) Vital Signs Temp Pulse Pulse Resp BP Pulse Ox 03/11/21 11:05 85 18 96 03/11/21 07:46 36.5 C 112 H 22 121/67 90 03/11/21 07:05 95 H 18 95 03/11/21 04:58 36.6 C 96 H 21 136/91 97 03/11/21 03:29 89 18 96 03/11/21 00:42 36.4 C L 94 H 17 117/83 98 Laboratory Results Coagulation 03/10/21 03/11/21 Range/Units 13:57 06:22 APTT 47.6 H* 25.9 (21.0-31.0) Seconds CBC 03/11/21 Range/Units 06:22 WBC 11.99 H (4.8-10.8) K/uL RBC 4.12 L (4.2-5.4) M/uL Hgb 12.0 (12.0-16.0) g/dL Hct 40.2 (37-47) % Plt Count 300 (130-400) K/uL Neut # (Auto) 8.03 H (1.4-6.5) K/uL Lymph # (Auto) 2.94 (1.2-3.4) K/uL [place] # (Auto) 0.90 H (0.11-0.59) K/uL Eos # (Auto) 0.09 (0-0.5) K/uL Baso # (Auto) 0.00 (0-0.2) K/uL Comprehensive Metabolic Panel 03/11/21 Range/Units 06:22 Sodium 138 (136-145) mmol/L Potassium 3.9 (3.5-5.1) mmol/L Chloride 91 L (98-107) mmol/L Carbon Dioxide 43 H* (21-32) mmol/L BUN 53 H (7-18) mg/dl Creatinine 1.74 H (0.6-1.2) mg/dl Glucose 127 H (70-99) mg/dl Calcium 9.3 (8.5-10.1) mg/dl Intake and Output 03/10/21 03/11/21 03/11/21 22:59 06:59 14:59 Intake Total 389.8 / 1687.000 200 / 1687.000 Output Total / 0 / 0 250 / 250 Balance -360.2 / -363.000 -500 / -363.000 -250 / -250 Intake: IV 209.8 / 757.000 Heparin Sodium/Dextrose 25,000 139.8 / 391.000 units In 500 ml @ 900 UNITS/HR 18 mls/hr IV .Q24H [facility] Rx#: [id number] cefTRIAXone SODIUM 2,000 mg In 70 / 70 Dextrose 5% 50 ml @ 100 mls/hr IV Q24H [facility] Rx#:[id number] Oral 180 / 930 200 / 930 Output: Urine Amount (Catheter) / 2049 700 / 0 250 / 250 Garcia/Indwelling / 2049 / 2049 250 / 250 Other: Weight 125 kg Weight Measurement Method Standing Scale Diagnostic Findings Telemetry: Atrial fibrillation, heart rate elevated on admission, now averaging around 90 bpm and ranging from around 80 to 100 bpm. PG Care Time/CCT Total # of Minutes Spent Total Time Spent with Patient: Total time spent is greater than 50% in coordination of care (as documented) at patient's floor/unit and/or counseling patient: Coding Level of Care Code 37699 Initial Inpt Care Lvl 3 Diagnoses Atrial fibrillation with rapid ventricular response I48.91 CHF (congestive heart failure) I50.9 Heart failure chronicity: unspecified Heart failure type: unspecified Elevated troponin R77.8 Aortic stenosis I35.0 Cardiac valve disease etiology: etiology unspecified (1) CHF (congestive heart failure) Heart failure chronicity: unspecified Heart failure type: unspecified Qualified Code(s): I50.9 - Heart failure, unspecified (2) Aortic stenosis Cardiac valve disease etiology: etiology unspecified Qualified Code(s): I35.0 - Nonrheumatic aortic (valve) stenosis
[2021-03-11] MEDS ORDERED: FOSFOMYCIN TROMETHAMINE 3 GM PACKET PO ONE (15:00)
[2021-03-11] MEDS ORDERED: METOPROLOL TARTRATE 25 MG TAB PO STA (15:45)
--- NOTE | 2021-03-11 18:17 | Hospitalist Progress Note ---
Date of Service March 11, 2021 Assessment & Plan (1) Afib: New onset with some breaks in rythm -cardiology requests to increase metoprolol dosing for better rate control Echo shows mormal EF but Concentric LVH, likely diastolic heart failure from high heart rates pt tolerating eliquis 2.5 bid (2) UTI (urinary tract infection): cultures show esbl e coli will have on fosfomycin for one dose (3) Hypercarbia: Acute dyspnea with CO2 retention- mixed respiratory acidosis and compensation resulting in metabolic alkalosis -acute on chronic respiratory failure - Continue with BIPAP when sleeping - Chronic with acute co2 retention - Non-compliance with NIPPV- she has refused this since 2019 at least - Continue inhalers and nebulizers, continue steroid taper - Very likely component of obesity hypoventilation as well (4) Cor pulmonale: As above Noncompliance with likely increase in pulmonary pressures resulting in her current hfpef (5) Acute dyspnea: Pa02 65 with Fio2 45%- P:F 162 - doppler lower extremities negative for DVT, - Placed on heparin drip in regards to Afib converted to eliquis - Continue COPD exacerbation treatment taper steroids (6) Acute on chronic diastolic CHF (congestive heart failure): As above, kassandra related to her COPD leading to decompensation in HF - Diurese with 40 mg IV lasix bid renal function stable - (7) CARROL (acute kidney injury): 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- 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 ADVERTISEMENT COMPOSITOR 1.3 - resolved/stable (8) Aortic stenosis: Follow diurseing as above, moderate on echo also will impact diastolic HF (9) Venous stasis ulcer with edema of lower leg: Chronic with lymphedema as well - TEDS (10) Sleep disturbances: Continue anti anxiety medciations (11) Restless legs syndrome: Continue pramipexole (12) Obstructive sleep apnea: As above, BiPAP when sleeping (13) Hyperlipidemia: Continue statin (14) Diabetes mellitus type 2, uncontrolled: Basal bolus insulin Bolus aspart- 20CF with 1:10 ratio - may increase while on steroids (15) Chronic kidney disease, stage III (moderate): as above, improve volume status (16) Elevated troponin: Likely type II mi in the setting of cor-pulmonale trend troponin Admission and Anticipated Discharge Date Admission Date: March 08, 2021 Subjective pt continues to look better and feel better, she is however with variable heart rate control and despite continued diuresis has no renal distress, convert to NOAC likely eliquis 2.5 bid did see cardiology and they seem comfortable wtih B clint control of afib Review of Systems Review of Systems: moderate distress and fatigue no headache, no visual changes no speech or swallowing issues no chest pain, pressure or palpitations shortness of breath with tachypnea , no cough or wheezes no abdominal pain, nausea or vomiting, diarrhea or constipation no dysuria, hematuria or frequency no focal joint pain chronic le swelling no back pain, CVA tenderness or radicular pain chronic venous stasis changes to le no focal signs of weakness or numbness or altered sensation no complaints of anxiety or depression.. Physical Exam Physical Exam: The patient appeared moderately ill and morbidly obese Vital signs as documented. Head exam is normocephalic atraumatic Neck is without JVD, thyromegaly, or carotid bruits. Lungs remain diminished b/l rales have cleared Cardiac exam, tachycardic and irregular, ORI at [facility] Abdominal exam reveals normal bowel sounds, soft non tender, no masses Extremities are 2+ edematous b/l and both pedal pulses are present Neurologic exam is alert and oriented, no focal loss of strength or sensation Skin is with b/l stasis changes to distal legs Psychologically is without concerns for anxiety or depression Results & Data Results & Data ([facility]) Vital Signs (Past 12 Hours) Vital Signs Temp Pulse Resp BP Pulse Ox Pulse Ox 03/11/21 14:58 98.2 F 92 H 19 126/91 98 03/11/21 14:54 94 H 18 95 03/11/21 11:05 85 18 96 03/11/21 11:00 95 03/11/21 08:00 95 03/11/21 07:46 97.7 F 112 H 22 121/67 90 03/11/21 07:05 95 H 18 95 PG Care Time/CCT Total # of Minutes Spent Total Time Spent with Patient: Total time spent is greater than 50% in coordination of care (as documented) at patient's floor/unit and/or counseling patient: Coding Level of Care Code 61728 Subseq Hosp Care Lvl 3 Diagnoses Afib I48.91 Atrial fibrillation type: unspecified UTI (urinary tract infection) N30.01 Urinary tract infection type: acute cystitis Hematuria presence: with hematuria Hypercarbia R06.89 Cor pulmonale I27.81 Acute dyspnea R06.00 Acute on chronic diastolic CHF (congestive heart failure) I50.33 CARROL (acute kidney injury) N17.9 Aortic stenosis I35.0 Cardiac valve disease etiology: etiology unspecified Venous stasis ulcer with edema of lower leg I83.009; I83.899; L97.909; R60.9 Sleep disturbances G47.9 Restless legs syndrome G25.81 Obstructive sleep apnea G47.33 Hyperlipidemia E78.2 Hyperlipidemia type: mixed hyperlipidemia Diabetes mellitus type 2, uncontrolled E11.65 Glycemic state: with hyperglycemia Chronic kidney disease, stage III (moderate) N18.32 Chronic kidney disease stage 3 subtype: stage 3b (GFR 30-44) Elevated troponin R77.8 (1) Afib Atrial fibrillation type: unspecified Qualified Code(s): I48.91 - Unspecified atrial fibrillation (2) Aortic stenosis Cardiac valve disease etiology: etiology unspecified Qualified Code(s): I35.0 - Nonrheumatic aortic (valve) stenosis (3) Hyperlipidemia Hyperlipidemia type: mixed hyperlipidemia Qualified Code(s): E78.2 - Mixed hyperlipidemia (4) Diabetes mellitus type 2, uncontrolled Glycemic state: with hyperglycemia Qualified Code(s): E11.65 - Type 2 diabetes mellitus with hyperglycemia (5) Chronic kidney disease, stage III (moderate) Chronic kidney disease stage 3 subtype: stage 3b (GFR 30-44) Qualified Code(s): N18.32 - Chronic kidney disease, stage 3b (6) UTI (urinary tract infection) Urinary tract infection type: acute cystitis Hematuria presence: with h ematuria Qualified Code(s): N30.01 - Acute cystitis with hematuria
[2021-03-11] MEDS: DOCUSATE SODIUM 100 MG CAP PO SCH (20:35)
[2021-03-11] MEDS: METOPROLOL TARTRATE 25 MG TAB PO SCH (20:36)
[2021-03-11] MEDS: PRAMIPEXOLE DIHYDROCHLO 0.5 MG TAB PO SCH (20:41)
[2021-03-12] MEDS: ALBUT/IPRATROP 3MG/0.5MG NEB 3 ML VIAL INH SCH ×6 (03:02→23:23)
[2021-03-12] MEDS: APIXABAN 2.5 MG TAB PO SCH ×2 (08:20→20:09)
[2021-03-12] MEDS: metOLazone 2.5 MG TABLET PO SCH (08:21)
[2021-03-12] MEDS: CITALOPRAM 20 MG TAB PO SCH (08:22)
[2021-03-12] MEDS: METOPROLOL TARTRATE 25 MG TAB PO SCH ×2 (08:23→20:12)
[2021-03-12] MEDS: FLUTICASONE FUROATE 200MCG 14 PUFFS/INHALER INH SCH (08:24)
[2021-03-12] MEDS: UMECLIDINIUM/VILANTEROL 62.5/25MCG 7 PUFFS/INHALER INH SCH (08:24)
[2021-03-12] MEDS: FUROSEMIDE 60 MG in SYRINGE 0 ML IV SCH (08:25)
[2021-03-12] MEDS: POTASSIUM CHLORIDE CRTAB 20 MEQ TABCR PO SCH ×2 (08:25→20:12)
[2021-03-12] MEDS: predniSONE 20 MG TAB PO SCH (08:26)
[2021-03-12] MEDS: INSULIN ASPART 100 UNITS/ML 3 ML PEN SC SCH ×4 (08:30→20:23)
[2021-03-12] MEDS: INSULIN DETEMIR FLEXPEN/FLEX TOUCH 100 UNITS/ML 3ML SC SCH (09:00)
--- NOTE | 2021-03-12 19:10 | Hospitalist Progress Note ---
Date of Service March 12, 2021 Assessment & Plan (1) Afib: New onset with some breaks in rythm -cardiology requests to increase metoprolol dosing for better rate control Echo shows mormal EF but Concentric LVH, likely diastolic heart failure from high heart rates pt tolerating eliquis 2.5 bid (2) UTI (urinary tract infection): cultures show esbl e coli will have on fosfomycin for one dose (3) Hypercarbia: Acute dyspnea with CO2 retention- mixed respiratory acidosis and compensation resulting in metabolic alkalosis -acute on chronic respiratory failure - Continue with BIPAP when sleeping - Chronic with acute co2 retention - Non-compliance with NIPPV- she has refused this since 2019 at least settings are 16/8 oxygen flow rate of 3 - Continue inhalers and nebulizers, continue steroid taper - Very likely component of obesity hypoventilation as well (4) Cor pulmonale: As above Noncompliance with likely increase in pulmonary pressures resulting in her current hfpef (5) Acute dyspnea: Pa02 65 with Fio2 45%- P:F 162 - doppler lower extremities negative for DVT, - Placed on heparin drip in regards to Afib converted to eliquis - Continue COPD exacerbation treatment taper steroids (6) Acute on chronic diastolic CHF (congestive heart failure): As above, kassandra related to her COPD leading to decompensation in HF - Diurese with 40 mg IV lasix bid renal function stable - (7) CARROL (acute kidney injury): 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- 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 MANAGER INTERVENTIONAL 1.3 - resolved/stable (8) Aortic stenosis: Follow diurseing as above, moderate on echo also will impact diastolic HF (9) Venous stasis ulcer with edema of lower leg: Chronic with lymphedema as well - TEDS (10) Sleep disturbances: Continue anti anxiety medciations (11) Restless legs syndrome: Continue pramipexole (12) Obstructive sleep apnea: As above, BiPAP when sleeping (13) Hyperlipidemia: Continue statin (14) Diabetes mellitus type 2, uncontrolled: Basal bolus insulin Bolus aspart- 20CF with 1:10 ratio - may increase while on steroids (15) Chronic kidney disease, stage III (moderate): as above, improve volume status (16) Elevated troponin: Likely type II mi in the setting of cor-pulmonale trend troponin Admission and Anticipated Discharge Date Admission Date: March 08, 2021 Subjective pt continues to look better and feel better, she is however with variable heart rate control and despite continued diuresis has no renal distress, convert to NOAC likely eliquis 2.5 bid did see cardiology and they seem comfortable wtih B clint control of afib Review of Systems Review of Systems: moderate distress and fatigue no headache, no visual changes no speech or swallowing issues no chest pain, pressure or palpitations shortness of breath with tachypnea , no cough or wheezes no abdominal pain, nausea or vomiting, diarrhea or constipation no dysuria, hematuria or frequency no focal joint pain chronic le swelling no back pain, CVA tenderness or radicular pain chronic venous stasis changes to le no focal signs of weakness or numbness or altered sensation no complaints of anxiety or depression.. Physical Exam Physical Exam: The patient appeared moderately ill and morbidly obese Vital signs as documented. Head exam is normocephalic atraumatic Neck is without JVD, thyromegaly, or carotid bruits. Lungs remain diminished b/l rales have cleared Cardiac exam, tachycardic and irregular, ORI at [facility] Abdominal exam reveals normal bowel sounds, soft non tender, no masses Extremities are 2+ edematous b/l and both pedal pulses are present Neurologic exam is alert and oriented, no focal loss of strength or sensation Skin is with b/l stasis changes to distal legs Psychologically is without concerns for anxiety or depression Results & Data Results & Data ([facility]) Vital Signs (Past 12 Hours) Vital Signs Temp Pulse Pulse Pulse Resp BP Pulse Ox 03/12/21 16:02 97.5 F L 67 19 118/66 99 03/12/21 15:21 60 64 16 96 03/12/21 12:00 03/12/21 11:27 98.4 F 60 22 129/61 91 03/12/21 10:59 67 20 98 03/12/21 07:16 98.6 F 74 20 148/79 H 100 03/12/21 07:10 74 20 98 Pulse Ox 03/12/21 16:02 03/12/21 15:21 03/12/21 12:00 35 L 03/12/21 11:27 03/12/21 10:59 03/12/21 07:16 03/12/21 07:10 PG Care Time/CCT Total # of Minutes Spent Total Time Spent with Patient: Total time spent is greater than 50% in coordination of care (as documented) at patient's floor/unit and/or counseling patient: Coding Level of Care Code 58386 Subseq Hosp Care Lvl 2 Diagnoses Afib I48.91 Atrial fibrillation type: unspecified UTI (urinary tract infection) N30.01 Urinary tract infection type: acute cystitis Hematuria presence: with hematuria Hypercarbia R06.89 Cor pulmonale I27.81 Acute dyspnea R06.00 Acute on chronic diastolic CHF (congestive heart failure) I50.33 CARROL (acute kidney injury) N17.9 Aortic stenosis I35.0 Cardiac valve disease etiology: etiology unspecified Venous stasis ulcer with edema of lower leg I83.009; I83.899; L97.909; R60.9 Sleep disturbances G47.9 Restless legs syndrome G25.81 Obstructive sleep apnea G47.33 Hyperlipidemia E78.2 Hyperlipidemia type: mixed hyperlipidemia Diabetes mellitus type 2, uncontrolled E11.65 Glycemic state: with hyperglycemia Chronic kidney disease, stage III (moderate) N18.32 Chronic kidney disease stage 3 subtype: stage 3b (GFR 30-44) Elevated troponin R77.8 (1) Afib Atrial fibrillation type: unspecified Qualified Code(s): I48.91 - Unspecified atrial fibrillation (2) UTI (urinary tract infection) Urinary tract infection type: acute cystitis Hematuria presence: with hematuria Qualified Code(s): N30.01 - Acute cystitis with hematuria (3) Aortic stenosis Cardiac valve disease etiology: etiology unspecified Qualified Code(s): I35.0 - Nonrheumatic aortic (valve) stenosis (4) Hyperlipidemia Hyperlipidemia type: mixed hyperlipidemia Qualified Code(s): E78.2 - Mixed hyperlipidemia (5) Diabetes mellitus type 2, uncontrolled Glycemic state: with hyperglycemia Qualified Code(s): E11.65 - Type 2 diabetes mellitus with hyperglycemia (6) Chronic kidney disease, stage III (moderate) Chronic kidney disease stage 3 subtype: stage 3b (GFR 30-44) Qualified Code(s): N18.32 - Chronic kidney disease, stage 3b
[2021-03-12] MEDS: DOCUSATE SODIUM 100 MG CAP PO SCH (20:10)
[2021-03-12] MEDS: PRAMIPEXOLE DIHYDROCHLO 0.5 MG TAB PO SCH (20:13)
[2021-03-12] MEDS: ACETAMINOPHEN 325 MG TAB PO PRN (21:03)
[2021-03-13] MEDS: ALBUT/IPRATROP 3MG/0.5MG NEB 3 ML VIAL INH SCH ×6 (03:30→23:18)
[2021-03-13] MEDS: INSULIN ASPART 100 UNITS/ML 3 ML PEN SC SCH ×4 (08:15→22:04)
[2021-03-13] MEDS: FLUTICASONE FUROATE 200MCG 14 PUFFS/INHALER INH SCH (08:55)
[2021-03-13] MEDS: UMECLIDINIUM/VILANTEROL 62.5/25MCG 7 PUFFS/INHALER INH SCH (08:55)
[2021-03-13] MEDS: APIXABAN 2.5 MG TAB PO SCH ×2 (08:56→22:03)
[2021-03-13] MEDS: metOLazone 2.5 MG TABLET PO SCH (08:57)
[2021-03-13] MEDS: METOPROLOL TARTRATE 25 MG TAB PO SCH ×2 (08:58→22:04)
[2021-03-13] MEDS: CITALOPRAM 20 MG TAB PO SCH (08:59)
[2021-03-13] MEDS: predniSONE 20 MG TAB PO SCH (08:59)
[2021-03-13] MEDS: POTASSIUM CHLORIDE CRTAB 20 MEQ TABCR PO SCH ×2 (08:59→22:03)
[2021-03-13] MEDS: FUROSEMIDE 60 MG in SYRINGE 0 ML IV SCH (09:07)
[2021-03-13] MEDS: INSULIN DETEMIR FLEXPEN/FLEX TOUCH 100 UNITS/ML 3ML SC SCH (09:35)
--- NOTE | 2021-03-13 16:51 | Hospitalist Progress Note ---
Date of Service March 13, 2021 Assessment & Plan (1) Afib: New onset with some breaks in rythm -cardiology requests to increase metoprolol dosing for better rate control Echo shows mormal EF but Concentric LVH, likely diastolic heart failure from high heart rates pt tolerating eliquis 2.5 bid (2) UTI (urinary tract infection): cultures show esbl e coli will have on fosfomycin for one dose (3) Hypercarbia: Acute dyspnea with CO2 retention- mixed respiratory acidosis and compensation resulting in metabolic alkalosis -acute on chronic respiratory failure - Continue with BIPAP when sleeping - Chronic with acute co2 retention - Non-compliance with NIPPV- she has refused this since 2019 at least settings are 16/8 oxygen flow rate of 3 - Continue inhalers and nebulizers, continue steroid taper - Very likely component of obesity hypoventilation as well (4) Cor pulmonale: As above Noncompliance with likely increase in pulmonary pressures resulting in her current hfpef (5) Acute dyspnea: Pa02 65 with Fio2 45%- P:F 162 - doppler lower extremities negative for DVT, - Placed on heparin drip in regards to Afib converted to eliquis - Continue COPD exacerbation treatment taper steroids (6) Acute on chronic diastolic CHF (congestive heart failure): As above, kassandra related to her COPD leading to decompensation in HF - Diurese with 40 mg IV lasix bid renal function stable - (7) CARROL (acute kidney injury): 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- baseline TRAUMA DIRECTOR 1.3 - resolved/stable (8) Aortic stenosis: Follow diurseing as above, moderate on echo also will impact diastolic HF (9) Venous stasis ulcer with edema of lower leg: Chronic with lymphedema as well - TEDS (10) Sleep disturbances: Continue anti anxiety medciations (11) Restless legs syndrome: Continue pramipexole (12) Obstructive sleep apnea: As above, BiPAP when sleeping (13) Hyperlipidemia: Continue statin (14) Diabetes mellitus type 2, uncontrolled: Basal bolus insulin Bolus aspart- 20CF with 1:10 ratio - may increase while on steroids (15) Chronic kidney disease, stage III (moderate): as above, improve volume status (16) Elevated troponin: Likely type II mi in the setting of cor-pulmonale trend troponin Admission and Anticipated Discharge Date Admission Date: March 08, 2021 Subjective pt continues to look better and feel better, she is however with variable heart rate control and despite continued diuresis has no renal distress, convert to NOAC likely eliquis 2.5 bid did see cardiology and they seem comfortable wtih B clint control of afib Review of Systems Review of Systems: moderate distress and fatigue no headache, no visual changes no speech or swallowing issues no chest pain, pressure or palpitations shortness of breath with tachypnea , no cough or wheezes no abdominal pain, nausea or vomiting, diarrhea or constipation no dysuria, hematuria or frequency no focal joint pain chronic le swelling no back pain, CVA tenderness or radicular pain chronic venous stasis changes to le no focal signs of weakness or numbness or altered sensation no complaints of anxiety or depression.. Physical Exam Physical Exam: The patient appeared moderately ill and morbidly obese Vital signs as documented. Head exam is normocephalic atraumatic Neck is without JVD, thyromegaly, or carotid bruits. Lungs remain diminished b/l rales have cleared Cardiac exam, tachycardic and irregular, ORI at RUSB Abdominal exam reveals normal bowel sounds, soft non tender, no masses Extremities are 2+ edematous b/l and both pedal pulses are present Neurologic exam is alert and oriented, no focal loss of strength or sensation Skin is with b/l stasis changes to distal legs Psychologically is without concerns for anxiety or depression Results & Data Results & Data ([facility]) Vital Signs (Past 12 Hours) Vital Signs Temp Pulse Pulse Resp BP Pulse Ox Pulse Ox 03/13/21 15:16 56 L 18 95 03/13/21 12:00 96 03/13/21 11:35 97.7 F 65 19 106/50 L 96 03/13/21 10:44 61 18 99 03/13/21 10:38 66 03/13/21 07:54 97.9 F 74 16 131/8 L 96 03/13/21 06:57 60 18 99 PG Care Time/CCT Total # of Minutes Spent Total Time Spent with Patient: Total time spent is greater than 50% in coordination of care (as documented) at patient's floor/unit and/or counseling patient: Coding Level of Care Code 69257 Subseq Hosp Care Lvl 2 Diagnoses Afib I48.91 Atrial fibrillation type: unspecified UTI (urinary tract infection) N30.01 Urinary tract infection type: acute cystitis Hematuria presence: with hematuria Hypercarbia R06.89 Cor pulmonale I27.81 Acute dyspnea R06.00 Acute on chronic diastolic CHF (congestive heart failure) I50.33 CARROL (acute kidney injury) N17.9 Aortic stenosis I35.0 Cardiac valve disease etiology: etiology unspecified Venous stasis ulcer with edema of lower leg I83.009; I83.899; L97.909; R60.9 Sleep disturbances G47.9 Restless legs syndrome G25.81 Obstructive sleep apnea G47.33 Hyperlipidemia E78.2 Hyperlipidemia type: mixed hyperlipidemia Diabetes mellitus type 2, uncontrolled E11.65 Glycemic state: with hyperglycemia Chronic kidney disease, stage III (moderate) N18.32 Chronic kidney disease stage 3 subtype: stage 3b (GFR 30-44) Elevated troponin R77.8 (1) Afib Atrial fibrillation type: unspecified Qualified Code(s): I48.91 - Unspecified atrial fibrillation (2) UTI (urinary tract infection) Urinary tract infection type: acute cystitis Hematuria presence: with hematuria Qualified Code(s): N30.01 - Acute cystitis with hematuria (3) Aortic stenosis Cardiac valve disease etiology: etiology unspecified Qualified Code(s): I35.0 - Nonrheumatic aortic (valve) stenosis (4) Hyperlipidemia Hyperlipidemia type: mixed hyperlipidemia Qualified Code(s): E78.2 - Mixed hyperlipidemia (5) Diabetes mellitus type 2, uncontrolled Glycemic state: with hyperglycemia Qualified Code(s): E11.65 - Type 2 diabetes mellitus with hyperglycemia (6) Chronic kidney disease, stage III (moderate) Chronic kidney disease stage 3 subtype: stage 3b (GFR 30-44) Qualified Code(s): N18.32 - Chronic kidney disease, stage 3b
[2021-03-13] MEDS: PRAMIPEXOLE DIHYDROCHLO 0.5 MG TAB PO SCH (22:03)
[2021-03-13] MEDS: DOCUSATE SODIUM 100 MG CAP PO SCH (22:03)
[2021-03-13] MEDS: ACETAMINOPHEN 325 MG TAB PO PRN (23:35)
[2021-03-14] MEDS: ALBUT/IPRATROP 3MG/0.5MG NEB 3 ML VIAL INH SCH ×4 (03:28→15:19)
[2021-03-14] MEDS: INSULIN ASPART 100 UNITS/ML 3 ML PEN SC SCH ×2 (08:25→12:53)
[2021-03-14] MEDS: POTASSIUM CHLORIDE CRTAB 20 MEQ TABCR PO SCH (08:26)
[2021-03-14] MEDS: metOLazone 2.5 MG TABLET PO SCH (08:26)
[2021-03-14] MEDS: predniSONE 20 MG TAB PO SCH (08:27)
[2021-03-14] MEDS: METOPROLOL TARTRATE 25 MG TAB PO SCH (08:27)
[2021-03-14] MEDS: UMECLIDINIUM/VILANTEROL 62.5/25MCG 7 PUFFS/INHALER INH SCH (08:27)
[2021-03-14] MEDS: CITALOPRAM 20 MG TAB PO SCH (08:27)
[2021-03-14] MEDS: FUROSEMIDE 60 MG in SYRINGE 0 ML IV SCH (08:27)
[2021-03-14] MEDS: APIXABAN 2.5 MG TAB PO SCH (08:27)
[2021-03-14] MEDS: FLUTICASONE FUROATE 200MCG 14 PUFFS/INHALER INH SCH (08:28)
[2021-03-14] MEDS: INSULIN DETEMIR FLEXPEN/FLEX TOUCH 100 UNITS/ML 3ML SC SCH (08:28)
--- NOTE | 2021-03-14 15:29 | Discharge Summary ---
Date of Service March 14, 2021 Admission HPI Per Admitting Provider 86 YOF with history of COPD, CELIA (noncompliant with CPAP), HTN, HLD, CAD, DMII (on insulin) CKD III, LBBB, lymphedema, morbid obesity. Patient brought in to the emergency department today from [place] [facility], where she reports being dyspneic for the past 2-3 weeks that has not improved. She has been being treated with nebulizers, steroids, and diuretic therapy with no improvement. In the ED she was placed on BiPAP 14/6 with FIO2 40%, had routine labs drawn, ECG and chest Xray. She was also noted to be in atrial fibrillation with RVR with HR 130's new onset and was started on Diltiazem drip. Hospitalist team was notified for admission. Patient is non-compliant with her NIPPV therapy as she does not use it, and she is cor-pulmonale with hypercarbia and heart failure. She has not noticed an increase in her cough or her secretions. She feels as though her legs and arms are not overtly swollen and are about at her normal. She sleeps in a recliner at night and can not lay flat. She will be admitted to be to the PCU with continued BIPAP support and started on heparin drip for her new afib. She is compensating from her hypercarbia at this time with a normal PH and elevated HCO3. Will adjust her BIPAP to increase her support and clear some of her CO2. Continue rate control as well, attempt to wean of diltiazem drip with IVP Lopressor and oral metoprolol. Principal Diagnosis Atrial fibrillation Discharge Exam Constitutional WD/WN, vitals as above + obese Neck trachea midline, no thyromegaly Respiratory normal respiratory effort, lungs clear to auscultation Auscultation: + diminished lung sounds (bases) Cardiovascular Rate/Rhythm: regular rate and + irregularly irregular Heart Sounds: normal S1 and normal S2; no murmur Vessels: no JVD Extremities: normal capillary refill and + edema Gastrointestinal (Abdomen) normal bowel sounds, soft, nontender, no hepatosplenomegaly Musculoskeletal no cyanosis or clubbing, extremities motor strength 5/5 Neurologic CN's II-XI intact bilaterally, moves all extremities and awake; no focal motor deficits Psychiatric A+Ox3, euthymic affect Lymphatic no cervical or axillary lymphadenopathy Discharge Data Allergies Allergy/AdvReac Type Severity Reaction Status Date / Time iodine Allergy Severe SHORTNESS Verified 03/08/21 15:41 OF BREATH Consultations 03/08/21 14:30 ED Decision to Admit Stat 03/11/21 07:02 Consult Cardiology Routine Ordered Studies 03/08/21 15:49 US venous doppler ANTON [facility] Urgent Hospital Course (1) Afib: New onset with some breaks in rhythm -cardiology changed her to Lopressor 75mg BID, continue this for rate control Echo shows mormal EF but Concentric LVH pt tolerating eliquis 2.5 bid follow up with Dr. La in a few weeks, might consider cardioversion (2) UTI (urinary tract infection): cultures show esbl e coli, received fosfomycin for one dose (3) Hypercarbia: Acute dyspnea with CO2 retention- mixed respiratory acidosis and compensation resulting in metabolic alkalosis -acute on chronic respiratory failure - Continue with BIPAP when sleeping - Chronic with acute co2 retention - Non-compliance with NIPPV- she has refused this since 2019 at least settings are 16/8 oxygen flow rate of 3 - Continue inhalers and nebulizers, continue steroid taper - Very likely component of obesity hypoventilation as well (4) Cor pulmonale: As above Noncompliance with likely increase in pulmonary pressures resulting in her current hfpef (5) Acute dyspnea: Pa02 65 with Fio2 45%- P:F 162 - doppler lower extremities negative for DVT, - Placed on heparin drip in regards to Afib converted to eliquis - Continue COPD exacerbation treatment taper steroids (6) Acute on chronic diastolic CHF (congestive heart failure): As above, likely related to her COPD leading to decompensation in HF - Diuresed with 40 mg IV lasix bid renal function stable (7) CARROL (acute kidney injury): 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- 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 HUMAN 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 DIRECTOR 1.3 - resolved/stable (8) Aortic stenosis: Follow diurseing as above, moderate on echo also will impact diastolic HF (9) Venous stasis ulcer with edema of lower leg: Chronic with lymphedema as well - TEDS (10) Sleep disturbances: Continue anti anxiety medciations (11) Restless legs syndrome: Continue pramipexole (12) Obstructive sleep apnea: As above, BiPAP when sleeping (13) Hyperlipidemia: Continue statin (14) Diabetes mellitus type 2, uncontrolled: Basal bolus insulin Bolus aspart- 20CF with 1:10 ratio - may increase while on steroids (15) Chronic kidney disease, stage III (moderate): as above, improve volume status (16) Elevated troponin: Likely type II mi in the setting of cor-pulmonale trend troponin Total Time Total Time Spent Total Time Spent (In Minutes): 32 Total Time Includes: Examination of the Patient, Discharge Planning, Medication Reconciliation and Communication With Other Providers Discharge Plan Discharge Items Patient Disposition: Transfer [facility] Reason For Visit: HYPERCARBIA, AFIB, HYPOXIA Discharge Diagnosis: Afib with RVR COPD exacerbation Acute heart failure with preserved ejection fraction Goals: control heart rate with higher dose of metoprolol control heart failure with Lasix complete brief Prednisone taper Activity: Resume your previous activity Weightbearing: Full weightbearing Non-emergency contact: Primary Care Provider Call non-emergency contact if: you have any medication questions Follow-up/Referrals: Randy La MD [Physician] - (needs follow up in one month for afib) [place] [Primary Care Provider] - Diet: Carb Consistent or DM2 and Heart Healthy Fluids: 1800ml (7 cups) Addtl Attending Provider Instructions: Medications: - LOPRESSOR: note that this is new, previously on Toprol 37.5mg daily, will now be on Lopressor 75mg BID - ELIQUIS: 2.5mg BID for full anticoagulation with afib - PREDNISONE: finish 10mg daily on 03/15 and 03/16 then stop Atrial fibrillation: rates are controlled on Lopressor 75mg BID, started on Eliquis 2.5mg BID follow up in one month with Dr. La to see if she needs cardioversion Acute on chronic heart failure: continue Lasix 40mg twice a day follow a fluid restriction daily weights, if weights go up by 2-3 lbs from baseline then increase Lasix to 60mg twice a day Hypercapnia: patient supposed to use BIPAP but she has a history of refusing this Pending Studies at Discharge: No Stand-Alone Forms: [facility] Patient informed of condition?: Yes DNR: Yes Discharge Level of Care: Skilled Communicable Disease: No Discharge Prognosis: Stable Lines: None Urinary Catheter: No Medications and DC Order Prescriptions: New (DME) BiPap Machine Misc 1 ea .Route HS Qty: 1 RF: 0 metoprolol tartrate 25 mg Tablet 75 mg PO BID 30 Days Qty: 180 RF: 3 Eliquis 2.5 mg Tablet 2.5 mg PO BID 30 Days Qty: 60 RF: 3 Continued ascorbic acid (vitamin C) 500 mg tablet 500 mg PO QAM RF: 0 acetaminophen 325 mg capsule 650 mg PO Q6H MDD 3 GRAMS/24 HOURS. PRN (Reason: Fever Or Pain) RF: 0 ipratropium-albuterol 0.5 mg-3 mg(2.5 mg base)/3 mL solution for nebulization 3 ml inhalation .EVERY 2 HOURS PRN (Reason: Shortness Of Breath Or Wheezing) RF: 0 (DME) Oxygen Home Liters Per Minute See Dose Instructions .ROUTE .MEDSUPPLY Qty: 1 RF: 0 docusate sodium 100 mg Capsule 200 mg PO HS RF: 0 Levemir U-100 Insulin 100 unit/mL Solution 45 unit SUBCUT QAM RF: 0 furosemide 40 mg tablet 40 mg PO BID RF: 0 citalopram 10 mg tablet 5 mg PO QAM RF: 0 glimepiride 2 mg tablet 2 mg PO QPM RF: 0 lorazepam 0.5 mg tablet 0.5 mg PO TID RF: 0 simvastatin 20 mg tablet 20 mg PO HS RF: 0 PreserVision AREDS-2 [id number]-mg capsule 1 tab PO BIDM RF: 0 glimepiride 2 mg tablet 4 mg PO QAM RF: 0 ipratropium-albuterol 0.5 mg-3 mg(2.5 mg base)/3 mL solution for nebulization 3 ml INHALATION 6XD RF: 0 Bengay Greaseless 15-10 % Cream 1 applic TOPICAL QS PRN (Reason: right knee pain) RF: 0 Trelegy Ellipta 200-62.5-25 mcg blister with device 1 ea INHALATION DAILY RF: 0 pramipexole 0.5 mg tablet 0.5 mg PO HS RF: 0 potassium chloride 20 mEq tablet,ER particles/crystals 40 meq PO BID RF: 0 prednisone 10 mg tablet 10 mg PO UD RF: 0 metolazone 2.5 mg tablet 2.5 mg PO DAILY RF: 0 prednisone 10 mg tablet See Rx Instructions .ROUTE .COMPLEX RF: 0 insulin aspart U-100 [Novolog U-100 Insulin aspart] 100 unit/mL solution 5 unit subcut DAILY RF: 0 oxycodone 10 mg tablet,oral only,ext.rel.12 hr 10 mg PO Q12 RF: 0 Discontinued metoprolol succinate [Toprol XL] 25 mg Tablet Extended Release 24 Hr 37.5 mg PO QAM RF: 0 Discharge Orders: Discharge Order (Routine); Ordered 03/14/21 Ordered By: Ramirez Soto Admission Data Admit Date/Time: 03/08/21 16:46 Attending Provider: Ramirez Soto Admit Provider: Rickie Johnson Primary Care Provider: [facility] Other Providers: Pepe Patel ; [facility] ; Jam Ortega Other Interventions: Discharge Summary Assessment (RN) Last Done: 03/14/21 15:17 Coding Level of Care Code D/C Day Management >30 mins Diagnoses Afib I48.91 Atrial fibrillation type: unspecified UTI (urinary tract infection) N30.01 Hematuria presence: with hematuria Urinary tract infection type: acute cystitis Hypercarbia R06.89 Cor pulmonale I27.81 Acute dyspnea R06.00 Acute on chronic diastolic CHF (congestive heart failure) I50.33 CARROL (acute kidney injury) N17.9 Aortic stenosis I35.0 Cardiac valve disease etiology: etiology unspecified Venous stasis ulcer with edema of lower leg I83.009; I83.899; L97.909; R60.9 Sleep disturbances G47.9 Restless legs syndrome G25.81 Obstructive sleep apnea G47.33 Hyperlipidemia E78.2 Hyperlipidemia type: mixed hyperlipidemia Diabetes mellitus type 2, uncontrolled E11.65 Glycemic state: with hyperglycemia Chronic kidney disease, stage III (moderate) N18.32 Chronic kidney disease stage 3 subtype: stage 3b (GFR 30-44) Elevated troponin R77.8
== END 2021-03-14 15:51 | DRG 189 ==
LOC: ED 12:14 → 2E 16:46 → SUATTDRO 16:46 → 2E 19:08

== ENCOUNTER 2021-10-06 11:41 | Observation (INO) ==
[2021-10-06] MEDS ORDERED: CALCIUM GLUCONATE 1,000 MG/60 ML BAG IV STA ×2 (12:04→12:05)
[2021-10-06 12:25] LABS: Basophils # (auto) 0.01 K/uL (0-0.2); Basophils % (auto) 0.1 %; Eosinophils # (auto) 0.09 K/uL (0-0.5); Hematocrit (blood only) 33.7 % (37-47); Hemoglobin 9.8 g/dL (12.0-16.0); Immature Granulocytes # (auto) 0.02 K/uL (0.00-0.02); Immature Granulocytes % (auto) 0.2 %; Lymphocytes # (auto) 1.02 K/uL (1.2-3.4); Lymphocytes % (auto) 11.7 %; Mean Corpuscular Hemoglobin 29.1 pg (25-34); Mean Corpuscular Hgb Conc 29.1 g/dL (32-36); Mean Platelet Volume 11.6 fL (7.4-10.4); Monocytes # (auto) 0.76 K/uL (0.11-0.59); Monocytes % (auto) 8.7 %; Neutrophils % (auto) 78.3 %; Platelet Count 151 K/uL (130-400); RDW Standard Deviation 58.8 fL (36.4-46.3); Red Blood Count 3.37 M/uL (4.2-5.4)
[2021-10-06 12:38] LABS: iSTAT Arterial Blood Gas HCO3 32 meg/L (19-24); iSTAT Arterial Blood Gas pCO2 80 mmHg (35-46); iSTAT Arterial Blood Gas pH 7.22 (7.35-7.45); iSTAT Arterial Blood Gas pO2 141 mmHg (80-95); iSTAT Carbon Dioxide 35 mmol/L (24-31)
[2021-10-06] MEDS ORDERED: PIPERACILLIN/TAZOBACTAM 4.5 GM/120 ML BAG IV STA (12:39)
[2021-10-06] MEDS ORDERED: DAPTOmycin 500 MG in SYRINGE 0 ML IV STA (12:41)
[2021-10-06 12:57] LABS: Alanine Aminotransferase 19 (12-78); Albumin Globulin Ratio 0.7 (0.9-2); Albumin Level 2.9 gm/dl (3.4-5.0); Alkaline Phosphatase 90 U/L (45-117); Aspartate Aminotransferase 17 U/L (15-37); BUN Creatinine Ratio 14.3 (10-20); Bilirubin,Total 0.4 mg/dl (0.2-1); Blood Urea Nitrogen 96 mg/dl (7-18); Calcium 7.9 mg/dl (8.5-10.1); Carbon Dioxide 32 mmol/L (21-32); Chloride 93 mmol/L (98-107); Creatinine Clr Calc Pharmacy 8.4 ml/min; Est GFR (Non-African American) 5.1 ml/min; Globulin 4.4 gm/dl (2.5-4.0); Glucose 98 mg/dl (70-99); Magnesium 3.4 mg/dl (1.8-2.4); NT Pro B Type Natriuretic Pept 1312 pg/ml (0-1800); Potassium 6.4 mmol/L (3.5-5.1); Sodium 132 mmol/L (136-145); Thyroid Stimulating Hormone 0.865 uIu/ml (0.300-4.500); Total Protein 7.3 gm/dl (6.4-8.2); Troponin I < 0.015 ng/ml (0-0.045)
[2021-10-06 13:16] LABS: Influenza A virus by PCR Negative (Neg); Influenza B virus by PCR Negative (Neg); RSV by PCR Negative (Neg); SARS CoV2 RNA(COVID-19) InHosp NEGATIVE (Negative)
--- NOTE | 2021-10-06 13:21 | Emergency Department Note ---
Impression & Plan AMS (altered mental status), Respiratory failure, CHF (congestive heart failure), Shock, Acute renal failure, Hyperkalemia ED Provider Note Provider: Dong Alvarado MD DATE OF SERVICE: 10/06/2021 CHIEF COMPLAINT: Altered mental status HISTORY OF PRESENT ILLNESS: Patient is a 86-year-old female complex past medical history including CHF, A. fib, chronic oxygen usage 2 L, CAD, CKD, hypertension, and obesity presenting today [facility] where she is had onset of confusion over the past several days with blood work today showing evidence of hyperkalemia and renal dysfunction. EMS report the patient was hypoxic prior to them and they placed her on a nonrebreather. Patient upon arrival is unable provide meaningful history. Notes that again the patient's been treated with Keflex recently for lower extremity cellulitis. EMS report the patient did not eat or take any medicines today due to her change in mental status. No traumas reported. EMS report the patient will occasionally answer some questions but they are unsure if she is understanding them. Daughter later arrives and discussion with her reports the patient has been unwell for some time but physically her last several weeks after a fall in which she injured and broke her right shoulder. She is also has wound infection of her lower legs. Daughter Martha reports that the patient has had progressive confusion and change in mental status over the past at least 24 hours. REVIEW OF SYSTEMS: Limited secondary to mental status PAST MEDICAL HISTORY: As noted above MEDICATIONS: Reviewed listings from the nursing facility SOCIAL HISTORY: , currently resides at nursing facility PHYSICAL EXAM: GENERAL: Occasionally opens her eyes and moans or will move but not following significant commands at times and not consistently answering questions, fatigued appearing Head: normocephalic and atraumatic EYES: No injection, discharge or icterus. PERRL NECK: Trachea midline. Supple. ENT: Mucous membranes pink and moist. LUNGS: Airway patent. No retractions. Breath sounds diffuse crackles and coarse diminished in the bases HEART: Irregular rate and rhythm. No chest wall tenderness ABDOMEN: Nontender without significant apparent tenderness although moderately distended. SKIN: Acyanotic, warm, dry, without rashes EXTREMITIES: Patient with significant 3-4+ lower extremity edema with mild edema of the upper extremities as well. Left greater than right erythema with some small areas of serous drainage and open wound of the left lower extremity/allen. Patient has no significant crepitus here. NEUROLOGICAL: Patient withdraws to pain in all 4 extremities. Not consistently following any commands. No obvious facial droop. Somnolent. EK bpm normal sinus rhythm with sinus arrhythmia and a significant left bundle branch block. Left axis. Compared to previous from March 08 of this year, does not appear to be A. fib RVR. CONTINUOUS CARDIAC MONITORING: was ordered and showed a heart rate of 60s-80s bpm in normal sinus rhythm and sinus arrhythmia Patient's laboratory studies and imaging reviewed. Differential includes Infection, dehydration, metabolic abnormality, hyp o/hyperglycemia, electrolyte disturbance, anemia, hypoxia, cardiac sources, intracerebral event, toxicologic, neurologic, as well as other pathologies. IMPRESSION/MEDICAL DECISION MAKING: Patient presents with altered mentation. Blood work repeated here confirms evidence of acute renal failure with hyperkalemia. No severe leukocytosis noted with mild anemia. Patient is anticoagulated on Eliquis per records but has not been taking any morning meds. Patient not significantly hypoxic but transition to BiPAP due to an ABG that shows evidence of acidosis and hypercarbia. Patient has alteration of mentation. Discussed quickly upon arrival with patient's daughter Martha patient's wishes. Patient is DNR/DNI. Patient is evidence of gross fluid overload and evidence of erythema the bilateral lower legs left greater than right with her anticoagulation status have more concern for infection rather than VTE. Empirically ordered broad spectrum coverage with Dapto and Zosyn. Given some calcium with a hyperkalemia. Patient has a wide- complex on her EKG although this does appear to be a bit more chronic. Patient Covid and flu testing returns negative. Patient's blood pressure has been tenuous. Again mentation is borderline for even BiPAP. Occasionally she may answer question or 2 but certainly is not conversant. Some abdominal swelling but no significant abdominal tenderness from what I can tell. Long discussion with patient's daughter regarding goals of care and how aggressive her mother would like us to be. Patient appears to be in acute renal failure and shock with evidence of fluid overload with a component of heart failure and hypercarbia. In shared decision-making again the patient's daughter relays in discussion with other family members patient would not want aggressive measures such as CPR or intubation. She also relates that she would not want aggressive medications such as vasoactive medications or dialysis after discussion of the what appears to be poor prognosis. Hospitalist team made aware and will evaluate/care for further. DIAGNOSIS: Acute renal failure, altered mental status, hypercarbic respiratory failure, shock, CHF, fluid overload DISPOSITION: Hospitalist will evaluate Daughter at bedside and is in agreement the plan to move towards comfort. Critical Care I have personally spent 48 minutes of critical care time in the direct management of this patient. This includes bedside care, interpretation of di agnostic studies, and testing, discussion with consultants, patient, and family members, and other required patient management activities. These 48 minutes is in excess of all separately billable procedures. Past Med/Surg History Medical History (Updated 10/06/21 @ 14:23 by Dong Alvarado M.D.) Abdominal tenderness, LLQ (left lower quadrant) Abnormal blood chemistry Abnormal electrocardiogram Abrasion of right forearm Acute combined systolic and diastolic HF (heart failure), NYHA class 3 Acute diastolic congestive heart failure Acute dyspnea Acute sinusitis Anxiety Aortic stenosis Atrial fibrillation with rapid ventricular response Cellulitis Chronic combined systolic and diastolic congestive heart failure Chronic kidney disease, stage III (moderate) Chronic rhinitis Closed head injury Congestive heart failure Contusion of left knee Contusion of left upper extremity COPD (chronic obstructive pulmonary disease) COPD exacerbation Coronary artery disease Cough Depression Diabetes mellitus type 2, uncontrolled DMII (diabetes mellitus, type 2) Dyspnea Edema Exposure to viral disease Fall Fall from slip, trip, or stumble Fatigue Forearm abrasion Hyperlipidemia Hypertension Impaired fasting glucose Knee pain, left Knee pain, right Morbid obesity with BMI of 50.0-59.9, adult Nasal ulcer Nocturia Obstructive sleep apnea Respiratory failure Restless legs syndrome Sleep disturbances Solitary pulmonary nodule Synovial cyst of popliteal space [[place]], right knee Tracheobronchitis Urinary tract infection Venous stasis of both lower extremities Venous stasis ulcer with edema of lower leg Weight loss Wheezing Surgical History S/P ANITHA (total abdominal hysterectomy) Family History Father Lung cancer Mother Lung cancer Brother Coronary heart disease Hx of CABG Denies family history of Myocardial infarction Social History Smoking Status: Unknown if ever smoked Second Hand Exposure: No; Hx Alcohol Use: No Hx Substance Use: No Preferred Language: Mauritian Communication Ability: Effective Clinical Documentation Consultant Required: No Beliefs That Will Affect Care: None marital status: Current [facility]uation[facility] Current Living Situation Comment: At [facility], own appartment in [facility] [place] current occupational status: retired Feels Safe at Home: Yes caffeine: No Assistive Devices: Glasses, Oxygen - Continuous and Walker Allergies Allergies Allergy/AdvReac Type Severity Reaction Status Date / Time iodine Allergy Severe SHORTNESS Verified 10/06/21 13:13 OF BREATH Home Meds Home Medications Medication Instructions Recorded Confirmed ascorbic acid (vitamin C) 500 mg 500 mg PO QAM tab 05/13/19 10/06/21 tablet ipratropium 0.5 mg-albuterol 3 mg 3 ml INHALATION .EVERY 2 HOURS PRN 05/28/19 10/06/21 (2.5 mg base)/3 mL nebulization soln acetaminophen 325 mg capsule 650 mg PO Q6H PRN MDD 3 GRAMS/24 06/13/19 10/06/21 HOURS. citalopram 10 mg tablet 5 mg PO QAM 09/05/19 10/06/21 docusate sodium 100 mg capsule 200 mg PO HS 09/05/19 10/06/21 furosemide 40 mg tablet 40 mg PO BID 09/05/19 10/06/21 glimepiride 2 mg tablet 2 mg PO QPM 09/05/19 10/06/21 insulin detemir U-100 100 unit/mL 45 unit SUBCUT QAM 09/05/19 10/06/21 subcutaneous solution (Levemir U-100 Insulin) lorazepam 0.5 mg tablet 0.5 mg PO TID 09/05/19 10/06/21 simvastatin 20 mg tablet 20 mg PO HS 09/05/19 10/06/21 vit C 250 mg-vit E 90 mg-zinc 40 1 tab PO BIDM 09/05/19 10/06/21 mg-copper 1 [id number] capsule (PreserVision AREDS-2) fluticasone fur. 200 mcg-umeclid 1 ea INHALATION DAILY 03/08/21 10/06/21 62.5 mcg-vilant 25 mcg inhalat.powder (Trelegy Ellipta) glimepiride 2 mg tablet 4 mg PO QAM 03/08/21 10/06/21 insulin aspart U-100 100 unit/mL 5 unit SUBCUT DAILY 03/08/21 10/06/21 subcutaneous solution (Novolog U-100 Insulin aspart) metolazone 2.5 mg tablet 2.5 mg PO DAILY 03/08/21 10/06/21 oxycodone 10 mg tablet,crush 10 mg PO Q12 03/08/21 10/06/21 resistant,extended release 12 hr potassium chloride 20 mEq 40 meq PO BID 03/08/21 10/06/21 tablet,extended release(part/cryst) pramipexole 0.5 mg tablet 0.5 mg PO HS 03/08/21 10/06/21 prednisone 10 mg tablet 10 mg PO UD 03/08/21 10/06/21 cephalexin 500 mg capsule 500 mg PO BID 10/06/21 10/06/21 morphine concentrate 100 mg/5 mL 30 mg PO DAILY 10/06/21 10/06/21 (20 mg/mL) oral solution oxycodone 5 mg capsule 0 mg PO DAILY 10/06/21 10/06/21 promethazine 25 mg/mL injection 0 mg IM DAILY 10/06/21 10/06/21 solution Previous Rx's Medication Instructions Recorded Oxygen Home #1 ea 06/05/19 BiPap Machine #1 ea 03/13/21 apixaban 2.5 mg tablet (Eliquis) 2.5 mg PO BID 30 Days #60 tab 03/14/21 metoprolol tartrate 25 mg tablet 75 mg PO BID 30 Days #180 tab 03/14/21 Results & Data (ED) Vital Signs Vital Signs - 24 hr 10/06/21 11:50 10/06/21 12:03 10/06/21 12:05 Temperature Temperature Source Pulse Rate 60 62 Pulse Rate from SpO2 Sensor Pulse Rhythm Regular Pulse Strength Normal Respiratory Rate 21 22 Respiratory Effort / Characteristics Short of Breath Respiratory Depth Shallow Shallow Respiratory Pattern Blood Pressure 138/103 H Blood Pressure Mean 114 Blood Pressure Position Lying Pulse Oximetry 95 95 Oxygen Delivery Method BiPAP BiPAP Fraction of Inspired Oxygen Sepsis Recent Fever Within 48 Hours No Sepsis New/Unexplained Change in Mental Status Yes Sepsis Action Taken by Nursing Physician Notified 10/06/21 12:10 10/06/21 12:15 10/06/21 12:27 Temperature 36.3 C L Temperature Source Rectal Pulse Rate 63 61 Pulse Rate from SpO2 Sensor 62 Pulse Rhythm Pulse Strength Respiratory Rate 24 19 Respiratory Effort / Characteristics Spontaneous Respiratory Depth Shallow Respiratory Pattern Regular Blood Pressure 97/59 L Blood Pressure Mean 71 Blood Pressure Position Pulse Oximetry 95 95 Oxygen Delivery Method Fraction of Inspired Oxygen 40 Sepsis Recent Fever Within 48 Hours Sepsis New/Unexplained Change in Mental Status Sepsis Action Taken by Nursing 10/06/21 12:28 10/06/21 12:30 10/06/21 12:39 Temperature Temperature Source Pulse Rate 78 59 L Pulse Rate from SpO2 Sensor 59 L Pulse Rhythm Pulse Strength Respiratory Rate 19 21 Respiratory Effort / Characteristics Respiratory Depth Respiratory Pattern Blood Pressure 62/48 L 77/44 L Blood Pressure Mean 52 55 Blood Pressure Position Pulse Oximetry 94 96 Oxygen Delivery Method BiPAP BiPAP Fraction of Inspired Oxygen 30 Sepsis Recent Fever Within 48 Hours Sepsis New/Unexplained Change in Mental Status Sepsis Action Taken by Nursing 10/06/21 12:44 10/06/21 12:45 10/06/21 12:46 Temperature Temperature Source Pulse Rate 61 60 62 Pulse Rate from SpO2 Sensor 60 60 61 Pulse Rhythm Pulse Strength Respiratory Rate 18 19 20 Respiratory Effort / Characteristics Respiratory Depth Respiratory Pattern Blood Pressure 99/57 L 98/55 L Blood Pressure Mean 71 69 Blood Pressure Position Pulse Oximetry 95 91 92 Oxygen Delivery Method BiPAP BiPAP BiPAP Fraction of Inspired Oxygen Sepsis Recent Fever Within 48 Hours Sepsis New/Unexplained Change in Mental Status Sepsis Action Taken by Nursing 10/06/21 13:00 10/06/21 13:19 Temperature Temperature Source Pulse Rate 61 Pulse Rate from SpO2 Sensor 61 Pulse Rhythm Pulse Strength Respiratory Rate 16 Respiratory Effort / Characteristics Respiratory Depth Respiratory Pattern Blood Pressure 103/43 L Blood Pressure Mean 63 Blood Pressure Position Pulse Oximetry 95 Oxygen Delivery Method BiPAP Fraction of Inspired Oxygen Sepsis Recent Fever Within 48 Hours Sepsis New/Unexplained Change in Mental Status Sepsis Action Taken by Nursing Laboratory Data Result diagrams: 10/06/21 12:00 10/06/21 12:00 Lab Results 10/06/21 10/06/21 10/06/21 Range/Units 12:00 12:00 12:00 WBC 8.70 (4.8-10.8) K/uL RBC 3.37 L (4.2-5.4) M/uL Hgb 9.8 L (12.0-16.0) g/dL Hct 33.7 L (37-47) % MCV 100.0 (80-100) fL MCH 29.1 (25-34) pg MCHC 29.1 L (32-36) g/dL RDW Std Deviation 58.8 H (36.4-46.3) fL RDW Coeff of Jade 16.0 H (11.5-14.5) % Plt Count 151 (130-400) K/uL MPV 11.6 H (7.4-10.4) fL Immature Gran % (Auto) 0.2 % Neut % (Auto) 78.3 % Lymph % (Auto) 11.7 % [place] % (Auto) 8.7 % Eos % (Auto) 1.0 % Baso % (Auto) 0.1 % Neut # (Auto) 6.80 H (1.4-6.5) K/uL Lymph # (Auto) 1.02 L (1.2-3.4) K/uL [place] # (Auto) 0.76 H (0.11-0.59) K/uL Eos # (Auto) 0.09 (0-0.5) K/uL Baso # (Auto) 0.01 (0-0.2) K/uL Immature Gran # (Auto) 0.02 (0.00-0.02) K/uL POC pH (7.35-7.45) POC pCO2 (35-46) mmHg POC pO2 (80-95) mmHg POC HCO3 (19-24) cary/L POC Total CO2 (24-31) mmol/L POC Base Excess (-9-1.8) cary/L POC ABG O2 Sat (90-95) % Sodium 132 L (136-145) mmol/L Potassium 6.4 H* (3.5-5.1) mmol/L Chloride 93 L (98-107) mmol/L Carbon Dioxide 32 (21-32) mmol/L Anion Gap 7.0 (3-11) BUN 96 H (7-18) mg/dl Creatinine 6.75 H* (0.6-1.2) mg/dl Est Cr Clr Drug Dosing 8.4 ml/min Est GFR ( Amer) 6.0 ml/min Est GFR (Non-Af Amer) 5.1 ml/min BUN/Creatinine Ratio 14.3 (10-20) Glucose 98 (70-99) mg/dl Lactate 0.7 (0.4-2.0) mmol/L Calcium 7.9 L (8.5-10.1) mg/dl Magnesium 3.4 H (1.8-2.4) mg/dl Total Bilirubin 0.4 (0.2-1) mg/dl AST 17 (15-37) U/L ALT 19 (12-78) Alkaline Phosphatase 90 (45-117) U/L Troponin I < 0.015 (0-0.045) ng/ml NT-Pro-B Natriuret Pep 1312 (0-1800) pg/ml Total Protein 7.3 (6.4-8.2) gm/dl Albumin 2.9 L (3.4-5.0) gm/dl Globulin 4.4 H (2.5-4.0) gm/dl Albumin/Globulin Ratio 0.7 L (0.9-2) Procalcitonin (0-0.5) ng/ml TSH 0.865 (0.300-4.500) uIu/ml SARS-CoV-2 (PCR) (Negative) Influenza Type A (PCR) (Neg) Influenza Type B (PCR) (Neg) RSV (RT-PCR) (Neg) 10/06/21 10/06/21 10/06/21 Range/Units 12:00 12:00 12:25 WBC (4.8-10.8) K/uL RBC (4.2-5.4) M/uL Hgb (12.0-16.0) g/dL Hct (37-47) % MCV (80-100) fL MCH (25-34) pg MCHC (32-36) g/dL RDW Std Deviation (36.4-46.3) fL RDW Coeff of Jade (11.5-14.5) % Plt Count (130-400) K/uL MPV (7.4-10.4) fL Immature Gran % (Auto) % Neut % (Auto) % Lymph % (Auto) % [place] % (Auto) % Eos % (Auto) % Baso % (Auto) % Neut # (Auto) (1.4-6.5) K/uL Lymph # (Auto) (1.2-3.4) K/uL [place] # (Auto) (0.11-0.59) K/uL Eos # (Auto) (0-0.5) K/uL Baso # (Auto) (0-0.2) K/uL Immature Gran # (Auto) (0.00-0.02) K/uL POC pH 7.22 L (7.35-7.45) POC pCO2 80 H (35-46) mmHg POC pO2 141 H (80-95) mmHg POC HCO3 32 H (19-24) cary/L POC Total CO2 35 H (24-31) mmol/L POC Base Excess 5.0 H (-9-1.8) cary/L POC ABG O2 Sat 98.0 H (90-95) % Sodium (136-145) mmol/L Potassium (3.5-5.1) mmol/L Chloride (98-107) mmol/L Carbon Dioxide (21-32) mmol/L Anion Gap (3-11) BUN (7-18) mg/dl Creatinine (0.6-1.2) mg/dl Est Cr Clr Drug Dosing ml/min Est GFR ( Amer) ml/min Est GFR (Non-Af Amer) ml/min BUN/Creatinine Ratio (10-20) Glucose (70-99) mg/dl Lactate (0.4-2.0) mmol/L Calcium (8.5-10.1) mg/dl Magnesium (1.8-2.4) mg/dl Total Bilirubin (0.2-1) mg/dl AST (15-37) U/L ALT (12-78) Alkaline Phosphatase (45-117) U/L Troponin I (0-0.045) ng/ml NT-Pro-B Natriuret Pep (0-1800) pg/ml Total Protein (6.4-8.2) gm/dl Albumin (3.4-5.0) gm/dl Globulin (2.5-4.0) gm/dl Albumin/Globulin Ratio (0.9-2) Procalcitonin 0.27 (0-0.5) ng/ml TSH (0.300-4.500) uIu/ml SARS-CoV-2 (PCR) NEGATIVE (Negative) Influenza Type A (PCR) Negative (Neg) Influenza Type B (PCR) Negative (Neg) RSV (RT-PCR) Negative (Neg) Administered Medications Lorazepam (Ativan) 0.5 mg in 1 mls @ 1 mls/min IV Q4H PRN PRN Reason: Anxiety/Agitation Stop: 11/05/21 13:29 Last Admin: 10/06/21 13:44 Dose: 1 mls/min Documented by: [id number] Morphine Sulfate (Morphine Sulfate 2 Mg/Ml Carp) 2 mg IV Q4H PRN PRN Reason: Pain or Respiratory Distress Stop: 10/20/21 13:29 Last Admin: 10/06/21 13:45 Dose: 2 mg Documented by: [id number] Discontinued Medications Calcium Gluconate () 1,000 mg in 60 mls @ 240 mls/hr IV NOW STA Stop: 10/06/21 12:18 Last Infusion: 10/06/21 12:57 Dose: 0 mls/hr Documented by: [id number] Admin: 10/06/21 12:36 Dose: 240 mls/hr Documented by: [id number] Calcium Gluconate () 1,000 mg in 60 mls @ 240 mls/hr IV NOW STA Stop: 10/06/21 12:19 Last Infusion: 10/06/21 12:57 Dose: 0 mls/hr Documented by: [id number] Admin: 10/06/21 12:40 Dose: 240 mls/hr Documented by: [id number] Piperacillin Sod/Tazobactam Sod (Zosyn) 4.5 gm in 120 mls @ 240 mls/hr IV NOW STA Stop: 10/06/21 13:08 Last Infusion: 10/06/21 13:18 Dose: 0 mls/hr Documented by: [id number] Admin: 10/06/21 12:45 Dose: 240 mls/hr Documented by: [id number] Daptomycin 500 mg/ Syringe 10 mls @ 0 mls/min IV NOW STA; Protocol Stop: 10/06/21 12:42 Last Admin: 10/06/21 13:21 Dose: Not Given Documented by: [id number] Discharge Plan Visit Data Chief Complaint: Shortness of Breath/Dyspnea Stated Complaint: ABNORMAL LABS, CONFUSION ED Provider: Dong Alvarado Discharge Problem: AMS (altered mental status), Respiratory failure, CHF (congestive heart failure), Shock, Acute renal failure, Hyperkalemia Patient Disposition: Admitted As Inpatient Forms Stand Alone Forms: [facility] Prescriptions Prescriptions: No Action ascorbic acid (vitamin C) 500 mg tablet 500 mg PO QAM RF: 0 acetaminophen 325 mg capsule 650 mg PO Q6H MDD 3 GRAMS/24 HOURS. PRN (Reason: Fever Or Pain) RF: 0 ipratropium-albuterol 0.5 mg-3 mg(2.5 mg base)/3 mL solution for nebulization 3 ml inhalation .EVERY 2 HOURS PRN (Reason: Shortness Of Breath Or Wheezing) RF: 0 (DME) Oxygen Home Liters Per Minute See Dose Instructions .ROUTE .MEDSUPPLY Qty: 1 RF: 0 docusate sodium 100 mg Capsule 200 mg PO HS RF: 0 Levemir U-100 Insulin 100 unit/mL Solution 45 unit SUBCUT QAM RF: 0 furosemide 40 mg tablet 40 mg PO BID RF: 0 citalopram 10 mg tablet 5 mg PO QAM RF: 0 glimepiride 2 mg tablet 2 mg PO QPM RF: 0 lorazepam 0.5 mg tablet 0.5 mg PO TID RF: 0 simvastatin 20 mg tablet 20 mg PO HS RF: 0 PreserVision AREDS-2 [phone] re-lpiw-zw-mg capsule 1 tab PO BIDM RF: 0 glimepiride 2 mg tablet 4 mg PO QAM RF: 0 Trelegy Ellipta 200-62.5-25 mcg blister with device 1 ea INHALATION DAILY RF: 0 pramipexole 0.5 mg tablet 0.5 mg PO HS RF: 0 potassium chloride 20 mEq tablet,ER particles/crystals 40 meq PO BID RF: 0 prednisone 10 mg tablet 10 mg PO UD RF: 0 metolazone 2.5 mg tablet 2.5 mg PO DAILY RF: 0 insulin aspart U-100 [Novolog U-100 Insulin aspart] 100 unit/mL solution 5 unit subcut DAILY RF: 0 oxycodone 10 mg tablet,oral only,ext.rel.12 hr 10 mg PO Q12 RF: 0 (DME) BiPap Machine Misc 1 ea .Route HS Qty: 1 RF: 0 metoprolol tartrate 25 mg Tablet 75 mg PO BID 30 Days Qty: 180 RF: 3 Eliquis 2.5 mg Tablet 2.5 mg PO BID 30 Days Qty: 60 RF: 3 morphine concentrate 100 mg/5 mL (20 mg/mL) solution 30 mg PO DAILY RF: 0 cephalexin 500 mg capsule 500 mg PO BID RF: 0 promethazine 25 mg/mL solution 0 mg IM DAILY RF: 0 oxycodone 5 mg capsule 0 mg PO DAILY RF: 0 Referrals Referrals: [facility] [Primary Care Provider] -
[2021-10-06] MEDS ORDERED: LORazepam 0.5 MG TAB PO PRN (13:30)
[2021-10-06] MEDS: LORazepam 0.5 MG/1 ML VIAL IV PRN ×2 (13:44→19:25)
[2021-10-06] MEDS: MoRPHine SULFATE 2 MG/ML CARP IV PRN ×3 (13:45→22:28)
--- NOTE | 2021-10-06 13:58 | History & Physical Report ---
Date of Service October 06, 2021 Assessment & Plan (1) Shock: Plan: Virginia Rawls is an 86-year-old female with a past medical history of CHF, A. 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 Comfort Measures Only - Presented with shock, acute renal failure, hyperkalemia, and suspected acute on chronic heart failure. Goals of care as below Discontinue labs DNR/DNI No additional IV fluids. Discontinued Zosyn/daptomycin, no additional antibiotics TOLL LINE INSPECTOR order set morphine/lorazepam for pain and distress ordered Patient is chronically ill, is not stable enough at this time for transfer home to home hospice. Will admit on TOLL LINE INSPECTOR for further care. If she were to clinically stabilize, may pursue comfort/hospice home goals Goals Discussion: Patient appeared critically ill and toxic at the bedside, and is seen at the bedside with her daughter who is her surrogate decision-maker. Patient is in contact with the daughter, the patient's has dementia and daughter is the surrogate for them both. Discussed various treatment options with patient and daughter at bedside. Daughter reports that her mother has been declining and in pain for many months, and that they have been considering comfort oriented goals of care/hospice. she reports that her mother would not want to be in pain, and would not want intubation, CPR, or dialysis. Discussed that with her hypotension and kidney failure which is likely from a infectious/septic origin she could be treated with antibiotics, pressor medications and fluid although fluids unfortunately may limited by her acute kidney failure, and pressor medications would require transfer to the ICU. Family again confirms that the patient would not want aggressive measures or transfer to the ICU. Discussed options for continuing current care with fluids and antibiotics while deferring escalation of care versus transitioning to comfort goals of care only. Daughter and family report that they would like to pursue comfort measures only at this time, and do not wish for additional antibiotics/fluids/resuscitative efforts. Discussed we will discontinue labs, IV draws, vital measurement, and other medications and focus on treating pain/distress with medications as needed. Family expresses appreciation of this. Patient is acutely ill, and not stable for discharge to home hospice at this time and will be admitted on TOLL LINE INSPECTOR orders. (2) Acute renal failure: Plan: - TOLL LINE INSPECTOR as above (3) Hyperkalemia: Plan: - TOLL LINE INSPECTOR as above History of Present Illness Primary Care Provider: [facility] Virginia Rawls is an 86-year-old female with a past medical history of CHF, A. 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 Patient seen at the bedside, with daughter and ER provider at bedside. Patient critically ill-appearing, both hypotensive and with coarse respiration and lower extremity edema /overt volume overload, and has received initial tx/antibiotics/calcium gluconate for hyperkalemia stabilization. Patient briefly opens eyes but does not follow commands and moans and appears in pain. On ER assessment she has a pH 7.2/PCO2 80/HCO3 32, is hyperkalemic to 6.4, hypotensive to 60s/40s without tachycardia, and has had an acute increase in creatinine from 1.6 last month to 6.51 which despite initial ER care up trended to 6.75. Covid/flu negative, patient with chronic swelling and edema of the legs with left lower extremity erythema/tenderness. Patient appeared critically ill and toxic at the bedside, and is seen at the bedside with her daughter who is her surrogate decision-maker. Patient is in contact with the daughter, the patient's has dementia and daughter is the surrogate for them both. Discussed various treatment options with patient and daughter Martha at bedside, and with son on later arrival. Martha reports that her mother has been declining and in pain for many months, and that they have considered comfort oriented goals previously. She reports that her mother would not want to be in pain, and would not want intubation, CPR, or dialysis. Discussed that with her hypotension and kidney failure which is likely from a infectious/septic origin she could be treated with antibiotics, pressor medications and fluid although fluids unfortunately may limited by her acute kidney failure, and pressor medications would require transfer to the ICU. Family again confirms that the patient would not want aggressive measures or transfer to the ICU. Discussed continuing current care with fluids and antibiotics while deferring escalation of care versus transitioning to comfort goals of care only. Daughter and family report that they would like to pursue comfort measures only at this time, and do not wish for additional antibiotics/fluids/resuscitative efforts. Discussed we will discontinue labs, IV draws, vital measurement, and other medications and focus on treating pain/distress with medications as needed. Family expresses appreciation of this. Patient is acutely ill, and not stable for discharge to home hospice at this time and will be admitted on TOLL LINE INSPECTOR orders. Medical History: Reviewed in EMR Medications: Reviewed Surgical History: Reviewed in EMR Allergies: Reviewed in EMR Social History: Reviewed in EMR Code Status: See above, TOLL LINE INSPECTOR Allergies Allergy/AdvReac Type Severity Reaction Status Date / Time iodine Allergy Severe SHORTNESS Verified 10/06/21 13:13 OF BREATH Home Medications Medication Instructions Recorded Confirmed Type ascorbic acid (vitamin C) 500 mg 500 mg PO QAM tab 05/13/19 10/06/21 History tablet ipratropium 0.5 mg-albuterol 3 mg 3 ml INHALATION .EVERY 2 HOURS PRN 05/28/19 10/06/21 History (2.5 mg base)/3 mL nebulization soln Oxygen Home #1 ea 06/05/19 09/08/21 Rx acetaminophen 325 mg capsule 650 mg PO Q6H PRN MDD 3 GRAMS/24 06/13/19 10/06/21 History HOURS. citalopram 10 mg tablet 5 mg PO QAM 09/05/19 10/06/21 History docusate sodium 100 mg capsule 200 mg PO HS 09/05/19 10/06/21 History furosemide 40 mg tablet 40 mg PO BID 09/05/19 10/06/21 History glimepiride 2 mg tablet 2 mg PO QPM 09/05/19 10/06/21 History insulin detemir U-100 100 unit/mL 45 unit SUBCUT QAM 09/05/19 10/06/21 History subcutaneous solution (Levemir U-100 Insulin) lorazepam 0.5 mg tablet 0.5 mg PO TID 09/05/19 10/06/21 History simvastatin 20 mg tablet 20 mg PO HS 09/05/19 10/06/21 History vit C 250 mg-vit E 90 mg-zinc 40 1 tab PO BIDM 09/05/19 10/06/21 History mg-copper 1 fb-[id number] capsule (PreserVision AREDS-2) fluticasone fur. 200 mcg-umeclid 1 ea INHALATION DAILY 03/08/21 10/06/21 History 62.5 mcg-vilant 25 mcg inhalat.powder (Trelegy Ellipta) glimepiride 2 mg tablet 4 mg PO QAM 03/08/21 10/06/21 History insulin aspart U-100 100 unit/mL 5 unit SUBCUT DAILY 03/08/21 10/06/21 History subcutaneous solution (Novolog U-100 Insulin aspart) metolazone 2.5 mg tablet 2.5 mg PO DAILY 03/08/21 10/06/21 History oxycodone 10 mg tablet,crush 10 mg PO Q12 03/08/21 10/06/21 History resistant,extended release 12 hr potassium chloride 20 mEq 40 meq PO BID 03/08/21 10/06/21 History tablet,extended release(part/cryst) pramipexole 0.5 mg tablet 0.5 mg PO HS 03/08/21 10/06/21 History prednisone 10 mg tablet 10 mg PO UD 03/08/21 10/06/21 History BiPap Machine #1 ea 03/13/21 09/08/21 Rx apixaban 2.5 mg tablet (Eliquis) 2.5 mg PO BID 30 Days #60 tab 03/14/21 10/06/21 Rx metoprolol tartrate 25 mg tablet 75 mg PO BID 30 Days #180 tab 03/14/21 10/06/21 Rx cephalexin 500 mg capsule 500 mg PO BID 10/06/21 10/06/21 History morphine concentrate 100 mg/5 mL 30 mg PO DAILY 10/06/21 10/06/21 History (20 mg/mL) oral solution oxycodone 5 mg capsule 0 mg PO DAILY 10/06/21 10/06/21 History promethazine 25 mg/mL injection 0 mg IM DAILY 10/06/21 10/06/21 History solution Past Med/Surg History Medical History Abdominal tenderness, LLQ (left lower quadrant) Abnormal blood chemistry Abnormal electrocardiogram Abrasion of right forearm Acute combined systolic and diastolic HF (heart failure), NYHA class 3 Acute diastolic congestive heart failure Acute dyspnea Acute sinusitis Anxiety Aortic stenosis Atrial fibrillation with rapid ventricular response Cellulitis Chronic combined systolic and diastolic congestive heart failure Chronic kidney disease, stage III (moderate) Chronic rhinitis Closed head injury Congestive heart failure Contusion of left knee Contusion of left upper extremity COPD (chronic obstructive pulmonary disease) COPD exacerbation Coronary artery disease Cough Depression Diabetes mellitus type 2, uncontrolled DMII (diabetes mellitus, type 2) Dyspnea Edema Exposure to viral disease Fall Fall from slip, trip, or stumble Fatigue Forearm abrasion Hyperlipidemia Hypertension Impaired fasting glucose Knee pain, left Knee pain, right Morbid obesity with BMI of 50.0-59.9, adult Nasal ulcer Nocturia Obstructive sleep apnea Respiratory failure Restless legs syndrome Sleep disturbances Solitary pulmonary nodule Synovial cyst of popliteal space [Castrejon], right knee Tracheobronchitis Urinary tract infection Venous stasis of both lower extremities Venous stasis ulcer with edema of lower leg Weight loss Wheezing Surgical History S/P ANITHA (total abdominal hysterectomy) Family History Father Lung cancer Mother Lung cancer Brother Coronary heart disease Hx of CABG Denies family history of Myocardial infarction Social History Smoking Status: Unknown if ever smoked Second Hand Exposure: No; Hx Alcohol Use: No Hx Substance Use: No Preferred Language: Belarusian Communication Ability: Effective Employment Advisor Required: No Beliefs That Will Affect Care: None marital status: Current Living Situation: Long Term Current Living Situation Comment: At [facility], own appartment in assisted bl current occupational status: retired Feels Safe at Home: Yes caffeine: No Assistive Devices: Glasses, Oxygen - Continuous and Walker Review of Systems Review of Systems: Unobtainable due to cognitive status Physical Exam Physical Exam: General: Opens eyes transiently to voice, does not follow commands. Moans and appears in pain. HEENT: Atraumatic, normocephalic. Pupils reactive to light. Abscess acuity/hearing Pulm: Diminished, coarse, on BiPAP. Symmetrical chest rise. Appears in distress. Cardiac: RRR Abdominal: BS, soft, nonrigid Extremities: Bilateral lower extremity edema, venous stasis basis with some clear fluid weeping, left lower leg with erythema/warmth, right lower leg without erythema. PT pulses difficult to assess. Results & Data Results & Data ([facility]) Vital Signs (Past 12 Hours) Vital Signs Temp Pulse Resp BP Pulse Ox 10/06/21 13:00 61 16 95 10/06/21 12:46 62 20 98/55 L 92 10/06/21 12:45 60 19 91 10/06/21 12:44 61 18 99/57 L 95 10/06/21 12:39 59 L 21 77/44 L 96 10/06/21 12:30 78 19 94 10/06/21 12:28 62/48 L 10/06/21 12:27 36.3 C L 10/06/21 12:15 61 19 97/59 L 95 10/06/21 12:10 63 24 95 10/06/21 12:03 62 22 95 10/06/21 11:50 60 21 138/103 H 95 Code Status & VTE Plan VTE Prophylaxis Plan VTE Prophylaxis will be ordered: No PG Care Time/CCT Total # of Minutes Spent Total Time Spent with Patient: Total time spent is greater than 50% in coordination of care (as documented) at patient's floor/unit and/or counseling patient: Coding Level of Care Code 16191 Initial Inpt Care Lvl 3 Diagnoses Shock R57.9 Acute renal failure N17.9 Hyperkalemia E87.5
[2021-10-06] MEDS ORDERED: ONDANSETRON INJ 2 MG/ML 2 ML VIAL IV PRN (16:21)
[2021-10-06] MEDS ORDERED: GLYCOPYRROLATE 0.2 MG/ML VIAL IV PRN (16:21)
[2021-10-06] MEDS ORDERED: HYOSCYAMINE SULFATE 0.125 MG TAB SL PRN (16:21)
[2021-10-06] MEDS ORDERED: ONDANSETRON 4 MG OD TAB SL PRN (16:21)
--- NOTE | 2021-10-06 18:24 | Electrocardiogram Report ---
Test Reason : Blood Pressure : / mmHG Vent. Rate : 064 BPM Atrial Rate : 064 BPM P-R Int : 208 ms QRS Dur : 148 ms QT Int : 454 ms P-R-T Axes : 075 -40 114 degrees QTc Int : 468 ms Normal sinus rhythm with sinus arrhythmia 1st degree AV block Left axis deviation Left bundle branch block Abnormal ECG When compared with ECG of 08-MAR-2021 12:21, Significant changes have occurred Confirmed by Jamie Ortega ([id number]) on 10/06/2021 6:24:10 PM Referred By: Confirmed By:Joshua Ortega
--- NOTE | 2021-10-06 18:25 | Electrocardiogram Report ---
Test Reason : Blood Pressure : / mmHG Vent. Rate : 060 BPM Atrial Rate : 060 BPM P-R Int : 224 ms QRS Dur : 142 ms QT Int : 446 ms P-R-T Axes : 062 -53 107 degrees QTc Int : 446 ms Sinus rhythm with sinus arrhythmia with 1st degree A-V block Left axis deviation Left bundle branch block Abnormal ECG When compared with ECG of 06-OCT-2021 11:48, (unconfirmed) No significant change was found Confirmed by Jamie Ortega ([id number]) on 10/06/2021 6:25:00 PM Referred By: [facility] Confirmed By:Joshua Ortega
[2021-10-06] MEDS: MoRPHine SULFATE 5 MG/0.25 ML UDP PO PRN (20:44)
[2021-10-07] MEDS: MoRPHine SULFATE 5 MG/0.25 ML UDP PO PRN ×2 (01:53→11:44)
[2021-10-07] MEDS: LORazepam 0.5 MG/1 ML VIAL IV PRN (12:49)
[2021-10-07] MEDS ORDERED: ATROPINE SULFATE 1% OP SOLN 5 ML BTL OP PRN (13:02)
[2021-10-07] MEDS ORDERED: MoRPHine SULFATE 5 MG/0.25 ML UDP PO PRN (13:03)
--- NOTE | 2021-10-07 13:51 | Death Pronouncement Note ---
Date of Service October 07, 2021 Pronouncement Note Admission Date Admission Date: October 06, 2021 Date and Time of Date of : 10/07/21 Time of : 13:15 Contributing Factors (1) Shock: (2) Acute renal failure: (3) Hyperkalemia: Summary Additional details: Patient brought into the hospital due to altered mental status. She was found to be in acute renal failure with hyperkalemia and hypotensive. Suspect possibility of underlying infectious etiology vs cardiogenic. Family requested comfort measures only as patient has had a steady decline since her fractured arm. Patient was placed on comfort measures to address pain or discomfort. She ceased to breath and confirmation of no pulse made at 1315 on 10/07/2021. Additional Data Confirmation of : no pulse, no respirations, no heart sounds and pupils fixed and dilated Family: at bedside Attending/PCP notified?: Yes Attending physician: Ramirez Soto, DO Was code activated?: No Autopsy requested?: No
--- NOTE | 2021-10-07 13:52 | Discharge Summary ---
Date of Service October 07, 2021 Admission HPI Per Admitting Provider Virginia Rawls is an 86-year-old female with a past medical history of CHF, A. 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 Patient seen at the bedside, with daughter and ER provider at bedside. Patient critically ill-appearing, both hypotensive and with coarse respiration and lower extremity edema /overt volume overload, and has received initial tx/antibiotics/calcium gluconate for hyperkalemia stabilization. Patient briefly opens eyes but does not follow commands and moans and appears in pain. On ER assessment she has a pH 7.2/PCO2 80/HCO3 32, is hyperkalemic to 6.4, hypotensive to 60s/40s without tachycardia, and has had an acute increase in creatinine from 1.6 last month to 6.51 which despite initial ER care up trended to 6.75. Covid/flu negative, patient with chronic swelling and edema of the legs with left lower extremity erythema/tenderness. Patient appeared critically ill and toxic at the bedside, and is seen at the bedside with her daughter who is her surrogate decision-maker. Patient is in contact with the daughter, the patient's has dementia and daughter is the surrogate for them both. Discussed various treatment options with patient and daughter Martha at bedside, and with son on later arrival. Martha reports that her mother has been declining and in pain for many months, and that they have considered comfort oriented goals previously. She reports that her mother would not want to be in pain, and would not want intubation, CPR, or dialysis. Discussed that with her hypotension and kidney failure which is likely from a infectious/septic origin she could be treated with antibiotics, pressor medications and fluid a lthough fluids unfortunately may limited by her acute kidney failure, and pressor medications would require transfer to the ICU. Family again confirms that the patient would not want aggressive measures or transfer to the ICU. Discussed continuing current care with fluids and antibiotics while deferring escalation of care versus transitioning to comfort goals of care only. Daughter and family report that they would like to pursue comfort measures only at this time, and do not wish for additional antibiotics/fluids/resuscitative efforts. Discussed we will discontinue labs, IV draws, vital measurement, and other medications and focus on treating pain/distress with medications as needed. Family expresses appreciation of this. Patient is acutely ill, and not stable for discharge to home hospice at this time and will be admitted on ASSISTIVE TECHNOLOGY SPECIALIST orders. Medical History: Reviewed in EMR Medications: Reviewed Surgical History: Reviewed in EMR Allergies: Reviewed in EMR Social History: Reviewed in EMR Code Status: See above, ASSISTIVE TECHNOLOGY SPECIALIST Principal Diagnosis Circulatory Shock; CARROL with Hyperkalemia Discharge Exam Confirmed no pulse or respirations; pupils fixed and dilated Discharge Data Allergies Allergy/AdvReac Type Severity Reaction Status Date / Time iodine Allergy Severe SHORTNESS Verified 10/06/21 13:13 OF BREATH Consultations 10/06/21 13:18 ED Decision to Admit Stat 10/06/21 16:21 Consult Palliative Care Routine Hospital Course (1) Shock: Virginia Rawls is an 86-year-old female with a past medical history of CHF, A. 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 Comfort Measures Only - Presented with shock (infectious vs cardiogenic vs other), acute renal failure, hyperkalemia, and suspected acute on chronic heart failure. Goals of care as below Discontinue labs DNR/DNI No additional IV fluids. Discontinued Zosyn/daptomycin, no additional antibiotics ASSISTIVE TECHNOLOGY SPECIALIST order set morphine/lorazepam for pain and distress ordered Patient is chronically ill, is not stable enough at this time for transfer home to home hospice. Will admit on ASSISTIVE TECHNOLOGY SPECIALIST for further care Goals Discussion on admission: Patient appeared critically ill and toxic at the bedside, and is seen at the bedside with her daughter who is her surrogate decision-maker. Patient is in contact with the daughter, the patient's has dementia and daughter is the surrogate for them both. Discussed various treatment options with patient and daughter at bedside. Daughter reports that her mother has been declining and in pain for many months, and that they have been considering comfort oriented goals of care/hospice. she reports that her mother would not want to be in pain, and would not want intubation, CPR, or dialysis. Discussed that with her hypotension and kidney failure which is likely from a infectious/septic origin she could be treated with antibiotics, pressor medications and fluid although fluids unfortunately may limited by her acute kidney failure, and pressor medications would require transfer to the ICU. Family again confirms that the patient would not want aggressive measures or transfer to the ICU. Discussed options for continuing current care with fluids and antibiotics while deferring escalation of care versus transitioning to comfort goals of care only. Daughter and family report that they would like to pursue comfort measures only at this time, and do not wish for additional antibiotics/fluids/resuscitative efforts. Discussed we will discontinue labs, IV draws, vital measurement, and other medications and focus on treating pain/distress with medications as needed. Family expresses appreciation of this. Patient is acutely ill, and not stable for discharge to home hospice at this time and will be admitted on ASSISTIVE TECHNOLOGY SPECIALIST orders. Patient had comfort medications ordered and family at bedside. Family reports she was a lot more comfortable appearing today compared to yesterday. Patient ceased to breath and was found to be pulseless with no heart tones at 1315 on 10/07/2021. (2) Acute renal failure: - ASSISTIVE TECHNOLOGY SPECIALIST as above (3) Hyperkalemia: - ASSISTIVE TECHNOLOGY SPECIALIST as above Total Time Total Time Spent Total Time Spent (In Minutes): Spent greater than 30 minutes preparing patient for discharge. This includes discussion with patient/family, assessment, intervention, medication reconciliation, and coordination of care. Discharge Plan Discharge Items Patient Disposition: Discharge Diagnosis: Shock Suspect Infectious vs Cardiogenic; Acute Renal Failure; Hyperkalemia Other Date/Time: 10/07/21 13:15 Supervising Physician Co-Signing Physician Notes Attending note: agree with summary by Shatna Valencia PA-C. I reviewed the chart. patient presented with septic shock, severe sepsis, CARROL patient with dementia and gradual decline in health and function the past few months her daughter, MINA, made patient ASSISTIVE TECHNOLOGY SPECIALIST on admission patient peacefully on 10/07/21 Coding Level of Care Code D/C DAY MANAGEMENT >30 MINS Diagnoses Shock R57.9 Acute renal failure N17.9 Acute renal failure type: unspecified Hyperkalemia E87.5
== END 2021-10-07 15:30 | disposition expired ==
LOC: ED 11:41 → INTOOBSV 13:30 → EDINP 13:30 → SUATTDRO 13:30 → 3E 18:11